=== PATIENT | female | born 1945 | race Caucasian/White ===

== ENCOUNTER → 2020-01-10 10:30 | Outpatient (BNVA) | payer MEDICARE, SELFPAY | PROVIDERS: PCP Family Medicine; Referring Provider Family Medicine; Visit Provider Family Medicine | DX: I48.0 Paroxysmal atrial fibrillation (principal); Z51.81 Encounter for therapeutic drug level monitoring; Z79.01 Long term (current) use of anticoagulants | CPT/HCPCS: 85610; 99211 ==

== ENCOUNTER 2020-01-18 13:27 | Emergency (ER) | payer MEDICARE, SELFPAY ==
[2020-01-18 14:43] VITALS: BP 132/62; PULSE 77; RESP 16; TEMP 36.6; O2SAT 97; BMI 33.2
--- NOTE | 2020-01-18 16:50 | ED_ITS ---
HPI - URI/Sore Throat General Chief Complaint: Upper Respiratory Symptoms Stated Complaint: HEADACHE Time Seen by Provider: 01/18/20 16:50 Source: patient Mode of arrival: ambulatory History of Present Illness MD elicited complaint: cough and sinus pain Onset (ago): day(s) (4 days ) Consistency: progressively worsening Severity: moderate Associated symptoms: nasal congestion Related Data Previous Rx's Medication Instructions Recorded warfarin 2.5 mg tablet 2.5 mg PO DAILY #90 tab 01/10/20 doxycycline monohydrate 100 mg PO BID 7 Days #14 cap 01/18/20 Allergies Allergy/AdvReac Type Severity Reaction Status Date / Time ibuprofen [From MOTRIN] Allergy Intermediate HIVES Unverified 12/23/19 17:41 tramadol [TRAMADOL] Allergy Intermediate ITCHING, Unverified 12/23/19 17:41 hallucinations aspirin [Aspirin] Allergy Mild HIVES,RASH Unverified 12/23/19 17:41 iodine Allergy Unknown Unverified 05/17/19 00:00 metformin Allergy Unknown Verified 05/17/19 00:00 Jfdldwr-Zyp-Snw Reductase AdvReac Intermediate MYALGIA'S Unverified 12/23/19 17:41 Inhibitor [NJBUPAV-QAU-MNC REDUCTASE INHIBITOR] influenza virus vaccine, AdvReac Mild SHAKES Unverified 12/23/19 17:41 specific [Influenza Virus Vacc,Specific] Codeine Phosphate Allergy Unknown Uncoded 06/03/16 00:00 Motrin Allergy Unknown Uncoded 05/17/19 00:00 Review of Systems Review of Systems: Constitutional: No Weight loss, No Fever, No Chills, No Night Sweats, No Fatigue, No Malaise ENT/Mouth: No Hearing loss, No Ear Pain, + Nasal Congestion, + Sinus Pain, No Hoarseness, No sore throat, + Rhinorrhea, No Swallowing Difficulty Eyes: No Eye Pain, No Swelling, No Redness, No Foreign Body, No Discharge, No Vision Changes Cardiovascular: No Chest Pain, No SOB, No Dyspnea on Exertion, No Orthopnea, No Edema, No Palpitations Respiratory: No Cough, No Sputum, No Wheezing, No Smoke Exposure, No Dyspnea Gastrointestinal: No Nausea, No Vomiting, No Diarrhea, No Constipation, No abdominal Pain, No Hematochezia, No Melena Genitourinary: no irregular bleeding, No Dysuria, No Urinary Frequency, No Hematuria, No Urinary Incontinence, No Urgency, No Flank Pain, No Urinary Flow Changes, No Hesitancy Musculoskeletal: No joint pain, No Myalgias, No Joint Swelling Skin: No Skin Lesions, No rash Neuro: No Weakness, No Numbness, No Paresthesias, No Loss of Consciousness, No Dizziness, No Headache Psych: No Anxiety/Panic, No Depression, No SI/HI/AH/VH, No Social Issues, Heme/Lymph: No Bruising, No Bleeding,No Lymphadenopathy Endocrine: No Polyuria, No Polydipsia, No Temperature Intolerance Yes all other systems are reviewed and are negative [facility] Social History Social History Alcohol intake: never Smoking Status: Never smoker Use of substances other than those prescribed or required for medical reasons: No Advance Directives: No Advance Directives Information Provided: No Physical Exam Vital Signs: Vital Signs: Vital Signs Temp Pulse Resp BP Pulse Ox 01/18/20 18:20 16 01/18/20 18:17 96 01/18/20 18:14 72 15 151/64 H 97 01/18/20 18:00 16 01/18/20 14:43 97.9 F 77 16 132/62 97 Body Mass Index 33.2 Const: General: cooperative and healthy appearing; No acute distress or intoxicated appearing Nutritional Appearance: average body habitus Orientation/consciousness: patient oriented x3 HENMT: Head: Yes normal to inspection Ears: hearing grossly normal bilaterally Face and sinus: Yes sinus tenderness (Frontal and maxillary) Eyes: General: appearance normal, both eyes and all related structures Visual Ramírez: normal visual ramírez by confrontation Neck: Neck: Yes normal visual inspection and No tender Thyroid: Thyroid normal Chest: Chest palpation & inspection: normal inspection of the chest Resp: Effort & Inspection: normal respiratory effort Cardio: Jugular venous distension: no JVD GI: Inspection: Yes normal to inspection Percussion: Yes normal to percussion Auscultation: normal bowel sounds : General: Yes no CVA tenderness Back/Spine/Pelvis: Back: no CVA tenderness Skin: General skin exam: no rashes or lesions noted Neuro: General: patient oriented x3 Extrem: General: Yes normal to inspection MDM - URI/Sore Throat MDM Narrative Medical decision making narrative: Well nontoxic appearing. Hemodynamically stable. Labs stable. Chest x-ray negative. Differential Diagnosis Differential diagnosis: Likely upper respiratory infection, sinusitis, viral infection, bronchitis and influenza; Unlikely croup, otitis media and pharyngitis Medical Records Attestation: I reviewed the patient's medical records. Lab Data Attestation: I reviewed the patient's lab results. Result diagrams: 01/18/20 17:50 01/18/20 17:50 Labs: Lab Results 01/18/20 01/18/20 01/18/20 Range/Units 17:50 17:50 17:50 WBC 7.2 (4.8-10.8) X10*3/uL RBC 4.69 (4.20-5.50) X10*6/uL Hgb 12.6 (12.0-16.0) g/dl Hct 39.8 (37-47) % MCV 84.9 (80-98) fL MCH 26.9 L (27.0-33.0) pg MCHC 31.7 (31.0-35.0) g/dl RDW 15.3 (11.0-16.0) % Plt Count 298 (160-400) X10*3/uL MPV 8.2 L (9.4-12.3) fL Immature Gran % (Auto) 0.1 (0.0-0.4) % Neut % (Auto) 49.3 (45-73) % Lymph % (Auto) 38.4 (20-40) % [place] % (Auto) 9.5 (2-11) % Eos % (Auto) 2.1 (0-4) % Baso % (Auto) 0.6 (0-2) % Lymph # (Auto) 2.8 (1.2-4.9) X10*3/uL [place] # (Auto) 0.7 (0.1-1.2) X10*3/uL Eos # (Auto) 0.2 (0.0-0.4) X10*3/uL Baso # (Auto) 0.0 (0.0-0.2) X10*3/uL Abs Immat Gran (auto) 0.01 (0.00-0.03) X10*3/uL Absolute Neuts (auto) 3.6 (2.0-8.3) X10*3/uL Absolute Nucleated RBC 0.000 (0.0-0.012) X10*3/uL Nucleated RBC % (auto) 0.0 (0.0-0.2) /100WBC Sodium 137 (135-145) mmol/L Potassium 4.4 (3.3-5.1) mmol/l Chloride 101 (96-108) mmol/L Carbon Dioxide 29 (22-29) mmol/L Anion Gap 11 L (12-20) BUN 14 (9-16) mg/dL Creatinine 0.80 (0.5-1.4) mg/dL Estim Creat Clear Calc 56.6 Estimated GFR > 60 Random Glucose 147 H (60-115) mg/dL Calcium 9.0 (8.4-10.2) mg/dL Total Bilirubin 0.5 (0.0-1.0) mg/dL Direct Bilirubin < 0.2 (0.0-0.5) mg/dL AST 20 (5-31) U/L ALT 16 (0-31) U/L Alkaline Phosphatase 105 (39-117) U/L Troponin I High Sens < 3.5 (<3.5-17.0) ng/L Total Protein 7.0 (6.5-8.0) g/dL Albumin 4.0 (3.5-5.0) g/dL Coronavirus (PCR) (Negative) 01/18/20 Range/Units 17:50 WBC (4.8-10.8) X10*3/uL RBC (4.20-5.50) X10*6/uL Hgb (12.0-16.0) g/dl Hct (37-47) % MCV (80-98) fL MCH (27.0-33.0) pg MCHC (31.0-35.0) g/dl RDW (11.0-16.0) % Plt Count (160-400) X10*3/uL MPV (9.4-12.3) fL Immature Gran % (Auto) (0.0-0.4) % Neut % (Auto) (45-73) % Lymph % (Auto) (20-40) % [place] % (Auto) (2-11) % Eos % (Auto) (0-4) % Baso % (Auto) (0-2) % Lymph # (Auto) (1.2-4.9) X10*3/uL [place] # (Auto) (0.1-1.2) X10*3/uL Eos # (Auto) (0.0-0.4) X10*3/uL Baso # (Auto) (0.0-0.2) X10*3/uL Abs Immat Gran (auto) (0.00-0.03) X10*3/uL Absolute Neuts (auto) (2.0-8.3) X10*3/uL Absolute Nucleated RBC (0.0-0.012) X10*3/uL Nucleated RBC % (auto) (0.0-0.2) /100WBC Sodium (135-145) mmol/L Potassium (3.3-5.1) mmol/l Chloride (96-108) mmol/L Carbon Dioxide (22-29) mmol/L Anion Gap (12-20) BUN (9-16) mg/dL Creatinine (0.5-1.4) mg/dL Estim Creat Clear Calc Estimated GFR Random Glucose (60-115) mg/dL Calcium (8.4-10.2) mg/dL Total Bilirubin (0.0-1.0) mg/dL Direct Bilirubin (0.0-0.5) mg/dL AST (5-31) U/L ALT (0-31) U/L Alkaline Phosphatase (39-117) U/L Troponin I High Sens (<3.5-17.0) ng/L Total Protein (6.5-8.0) g/dL Albumin (3.5-5.0) g/dL Coronavirus (PCR) NEGATIVE (Negative) Imaging Data Chest x-ray: Radiologist's impression: [place] [id number] XRay Report Signed Patient: Clau Dougherty LMR#: [id number] : 5Acct:[id number] Age/Sex: 74 / FADM Date: 01/18/20 Loc: .ED Attending Dr: Ordering Physician: Raghu Paredes DIETETICS DIRECTOR Date of Service: 01/18/20 Procedure(s): XR chest 1V Accession Number(s): [id number] cc: Raghu Paredes DIETETICS DIRECTOR~ EXAMINATION: XR CHEST CLINICAL INFORMATION: Cough. COMPARISON: 12/15/2019 TECHNIQUE: Frontal view of the chest was obtained. FINDINGS: There is ill-defined opacity at the left lung base consistent with the prominent epicardial fat seen previously as well. No focal consolidation or mass. No pleural effusion or pneumothorax. Normal pulmonary vascularity. Cardiomediastinal silhouette unchanged. There are degenerative changes of the shoulders and spine. There is density adjacent the greater tuberosity of the right humerus which could reflect calcific tendinitis. IMPRESSION: No acute pulmonary disease. No significant change from recent prior study. Dictated By:PAOLO CHAPMAN MD Signed By:<Electronically signed by PAOLO CHAPMAN MD in OV>01/18/20 1729 DD/ 1653 TD/TT: Basket Bottom Machine Operator: NAYLA ECG Data Attestation: I personally reviewed and interpreted this ECG as follows: Discharge Plan Discharge Clinical Impression: Sinusitis Qualifiers: Sinusitis location: maxillary Chronicity: acute Recurrence: non-recurrent Qualified Code(s): J01.00 - Acute maxillary sinusitis, unspecified Patient Disposition: Home, Self-Care Instructions: Sinusitis (ED) Additional Instructions: Plenty of fluids Saltwater gargle Take medication prescribed Return if any concerns or worsening symptoms Otherwise follow up with primary care doctor in the next 3-7 days The blood work as well as her chest x-ray were negative Your COVID-19 test was negative as well Thank you Prescriptions: New doxycycline monohydrate 100 mg capsule 100 mg PO BID 7 Days Qty: 14 RF: 0 No Action warfarin 2.5 mg tablet 2.5 mg PO DAILY Qty: 90 RF: 0 Referrals: Karoline Burgos DO [Primary Care Provider] - 2 days
--- NOTE | 2020-01-18 16:53 | XR_ITS ---
EXAMINATION: XR CHEST CLINICAL INFORMATION: Cough. COMPARISON: 12/15/2019 TECHNIQUE: Frontal view of the chest was obtained. FINDINGS: There is ill-defined opacity at the left lung base consistent with the prominent epicardial fat seen previously as well. No focal consolidation or mass. No pleural effusion or pneumothorax. Normal pulmonary vascularity. Cardiomediastinal silhouette unchanged. There are degenerative changes of the shoulders and spine. There is density adjacent the greater tuberosity of the right humerus which could reflect calcific tendinitis. IMPRESSION: No acute pulmonary disease. No significant change from recent prior study.
[2020-01-18 17:55] LABS: MANUAL DIFF FLAG NO
[2020-01-18 17:56] LABS: Basophils Percent Auto 0.6 % (0-2); Eosinophils Absolute Auto 0.2 X10*3/uL (0.0-0.4); Eosinophils Percent Auto 2.1 % (0-4); Hematocrit 39.8 % (37-47); Hemoglobin 12.6 g/dl (12.0-16.0); Imm Gran Abs Auto 0.01 X10*3/uL (0.00-0.03); Imm Gran Pct Auto 0.1 % (0.0-0.4); Lymphocytes Absolute Auto 2.8 X10*3/uL (1.2-4.9); Lymphocytes Percent Auto 38.4 % (20-40); Mean Corpuscular HGB Conc 31.7 g/dl (31.0-35.0); Mean Corpuscular Hemoglobin 26.9 pg (27.0-33.0); Mean Corpuscular Volume 84.9 fL (80-98); Mean Platelet Volume 8.2 fL (9.4-12.3); Monocytes Absolute Auto 0.7 X10*3/uL (0.1-1.2); Monocytes Percent Auto 9.5 % (2-11); Neutrophils Absolute Auto 3.6 X10*3/uL (2.0-8.3); Neutrophils Percent Auto 49.3 % (45-73); Platelet Count 298 X10*3/uL (160-400); Red Blood Count 4.69 X10*6/uL (4.20-5.50); Red Cell Distribution Width 15.3 % (11.0-16.0); White Blood Count 7.2 X10*3/uL (4.8-10.8)
[2020-01-18 18:00] VITALS: RESP 16
[2020-01-18 18:14] VITALS: BP 151/64; PULSE 72; RESP 15; O2SAT 97
[2020-01-18 18:17] VITALS: O2SAT 96
[2020-01-18 18:20] VITALS: RESP 16
[2020-01-18 18:35] LABS: Alanine Aminotransferase 16 U/L (0-31); Alkaline Phosphatase 105 U/L (39-117); Anion Gap 11 (12-20); Aspartate Amino Transferase 20 U/L (5-31); Bilirubin Direct < 0.2 mg/dL (0.0-0.5); Bilirubin Total 0.5 mg/dL (0.0-1.0); Blood Urea Nitrogen 14 mg/dL (9-16); Carbon Dioxide 29 mmol/L (22-29); Chloride 101 mmol/L (96-108); Creatinine Clr Calc Pharmacy 56.6; Estimated Glomerular Filt Rate > 60; Glucose Random 147 mg/dL (60-115); Potassium 4.4 mmol/l (3.3-5.1); Sodium 137 mmol/L (135-145)
[2020-01-18 18:40] LABS: Troponin-I High Sensitivity < 3.5 ng/L (<3.5-17.0)
[2020-01-18 19:24] LABS: SARS COV2 PCR INHOUSE NEGATIVE (Negative)
[2020-01-18 20:08] VITALS: BP 139/67; PULSE 73; RESP 16; O2SAT 98
[2020-01-19 12:50] LABS: Influenza A PCR NEGATIVE (Negative); Influenza B PCR NEGATIVE (Negative); Resp Syncy Virus RNA Qual PCR NEGATIVE (Negative)
== END 2020-01-18 20:15 | disposition home or self-care (01) ==
PROVIDERS: Nurse Practitioner Primary Care; Emergency Provider Internal Medicine; PCP Family Medicine
DX: J01.00 Acute maxillary sinusitis, unspecified (principal); Z20.828 Contact with and (suspected) exposure to other viral communicable diseases
CPT/HCPCS: 36415; 71045; 80048; 80076; 84484; 85025; 87631; 87635; 99283; 99285

== ENCOUNTER → 2020-01-24 10:56 | Outpatient (BNVA) | payer MEDICARE, SELFPAY | PROVIDERS: PCP Family Medicine; Visit Provider Internal Medicine | DX: I48.0 Paroxysmal atrial fibrillation (principal); Z51.81 Encounter for therapeutic drug level monitoring; Z79.01 Long term (current) use of anticoagulants | CPT/HCPCS: 85610 ==

== ENCOUNTER → 2020-01-27 11:02 | Outpatient (BNVA) | payer MEDICARE, SELFPAY | PROVIDERS: PCP Family Medicine; Visit Provider Internal Medicine | DX: I48.0 Paroxysmal atrial fibrillation (principal); Z51.81 Encounter for therapeutic drug level monitoring; Z79.01 Long term (current) use of anticoagulants | CPT/HCPCS: 85610; 99211 ==

== ENCOUNTER → 2020-02-02 10:50 | Outpatient (BNVA) | payer MEDICARE, SELFPAY | PROVIDERS: PCP Family Medicine; Visit Provider Internal Medicine | DX: I48.0 Paroxysmal atrial fibrillation (principal); Z79.01 Long term (current) use of anticoagulants; Z51.81 Encounter for therapeutic drug level monitoring | CPT/HCPCS: 85610; 99211 ==

== ENCOUNTER → 2020-02-11 11:17 | Outpatient (BNVA) | payer MEDICARE, SELFPAY | PROVIDERS: PCP Family Medicine; Visit Provider Internal Medicine | DX: I48.0 Paroxysmal atrial fibrillation (principal) | CPT/HCPCS: 85610; 99211 ==

== ENCOUNTER → 2020-02-25 10:43 | Outpatient (BNVA) | payer MEDICARE, SELFPAY | PROVIDERS: PCP Family Medicine; Visit Provider Internal Medicine | DX: I48.0 Paroxysmal atrial fibrillation (principal); Z51.81 Encounter for therapeutic drug level monitoring; Z79.01 Long term (current) use of anticoagulants | CPT/HCPCS: 85610; 99211 ==

== ENCOUNTER 2020-03-09 12:00 | Outpatient (REF) | payer MEDICARE, SELFPAY | END 2020-03-09 12:01 | disposition home or self-care (01) | LOC: HO.LAB 12:00 | PROVIDERS: PCP Family Medicine; Visit Provider Internal Medicine | DX: Z20.828 Contact with and (suspected) exposure to other viral communicable diseases (principal) | CPT/HCPCS: C9803; U0003 ==

== ENCOUNTER → 2020-03-10 10:55 | Outpatient (BNVA) | payer MEDICARE, SELFPAY | PROVIDERS: PCP Family Medicine; Visit Provider Internal Medicine | DX: I48.0 Paroxysmal atrial fibrillation (principal); Z51.81 Encounter for therapeutic drug level monitoring; Z79.01 Long term (current) use of anticoagulants | CPT/HCPCS: 85610; 99211 ==

== ENCOUNTER → 2020-03-24 10:39 | Outpatient (BNVA) | payer MEDICARE, SELFPAY | PROVIDERS: PCP Family Medicine; Visit Provider Internal Medicine | DX: I48.0 Paroxysmal atrial fibrillation (principal); Z51.81 Encounter for therapeutic drug level monitoring; Z79.01 Long term (current) use of anticoagulants | CPT/HCPCS: 85610; 99211 ==

== ENCOUNTER → 2020-04-14 10:51 | Outpatient (BNVA) | payer MEDICARE, SELFPAY | PROVIDERS: PCP Family Medicine; Visit Provider Internal Medicine | DX: I48.0 Paroxysmal atrial fibrillation (principal); Z51.81 Encounter for therapeutic drug level monitoring; Z79.01 Long term (current) use of anticoagulants | CPT/HCPCS: 85610; 99211 ==

== ENCOUNTER 2020-04-18 10:52 | Outpatient (REF) | payer MEDICARE, SELFPAY | END 2020-04-18 10:53 | disposition home or self-care (01) | LOC: HO.LAB 10:52 | PROVIDERS: PCP Family Medicine; Visit Provider Internal Medicine | DX: Z20.822 Contact with and (suspected) exposure to COVID-19 (principal) | CPT/HCPCS: 36415; C9803; U0003 ==

== ENCOUNTER 2020-05-04 12:08 | Outpatient (REF) | payer MEDICARE, SELFPAY | END 2020-05-04 12:09 | disposition home or self-care (01) | LOC: HO.LAB 12:08 | PROVIDERS: PCP Family Medicine; Visit Provider Internal Medicine | DX: Z20.822 Contact with and (suspected) exposure to COVID-19 (principal) | CPT/HCPCS: 36415; C9803; U0003 ==

== ENCOUNTER 2020-05-09 11:21 | Emergency (ER) | payer MEDICARE, SELFPAY ==
[2020-05-09 11:24] VITALS: BP 119/56; PULSE 61; RESP 16; TEMP 36.7; O2SAT 96; BMI 31.6
--- NOTE | 2020-05-09 11:50 | ECG_ITS ---
Test Reason : CP Blood Pressure : / mmHG Vent. Rate : 066 BPM Atrial Rate : 066 BPM P-R Int : 150 ms QRS Dur : 074 ms QT Int : 394 ms P-R-T Axes : 068 007 026 degrees QTc Int : 413 ms Normal sinus rhythm Normal ECG When compared to the previous EKG of No significant changes seen Referred By: Bianka Morton Electronically Signed By:DAVONTE RUVALCABA MD
--- NOTE | 2020-05-09 11:50 | XR_ITS ---
EXAMINATION: XR CHEST CLINICAL INFORMATION: Chest pain COMPARISON: Previous chest x-ray January 2020 TECHNIQUE: Frontal view of the chest was obtained. FINDINGS: The cardiac and mediastinal contours are stable. The lungs are clear. There is no pleural effusion or pneumothorax. There are degenerative changes of the spine. XR/XR chest 1V IMPRESSION: No evidence for acute disease in the chest.
[2020-05-09 12:01] VITALS: BP 120/54; PULSE 62
[2020-05-09 12:03] VITALS: BP 115/46; PULSE 66
[2020-05-09 12:04] VITALS: BP 122/56; PULSE 69
[2020-05-09 12:24] LABS: MANUAL DIFF FLAG NO
[2020-05-09 12:28] LABS: Basophils Percent Auto 0.5 % (0-2); Eosinophils Absolute Auto 0.2 X10*3/uL (0.0-0.4); Eosinophils Percent Auto 2.4 % (0-4); Hematocrit 37.6 % (37-47); Hemoglobin 12.1 g/dl (12.0-16.0); Imm Gran Abs Auto 0.03 X10*3/uL (0.00-0.03); Imm Gran Pct Auto 0.5 % (0.0-0.4); Lymphocytes Absolute Auto 1.9 X10*3/uL (1.2-4.9); Lymphocytes Percent Auto 30.6 % (20-40); Mean Corpuscular HGB Conc 32.2 g/dl (31.0-35.0); Mean Corpuscular Hemoglobin 27.4 pg (27.0-33.0); Mean Corpuscular Volume 85.3 fL (80-98); Monocytes Absolute Auto 0.5 X10*3/uL (0.1-1.2); Neutrophils Absolute Auto 3.6 X10*3/uL (2.0-8.3); Platelet Count 319 X10*3/uL (160-400); Red Blood Count 4.41 X10*6/uL (4.20-5.50); Red Cell Distribution Width 13.5 % (11.0-16.0); White Blood Count 6.2 X10*3/uL (4.8-10.8)
[2020-05-09 12:38] LABS: INTERNATIONAL NORM RATIO 4.3 (0.9-1.1); Prothrombin Time 51.4 SEC (10.8-13.0)
[2020-05-09 12:50] LABS: Partial Thromboplastin Time 61.8 SEC (24.1-38.0)
[2020-05-09 12:51] LABS: D Dimer < 200 NG/ML
[2020-05-09 12:52] LABS: Alanine Aminotransferase 12 U/L (0-31); Albumin Level 3.6 g/dL (3.5-5.0); Alkaline Phosphatase 81 U/L (39-117); Anion Gap 12 (12-20); Aspartate Amino Transferase 20 U/L (5-31); Bilirubin Direct < 0.2 mg/dL (0.0-0.5); Bilirubin Total 0.5 mg/dL (0.0-1.0); Blood Urea Nitrogen 14 mg/dL (9-16); Calcium 8.5 mg/dL (8.4-10.2); Carbon Dioxide 27 mmol/L (22-29); Chloride 103 mmol/L (96-108); Creatinine Clr Calc Pharmacy 59.6; Estimated Glomerular Filt Rate > 60; Glucose Random 160 mg/dL (60-115); Magnesium 2.1 mg/dL (1.6-2.6); Potassium 4.4 mmol/L (3.3-5.1); Sodium 138 mmol/L (135-145); Total Protein 6.5 g/dL (6.5-8.0)
[2020-05-09 12:54] LABS: B Type Natriuretic Peptide 149 pg/mL (<100); Troponin-I High Sensitivity < 3.5 ng/L (<3.5-17.0)
--- NOTE | 2020-05-09 12:59 | ED_ITS ---
HPI - Chest Pain General Chief Complaint: Chest Pain Stated Complaint: CP,+COVID Time Seen by Provider: 05/09/20 11:38 Source: patient History of Present Illness HPI narrative: 75-year-old female with a past medical history of HTN, proximal AFib on Coumadin, heart failure, diabetes, COVID-19 positive on 04/18 presenting to the ED complaining of sudden onset substernal/left-sided chest pain with associated dizziness and heart palpitations this morning while up using the bathroom. Also reports subjective fever, headache, myalgias, generalized fatigue/weakness. Denies dizziness at present, does admit to residual CP and chronic SOB. Denies recent travel, new or worsening cough, abdominal pain, nausea/vomiting, LE edema MD complaint: chest pain Related Data Home Medications Medication Instructions Recorded Confirmed alcohol swabs 0 pad TOPICAL 03/24/20 03/24/20 blood sugar diagnostic #10 ea 03/24/20 03/24/20 cetirizine 10 mg tablet 10 mg PO DAILY 03/24/20 03/24/20 fluticasone propionate 110 0 mcg INHALATION 03/24/20 03/24/20 mcg/actuation HFA aerosol inhaler fluticasone propionate 50 0 mcg INTRANASAL 03/24/20 03/24/20 mcg/actuation nasal spray,suspension furosemide 20 mg tablet 60 mg PO Q OTHER DAY PRN 03/24/20 03/24/20 insulin aspart U-100 100 unit/mL unit SUBCUT 03/24/20 03/24/20 (3 mL) subcutaneous pen lancets 33 gauge #100 ea 03/24/20 03/24/20 metoprolol succinate 50 mg 50 mg PO DAILY 03/24/20 03/24/20 tablet,extended release 24 hr pen needle, diabetic 32 gauge x #50 ea 03/24/20 03/24/20/32 sertraline 25 mg tablet 25 mg PO DAILY 03/24/20 03/24/20 Previous Rx's Medication Instructions Recorded warfarin 2.5 mg tablet 2.5 mg PO DAILY #90 tab 01/10/20 doxycycline monohydrate 100 mg PO BID 7 Days #14 cap 01/18/20 Allergies Allergy/AdvReac Type Severity Reaction Status Date / Time ibuprofen [From MOTRIN] Allergy Intermediate HIVES Verified 04/14/20 10:51 tramadol [TRAMADOL] Allergy Intermediate ITCHING, Verified 04/14/20 10:51 hallucinations aspirin [Aspirin] Allergy Mild HIVES,RASH Verified 04/14/20 10:51 iodine Allergy Unknown UNKNOWN Verified 04/14/20 10:51 metformin Allergy Unknown UNKNOWN Verified 04/14/20 10:51 Rzpqwjg-Mga-Qsw Reductase AdvReac Intermediate MYALGIA'S Verified 04/14/20 10:51 Inhibitor [NBZTSOD-EFD-NIP REDUCTASE INHIBITOR] influenza virus vaccine, AdvReac Mild SHAKES Verified 04/14/20 10:51 specific [Influenza Virus Vacc,Specific] Codeine Phosphate Allergy Unknown UNKNOWN Uncoded 01/27/20 11:19 Motrin Allergy Unknown UNKNOWN Uncoded 01/27/20 11:19 Review of Systems Review of Systems: Constitutional: No Weight loss, + Fever, + Chills, No Night Sweats, + Fatigue, + Malaise Cardiovascular: + Chest Pain, +chronic SOB, No Dyspnea on Exertion, No Ort hopnea, No Edema, + Palpitations Respiratory: No Cough, No Sputum, No Wheezing, No Smoke Exposure, No Dyspnea Gastrointestinal: No Nausea, No Vomiting, No Diarrhea, No Constipation, No Abdominal pain Genitourinary: No irregular bleeding, No Dysuria, No Urinary Frequency, No Hematuria Musculoskeletal: No joint pain, + Myalgias, No Joint Swelling Skin: No Skin Lesions, No rash Neuro: +Generalized Weakness, No Numbness, No Paresthesias, No Loss of Consciousness, + Dizziness, + Headache Yes all other systems are reviewed and are negative PMFSH Past Medical History Attestation statement: The following information was validated with the patient. Medical History (Updated 05/09/20 @ 16:17 by JOMAR Jaimes) (HFpEF) heart failure with preserved ejection fraction Diabetes mellitus HTN (hypertension) Paroxysmal atrial fibrillation Surgical History Hx of breast biopsy Hx of knee surgery Hx of tonsillectomy Hx of tubal ligation Family History Family History (Updated 01/24/20 @ 17:37 by Rylee Cobb Ginette) Father CVD (cardiovascular disease) Sudden cardiac Mother No problems noted. Social History Social History Alcohol intake: never Smoking Status: Never smoker Smoked in Last 30 Days: No Use of substances other than those prescribed or required for medical reasons: No Any prior treatment program specific to substance use: No Advance Directives: No Advance Directives Information Provided: No Physical Exam Vital Signs: Vital Signs: Last Vital Signs Temp 98.2 F 05/09/20 14:20 Pulse 61 05/09/20 16:04 Resp 17 05/09/20 16:04 BP 127/61 05/09/20 16:04 Pulse Ox 96 05/09/20 16:04 Body Mass Index 31.6 Const: General: cooperative and comfortable Orientation/consciousness: patient oriented x3 Limitations: no limitations HENMT: Head: Yes normal to inspection Ears: hearing grossly normal bilaterally General nose exam: Normal external nose present Face and sinus: Yes normal facial exam Eyes: General: appearance normal, both eyes and all related structures EOM: EOMs intact bilaterally Neck: Neck: Yes normal visual inspection and Yes no meningeal signs Resp: Effort & Inspection: normal respiratory effort Auscultation: clear to auscultation bilaterally, no rales, no rhonchi and no wheezes Cardio: Rate: regular rate Heart sounds: S1 normal heart sound present and S2 normal heart sound present GI: Inspection: Yes normal to inspection Palpation (GI): Soft to palpation, nontender, no guarding and not rigid Skin: Rashes: no rashes Wounds: no wounds Neuro: General: patient oriented x3 and no meningeal signs Gait exam (Neuro): Normal gait present Extrem: Other: Slight bilateral LE edema. No calf tenderness Course Course Course Narrative: - 1311-- PTT noted to be 61.8, INR elevated at 4.3 > no evidence bleeding, low concern for ICH. Will hold next dose of warfarin. D- dimer negative - initial troponin negative, will obtain 3 hour repeat. CXR unremarkable. Orthostatic vital signs negative - 1613-- repeat troponin negative. WI unlikely. - results discussed with patient. Upon further conversation reports continued headache, will obtain brain CT to rule out ICH secondary to elevated INR. Discussed with patient holding her Coumadin tomorrow in getting a recheck on , she reports [facility] refusing to check levels until tests negative for COVID-19. This is discussed with case management -1700--ED care transferred to JOMAR Delgado pending head CT and Case Management input on INR check for MDM - Chest Pain MDM Narrative Medical decision making narrative: 75-year-old female with a past medical history of HTN, proximal AFib on Coumadin, heart failure, diabetes, COVID-19 positive on 04/18 presenting to the ED complaining of sudden onset subste rnal/left-sided chest pain with associated dizziness and heart palpitations this morning while up using the bathroom. On exam VSS, nontoxic appearing, lungs CTA. Concern for ACS vs PE vs COVID-19 symptoms/viral syndrome. Lower concern for bacterial pneumonia or sepsis Plan: EKG, labs, CXR, reassess Lab Data Result diagrams: 05/09/20 11:59 05/09/20 11:59 Labs: Lab Results 05/09/20 05/09/20 05/09/20 Range/Units 11:59 11:59 11:59 WBC 6.2 (4.8-10.8) X10*3/uL RBC 4.41 (4.20-5.50) X10*6/uL Hgb 12.1 (12.0-16.0) g/dl Hct 37.6 (37-47) % MCV 85.3 (80-98) fL MCH 27.4 (27.0-33.0) pg MCHC 32.2 (31.0-35.0) g/dl RDW 13.5 (11.0-16.0) % Plt Count 319 (160-400) X10*3/uL MPV 9.0 L (9.4-12.3) fL Immature Gran % (Auto) 0.5 H (0.0-0.4) % Neut % (Auto) 58.0 (45-73) % Lymph % (Auto) 30.6 (20-40) % [place] % (Auto) 8.0 (2-11) % Eos % (Auto) 2.4 (0-4) % Baso % (Auto) 0.5 (0-2) % Lymph # (Auto) 1.9 (1.2-4.9) X10*3/uL [place] # (Auto) 0.5 (0.1-1.2) X10*3/uL Eos # (Auto) 0.2 (0.0-0.4) X10*3/uL Baso # (Auto) 0.0 (0.0-0.2) X10*3/uL Abs Immat Gran (auto) 0.03 (0.00-0.03) X10*3/uL Absolute Neuts (auto) 3.6 (2.0-8.3) X10*3/uL Absolute Nucleated RBC 0.000 (0.0-0.012) X10*3/uL Nucleated RBC % (auto) 0.0 (0.0-0.2) /100WBC PT 51.4 H (10.8-13.0) SEC INR 4.3 H (0.9-1.1) APTT 61.8 H* (24.1-38.0) SEC D-Dimer < 200 NG/ML Sodium 138 (135-145) mmol/L Potassium 4.4 (3.3-5.1) mmol/L Chloride 103 (96-108) mmol/L Carbon Dioxide 27 (22-29) mmol/L Anion Gap 12 (12-20) BUN 14 (9-16) mg/dL Creatinine 0.73 (0.5-1.4) mg/dL Estim Creat Clear Calc 59.6 Estimated GFR > 60 Random Glucose 160 H (60-115) mg/dL Calcium 8.5 (8.4-10.2) mg/dL Magnesium 2.1 (1.6-2.6) mg/dL Total Bilirubin 0.5 (0.0-1.0) mg/dL Direct Bilirubin < 0.2 (0.0-0.5) mg/dL AST 20 (5-31) U/L ALT 12 (0-31) U/L Alkaline Phosphatase 81 D (39-117) U/L Troponin I High Sens (<3.5-17.0) ng/L B-Natriuretic Peptide (<100) pg/mL Total Protein 6.5 (6.5-8.0) g/dL Albumin 3.6 (3.5-5.0) g/dL TSH 1.21 (0.32-4.0) uIU/mL 05/09/20 05/09/20 Range/Units 11:59 15:23 WBC (4.8-10.8) X10*3/uL RBC (4.20-5.50) X10*6/uL Hgb (12.0-16.0) g/dl Hct (37-47) % MCV (80-98) fL MCH (27.0-33.0) pg MCHC (31.0-35.0) g/dl RDW (11.0-16.0) % Plt Count (160-400) X10*3/uL MPV (9.4-12.3) fL Immature Gran % (Auto) (0.0-0.4) % Neut % (Auto) (45-73) % Lymph % (Auto) (20-40) % [place] % (Auto) (2-11) % Eos % (Auto) (0-4) % Baso % (Auto) (0-2) % Lymph # (Auto) (1.2-4.9) X10*3/uL [place] # (Auto) (0.1-1.2) X10*3/uL Eos # (Auto) (0.0-0.4) X10*3/uL Baso # (Auto) (0.0-0.2) X10*3/uL Abs Immat Gran (auto) (0.00-0.03) X10*3/uL Absolute Neuts (auto) (2.0-8.3) X10*3/uL Absolute Nucleated RBC (0.0-0.012) X10*3/uL Nucleated RBC % (auto) (0.0-0.2) /100WBC PT (10.8-13.0) SEC INR (0.9-1.1) APTT (24.1-38.0) SEC D-Dimer NG/ML Sodium (135-145) mmol/L Potassium (3.3-5.1) mmol/L Chloride (96-108) mmol/L Carbon Dioxide (22-29) mmol/L Anion Gap (12-20) BUN (9-16) mg/dL Creatinine (0.5-1.4) mg/dL Estim Creat Clear Calc Estimated GFR Random Glucose (60-115) mg/dL Calcium (8.4-10.2) mg/dL Magnesium (1.6-2.6) mg/dL Total Bilirubin (0.0-1.0) mg/dL Direct Bilirubin (0.0-0.5) mg/dL AST (5-31) U/L ALT (0-31) U/L Alkaline Phosphatase (39-117) U/L Troponin I High Sens < 3.5 < 3.5 (<3.5-17.0) ng/L B-Natriuretic Peptide 149 H (<100) pg/mL Total Protein (6.5-8.0) g/dL Albumin (3.5-5.0) g/dL TSH (0.32-4.0) uIU/mL Discharge Plan Discharge Clinical Impression: Elevated INR Chest pain Qualifiers: Chest pain type: unspecified Qualified Code(s): R07.9 - Chest pain, unspecified Patient Disposition: Home, Self-Care Instructions: Elevated INR (ED) Additional Instructions: Blood work showed an elevated INR of 4.3. You need to hold your Coumadin tomorrow and have your INR recheck on . You have COVID-19, continue to follow states/Federal regulations. Follow up with her primary care doctor as well as Cardiology. If her symptoms persist or worsen, chest pain becomes constant, he developed dizziness again, or headache, numbness, tingling, or weakness, or any bleeding return to the ED immediately Los an?lisis de sara mostraron un INR elevado de 4,3. Debe retener quach Coumadin ma?samy y volver a verificar quach INR el jueves. Tiene COVID-19, contin?e siguiendo las regulaciones estatales / federales. Torin un seguimiento con quach m?dico de atenci?n primaria y con Cardiolog?a. Si tracy s?ntomas persisten o empeoran, el dolor en el pecho se vuelve kati, volvi? a desarrollar mareos, dolor de lili, entumecimiento, hormigueo o debilidad, o cualquier sangrado regresa al servicio de urgencias inmediatamente. Prescriptions: No Action doxycycline monohydrate 100 mg capsule 100 mg PO BID 7 Days Qty: 14 RF: 0 warfarin 2.5 mg tablet 2.5 mg PO DAILY Qty: 90 RF: 0 (DME) lancets 33 gauge misc See Rx Instructions ea .ROUTE .MEDSUPPLY Qty: 100 RF: 0 (DME) pen needle, diabetic 32 gauge x 5/32 needle See Rx Instructions ea .ROUTE .MEDSUPPLY Qty: 50 RF: 0 insulin aspart U-100 100 unit/mL (3 mL) insulin pen subcut RF: 0 Flovent HFA 110 mcg/actuation HFA aerosol inhaler 0 mcg inhalation RF: 0 fluticasone propionate 50 mcg/actuation spray,suspension 0 mcg intranasal RF: 0 furosemide 20 mg tablet 60 mg PO Q OTHER DAY PRNRF: 0 alcohol swabs Pads, Medicated 0 pad topical RF: 0 sertraline 25 mg tablet 25 mg PO DAILY RF: 0 cetirizine 10 mg tablet 10 mg PO DAILY RF: 0 (DME) FreeStyle Lite Strips Strip See Rx Instructions ea Not Applicable .MEDSUPPLY Qty: 10 RF: 0 metoprolol succinate 50 mg tablet extended release 24 hr 50 mg PO DAILY RF: 0 Referrals: Wellington Pham MD [Physician] - 3 days Print Language: Syriac
[2020-05-09 14:07] LABS: TSH reflex Free T4 1.21 uIU/mL (0.32-4.0)
[2020-05-09 14:20] VITALS: BP 115/54; PULSE 73; RESP 18; TEMP 36.8; O2SAT 96
[2020-05-09 15:57] LABS: Troponin-I High Sensitivity < 3.5 ng/L (<3.5-17.0)
[2020-05-09 16:04] VITALS: BP 127/61; PULSE 61; RESP 17; O2SAT 96
--- NOTE | 2020-05-09 16:35 | CT_ITS ---
EXAMINATION: CT HEAD WITHOUT CONTRAST CLINICAL INFORMATION: Elevated INR COMPARISON: CT head 05/10/2018 TECHNIQUE: Contiguous axial imaging was performed from the skull base to vertex without intravenous administration of contrast. Coronal and sagittal reformatted images are performed at the CT scanner. [This CT examination was performed using dose optimization techniques as appropriate, variously including the following: *Automated exposure control *Adjustment of mA and/or kV according to patient size (this includes techniques or standardized protocols for targeted exams where dose is matched to indication/reason for exam; i.e. extremities or head) *Use of iterative reconstruction technique] DLP: 605 mGy-cm. FINDINGS: There is no evidence of acute intracranial hemorrhage or territorial infarction. No abnormal mass-effect or midline shift is seen. Gould to white matter differentiation is well preserved. No extra-axial fluid collections are identified. There is age-appropriate atrophy with prominence of the ventricles and the sulci and hypodensity of the periventricular white matter due to chronic small vessel ischemic disease. There are physiologic calcifications of basal ganglia bilateral. There are vascular calcifications of the internal carotid arteries bilaterally. There is no osseous abnormality. The mastoid air cells and visualized portions of the paranasal sinuses are well-aerated. CT/CT head/brain wo con IMPRESSION: No acute intracranial pathology.
--- NOTE | 2020-05-09 18:10 | MHC.CM.ED ---
Spoke with patient at request of NAnne regarding need for INR testing on and pt. telling her that the coumadin clinic at [facility] [place] not see her while she is COVID positive. Pt. tested positive on 04/18. Explained to pt. via electronic game developer that she will not take her coumadin tomorrow, Friday and will come to the [facility] main laboratory on , anytime in the morning with her lab slip, her ID and Insurance card. Pt instructed to let them know at the main door that she is covid positive. Per lab, they will escort her to the lab to have her INR and escort her to the exit. Results will go to her doctor, Dr. Karoline Burgos. Pt understands and was able to teach-back. Reviewed with Sandy HADLEY.
== END 2020-05-09 18:34 | disposition home or self-care (01) ==
PROVIDERS: Physician Assistant; Emergency Provider Emergency Medicine; PCP Family Medicine
DX: R07.9 Chest pain, unspecified (principal); I11.0 Hypertensive heart disease with heart failure; I50.9 Heart failure, unspecified; I48.0 Paroxysmal atrial fibrillation; Z79.01 Long term (current) use of anticoagulants; Z86.16 Personal history of COVID-19; Z79.4 Long term (current) use of insulin
CPT/HCPCS: 36415; 70450; 71045; 80048; 80076; 83735; 83880; 84443; 84484; 85025; 85379; 85610; 85730; 93005; 99284

== ENCOUNTER 2020-05-11 12:23 | Outpatient (REF) | payer MEDICARE, SELFPAY ==
[2020-05-11 14:01] LABS: INTERNATIONAL NORM RATIO 1.8 (0.9-1.1); Prothrombin Time 21.5 SEC (10.8-13.0)
== END 2020-05-11 12:24 | disposition home or self-care (01) ==
LOC: HO.LAB 12:23
PROVIDERS: PCP Family Medicine; Visit Provider Physician Assistant
DX: R79.1 Abnormal coagulation profile (principal); I48.91 Unspecified atrial fibrillation
CPT/HCPCS: 36415; 85610

== ENCOUNTER → 2020-05-31 09:48 | Outpatient (BNVA) | payer MEDICARE, SELFPAY | PROVIDERS: PCP Family Medicine; Visit Provider Internal Medicine | DX: I48.0 Paroxysmal atrial fibrillation (principal); Z51.81 Encounter for therapeutic drug level monitoring; Z79.01 Long term (current) use of anticoagulants | CPT/HCPCS: 85610; 99211 ==

== ENCOUNTER → 2020-06-01 10:12 | Outpatient (BNVA) | payer MEDICARE, SELFPAY | PROVIDERS: PCP Family Medicine; Referring Provider Family Medicine; Visit Provider Student in an Organized Health Care Education/Training Program | DX: M89.49 Other hypertrophic osteoarthropathy, multiple sites (principal); G56.03 Carpal tunnel syndrome, bilateral upper limbs | CPT/HCPCS: 99212 ==

== ENCOUNTER → 2020-06-28 09:44 | Outpatient (BNVA) | payer MEDICARE, SELFPAY | PROVIDERS: PCP Family Medicine; Visit Provider Internal Medicine | DX: I48.0 Paroxysmal atrial fibrillation (principal); Z51.81 Encounter for therapeutic drug level monitoring; Z79.01 Long term (current) use of anticoagulants | CPT/HCPCS: 85610; 99211 ==

== ENCOUNTER 2020-07-17 10:00 | Outpatient (RCR) | payer MEDICARE, SELFPAY ==
--- NOTE | 2020-06-23 11:14 | MHC.PT.EP ---
[facility] [place] [facility] [place] [facility] [place] [facility] [address] Shani Cartagena [address] [phone] F: [phone] F: [phone] F: [phone] F: [phone] Physical Therapy Plan of Care Date of Evaluation: 06/23/20 Date of Surgery: NA Diagnosis: B SHOULDER HYPERTROPHIC OSTEOARTHROPATHY Assessment: Pt IS 75 YO F REFERRED TO PT FROM DR HERNANDEZ WITH B SHLDER HYPERTROPHIC OSTEOARTHROPATHY. Pt REPORTS PT IN PAST (FOR B KNEES POST TKR, AND FOR NECK WITHOUT RELIEF). PRESENTS WITH LIMITED SHLDER ROM AND LIMITED UE STRENGTH B. Pt REPORTS PAIN WITH USE OF UES. SHOULD BENEFIT FROM PT TO ADDRESS THESE ISSUES Frequency and Duration: The patient will be seen 2X/WK X 6 WKS Short Term Goals: 1. INCREASED AWARENESS POSTURE AND SHLDER CARE 2. IMPROVED SLEEP 3. I HEP WITH DC EX PLAN Senior Care Goals: 1. INCREASED SHLDER ROM 10-20 DEGREES T/O 2. INCREASED USE UES FOR ADLS 3. DECREASED PAIN IN SHLDERS AT LEAST 50% WITH ADLS Treatment Plan: Modalities to reduce pain, spasms and effusion. Manual therapy to restore motion and function. Therapeutic exercise to improve strength and flexibility. Neuromuscular re-education for posture and balance. Therapeutic activities to return to functional activities of daily living. Electronically signed by: ANSON HENNING PT Please sign and return to therapist. Thank you for your referral.
--- NOTE | 2020-08-21 15:33 | MHC.PT.DC ---
[facility] [place] [facility] [place] [facility] [place] Office [address] Shani Cartagena [address] [phone] F: [phone] F: [phone] F: [phone] F: [phone] Physical Therapy Discharge Report Diagnosis: B SHOULDER HYPERTROPHIC OSTEOARTHROPATHY Date of Surgery: NA Date of Evaluation: 06/23/20 Date of Discharge: 08/21/20 Treatments to Date: 7 Cancellations to Date: No Shows to Date: 2 Discharge Status: Patient Elected to Stop Recommend MD Follow-up Discharge Summary: Pt SEEN FOR INIT EVAL AND 6 VISITS. AT LAST SESSION Pt REPORTED CONTINUED SHLDER PAIN. WAS SUPPOSED TO HAVE ONE LAST VISIT FOR REV OF HOME PROG AND GOALS BUT Pt NO SHOWED WITHOUT FURTHER VISITS SCHEDULED Electronically signed by: ANSON HENNING PT Please sign and return to therapist. Thank you for your referral.
== END 2020-08-21 15:40 | disposition other institution (70) ==
LOC: HO.PT 10:00
PROVIDERS: PCP Family Medicine; Visit Provider Student in an Organized Health Care Education/Training Program
DX: M89.49 Other hypertrophic osteoarthropathy, multiple sites (principal)
CPT/HCPCS: 97110; 97112; 97140; 97161

== ENCOUNTER → 2020-07-28 10:09 | Outpatient (BNVA) | payer MEDICARE, SELFPAY | PROVIDERS: PCP Family Medicine; Visit Provider Internal Medicine | DX: I48.0 Paroxysmal atrial fibrillation (principal); Z79.01 Long term (current) use of anticoagulants; Z51.81 Encounter for therapeutic drug level monitoring | CPT/HCPCS: 85610; 99211 ==

== ENCOUNTER → 2020-08-11 10:10 | Outpatient (BNVA) | payer MEDICARE, SELFPAY | PROVIDERS: PCP Family Medicine; Visit Provider Internal Medicine | DX: I48.0 Paroxysmal atrial fibrillation (principal); Z79.01 Long term (current) use of anticoagulants; Z51.81 Encounter for therapeutic drug level monitoring | CPT/HCPCS: 85610; 99211 ==

== ENCOUNTER → 2020-08-18 10:44 | Outpatient (BNVA) | payer MEDICARE, SELFPAY | PROVIDERS: PCP Family Medicine; Visit Provider Internal Medicine | DX: I48.0 Paroxysmal atrial fibrillation (principal); Z51.81 Encounter for therapeutic drug level monitoring; Z79.01 Long term (current) use of anticoagulants | CPT/HCPCS: 85610; 99211 ==

== ENCOUNTER → 2020-09-01 10:09 | Outpatient (BNVA) | payer MEDICARE, SELFPAY | PROVIDERS: PCP Family Medicine; Visit Provider Internal Medicine | DX: I48.0 Paroxysmal atrial fibrillation (principal); Z51.81 Encounter for therapeutic drug level monitoring; Z79.01 Long term (current) use of anticoagulants | CPT/HCPCS: 85610; 99211 ==

== ENCOUNTER → 2020-09-15 09:23 | Outpatient (BNVA) | payer MEDICARE, SELFPAY | PROVIDERS: PCP Family Medicine; Visit Provider Internal Medicine | DX: I48.0 Paroxysmal atrial fibrillation (principal); Z51.81 Encounter for therapeutic drug level monitoring; Z79.01 Long term (current) use of anticoagulants | CPT/HCPCS: 85610; 99211 ==

== ENCOUNTER → 2020-10-05 08:38 | Outpatient (BNVA) | payer MEDICARE, SELFPAY | PROVIDERS: PCP Family Medicine; Visit Provider Internal Medicine | DX: I48.0 Paroxysmal atrial fibrillation (principal); Z51.81 Encounter for therapeutic drug level monitoring; Z79.01 Long term (current) use of anticoagulants | CPT/HCPCS: 85610; 99211 ==

== ENCOUNTER → 2020-10-19 10:29 | Outpatient (BNVA) | payer MEDICARE, SELFPAY | PROVIDERS: PCP Family Medicine; Visit Provider Internal Medicine | DX: I48.0 Paroxysmal atrial fibrillation (principal); Z51.81 Encounter for therapeutic drug level monitoring; Z79.01 Long term (current) use of anticoagulants | CPT/HCPCS: 85610; 99211 ==

== ENCOUNTER → 2020-11-03 10:30 | Outpatient (BNVA) | payer MEDICARE, SELFPAY | PROVIDERS: PCP Family Medicine; Visit Provider Internal Medicine | DX: I48.0 Paroxysmal atrial fibrillation (principal); Z51.81 Encounter for therapeutic drug level monitoring; Z79.01 Long term (current) use of anticoagulants | CPT/HCPCS: 85610; 99211 ==

== ENCOUNTER 2020-11-10 14:36 | Emergency (ER) | payer MEDICARE, SELFPAY ==
--- NOTE | ~2020-11-10 | CT_ITS ---
EXAMINATION: CT ABDOMEN AND PELVIS WITH CONTRAST CLINICAL INFORMATION: epigastric pain, bloating, nausea COMPARISON: 10/12/[address] TECHNIQUE: Multidetector volumetric imaging was performed from the superior aspect of the liver through the pubic symphysis following administration of 85 cc of Omnipaque intravenous contrast Sagittal and coronal reformatted images were obtained on the technologist workstation.. This CT examination was performed using dose optimization techniques as appropriate, variously including the following: *Automated exposure control *Adjustment of mA and/or kV according to patient size (this includes techniques or standardized protocols for targeted exams where dose is matched to indication/reason for exam; i.e. extremities or head) *Use of iterative reconstruction technique DLP: 585 mGy-cm FINDINGS: LUNG BASES: Postoperative and posttreatment changes to the left breast. Basilar lungs unremarkable. LIVER, GALLBLADDER, AND BILIARY TREE: The liver is normal in size, shape, and attenuation. No focal hepatic lesion or biliary ductal dilatation is present. The gallbladder surgically absent. There is a 1.2 cm structure along the posterior right liver edge possibly representing an incidental dropped gallstone in this location. There is no surrounding inflammatory change to this incidentally noted finding. PANCREAS: Unremarkable. SPLEEN: Unremarkable. ADRENAL GLANDS: Unremarkable. KIDNEYS AND URETERS: The kidneys are normal in size, shape, and attenuation. No hydronephrosis, hydroureter, or calculi seen. No perinephric stranding. BLADDER: Unremarkable. GASTROINTESTINAL TRACT: Scattered diverticulosis but no evidence for diverticulitis. No colonic wall thickening or pericolonic colonic inflammatory change. ABDOMINAL WALL: No significant hernia is appreciated. LYMPHOVASCULAR STRUCTURES: Vascular calcification within the aorta iliac system. PELVIC VISCERA: Unremarkable. OSSEOUS STRUCTURES: Mild multilevel degenerative changes in the spine and degenerative changes in the hips but no acute bony abnormality. CT/CT abdomen pelvis w con IMPRESSION: Chronic appearing and postoperative changes as described. I do not appreciate any acute intra-abdominal process as described above
[2020-11-10 15:11] VITALS: BP 130/54; PULSE 68; RESP 16; TEMP 36.9; O2SAT 95; BMI 34.0
--- NOTE | 2020-11-10 15:15 | ECG_ITS ---
Test Reason : STOMACH PAIN Blood Pressure : / mmHG Vent. Rate : 074 BPM Atrial Rate : 074 BPM P-R Int : 164 ms QRS Dur : 078 ms QT Int : 384 ms P-R-T Axes : 064 013 032 degrees QTc Int : 426 ms Normal sinus rhythm Normal ECG When compared with ECG of 09-MAY-2020 11:27, No significant change was found Referred By: Generic ED Physician Electronically Signed By:Alexandru Jeronimo
[2020-11-10 16:24] LABS: Influenza A PCR NEGATIVE (Negative); Influenza B PCR NEGATIVE (Negative); Resp Syncy Virus RNA Qual PCR NEGATIVE (Negative); SARS COV2 PCR INHOUSE NEGATIVE (Negative)
[2020-11-10 18:14] LABS: MANUAL DIFF FLAG NO
[2020-11-10 18:22] LABS: Basophils Percent Auto 0.2 % (0-2); Eosinophils Absolute Auto 0.2 X10*3/uL (0.0-0.4); Eosinophils Percent Auto 2.9 % (0-4); Hemoglobin 11.8 g/dl (12.0-16.0); Imm Gran Abs Auto 0.01 X10*3/uL (0.00-0.03); Imm Gran Pct Auto 0.2 % (0.0-0.4); Lymphocytes Absolute Auto 2.2 X10*3/uL (1.2-4.9); Lymphocytes Percent Auto 37.5 % (20-40); Mean Corpuscular HGB Conc 31.1 g/dl (31.0-35.0); Mean Corpuscular Hemoglobin 26.1 pg (27.0-33.0); Mean Corpuscular Volume 84.1 fL (80-98); Mean Platelet Volume 8.4 fL (9.4-12.3); Monocytes Absolute Auto 0.6 X10*3/uL (0.1-1.2); Monocytes Percent Auto 10.8 % (2-11); Neutrophils Absolute Auto 2.9 X10*3/uL (2.0-8.3); Neutrophils Percent Auto 48.4 % (45-73); Platelet Count 288 X10*3/uL (160-400); Red Blood Count 4.52 X10*6/uL (4.20-5.50); Red Cell Distribution Width 14.7 % (11.0-16.0); White Blood Count 5.9 X10*3/uL (4.8-10.8)
[2020-11-10 18:46] LABS: Troponin-I High Sensitivity 3.8 ng/L (<3.5-17.0)
[2020-11-10 19:00] LABS: Anion Gap 9 (12-20); Blood Urea Nitrogen 14 mg/dL (9-16); Calcium 8.9 mg/dL (8.4-10.2); Carbon Dioxide 28 mmol/L (22-29); Chloride 106 mmol/L (96-108); Creatinine Clr Calc Pharmacy 55.8; Estimated Glomerular Filt Rate > 60; Glucose Random 82 mg/dL (60-115); Lipase 14 U/L (8-78); Magnesium 2.1 mg/dL (1.6-2.6); Potassium 4.4 mmol/L (3.3-5.1); Sodium 139 mmol/L (135-145)
--- NOTE | 2020-11-10 21:53 | ED_ITS ---
HPI - Abdominal Pain General Chief Complaint: Abdominal Pain Stated Complaint: stomach pain for 3 days and nauseous Time Seen by Provider: 11/10/20 21:52 Source: patient and deaf interpreter Mode of arrival: ambulatory Limitations: no limitations History of Present Illness MD elicited complaint: abdominal pain Pertinent past history: none Onset (ago): day(s) (3) Pain Consistency: constant Location: epigastric Severity: moderate Quality: cramping and aching Radiation: none Migration to: no migration Exacerbating factors: eating Relieving factors: nothing Context: sick contacts Associated symptoms: nausea, diarrhea and chills Related Data Home Medications Medication Instructions Recorded Confirmed alcohol swabs 0 pad TOPICAL 03/24/20 10/19/20 blood sugar diagnostic #10 ea 03/24/20 10/19/20 cetirizine 10 mg tablet 10 mg PO DAILY 03/24/20 10/19/20 fluticasone propionate 110 0 mcg INHALATION 03/24/20 10/19/20 mcg/actuation HFA aerosol inhaler fluticasone propionate 50 0 mcg INTRANASAL 03/24/20 10/19/20 mcg/actuation nasal spray,suspension insulin aspart U-100 100 unit/mL unit SUBCUT 03/24/20 10/19/20 (3 mL) subcutaneous pen lancets 33 gauge #100 ea 03/24/20 10/19/20 metoprolol succinate 50 mg 50 mg PO DAILY 03/24/20 10/19/20 tablet,extended release 24 hr pen needle, diabetic 32 gauge x #50 ea 03/24/20 10/19/20 sertraline 25 mg tablet 25 mg PO DAILY 03/24/20 10/19/20 calcium carbonate 600 mg (1,500 1 tab PO BID 06/28/20 10/19/20 mg)-vitamin D3 400 unit tablet cholecalciferol (vitamin D3) 50 50 mcg PO QAM 06/28/20 10/19/20 mcg (2,000 unit) tablet docusate sodium 100 mg capsule 100 mg PO BID 06/28/20 10/19/20 ezetimibe 10 mg tablet 10 mg PO DAILY 06/28/20 10/19/20 gabapentin 300 mg capsule 300 mg PO TID 06/28/20 10/19/20 insulin glargine 100 unit/mL (3 60 unit SUBCUT DAILY 06/28/20 10/19/20 mL) subcutaneous pen lisinopril 5 mg tablet 5 mg PO QAM 06/28/20 10/19/20 omeprazole 20 mg capsule,delayed 20 mg PO BID 06/28/20 10/19/20 release albuterol sulfate 90 mcg/actuation 2 puff PO Q4-6H PRN 08/18/20 10/19/20 aerosol inhaler biotin PO 10/19/20 10/19/20 Previous Rx's Medication Instructions Recorded warfarin 2.5 mg tablet 2.5 mg PO DAILY #90 tab 01/10/20 doxycycline monohydrate 100 mg 100 mg PO BID 7 Days #14 cap 01/18/20 capsule furosemide 20 mg tablet 60 mg PO Q OTHER DAY PRN #45 tab 10/05/20 ondansetron 4 mg disintegrating 4 mg PO Q8H PRN #20 tab 11/10/20 tablet Allergies Allergy/AdvReac Type Severity Reaction Status Date / Time ibuprofen [From MOTRIN] Allergy Intermediate HIVES Verified 11/10/20 15:14 tramadol [TRAMADOL] Allergy Intermediate ITCHING, Verified 11/10/20 15:14 hallucinations aspirin [Aspirin] Allergy Mild HIVES,RASH Verified 11/10/20 15:14 iodine Allergy Unknown UNKNOWN Verified 11/10/20 15:14 metformin Allergy Unknown UNKNOWN Verified 11/10/20 15:14 Aurctcs-Swy-Ohq Reductase AdvReac Intermediate MYALGIA'S Verified 11/10/20 15:14 Inhibitor [SWUGQSP-PWT-DRE REDUCTASE INHIBITOR] influenza virus vaccine, AdvReac Mild SHAKES Verified 11/10/20 15:14 specific [Influenza Virus Vacc,Specific] Codeine Phosphate Allergy Unknown UNKNOWN Uncoded 11/10/20 15:14 Motrin Allergy Unknown UNKNOWN Uncoded 11/10/20 15:14 Review of Systems Review of Systems Constitutional : No Weight loss, No Fever,pos Chills ENT/Mouth : No sore throat, No Rhinorrhea Eyes: No Swelling, No Redness Cardiovascular : No Chest Pain, No SOB, NoEdema Respiratory : No Cough, No Sputum, No Wheezing Gastrointestinal : Positive Nausea, no Vomiting, positive Diarrhea, positive abdominal Pain, No Hematochezia, No Melena Genitourinary : No Dysuria, No Urinary Frequency, No Hematuria, No Urgency Musculoskeletal : No joint pain, No Myalgias, No Joint Swelling Skin : No Skin Lesions, No rash Neuro : No Weakness, No Numbness, No Dizziness, No Headache Psych : No Anxiety/Panic, No Depression Heme/Lymph: No Bruising, No Lymphadenopathy Endocrine : No Polyuria, No Polydipsia All other systems reviewed and are negative. Physical Exam Vital Signs: Vital Signs: Last Vital Signs Temp 98.1 F 11/10/20 22:00 Pulse 64 11/10/20 22:00 Resp 16 11/10/20 22:00 BP 143/65 H 11/10/20 22:00 Pulse Ox 96 11/10/20 22:00 Body Mass Index 34.0 Appearance: Alert. Oriented X3. No acute distress. Eyes: Pupils equal, round and reactive to light. ENT: Pharynx normal. Neck: Normal inspection. Neck supple. CVS: Normal heart rate and rhythm. Pulses normal. Respiratory: No respiratory distress. Breath sounds normal. Abdomen: Soft and distended, mild epigastric ttp Skin: Skin warm and dry. Normal skin color. Normal skin turgor. Extremities: No lower extremity edema. No calf ttp Neuro: Oriented X 3. No motor deficit. No sensory deficit. Course Course Course Narrative: negative workup feels better stable for DC MDM - Abdominal Pain MDM Narrative Medical decision making narrative: 75 yo female with 3 days of nausea, abdominal pain and diarrhea - hx of CHF, HTN, PAF on coumadin, s/p cholecystectomy at this time will need labs, CT scan for obstruction/duodenitis, IVF, dispo per results and findings Differential Diagnosis Differential diagnosis: Likely abdominal pain, diverticulitis, gastroenteritis, gastritis, pancreatitis and small bowel obstruction; Unlikely acute appendicitis or mesenteric ischemia Lab Data Result diagrams: 11/10/20 18:08 11/10/20 18:08 Labs: Lab Results 11/10/20 11/10/20 11/10/20 Range/Units 15:18 18:08 18:08 WBC 5.9 (4.8-10.8) X10*3/uL RBC 4.52 (4.20-5.50) X10*6/uL Hgb 11.8 L (12.0-16.0) g/dl Hct 38.0 (37-47) % MCV 84.1 (80-98) fL MCH 26.1 L (27.0-33.0) pg MCHC 31.1 (31.0-35.0) g/dl RDW 14.7 (11.0-16.0) % Plt Count 288 (160-400) X10*3/uL MPV 8.4 L (9.4-12.3) fL Immature Gran % (Auto) 0.2 (0.0-0.4) % Neut % (Auto) 48.4 (45-73) % Lymph % (Auto) 37.5 (20-40) % [place] % (Auto) 10.8 (2-11) % Eos % (Auto) 2.9 (0-4) % Baso % (Auto) 0.2 (0-2) % Lymph # (Auto) 2.2 (1.2-4.9) X10*3/uL [place] # (Auto) 0.6 (0.1-1.2) X10*3/uL Eos # (Auto) 0.2 (0.0-0.4) X10*3/uL Baso # (Auto) 0.0 (0.0-0.2) X10*3/uL Abs Immat Gran (auto) 0.01 (0.00-0.03) X10*3/uL Absolute Neuts (auto) 2.9 (2.0-8.3) X10*3/uL Absolute Nucleated RBC 0.000 (0.0-0.012) X10*3/uL Nucleated RBC % (auto) 0.0 (0.0-0.2) /100WBC PT (9.9-13.0) SEC INR (0.9-1.1) Sodium 139 (135-145) mmol/L Potassium 4.4 (3.3-5.1) mmol/L Chloride 106 (96-108) mmol/L Carbon Dioxide 28 (22-29) mmol/L Anion Gap 9 L (12-20) BUN 14 (9-16) mg/dL Creatinine 0.81 (0.5-1.4) mg/dL Estim Creat Clear Calc 55.8 Estimated GFR > 60 Random Glucose 82 D (60-115) mg/dL Calcium 8.9 (8.4-10.2) mg/dL Magnesium 2.1 (1.6-2.6) mg/dL Total Bilirubin 0.3 (0.0-1.0) mg/dL Direct Bilirubin < 0.2 (0.0-0.5) mg/dL AST 20 (5-31) U/L ALT 14 (0-31) U/L Alkaline Phosphatase 95 (39-117) U/L Troponin I High Sens (<3.5-17.0) ng/L Total Protein 6.7 (6.5-8.0) g/dL Albumin 3.9 (3.5-5.0) g/dL Lipase 14 (8-78) U/L Coronavirus (PCR) NEGATIVE (Negative) Influenza Type A (PCR) NEGATIVE (Negative) Influenza Type B (PCR) NEGATIVE (Negative) RSV RNA Qual (PCR) NEGATIVE (Negative) 11/10/20 11/10/20 Range/Units 18:08 23:12 WBC (4.8-10.8) X10*3/uL RBC (4.20-5.50) X10*6/uL Hgb (12.0-16.0) g/dl Hct (37-47) % MCV (80-98) fL MCH (27.0-33.0) pg MCHC (31.0-35.0) g/dl RDW (11.0-16.0) % Plt Count (160-400) X10*3/uL MPV (9.4-12.3) fL Immature Gran % (Auto) (0.0-0.4) % Neut % (Auto) (45-73) % Lymph % (Auto) (20-40) % [place] % (Auto) (2-11) % Eos % (Auto) (0-4) % Baso % (Auto) (0-2) % Lymph # (Auto) (1.2-4.9) X10*3/uL [place] # (Auto) (0.1-1.2) X10*3/uL Eos # (Auto) (0.0-0.4) X10*3/uL Baso # (Auto) (0.0-0.2) X10*3/uL Abs Immat Gran (auto) (0.00-0.03) X10*3/uL Absolute Neuts (auto) (2.0-8.3) X10*3/uL Absolute Nucleated RBC (0.0-0.012) X10*3/uL Nucleated RBC % (auto) (0.0-0.2) /100WBC PT 19.3 H (9.9-13.0) SEC INR 1.7 H (0.9-1.1) Sodium (135-145) mmol/L Potassium (3.3-5.1) mmol/L Chloride (96-108) mmol/L Carbon Dioxide (22-29) mmol/L Anion Gap (12-20) BUN (9-16) mg/dL Creatinine (0.5-1.4) mg/dL Estim Creat Clear Calc Estimated GFR Random Glucose (60-115) mg/dL Calcium (8.4-10.2) mg/dL Magnesium (1.6-2.6) mg/dL Total Bilirubin (0.0-1.0) mg/dL Direct Bilirubin (0.0-0.5) mg/dL AST (5-31) U/L ALT (0-31) U/L Alkaline Phosphatase (39-117) U/L Troponin I High Sens 3.8 (<3.5-17.0) ng/L Total Protein (6.5-8.0) g/dL Albumin (3.5-5.0) g/dL Lipase (8-78) U/L Coronavirus (PCR) (Negative) Influenza Type A (PCR) (Negative) Influenza Type B (PCR) (Negative) RSV RNA Qual (PCR) (Negative) ECG Data Attestation: I personally reviewed and interpreted this ECG as follows: ECG interpretation date: 11/10/20 ECG interpretation time: 22:00 Interpretation: Rate: 74 Rhythm: NSR [place]: normal Normal P waves. Normal JUNG. Normal QRS complex. ST T wave : normal no SAHRA qTC: normal prior studies: no acute ischemia The study has been interpreted contemporaneously by me. . Discharge Plan Discharge Clinical Impression: Abdominal pain, Diarrhea Patient Disposition: Home, Self-Care Instructions: Acute Diarrhea (ED), Abdominal Pain (ED) Additional Instructions: return to ED for any worsening symptoms or concerns COVID negative INR 1.7 please discuss with your doctor Prescriptions: New ondansetron 4 mg tablet,disintegrating 4 mg PO Q8H PRN (Reason: nausea and vomiting) Qty: 20 RF: 0 No Action furosemide 20 mg tablet 60 mg PO Q OTHER DAY PRN (Reason: edema) Qty: 45 RF: 2 doxycycline monohydrate 100 mg capsule 100 mg PO BID 7 Days Qty: 14 RF: 0 Lantus Solostar U-100 Insulin 100 unit/mL (3 mL) insulin pen 60 unit subcut DAILY RF: 0 lisinopril 5 mg tablet 5 mg PO QAM RF: 0 gabapentin 300 mg capsule 300 mg PO TID RF: 0 ezetimibe 10 mg tablet 10 mg PO DAILY RF: 0 docusate sodium 100 mg capsule 100 mg PO BID RF: 0 cholecalciferol (vitamin D3) 50 mcg (2,000 unit) tablet 50 mcg PO QAM RF: 0 calcium carbonate-vitamin D3 600 mg(1,500mg) -400 unit tablet 1 tab PO BID RF: 0 omeprazole 20 mg capsule,delayed release(DR/EC) 20 mg PO BID RF: 0 warfarin 2.5 mg tablet 2.5 mg PO DAILY Qty: 90 RF: 0 (DME) lancets 33 gauge misc See Rx Instructions ea .ROUTE .MEDSUPPLY Qty: 100 RF: 0 (DME) pen needle, diabetic 32 gauge x 5/32 needle See Rx Instructions ea .ROUTE .MEDSUPPLY Qty: 50 RF: 0 insulin aspart U-100 100 unit/mL (3 mL) insulin pen subcut RF: 0 Flovent HFA 110 mcg/actuation HFA aerosol inhaler 0 mcg inhalation RF: 0 fluticasone propionate 50 mcg/actuation spray,suspension 0 mcg intranasal RF: 0 alcohol swabs Pads, Medicated 0 pad topical RF: 0 sertraline 25 mg tablet 25 mg PO DAILY RF: 0 cetirizine 10 mg tablet 10 mg PO DAILY RF: 0 (DME) FreeStyle Lite Strips Strip See Rx Instructions ea Not Applicable .MEDSUPPLY Qty: 10 RF: 0 metoprolol succinate 50 mg tablet extended release 24 hr 50 mg PO DAILY RF: 0 albuterol sulfate 90 mcg/actuation HFA aerosol inhaler 2 puff PO Q4-6H PRN (Reason: wheezing) RF: 0 biotin PO RF: 0 Referrals: Karoline Burgos DO [Primary Care Provider] - 2 days (if not better) Print Language: [place] [facility] Past Medical History Attestation statement: The following information was validated with the patient. Medical History (HFpEF) heart failure with preserved ejection fraction Diabetes mellitus HTN (hypertension) Paroxysmal atrial fibrillation Surgical History Hx of breast biopsy Hx of knee surgery Hx of tonsillectomy Hx of tubal ligation Family History Family History Father CVD (cardiovascular disease) Sudden cardiac Mother No problems noted. Social History Social History Alcohol intake: former Advance Directives: Yes Advance Directives Information Provided: Yes Advance Directives on File: No
[2020-11-10 22:00] VITALS: BP 143/65; PULSE 64; RESP 16; TEMP 36.7; O2SAT 96
[2020-11-10] MEDS: 0.9 % Sodium Chloride 1,000 ML 999 ML IVCONT (22:42)
[2020-11-10 22:50] LABS: Alanine Aminotransferase 14 U/L (0-31); Albumin Level 3.9 g/dL (3.5-5.0); Alkaline Phosphatase 95 U/L (39-117); Aspartate Amino Transferase 20 U/L (5-31); Bilirubin Direct < 0.2 mg/dL (0.0-0.5); Bilirubin Total 0.3 mg/dL (0.0-1.0); Total Protein 6.7 g/dL (6.5-8.0)
[2020-11-10] MEDS: iohexoL 350 MG/ML 100 ML INFUS..BTL 85 ML IV (23:09)
[2020-11-10 23:22] LABS: INTERNATIONAL NORM RATIO 1.7 (0.9-1.1); Prothrombin Time 19.3 SEC (9.9-13.0)
== END 2020-11-11 07:57 | disposition home or self-care (01) ==
PROVIDERS: Emergency Provider Emergency Medicine; PCP Family Medicine
DX: R10.13 Epigastric pain (principal); R19.7 Diarrhea, unspecified; I11.0 Hypertensive heart disease with heart failure; I50.30 Unspecified diastolic (congestive) heart failure; I48.0 Paroxysmal atrial fibrillation; E11.9 Type 2 diabetes mellitus without complications; Z79.01 Long term (current) use of anticoagulants; Z79.4 Long term (current) use of insulin; Z79.899 Other long term (current) drug therapy; Z20.822 Contact with and (suspected) exposure to COVID-19
CPT/HCPCS: 0241U; 36415; 74177; 80048; 80076; 83690; 83735; 84484; 85025; 85610; 93005; 96361; 96374; 99284; 99285; Q9967

== ENCOUNTER → 2020-11-16 13:29 | Outpatient (BNVA) | payer MEDICARE, SELFPAY | PROVIDERS: PCP Family Medicine; Visit Provider Internal Medicine | DX: I48.0 Paroxysmal atrial fibrillation (principal); Z79.01 Long term (current) use of anticoagulants; Z51.81 Encounter for therapeutic drug level monitoring | CPT/HCPCS: 85610; 99211 ==

== ENCOUNTER → 2020-12-07 11:07 | Outpatient (BNVA) | payer MEDICARE, SELFPAY | PROVIDERS: PCP Family Medicine; Visit Provider Internal Medicine | DX: I48.0 Paroxysmal atrial fibrillation (principal); Z51.81 Encounter for therapeutic drug level monitoring; Z79.01 Long term (current) use of anticoagulants | CPT/HCPCS: 85610; 99211 ==

== ENCOUNTER → 2020-12-14 10:04 | Outpatient (BNVA) | payer MEDICARE, SELFPAY | PROVIDERS: PCP Family Medicine; Referring Provider Family Medicine; Visit Provider Internal Medicine Cardiovascular Disease | DX: I48.0 Paroxysmal atrial fibrillation (principal); I50.30 Unspecified diastolic (congestive) heart failure | CPT/HCPCS: 99212 ==

== ENCOUNTER → 2020-12-20 10:00 | Outpatient (REF) | payer MEDICARE, SELFPAY ==
--- NOTE | 2020-12-20 10:03 | HM_ITS ---
Total monitoring time 6 days and 23 hours. Underlying rhythm is sinus. Minimum heart rate 60/Min. Maximum 127/Min. Average 82/Min. No significant bradycardia. About 5% of the time, tachycardia. No atrial fibrillation or flutter. No pauses. Very rare PACs and PVCs. Longest supraventricular episodes 16 beats. Longest NSVT 6 beats, but cannot exclude aberrantly conducted beats. No patient events. MTDD
== END ==
LOC: HO.CARD 10:00
PROVIDERS: Visit Provider Internal Medicine Cardiovascular Disease
DX: I48.0 Paroxysmal atrial fibrillation (principal)
CPT/HCPCS: 93242

== ENCOUNTER → 2020-12-21 10:00 | Outpatient (BNVA) | payer MEDICARE, SELFPAY | PROVIDERS: PCP Family Medicine; Visit Provider Internal Medicine | DX: I48.0 Paroxysmal atrial fibrillation (principal); Z51.81 Encounter for therapeutic drug level monitoring; Z79.01 Long term (current) use of anticoagulants | CPT/HCPCS: 85610; 99211 ==

== ENCOUNTER → 2020-12-25 10:20 | Outpatient (BNVA) | payer MEDICARE, SELFPAY | PROVIDERS: PCP Family Medicine; Visit Provider Internal Medicine | DX: I48.0 Paroxysmal atrial fibrillation (principal); Z51.81 Encounter for therapeutic drug level monitoring; Z79.01 Long term (current) use of anticoagulants | CPT/HCPCS: 85610; 99211 ==

== ENCOUNTER → 2021-01-30 09:55 | Outpatient (BNVA) | payer MEDICARE, SELFPAY | PROVIDERS: PCP Family Medicine; Referring Provider Family Medicine; Visit Provider Internal Medicine Cardiovascular Disease | DX: I50.30 Unspecified diastolic (congestive) heart failure (principal); I48.0 Paroxysmal atrial fibrillation | CPT/HCPCS: 99212 ==

== ENCOUNTER 2021-02-19 10:37 | Outpatient (REF) | payer MEDICARE, SELFPAY ==
--- NOTE | ~2021-02-19 | XR_ITS ---
EXAMINATION: XR CHEST CLINICAL INFORMATION: COPD COMPARISON: Previous chest x-rays most recent May 2020 TECHNIQUE: 2 views of the chest were obtained. FINDINGS: The cardiac and mediastinal contours are stable. The lungs are clear. There is no pleural effusion or pneumothorax. There are degenerative changes of the spine. XR/XR chest 2V IMPRESSION: No evidence for acute disease in the chest.
== END 2021-02-19 10:38 | disposition home or self-care (01) ==
LOC: HO.XRAY 10:37
PROVIDERS: PCP Family Medicine; Visit Provider Family Medicine
DX: J44.9 Chronic obstructive pulmonary disease, unspecified (principal)
CPT/HCPCS: 71046

== ENCOUNTER 2021-03-05 10:28 | Emergency (ER) | payer MEDICARE, SELFPAY ==
--- NOTE | 2021-03-05 12:40 | PC.NURSE ---
pt called when photocopying equipment mechanic arrived and had left the ED without being seen
== END 2021-03-05 13:50 | disposition left against medical advice (07) ==
PROVIDERS: Emergency Provider Emergency Medicine; PCP Family Medicine
DX: R69 Illness, unspecified (principal)

== ENCOUNTER → 2021-04-18 13:30 | Outpatient (BNVA) | payer MEDICARE, SELFPAY | PROVIDERS: PCP Family Medicine; Referring Provider Family Medicine; Visit Provider Internal Medicine Cardiovascular Disease | DX: I50.30 Unspecified diastolic (congestive) heart failure (principal); I48.0 Paroxysmal atrial fibrillation | CPT/HCPCS: 99212 ==

== ENCOUNTER 2021-04-26 09:50 | Outpatient (REF) | payer MEDICARE, SELFPAY ==
--- NOTE | 2021-04-26 | PFT_ITS ---
FLOWS: FEV1 79% of predicted at 1.36 L. FVC 73% of predicted at 1.67 L. FEV1 to FVC ratio of 0.81. No bronchodilator response. LUNG VOLUMES: Total lung capacity 83% of predicted at 3.71 L. Residual volume 89% of predicted at 1.90 L. Slow vital capacity 77% of predicted at 1.82 L. Expiratory reserve volume 82% of predicted at 0.35 L. Diffusion capacity is mildly decreased. In comparison to pulmonary function test from February of 2015; FEV1, FVC, TLC, RV, SVC have been without significant changes; ERV has increased by 0.29 L; diffusion capacity has decreased by 2.86 mL/minute per mmHg. IMPRESSION: No obstructive or restrictive ventilatory defect. No bronchodilator response. Decreased diffusion capacity suggests emphysema. MD TALHA Aviles/MODL / [id number]
== END 2021-04-26 09:51 | disposition home or self-care (01) ==
LOC: HO.RESP 09:50
PROVIDERS: PCP Family Medicine; Visit Provider Family Medicine
DX: J44.9 Chronic obstructive pulmonary disease, unspecified (principal)
CPT/HCPCS: 94060; 94727; 94729

== ENCOUNTER → 2021-05-10 09:46 | Outpatient (REF) | payer MEDICARE, SELFPAY ==
--- NOTE | ~2021-05-10 | NM_ITS ---
TC- PYP Cardiac Study INDICATION: Evaluation for Cardiac amyloidosis CLINICAL HISTORY: 76 years old Female with diastolic heart failure and atrial fibrillation to evaluate for cardiac amyloidosis TECHNIQUE: 25 mCi of Tc-99m pyrophosphate was injected intravenously. Planar images of the chest were obtained in the anterior and left lateral views at 3 hours.. SPECT-CT images of the chest were also obtained. COMPARISON: None FINDINGS: 1. Imaging quality is excellent 2. Semiquantitative visual score of the cardiac uptake is 0 3.H-CL ratio not applicable CONCLUSION: 1. There is no evidence of technetium PYP uptake, without presence wild-type ATTR cardiac amyloidosis 2. This study does not rule out retained cardiac amyloidosis and alternative work up should be considered if clinically indicated. 1. Image Quality: 2. Semi-quantitative visual scoring of the cardiac uptake is performed as follows: 0 = absent cardiac uptake and intense bone uptake 1 = mild cardiac uptake < bone uptake 2 = moderate cardia uptake = bone uptake 3 = high cardiac uptake > bone uptake 3. H-CL Ratio if Applicable: 4. Ancillary Finds: NM/NM TC PYP cardiac amyloidosis IMPRESSION: 1. No evidence of ATTR type cardiac amyloidosis 2. Please note that the Tc 99m PYP is more sensitive in detecting transthyretin-related cardiac amyloidosis than that of light-chain cardiac amyloidosis.
== END ==
LOC: HO.NUCMED 09:46
PROVIDERS: Visit Provider Internal Medicine Cardiovascular Disease
DX: I50.30 Unspecified diastolic (congestive) heart failure (principal)
CPT/HCPCS: 78803; A9538

== ENCOUNTER → 2021-09-24 11:13 | Outpatient (BNVA) | payer MEDICARE, SELFPAY | PROVIDERS: Visit Provider Nurse Practitioner Family | DX: M89.49 Other hypertrophic osteoarthropathy, multiple sites (principal); G56.03 Carpal tunnel syndrome, bilateral upper limbs; M25.512 Pain in left shoulder; M79.672 Pain in left foot; M79.641 Pain in right hand; M79.642 Pain in left hand | CPT/HCPCS: 99212 ==

== ENCOUNTER 2021-10-02 10:18 | Outpatient (REF) | payer OTHER, SELFPAY ==
--- NOTE | ~2021-10-02 | XR_ITS ---
EXAMINATION: XR FOOT, LEFT CLINICAL INFORMATION: Chronic pain COMPARISON: Foot radiographs 07/24/2011 TECHNIQUE: AP, lateral, and oblique views of the left foot. FINDINGS: No acute fracture or dislocation. Mild to moderate degenerative changes of the foot progressed from prior with degenerative spurring involving the dorsal midfoot, first MTP joint and interphalangeal joints, with Achilles tendon enthesopathy and plantar calcaneal spurring. Trace tibiotalar joint effusion. XR/XR foot LT 2V IMPRESSION: Mild to moderate degenerative changes of the foot progressed from prior. Trace tibiotalar joint effusion.
--- NOTE | ~2021-10-02 | XR_ITS ---
EXAMINATION: XR SHOULDER, LEFT CLINICAL INFORMATION: Pain COMPARISON: Shoulder radiographs 04/19/2019 TECHNIQUE: Four views of the left shoulder. FINDINGS: Moderate to advanced degenerative changes of the acromioclavicular and glenohumeral joints with inferior subluxation of the glenoid with respect to the humeral head. Calcification is noted along the course of the supraspinatus tendon which may reflect sequelae of hydroxyapatite deposition disease. No acute fracture. XR/XR shoulder LT min 2V IMPRESSION: Moderate to advanced degenerative changes of shoulder, with inferior subluxation of the glenoid with respect to the humeral head. Calcification along the course of the supraspinatus tendon may reflect sequelae of hydroxyapatite deposition disease.
--- NOTE | ~2021-10-02 | XR_ITS ---
EXAMINATION: XR hand RT min 3V, XR hand LT min 3V CLINICAL INFORMATION: Pain COMPARISON: Hand radiographs 12/25/2012 TECHNIQUE: 3 views of the bilateral hands. FINDINGS: Right hand: Mild degenerative changes of the interphalangeal joints with degenerative spurring. No acute fracture or dislocation. Soft tissues are unremarkable. Left hand: Mild degenerative changes of the interphalangeal joints with degenerative spurring. No acute fracture or dislocation. Soft tissues are unremarkable. XR/XR hand RT min 3V IMPRESSION: Mild degenerative changes of the hands involving the interphalangeal joints bilaterally.
--- NOTE | ~2021-10-02 | XR_ITS ---
EXAMINATION: XR hand RT min 3V, XR hand LT min 3V CLINICAL INFORMATION: Pain COMPARISON: Hand radiographs 12/25/2012 TECHNIQUE: 3 views of the bilateral hands. FINDINGS: Right hand: Mild degenerative changes of the interphalangeal joints with degenerative spurring. No acute fracture or dislocation. Soft tissues are unremarkable. Left hand: Mild degenerative changes of the interphalangeal joints with degenerative spurring. No acute fracture or dislocation. Soft tissues are unremarkable. XR/XR hand LT min 3V IMPRESSION: Mild degenerative changes of the hands involving the interphalangeal joints bilaterally.
[2021-10-02 11:31] LABS: B Type Natriuretic Peptide 57 pg/mL (<100)
[2021-10-02 11:34] LABS: Anion Gap 11 (12-20); Blood Urea Nitrogen 16 mg/dL (9-16); Calcium 9.1 mg/dL (8.4-10.2); Carbon Dioxide 29 mmol/L (22-29); Chloride 102 mmol/L (96-108); Estimated Glomerular Filt Rate > 60; Glucose Random 195 mg/dL (60-115); Potassium 4.4 mmol/L (3.3-5.1); Sodium 138 mmol/L (135-145)
[2021-10-05 11:33] LABS: IgA 317 mg/dL (70-320); IgG 1117 mg/dL (600-1540); IgM 100 mg/dL (50-300)
== END 2021-10-02 10:19 | disposition home or self-care (01) ==
LOC: HO.LAB 10:18
PROVIDERS: Internal Medicine Cardiovascular Disease; PCP Family Medicine; Visit Provider Nurse Practitioner Family
DX: M79.672 Pain in left foot (principal); M79.641 Pain in right hand; M79.642 Pain in left hand; I50.30 Unspecified diastolic (congestive) heart failure; M25.512 Pain in left shoulder
CPT/HCPCS: 73030; 73130; 73620; 80048; 82784; 83880; 86334; 86335

== ENCOUNTER → 2021-11-09 10:19 | Outpatient (BNVA) | payer OTHER, SELFPAY | PROVIDERS: PCP Family Medicine; Visit Provider Orthopaedic Surgery | DX: M19.012 Primary osteoarthritis, left shoulder (principal); E11.9 Type 2 diabetes mellitus without complications | CPT/HCPCS: 20610; 99212; J1100 ==

== ENCOUNTER 2022-07-13 15:56 | Emergency (ER) | payer OTHER, SELFPAY ==
--- NOTE | ~2022-07-13 | XR_ITS ---
EXAMINATION: XR BILATERAL HIPS WITH AP PELVIS XR THORACIC SPINE XR LUMBAR SPINE CLINICAL INFORMATION: Bilateral hip pain. Mid and lower back pain. COMPARISON: Selected images of the abdomen and pelvic CT scan of from 11/10/2020, chest x-ray of 12/15/2019 and selected images of the chest CT of 10/12/2016. TECHNIQUE: Pelvis 1 view; AP. Bilateral hips 2 views; AP and frog-lateral views. Thoracic spine 3 views; AP, lateral and swimmer's views. Lumbar spine 3 views; AP and lateral views of the lumbar spine and coned-down lateral view of L5-S1. FINDINGS: PELVIS AND BILATERAL HIPS: There is no evidence of acute fracture or dislocation in the pelvis and bilateral hips. No definite suspicious lytic or blastic osseous lesions are seen. Symphysis pubis is intact. 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 Mild osteoarthritic changes at the bilateral hips with narrowing of the joint space and mild marginal osteophytic changes. Limited evaluation of the sacroiliac joints is unremarkable. THORACIC SPINE: Vertebral body heights and alignment are maintained. There is diffuse osteopenia. Intervertebral disc spaces are preserved. Multilevel marginal endplate osteophytes are noted. Visualized lungs are unremarkable. Cardiomediastinal silhouette is normal. No suspicious lytic or blastic osseous lesions. LUMBAR SPINE: There are 5 lumbar-type [id number] vertebrae. The vertebral body heights and alignment are maintained. Intervertebral disc spaces are preserved. Multilevel small marginal osteophytes are noted. Facet arthropathy in the lower lumbar spine. No definite suspicious lytic or blastic osseous lesions are appreciated. Osteopenia. XR/XR hips TIARRA min 3V IMPRESSION: 1. Diffuse osteopenia. No evidence of acute fracture or dislocation in the pelvis and bilateral hips. Mild osteoarthritic changes at the hips. 2. Mild thoracic and lumbar spondylosis. 3. No evidence of acute compression fracture or suspicious osseous lesion in the thoracic spine and lumbar spine.
--- NOTE | ~2022-07-13 | CT_ITS ---
EXAMINATION: CT HEAD WITHOUT CONTRAST CT CERVICAL SPINE WITHOUT CONTRAST CLINICAL INFORMATION: Fall, on anticoagulant. COMPARISON: CT head 05/09/2020. TECHNIQUE: Contiguous axial imaging was performed from the skull base to vertex without intravenous administration of contrast. Contiguous axial imaging was performed from the upper chest through the skull base without intravenous administration of contrast. Coronal and sagittal reformats were obtained at the acquisition workstation. This CT examination was performed using dose optimization techniques as appropriate, variously including the following: *Automated exposure control *Adjustment of mA and/or kV according to patient size (this includes techniques or standardized protocols for targeted exams where dose is matched to indication/reason for exam; i.e. extremities or head) *Use of iterative reconstruction technique DLP: 633 and 353 mGy-cm FINDINGS: Head: There is no evidence of acute intracranial hemorrhage or edematous territorial infarction. Scattered hypoattenuation in the periventricular and deep white matter are consistent with moderate microangiopathy. Mineralization of the basal ganglia. Gould-white matter differentiation is preserved. Proportional prominence of the ventricles and sulcal spaces. No evidence for obstructive hydrocephalus. No abnormal mass effect or midline shift. No extra-axial fluid collections. No acute soft tissue or osseous abnormalities. The mastoid air cells and paranasal sinuses are clear. Cervical Spine: Evaluation is limited due to motion. The atlantooccipital and atlantoaxial articulations remain well aligned. No evidence of acute compression deformity or traumatic subluxation. Very prominent multilevel anterior osteophytes distorting the posterior pharynx/esophagus. Multilevel cervical spondylosis with various degrees of neural foraminal encroachment and central spinal canal stenosis. There is no prevertebral soft tissue swelling. Evaluation of the soft tissues and lungs is limited due to motion. However, accounting for these limitations, no gross abnormalities are noted. CT/CT cervical spine wo IV con IMPRESSION: 1. No evidence of acute intracranial hemorrhage or edematous territorial infarction. 2. Background of chronic microangiopathy, volume loss and mineralization of the basal ganglia. 3. Limited evaluation of the cervical spine due to motion without discrete fractures or traumatic subluxation. 4. Very prominent multilevel anterior cervical osteophytes distorting the posterior pharynx/esophagus. 5. Multilevel cervical spondylosis with various degrees of neural foraminal encroachment and central spinal canal stenosis. If indicated, consider further evaluation with an MR of the cervical spine.
--- NOTE | ~2022-07-13 | XR_ITS ---
EXAMINATION: XR BILATERAL HIPS WITH AP PELVIS XR THORACIC SPINE XR LUMBAR SPINE CLINICAL INFORMATION: Bilateral hip pain. Mid and lower back pain. COMPARISON: Selected images of the abdomen and pelvic CT scan of from 11/10/2020, chest x-ray of 12/15/2019 and selected images of the chest CT of 10/12/2016. TECHNIQUE: Pelvis 1 view; AP. Bilateral hips 2 views; AP and frog-lateral views. Thoracic spine 3 views; AP, lateral and swimmer's views. Lumbar spine 3 views; AP and lateral views of the lumbar spine and coned-down lateral view of L5-S1. FINDINGS: PELVIS AND BILATERAL HIPS: There is no evidence of acute fracture or dislocation in the pelvis and bilateral hips. No definite suspicious lytic or blastic osseous lesions are seen. Symphysis pubis is intact. 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 Mild osteoarthritic changes at the bilateral hips with narrowing of the joint space and mild marginal osteophytic changes. Limited evaluation of the sacroiliac joints is unremarkable. THORACIC SPINE: Vertebral body heights and alignment are maintained. There is diffuse osteopenia. Intervertebral disc spaces are preserved. Multilevel marginal endplate osteophytes are noted. Visualized lungs are unremarkable. Cardiomediastinal silhouette is normal. No suspicious lytic or blastic osseous lesions. LUMBAR SPINE: There are 5 lumbar-type [id number] vertebrae. The vertebral body heights and alignment are maintained. Intervertebral disc spaces are preserved. Multilevel small marginal osteophytes are noted. Facet arthropathy in the lower lumbar spine. No definite suspicious lytic or blastic osseous lesions are appreciated. Osteopenia. XR/XR lumbar spine 2-3V IMPRESSION: 1. Diffuse osteopenia. No evidence of acute fracture or dislocation in the pelvis and bilateral hips. Mild osteoarthritic changes at the hips. 2. Mild thoracic and lumbar spondylosis. 3. No evidence of acute compression fracture or suspicious osseous lesion in the thoracic spine and lumbar spine.
--- NOTE | ~2022-07-13 | XR_ITS ---
EXAMINATION: XR BILATERAL HIPS WITH AP PELVIS XR THORACIC SPINE XR LUMBAR SPINE CLINICAL INFORMATION: Bilateral hip pain. Mid and lower back pain. COMPARISON: Selected images of the abdomen and pelvic CT scan of from 11/10/2020, chest x-ray of 12/15/2019 and selected images of the chest CT of 10/12/2016. TECHNIQUE: Pelvis 1 view; AP. Bilateral hips 2 views; AP and frog-lateral views. Thoracic spine 3 views; AP, lateral and swimmer's views. Lumbar spine 3 views; AP and lateral views of the lumbar spine and coned-down lateral view of L5-S1. FINDINGS: PELVIS AND BILATERAL HIPS: There is no evidence of acute fracture or dislocation in the pelvis and bilateral hips. No definite suspicious lytic or blastic osseous lesions are seen. Symphysis pubis is intact. 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 Mild osteoarthritic changes at the bilateral hips with narrowing of the joint space and mild marginal osteophytic changes. Limited evaluation of the sacroiliac joints is unremarkable. THORACIC SPINE: Vertebral body heights and alignment are maintained. There is diffuse osteopenia. Intervertebral disc spaces are preserved. Multilevel marginal endplate osteophytes are noted. Visualized lungs are unremarkable. Cardiomediastinal silhouette is normal. No suspicious lytic or blastic osseous lesions. LUMBAR SPINE: There are 5 lumbar-type [id number] vertebrae. The vertebral body heights and alignment are maintained. Intervertebral disc spaces are preserved. Multilevel small marginal osteophytes are noted. Facet arthropathy in the lower lumbar spine. No definite suspicious lytic or blastic osseous lesions are appreciated. Osteopenia. XR/XR thoracic spine 2V IMPRESSION: 1. Diffuse osteopenia. No evidence of acute fracture or dislocation in the pelvis and bilateral hips. Mild osteoarthritic changes at the hips. 2. Mild thoracic and lumbar spondylosis. 3. No evidence of acute compression fracture or suspicious osseous lesion in the thoracic spine and lumbar spine.
[2022-07-13 16:09] VITALS: BP 130/74; BP 131/58; PULSE 74; PULSE 76; RESP 16; TEMP 36.6; O2SAT 96; BMI 36.6
--- NOTE | 2022-07-13 16:54 | PC.NURSE ---
pt resting on stretcher at this time, no apparent distress. self repositioning in bed. respirations even and unlabored
--- NOTE | 2022-07-13 17:20 | ED_ITS ---
HPI - Fall General Chief Complaint: Fall Stated Complaint: HIP/NECK/BACK PAIN S/P FALL T-1 PER EMS Time Seen by Provider: 07/13/22 16:34 Source: patient Mode of arrival: EMS Limitations: no limitations History of Present Illness HPI Narrative: Patient comes to the emergency room complaining of a fall that occurred approximately 36 hours ago. Patient states that she was taking a shower, she was sitting in a chair, while she was trying to get rinse, her chair slipped, patient fell backwards hitting the back of the head. Now complaining of headache, neck pain, thoracic spine pain and bilateral hip pain. Patient did not lose consciousness. Patient is on Eliquis. Patient states that she is able to walk, however the pain is getting worse throughout the whole back. Patient denies any urinary/fecal incontinence/retention Related Data Home Medications Medication Instructions Recorded Confirmed alcohol swabs 0 pad topical 03/24/20 04/18/21 blood sugar diagnostic #10 ea 03/24/20 04/18/21 cetirizine 10 mg tablet 10 mg PO DAILY 03/24/20 04/18/21 fluticasone propionate 110 0 mcg inhalation 03/24/20 04/18/21 mcg/actuation HFA aerosol inhaler fluticasone propionate 50 0 mcg intranasal 03/24/20 04/18/21 mcg/actuation nasal spray,suspension insulin aspart U-100 100 unit/mL unit subcut 03/24/20 04/18/21 (3 mL) subcutaneous pen lancets 33 gauge #100 ea 03/24/20 04/18/21 metoprolol succinate 50 mg 50 mg PO DAILY 03/24/20 04/18/21 tablet,extended release 24 hr pen needle, diabetic 32 gauge x #50 ea 03/24/20 04/18/21 sertraline 25 mg tablet 25 mg PO DAILY 03/24/20 04/18/21 calcium carbonate 600 mg-vitamin 1 tab PO BID 06/28/20 04/18/21 D3 10 mcg (400 unit) tablet cholecalciferol (vitamin D3) 50 50 mcg PO QAM 06/28/20 04/18/21 mcg (2,000 unit) tablet docusate sodium 100 mg capsule 100 mg PO BID 06/28/20 04/18/21 ezetimibe 10 mg tablet 10 mg PO DAILY 06/28/20 04/18/21 gabapentin 300 mg capsule 300 mg PO TID 06/28/20 04/18/21 insulin glargine 100 unit/mL (3 60 unit subcut DAILY 06/28/20 04/18/21 mL) subcutaneous pen lisinopril 5 mg tablet 5 mg PO QAM 06/28/20 04/18/21 omeprazole 20 mg capsule,delayed 20 mg PO BID 06/28/20 04/18/21 release biotin PO 10/19/20 04/18/21 doxycycline monohydrate 100 mg 100 mg PO BID 04/18/21 04/18/21 capsule apixaban 5 mg tablet (Eliquis) 5 mg PO 09/24/21 Previous Rx's Medication Instructions Recorded ondansetron 4 mg disintegrating 4 mg PO Q8H PRN nausea and 11/10/20 tablet vomiting #20 tabs Cock up splint #2 ea 09/24/21 furosemide 20 mg tablet 20 mg PO DAILY edema #90 tabs 02/25/22 oxycodone 5 mg tablet 5 mg PO BID PRN pain #4 tabs 07/13/22 Allergies Allergy/AdvReac Type Severity Reaction Status Date / Time ibuprofen [From MOTRIN] Allergy Intermediate HIVES Verified 11/09/21 10:26 tramadol [TRAMADOL] Allergy Intermediate ITCHING, Verified 11/09/21 10:26 hallucinations aspirin [Aspirin] Allergy Mild HIVES,RASH Verified 11/09/21 10:26 iodine Allergy Unknown UNKNOWN Verified 11/09/21 10:26 metformin Allergy Unknown UNKNOWN Verified 11/09/21 10:26 Azxtvzv-[id number]-[id number] Reductase AdvReac Intermediate MYALGIA'S Verified 11/09/21 10:26 Inhibitor [[id number] REDUCTASE INHIBITOR] influenza virus vaccine, AdvReac Mild SHAKES Verified 11/09/21 10:26 specific [Influenza Virus Vacc,Specific] Codeine Phosphate Allergy Unknown UNKNOWN Uncoded 09/24/21 12:12 Motrin Allergy Unknown UNKNOWN Uncoded 09/24/21 12:12 Review of Systems Review of Systems: Constitutional : No Weight loss, No Fever, No Chills, No Night Sweats, No Fatigue, No Malaise ENT/Mouth : No Hearing loss, No Ear Pain, No Nasal Congestion, No Sinus Pain, No Hoarseness, No sore throat, No Rhinorrhea, No Swallowing Difficulty Eyes: No Eye Pain, No Swelling, No Redness, No Foreign Body, No Discharge, No Vision Changes Cardiovascular : No Chest Pain, No SOB, No Dyspnea on Exertion, No Orthopnea, No Edema, No Palpitations Respiratory : No Cough, No Sputum, No Wheezing, No Smoke Exposure, No Dyspnea Gastrointestinal : No Nausea, No Vomiting, No Diarrhea, No Constipation, No abdominal Pain, No Hematochezia, No Melena Genitourinary : no irregular bleeding, No Dysuria, No Urinary Frequency, No Hematuria, No Urinary Incontinence, No Urgency, No Flank Pain, No Urinary Flow Changes, No Hesitancy Musculoskeletal : Complaining of neck pain, thoracic pain, pelvic pain bilateral Skin : No Skin Lesions, No rash Neuro : No Weakness, No Numbness, No Paresthesias, No Loss of Consciousness, No Dizziness, complaining of Headache Psych : No Anxiety/Panic, No Depression, No SI/HI/AH/VH, No Social Issues, Heme/Lymph: No Bruising, No Bleeding,No Lymphadenopathy Endocrine : No Polyuria, No Polydipsia, No Temperature Intolerance PMFSH Past Medical History Medical History (HFpEF) heart failure with preserved ejection fraction Diabetes mellitus HTN (hypertension) Paroxysmal atrial fibrillation Surgical History Hx of breast biopsy Hx of knee surgery Hx of tonsillectomy Hx of tubal ligation Family History Family History Father CVD (cardiovascular disease) Sudden cardiac Mother No problems noted. Social History Social History Alcohol intake: never Patient Tobacco Use Status: Never used Tobacco Smoked in Last 30 Days: No Use of substances other than those prescribed or required for medical reasons: No Advance Directives: No Advance Directives Information Provided: No Physical Exam Vital Signs: Vital Signs: Last Vital Signs Temp 98.2 F 07/13/22 17:56 Pulse 76 07/13/22 17:56 Resp 16 07/13/22 17:56 BP 108/49 L 07/13/22 17:56 Pulse Ox 98 07/13/22 17:56 O2 Del Method Room Air 07/13/22 17:56 BMI result Body Mass Index 36.6 Const: Other: Appearance: Alert. Oriented X3. No acute distress. Eyes: Pupils equal, round and reactive to light. ENT: Pharynx normal. Neck: Normal inspection. Neck supple. No lymph nodes noted. No crepitus pain to palpation approximately at C6, no palpable step-offs CVS: Normal heart rate and rhythm. Pulses normal. Normal S1 and S2 Respiratory: No respiratory distress. Breath sounds normal. No Wheezing. No rales Abdomen: Soft and nontender. No rigidity. No distention. Skin: Skin warm and dry. Normal skin color. Normal skin turgor. No ecchymosis Extremities: No lower extremity edema. No Lacerations. No Rash Neuro: Oriented X 3. No motor deficit. No sensory deficit. Moving all extremities. No slurred speech. CN 2 through 12 grossly intact Psych: calm, cooperative, normal affect Course Course Course Narrative: -CT scan of the head and neck pending. Patient is neurologically intact -x-rays of the thoracic spine lumbar spine and pelvis pending. -patient was given 1 dose of p.o. oxycodone. Patient states that Tylenol does not work, cannot take NSAIDs, cannot take tramadol Medications Administered Discontinued Medications Generic Name Dose Route Start Last Admin Trade Name Freq PRN Reason Stop Dose Admin Oxycodone HCl 5 mg 07/13/22 17:30 07/13/22 18:24 Oxycodone Hcl Immed Release 5 Mg Tablet PO 07/13/22 17:31 5 mg ONCE ONE Administration Medical Decision Making Medical Decision Making [facility] Narrative: -my interpretation of CT scan of the head and neck do not show any acute abnormalities, no intracranial bleed. No obvious fracture. -the x-rays of the pelvis and bilateral hips, thoracic spine and lumbar spine do not show any obvious fractures. Differential Diagnosis Differential Diagnoses: The differential diagnosis associated with the presentation includes (Intracranial bleed, hematoma, contusion, fractures of the cervical/thoracic/lumbar spine, pelvic fracture) Radiology Impression Discussion of test interpretation with radiology: I have reviewed the radiologist's reading. Radiologist Impression: PELVIS AND BILATERAL HIPS: There is no evidence of acute fracture or dislocation in the pelvis and bilateral hips. No definite suspicious lytic or blastic osseous lesions are seen. Symphysis pubis is intact. 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 Mild osteoarthritic changes at the bilateral hips with narrowing of the joint space and mild marginal osteophytic changes. Limited evaluation of the sacroiliac joints is unremarkable. THORACIC SPINE: Vertebral body heights and alignment are maintained. There is diffuse osteopenia. Intervertebral disc spaces are preserved. Multilevel marginal endplate osteophytes are noted. Visualized lungs are unremarkable. Cardiomediastinal silhouette is normal. No suspicious lytic or blastic osseous lesions. LUMBAR SPINE: There are 5 lumbar-type [id number]-[id number] vertebrae. The vertebral body heights and alignment are maintained. Intervertebral disc spaces are preserved. Multilevel small marginal osteophytes are noted. Facet arthropathy in the lower lumbar spine. No definite suspicious lytic or blastic osseous lesions are appreciated. Osteopenia. Head: There is no evidence of acute intracranial hemorrhage or edematous territorial infarction. Scattered hypoattenuation in the periventricular and deep white matter are consistent with moderate microangiopathy. Mineralization of the basal ganglia. Gould-white matter differentiation is preserved. Proportional prominence of the ventricles and sulcal spaces. No evidence for obstructive hydrocephalus. No abnormal mass effect or midline shift. No extra-axial fluid collections. No acute soft tissue or osseous abnormalities. The mastoid air cells and paranasal sinuses are clear. Cervical Spine: Evaluation is limited due to motion. The atlantooccipital and atlantoaxial articulations remain well aligned. No evidence of acute compression deformity or traumatic subluxation. Very prominent multilevel anterior osteophytes distorting the posterior pharynx/esophagus. Multilevel cervical spondylosis with various degrees of neural foraminal encroachment and central spinal canal stenosis. There is no prevertebral soft tissue swelling. Evaluation of the soft tissues and lungs is limited due to motion. However, accounting for these limitations, no gross abnormalities are noted. Discharge Plan Discharge Clinical Impression: Multiple contusions Patient Disposition: Home, Self-Care Instructions: Contusion in Adults (ED) Additional Instructions: Please follow-up with your primary care physician tomorrow. If you have any worsening or new symptoms, please return to the emergency room or call 911 Prescriptions: New oxycodone 5 mg tablet 5 mg PO BID PRN (Reason: pain) Qty: 4 0RF Rx Instructions: Partial Fill upon patient request. No Action furosemide 20 mg tablet 20 mg PO DAILY Qty: 90 1RF Rx Instructions: Over due for follow up. Please schedule an appointment for 2022 to continue receiving refills; [phone] ondansetron 4 mg tablet,disintegrating 4 mg PO Q8H PRN (Reason: nausea and vomiting) Qty: 20 0RF Lantus Solostar U-100 Insulin 100 unit/mL (3 mL) insulin pen 60 unit subcut DAILY lisinopril 5 mg tablet 5 mg PO QAM gabapentin 300 mg capsule 300 mg PO TID ezetimibe 10 mg tablet 10 mg PO DAILY docusate sodium 100 mg capsule 100 mg PO BID cholecalciferol (vitamin D3) 50 mcg (2,000 unit) tablet 50 mcg PO QAM calcium carbonate-vitamin D3 600 mg(1,500mg) -400 unit tablet 1 tab PO BID omeprazole 20 mg capsule,delayed release(DR/EC) 20 mg PO BID Eliquis 5 mg tablet 5 mg PO (DME) Cock up splint See Rx Instructions .Route .MEDSUPPLY Qty: 2 0RF Rx Instructions: Wear spilt on both hands nightly. (DME) lancets 33 gauge misc See Rx Instructions .ROUTE .MEDSUPPLY Qty: 100 Rx Instructions: As directed (DME) pen needle, diabetic 32 gauge x 5/32 needle See Rx Instructions .ROUTE .MEDSUPPLY Qty: 50 Rx Instructions: As directed insulin aspart U-100 100 unit/mL (3 mL) insulin pen subcut Flovent HFA 110 mcg/actuation HFA aerosol inhaler 0 mcg inhalation fluticasone propionate 50 mcg/actuation spray,suspension 0 mcg intranasal alcohol swabs Pads, Medicated 0 pad topical sertraline 25 mg tablet 25 mg PO DAILY cetirizine 10 mg tablet 10 mg PO DAILY (DME) FreeStyle Lite Strips Strip See Rx Instructions Not Applicable .MEDSUPPLY Qty: 10 Rx Instructions: As directed metoprolol succinate 50 mg tablet extended release 24 hr 50 mg PO DAILY biotin PO Patient Comments: taking 1 tab biotin with vitamins daily doxycycline monohydrate 100 mg capsule 100 mg PO BID
--- NOTE | 2022-07-13 17:33 | MHC.EDTECH ---
pt was assisted unto bedside commode ,void lg amount of urine ,then assisted back to bed .
[2022-07-13 17:56] VITALS: BP 108/49; PULSE 76; RESP 16; TEMP 36.8; O2SAT 98
[2022-07-13] MEDS: oxyCODONE HCl Immed Release 5 MG TABLET PO (18:24)
[2022-07-13 20:17] VITALS: BP 125/61; PULSE 68; RESP 18; TEMP 36.8; O2SAT 95
--- NOTE | 2022-07-13 20:18 | PC.NURSE ---
medical oncology physician utilized at discharge. vss. skin pwd. pt ambulatory at discharge. pt calm and cooperative. pt provided with discharge packet. pt verbalized understanding of discharge plan
== END 2022-07-13 20:19 | disposition home or self-care (01) ==
PROVIDERS: Emergency Provider Emergency Medicine; PCP Family Medicine
DX: S00.93XA Contusion of unspecified part of head, initial encounter (principal); S70.02XA Contusion of left hip, initial encounter; S70.01XA Contusion of right hip, initial encounter; S30.0XXA Contusion of lower back and pelvis, initial encounter; W07.XXXA Fall from chair, initial encounter; E11.9 Type 2 diabetes mellitus without complications; I10 Essential (primary) hypertension; I48.0 Paroxysmal atrial fibrillation; Z79.01 Long term (current) use of anticoagulants; Z79.4 Long term (current) use of insulin; Y93.E1 Activity, personal bathing and showering; Y92.031 Bathroom in apartment as the place of occurrence of the external cause; Y99.9 Unspecified external cause status
CPT/HCPCS: 70450; 72070; 72100; 72125; 73522; 99284

== ENCOUNTER 2022-10-02 12:25 | Emergency (ER) | payer OTHER, SELFPAY ==
[2022-10-02] VITALS (9 sets, daily range): BP systolic 102–132; BP diastolic 42–68; PULSE 66–75; RESP 14–20; TEMP 36.6–37.1; O2SAT 94–98; BMI 28.1
--- NOTE | 2022-10-02 12:37 | ED_ITS ---
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 Patient reports that she was recently started on Trulicity 1 week ago and shortly after taking his medication she developed home her symptoms. She endorses epigastric pain, nausea, and chills. Also admits to having dysuria over the last 3 days, otherwise denies hematuria, urinary urgency or frequency. She initially had diarrhea which has since resolved. Denies constipation, bloody stool, or dark tarry stool. Patient denies any fevers, chills, sore throat, ear pain, chest pain, palpitations, shortness of breath. Denies taking any medications at home to treat her current symptoms. She was following up with her primary care physician who told her to come to the emergency department for further evaluation. She had a cholecystectomy, otherwise denies any other a bdominal surgeries. No other complaints or concerns at this time. MD elicited complaint: abdominal pain Pertinent past history: none Pain Consistency: constant Location: epigastric Severity: moderate Quality: cramping Radiation: none Migration to: no migration Exacerbating factors: nothing Relieving factors: nothing Associated symptoms: nausea and vomiting Related Data Home Medications Medication Instructions Recorded Confirmed alcohol swabs 0 pad topical 03/24/20 04/18/21 blood sugar diagnostic #10 ea 03/24/20 04/18/21 cetirizine 10 mg tablet 10 mg PO DAILY 03/24/20 04/18/21 fluticasone propionate 110 0 mcg inhalation 03/24/20 04/18/21 mcg/actuation HFA aerosol inhaler fluticasone propionate 50 0 mcg intranasal 03/24/20 04/18/21 mcg/actuation nasal spray,suspension insulin aspart U-100 100 unit/mL unit subcut 03/24/20 04/18/21 (3 mL) subcutaneous pen lancets 33 gauge #100 ea 03/24/20 04/18/21 metoprolol succinate 50 mg 50 mg PO DAILY 03/24/20 04/18/21 tablet,extended release 24 hr pen needle, diabetic 32 gauge x #50 ea 03/24/20 04/18/21 sertraline 25 mg tablet 25 mg PO DAILY 03/24/20 04/18/21 calcium carbonate 600 mg-vitamin 1 tab PO BID 06/28/20 04/18/21 D3 10 mcg (400 unit) tablet cholecalciferol (vitamin D3) 50 50 mcg PO QAM 06/28/20 04/18/21 mcg (2,000 unit) tablet docusate sodium 100 mg capsule 100 mg PO BID 06/28/20 04/18/21 ezetimibe 10 mg tablet 10 mg PO DAILY 06/28/20 04/18/21 gabapentin 300 mg capsule 300 mg PO TID 06/28/20 04/18/21 insulin glargine 100 unit/mL (3 60 unit subcut DAILY 06/28/20 04/18/21 mL) subcutaneous pen lisinopril 5 mg tablet 5 mg PO QAM 06/28/20 04/18/21 omeprazole 20 mg capsule,delayed 20 mg PO BID 06/28/20 04/18/21 release biotin PO 10/19/20 04/18/21 doxycycline monohydrate 100 mg 100 mg PO BID 04/18/21 04/18/21 capsule apixaban 5 mg tablet (Eliquis) 5 mg PO 09/24/21 Previous Rx's Medication Instructions Recorded ondansetron 4 mg disintegrating 4 mg PO Q8H PRN nausea and 11/10/20 tablet vomiting #20 tabs Cock up splint #2 ea 09/24/21 oxycodone 5 mg tablet 5 mg PO BID PRN pain #4 tabs 07/13/22 furosemide 20 mg tablet 20 mg PO DAILY edema #90 tabs 08/27/22 omeprazole 20 mg capsule,delayed 20 mg PO DAILY #14 caps 10/02/22 release Allergies Allergy/AdvReac Type Severity Reaction Status Date / Time ibuprofen [From MOTRIN] Allergy Intermediate HIVES Verified 11/09/21 10:26 tramadol [TRAMADOL] Allergy Intermediate ITCHING, Verified 11/09/21 10:26 hallucinations aspirin [Aspirin] Allergy Mild HIVES,RASH Verified 11/09/21 10:26 iodine Allergy Unknown UNKNOWN Verified 08/05/22 10:26 metformin Allergy Unknown UNKNOWN Verified 11/09/21 10:26 [id number] Reductase AdvReac Intermediate MYALGIA'S Verified 11/09/21 10:26 Inhibitor [[id number] REDUCTASE INHIBITOR] influenza virus vaccine, AdvReac Mild SHAKES Verified 11/09/21 10:26 specific [Influenza Virus Vacc,Specific] Codeine Phosphate Allergy Unknown UNKNOWN Uncoded 09/24/21 12:12 Motrin Allergy Unknown UNKNOWN Uncoded 09/24/21 12:12 Review of Systems Review of Systems Constitutional: No Weight loss, No Fever, + Chills, No Night Sweats, No Fatigue, No Malaise ENT/Mouth: No Hearing loss, No Ear Pain, No Nasal Congestion, No Sinus Pain, No Hoarseness, No sore throat, No Rhinorrhea, No Swallowing Difficulty Eyes: No Eye Pain, No Swelling, No Redness, No Foreign Body, No Discharge, No Vision Changes Cardiovascular: No Chest Pain, No SOB, No Dyspnea on Exertion, No Orthopnea, No Edema, No Palpitations Respiratory: No Cough, No Sputum, No Wheezing, No Smoke Exposure, No Dyspnea Gastrointestinal: + Nausea, +Vomiting, No Diarrhea, No Constipation, +Abdominal pain, No Hematochezia, No Melena Genitourinary: No irregular bleeding, No Dysuria, No Urinary Frequency, No Hematuria, No Urinary Incontinence/retention, No Urgency, No Flank Pain, No Urinary Flow Changes, No Hesitancy Musculoskeletal: No joint pain, No Myalgias, No Joint Swelling Skin: No Skin Lesions, No rash Neuro: No Weakness, No Numbness, No Paresthesias, No Loss of Consciousness, No Dizziness, No Headache Psych: No Anxiety/Panic, No Depression, No SI/HI/AH/VH, No Social Issues, Heme/Lymph: No Bruising, No Bleeding,No Lymphadenopathy Endocrine: No Polyuria, No Polydipsia, No Temperature Intolerance Yes all other systems are reviewed and are negative Constitutional: Reports as per HPI [facility] Past Medical History Medical History (HFpEF) heart failure with preserved ejection fraction Diabetes mellitus HTN (hypertension) Paroxysmal atrial fibrillation Surgical History Hx of breast biopsy Hx of knee surgery Hx of tonsillectomy Hx of tubal ligation Family History Family History Father CVD (cardiovascular disease) Sudden cardiac Mother No problems noted. Social History Social History Alcohol intake: never Patient Tobacco Use Status: Never used Tobacco Smoked in Last 30 Days: No Use of substances other than those prescribed or required for medical reasons: No Advance Directives: No Physical Exam ED Vital Signs: Vital Signs - 24 hr 10/02/22 12:31 10/02/22 12:49 10/02/22 14:01 Temperature 98.1 F 98.2 F Pulse Rate 70 66 67 Respiratory Rate 16 18 15 Blood Pressure 132/61 102/51 L 125/44 L Pulse Oximetry 96 96 97 Oxygen Delivery Method Room Air Room Air Room Air 10/02/22 15:03 10/02/22 15:41 10/02/22 15:43 Temperature 97.8 F Pulse Rate 75 73 Respiratory Rate 20 16 Blood Pressure 112/45 L 114/42 L Pulse Oximetry 96 94 Oxygen Delivery Method Room Air Room Air 10/02/22 17:30 10/02/22 19:46 Temperature 98.8 F Pulse Rate 73 68 Respiratory Rate 18 14 Blood Pressure 106/68 112/49 L Pulse Oximetry 98 96 Oxygen Delivery Method Room Air BMI result Body Mass Index 28.1 Const General: cooperative, comfortable and no acute distress Orientation/consciousness: patient oriented x3 Limitations: no limitations HENMT Head: Yes normal to inspection, Yes normocephalic and Yes atraumatic Ears: hearing grossly normal bilaterally General nose exam: Normal external nose present Face and sinus: Yes normal facial exam Mouth: Normal oral and palatal mucosa present, oropharynx normal and moist mucous membranes Throat: Yes posterior oropharynx normal Eyes General: appearance normal, both eyes and all related structures Eyelids: Yes eyelids normal Conjunctivae: conjunctivae normal Sclerae: sclerae normal Pupils: Equal, round and reactive pupils present EOM: EOMs intact bilaterally Neck Neck: Yes normal visual inspection, Yes full ROM and Yes no lymphadenopathy Lymphatic: no lymphadenopathy noted Chest Chest palpation & inspection: normal inspection of the chest Resp Effort & Inspection: normal respiratory effort and able to speak in complete sentences Auscultation: clear to auscultation bilaterally, no crackles, no rales, no rhonc hi and no wheezes Cardio Rate: regular rate Rhythm: regular rhythm Heart sounds: S1 normal heart sound present and S2 normal heart sound present GI Other: Abdomen is soft, with tenderness palpation in the right upper quadrant, normoactive bowel sounds present in all 4 quadrants. No rebound, or guarding. Inspection: Yes normal to inspection Skin General skin exam: no rashes or lesions noted Trauma: no lacerations or abrasions Wounds: no wounds Neuro General: patient oriented x3 and moves all extremities Cranial nerves: Yes Equal, round and reactive pupils present Extrem General: Yes normal to inspection Right upper extremity: normal to inspection Left upper extremity: normal to inspection Right lower extremity: normal to inspection Left lower extremity: normal to inspection Course Reevaluation(s) Reevaluation #1: Patient's UA shows trace bacteria, your this is consistent with a UTI. The patient is here for abdominal pain. Will treat with Macrobid twice daily for 5 days. Patient will be referred to GI for her gastritis and she will be discharged on omeprazole Time: 21:29 Medical Decision Making Medical Decision Making [facility] Narrative: This is a 77-year-old female presenting to the emergency department for evaluation of abdominal pain, nausea and vomiting for the last 8 days. Patient states that all of her symptoms started shortly after starting Trulicity. Patient was seen by her primary care physician and was advised to come to the emergency department for further evaluation. Symptoms likely due to medication side effect, but given nausea and decreased appetite will order basic labs, UA, IV fluids and Zofran. Vital signs within normal limits, patient is afebrile. Differential Diagnosis Differential Diagnoses: The differential diagnosis associated with the presentation includes Gastritis, gastroenteritis, adverse medication side effect, electrolyte abnormality Lab Data [facility] Lab Attestation statement: I reviewed the patient's lab results. No leukocytosis, H&H within normal limits, POC 181 10/02/22 15:05 10/02/22 15:06 Labs: Lab Results 10/02/22 10/02/22 10/02/22 Range/Units 14:26 15:05 15:05 WBC 8.4 (4.8-10.8) X10*3/uL RBC 5.15 (4.20-5.50) X10*6/uL Hgb 12.3 (12.0-16.0) g/dl Hct 39.9 (37.0-47.0) % MCV 77.5 L (80.0-98.0) fL MCH 23.9 L (27.0-33.0) pg MCHC 30.8 L (31.0-35.0) g/dl RDW 16.8 H (11.0-16.0) % Plt Count 352 (160-400) X10*3/uL MPV 8.1 L (9.4-12.3) fL Immature Gran % (Auto) 0.1 (0.0-0.4) % Neut % (Auto) 59.4 (45-73) % Lymph % (Auto) 30.6 (20-40) % [place] % (Auto) 7.1 (2-11) % Eos % (Auto) 2.3 (0-4) % Baso % (Auto) 0.5 (0-2) % Lymph # (Auto) 2.6 (1.2-4.9) X10*3/uL [place] # (Auto) 0.6 (0.1-1.2) X10*3/uL Eos # (Auto) 0.2 (0.0-0.4) X10*3/uL Baso # (Auto) 0.0 (0.0-0.2) X10*3/uL Abs Immat Gran (auto) 0.01 (0.00-0.03) X10*3/uL Absolute Neuts (auto) 5.0 (2.0-8.3) x10*3/uL Absolute Nucleated RBC 0.000 (0.0-0.012) X10*3/uL Nucleated RBC % (auto) 0.0 (0.0-0.2) /100WBC Sodium (135-145) mmol/L Potassium (3.3-5.1) mmol/L Chloride (96-108) mmol/L Carbon Dioxide (22-29) mmol/L Anion Gap (12-20) BUN (9-16) mg/dL Creatinine (0.5-1.4) mg/dL Estim Creat Clear Calc Estimated GFR POC Glucose 181 H (60-115) mg/dL Random Glucose (60-115) mg/dL Calcium (8.4-10.2) mg/dL Magnesium (1.6-2.6) mg/dL Total Bilirubin (0.0-1.0) mg/dL Direct Bilirubin (0.0-0.5) mg/dL AST (5-31) U/L ALT (0-31) U/L Alkaline Phosphatase (39-117) U/L Total Protein (6.5-8.0) g/dL Albumin (3.5-5.0) g/dL Lipase (8-78) U/L Urine Color Urine Appearance Urine pH (5.0-9.0) Ur Specific [place] (1.005-1.025) Urine Protein (Neg-Trace) mg/dL Urine Glucose (UA) (Negative) mg/dL Urine Ketones (Negative) mg/dL Urine Blood (Negative) Urine Nitrite (Negative) Ur Leukocyte Esterase (Negative) Urine RBC (0-2) /HPF Urine WBC (0-5) /HPF Ur Squamous Epith Cells (0-2) /HPF Urine Bacteria (None Seen) Hyaline Casts (0-2) /LPF Influenza Type A (PCR) NEGATIVE (Negative) Influenza Type B (PCR) NEGATIVE (Negative) RSV RNA Qual (PCR) NEGATIVE (Negative) SARS-CoV-2 RNA (RT-PCR) NEGATIVE (Negative) 10/02/22 10/02/22 Range/Units 15:06 19:48 WBC (4.8-10.8) X10*3/uL RBC (4.20-5.50) X10*6/uL Hgb (12.0-16.0) g/dl Hct (37.0-47.0) % MCV (80.0-98.0) fL MCH (27.0-33.0) pg MCHC (31.0-35.0) g/dl RDW (11.0-16.0) % Plt Count (160-400) X10*3/uL MPV (9.4-12.3) fL Immature Gran % (Auto) (0.0-0.4) % Neut % (Auto) (45-73) % Lymph % (Auto) (20-40) % [place] % (Auto) (2-11) % Eos % (Auto) (0-4) % Baso % (Auto) (0-2) % Lymph # (Auto) (1.2-4.9) X10*3/uL [place] # (Auto) (0.1-1.2) X10*3/uL Eos # (Auto) (0.0-0.4) X10*3/uL Baso # (Auto) (0.0-0.2) X10*3/uL Abs Immat Gran (auto) (0.00-0.03) X10*3/uL Absolute Neuts (auto) (2.0-8.3) x10*3/uL Absolute Nucleated RBC (0.0-0.012) X10*3/uL Nucleated RBC % (auto) (0.0-0.2) /100WBC Sodium 139 (135-145) mmol/L Potassium 4.4 (3.3-5.1) mmol/L Chloride 100 (96-108) mmol/L Carbon Dioxide 29 (22-29) mmol/L Anion Gap 14 (12-20) BUN 17 H (9-16) mg/dL Creatinine 0.89 (0.5-1.4) mg/dL Estim Creat Clear Calc 52.3 Estimated GFR > 60 POC Glucose (60-115) mg/dL Random Glucose 176 H (60-115) mg/dL Calcium 9.8 D (8.4-10.2) mg/dL Magnesium 2.3 (1.6-2.6) mg/dL Total Bilirubin 0.4 (0.0-1.0) mg/dL Direct Bilirubin 0.1 (0.0-0.5) mg/dL AST 23 (5-31) U/L ALT 16 (0-31) U/L Alkaline Phosphatase 107 (39-117) U/L Total Protein 7.2 (6.5-8.0) g/dL Albumin 3.8 (3.5-5.0) g/dL Lipase 24 (8-78) U/L Urine Color Yellow Urine Appearance Clear Urine pH 6.5 (5.0-9.0) Ur Specific [place] 1.025 (1.005-1.025) Urine Protein Negative (Neg-Trace) mg/dL Urine Glucose (UA) >=1000 H (Negative) mg/dL Urine Ketones Negative (Negative) mg/dL Urine Blood Negative (Negative) Urine Nitrite Negative (Negative) Ur Leukocyte Esterase Small (1+) H (Negative) Urine RBC 0-2 (0-2) /HPF Urine WBC 11-20 H (0-5) /HPF Ur Squamous Epith Cells 3-5 (0-2) /HPF Urine Bacteria Trace (None Seen) Hyaline Casts 0-2 (0-2) /LPF Influenza Type A (PCR) (Negative) Influenza Type B (PCR) (Negative) RSV RNA Qual (PCR) (Negative) SARS-CoV-2 RNA (RT-PCR) (Negative) Medications Administered Discontinued Medications Generic Name Dose Route Start Last Admin Trade Name Freq PRN Reason Stop Dose Admin Al Hydroxide/Mg Hydroxide 30 ml 10/02/22 16:48 10/02/22 17:22 Magnesium Hydrox/Alum Hydrox 30 Ml Oral.Susp PO 10/02/22 16:49 30 ml ONCE ONE Administration Sodium Chloride 1,000 mls @ 999 mls/hr 10/02/22 14:16 10/02/22 16:49 Ns IV 10/02/22 15:16 Infused .Q1H1M ONE Infusion Ondansetron HCl 4 mg 10/02/22 14:16 10/02/22 15:36 Ondansetron Hcl 4 Mg/2 Ml Vial IVPUSH 10/02/22 14:17 4 mg ONCE ONE Administration Pantoprazole Sodium 40 mg 10/02/22 16:48 10/02/22 17:22 Pantoprazole Sodium 40 Mg/10 Ml Vial IVPUSH 10/02/22 16:49 40 mg ONCE ONE Administration Discharge Plan Discharge Clinical Impression: Abdominal pain, Acute UTI Patient Disposition: Home, Self-Care Instructions: Gastritis (ED) Additional Instructions: Your urine sample did show a UTI. Take Macrobid twice daily for the next 5 days Your upper abdominal pain is likely related to your gastritis Take omeprazole daily Avoid spicy, greasy foods Follow-up with GI at the number provided as well as her primary doctor Prescriptions: New omeprazole 20 mg capsule,delayed release(DR/EC) 20 mg PO DAILY Qty: 14 0RF No Action furosemide 20 mg tablet 20 mg PO DAILY Qty: 90 0RF Rx Instructions: Over due for follow up. Please schedule an appointment for 2022 to continue receiving refills; [phone] ondansetron 4 mg tablet,disintegrating 4 mg PO Q8H PRN (Reason: nausea and vomiting) Qty: 20 0RF oxycodone 5 mg tablet 5 mg PO BID PRN (Reason: pain) Qty: 4 0RF Rx Instructions: Partial Fill upon patient request. Lantus Solostar U-100 Insulin 100 unit/mL (3 mL) insulin pen 60 unit subcut DAILY lisinopril 5 mg tablet 5 mg PO QAM gabapentin 300 mg capsule 300 mg PO TID ezetimibe 10 mg tablet 10 mg PO DAILY docusate sodium 100 mg capsule 100 mg PO BID cholecalciferol (vitamin D3) 50 mcg (2,000 unit) tablet 50 mcg PO QAM calcium carbonate-vitamin D3 600 mg(1,500mg) -400 unit tablet 1 tab PO BID omeprazole 20 mg capsule,delayed release(DR/EC) 20 mg PO BID Eliquis 5 mg tablet 5 mg PO (DME) Cock up splint See Rx Instructions .Route .MEDSUPPLY Qty: 2 0RF Rx Instructions: Wear spilt on both hands nightly. (DME) lancets 33 gauge misc See Rx Instructions .ROUTE .MEDSUPPLY Qty: 100 Rx Instructions: As directed (DME) pen needle, diabetic 32 gauge x 5/32 needle See Rx Instructions .ROUTE .MEDSUPPLY Qty: 50 Rx Instructions: As directed insulin aspart U-100 100 unit/mL (3 mL) insulin pen subcut Flovent HFA 110 mcg/actuation HFA aerosol inhaler 0 mcg inhalation fluticasone propionate 50 mcg/actuation spray,suspension 0 mcg intranasal alcohol swabs Pads, Medicated 0 pad topical sertraline 25 mg tablet 25 mg PO DAILY cetirizine 10 mg tablet 10 mg PO DAILY (DME) FreeStyle Lite Strips Strip See Rx Instructions Not Applicable .MEDSUPPLY Qty: 10 Rx Instructions: As directed metoprolol succinate 50 mg tablet extended release 24 hr 50 mg PO DAILY biotin PO Patient Comments: taking 1 tab biotin with vitamins daily doxycycline monohydrate 100 mg capsule 100 mg PO BID Referrals: Misael Smith [Physician] - (Gastritis vs peptic ulcer disease)
--- NOTE | 2022-10-02 13:00 | PC.NURSE ---
clinical engineering manager at bedside w/rn to evaluate/explain plan of care. pt reports nausea w/o vomiting. vss. no acute distress. breathing well. +CSM.
--- NOTE | 2022-10-02 14:03 | PC.NURSE ---
pa at bedside with rn/wreath maker. vss. continued abd pain w/nausea and no vomiting. denies cp/sob. NSR on monitor
[2022-10-02 14:32] LABS: Glucose, Whole Blood 181 mg/dL (60-115)
[2022-10-02 15:14] LABS: MANUAL DIFF FLAG NO
[2022-10-02 15:15] LABS: Basophils Percent Auto 0.5 % (0-2); Eosinophils Absolute Auto 0.2 X10*3/uL (0.0-0.4); Eosinophils Percent Auto 2.3 % (0-4); Hematocrit 39.9 % (37.0-47.0); Hemoglobin 12.3 g/dl (12.0-16.0); Imm Gran Abs Auto 0.01 X10*3/uL (0.00-0.03); Imm Gran Pct Auto 0.1 % (0.0-0.4); Lymphocytes Absolute Auto 2.6 X10*3/uL (1.2-4.9); Lymphocytes Percent Auto 30.6 % (20-40); Mean Corpuscular HGB Conc 30.8 g/dl (31.0-35.0); Mean Corpuscular Hemoglobin 23.9 pg (27.0-33.0); Mean Corpuscular Volume 77.5 fL (80.0-98.0); Mean Platelet Volume 8.1 fL (9.4-12.3); Monocytes Absolute Auto 0.6 X10*3/uL (0.1-1.2); Monocytes Percent Auto 7.1 % (2-11); Neutrophils Percent Auto 59.4 % (45-73); Platelet Count 352 X10*3/uL (160-400); Red Blood Count 5.15 X10*6/uL (4.20-5.50); Red Cell Distribution Width 16.8 % (11.0-16.0); White Blood Count 8.4 X10*3/uL (4.8-10.8)
[2022-10-02 15:31] LABS: Alanine Aminotransferase 16 U/L (0-31); Albumin Level 3.8 g/dL (3.5-5.0); Alkaline Phosphatase 107 U/L (39-117); Anion Gap 14 (12-20); Aspartate Amino Transferase 23 U/L (5-31); Bilirubin Direct 0.1 mg/dL (0.0-0.5); Bilirubin Total 0.4 mg/dL (0.0-1.0); Blood Urea Nitrogen 17 mg/dL (9-16); Calcium 9.8 mg/dL (8.4-10.2); Carbon Dioxide 29 mmol/L (22-29); Chloride 100 mmol/L (96-108); Creatinine Clr Calc Pharmacy 52.3; Estimated Glomerular Filt Rate > 60; Glucose Random 176 mg/dL (60-115); Lipase 24 U/L (8-78); Magnesium 2.3 mg/dL (1.6-2.6); Potassium 4.4 mmol/L (3.3-5.1); Sodium 139 mmol/L (135-145); Total Protein 7.2 g/dL (6.5-8.0)
[2022-10-02] MEDS: ondansetron HCL 4 MG/2 ML VIAL IVPUSH (15:36)
[2022-10-02] MEDS: 0.9 % Sodium Chloride 1,000 ML 999 ML IV (15:36)
[2022-10-02 15:52] LABS: Influenza A PCR NEGATIVE (Negative); Influenza B PCR NEGATIVE (Negative); Resp Syncy Virus RNA Qual PCR NEGATIVE (Negative); SARS COV2 PCR INHOUSE NEGATIVE (Negative)
[2022-10-02] MEDS: Pantoprazole Sodium 40 MG/10 ML VIAL IVPUSH (17:22)
[2022-10-02] MEDS: Magnesium Hydrox/Alum Hydrox 30 ML ORAL.SUSP PO (17:22)
[2022-10-02 19:55] LABS: Appearance Urine Clear; Color Urine Yellow; Glucose Urine UA >=1000 mg/dL (Negative); Leukocyte Esterase Urine Small (1+) (Negative); Nitrite Urine Negative (Negative); PH 6.5 (5.0-9.0); Specific Gravity - Urine 1.025 (1.005-1.025); UMIC TRIGGER UACC YES; Urine Blood Negative (Negative); Urine Ketones Negative (Negative); Urine Protein Negative (Neg-Trace)
[2022-10-02 19:59] LABS: Bacteria Urine Trace (None Seen); Hyaline Casts Urine 0-2 /LPF (0-2); RBC Urine 0-2 /HPF (0-2); UACC Culture Trigger YES
--- NOTE | 2022-10-02 22:05 | PC.NURSE ---
jer[place]. jeff equally. pt being given d/c instructions w product test specialist yang.. iv removed. vss.
== END 2022-10-02 22:10 | disposition home or self-care (01) ==
PROVIDERS: Physician Assistant Medical; Emergency Provider Emergency Medicine; PCP Family Medicine
DX: N39.0 Urinary tract infection, site not specified (principal); R10.9 Unspecified abdominal pain; R11.2 Nausea with vomiting, unspecified; E11.9 Type 2 diabetes mellitus without complications; Z20.822 Contact with and (suspected) exposure to COVID-19; Z20.828 Contact with and (suspected) exposure to other viral communicable diseases; Z79.899 Other long term (current) drug therapy
CPT/HCPCS: 0241U; 80048; 80076; 81001; 82947; 83690; 83735; 85025; 87086; 96361; 96374; 96375; 99284; J2405

== ENCOUNTER 2022-12-04 09:47 | Outpatient (AMB) | payer OTHER, SELFPAY ==
--- NOTE | 2022-12-04 09:51 | MHC.OFFVIS ---
Intake Vital Signs 12/04/22 10:09 Weight 165 lb 9.074 oz BP 120/58 L Blood Pressure Location Lt brachial Position Sitting Pulse 63 Pulse Source Pulse Oximeter Temp 97.9 F Temp Source Skin Pulse Oximetry (%) 97 Oxygen Delivery Method Room Air Intake Visit Reasons: OA Intake Note: Patient here to follow up on OA. c/o tiarra shoulder pain (hx of), tiarra hand pain, difficulty lifting arms to brush hair. 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: Material Lister Name: Nicola [id number] Information Interpreted: clinical only Accompanied by: Self / Same As Patient Allergies ibuprofen [From MOTRIN] Allergy (Intermediate, Verified 12/04/22 09:52) HIVES tramadol [TRAMADOL] Allergy (Intermediate, Verified 12/04/22 09:52) ITCHING, hallucinations aspirin [Aspirin] Allergy (Mild, Verified 12/04/22 09:52) HIVES,RASH iodine Allergy (Unknown, Verified 12/04/22 09:52) UNKNOWN metformin Allergy (Unknown, Verified 12/04/22 09:52) UNKNOWN Fwpttkw-UNA-IdG Reductase Inhibitor [GESQWUY-HBW-KHB REDUCTASE INHIBITOR] Adverse Reaction (Intermediate, Verified 12/04/22 09:52) MYALGIA'S influenza virus vaccine, specific [Influenza Virus Vacc,Specific] Adverse Reaction (Mild, Verified 12/04/22 09:52) SHAKES Codeine Phosphate Allergy (Unknown, Uncoded 12/04/22 09:52) UNKNOWN Motrin Allergy (Unknown, Uncoded 12/04/22 09:52) UNKNOWN Medication List - Last Reconciled 12/04/22 by Lonnie Hill MD acetaminophen ER 0 mg PO BID albuterol sulfate mg inhalation Q6H PRN alcohol swabs 0 pad topical apixaban (Eliquis) 5 mg PO arm brace (Wrist Brace) wear on each wrist only at night biotin PO blood sugar diagnostic As directed calcium carbonate-vitamin D3 600 mg-10 mcg (400 unit) 1 tab PO BID cetirizine 10 mg PO DAILY [Cock up splint Wear spilt on both hands nightly. ] docusate sodium 100 mg PO BID dulaglutide (Trulicity) mg subcut QWEEK empagliflozin (Jardiance) 25 mg PO QAM ezetimibe 10 mg PO DAILY fluticasone propionate 110 mcg/actuation 0 mcg inhalation furosemide 20 mg PO QAM gabapentin 300 mg PO TID insulin aspart U-100 units subcut insulin glargine 60 units subcut DAILY lancets As directed lisinopril 5 mg PO QAM metoprolol succinate ER 50 mg PO DAILY omeprazole 20 mg PO DAILY pen needle, diabetic As directed sertraline 50 mg PO QAM HPI HPI Comments History of Present Illness Details The patient presents for evaluation of multiple areas of pain. We use the iPad translating divides to facilitate the visit. She was last seen in September of 2021. She has known hand paresthesias thought to be due to carpal tunnel syndrome, osteoarthritis in the shoulders, and osteoarthritis in the thoracic spine, lumbar spine, and cervical region. She had received a corticosteroid injection for left shoulder glenohumeral OA last summer. She says it did help her for a number of months. Symptoms are worse with using the arms. Pain radiates from the top of the shoulder distally into the triceps region. It is much more severe on the left side where she can barely move the arm without pain. She also notes pain across the thumbs and PIP joints. She does take acetaminophen for symptoms with questionable benefit. NSAIDs are avoided because she is on apixaban. She also takes gabapentin is 300 mg 3 times a day. Sertraline is also listed but she is not sure she is taking it. [facility] Medical History (HFpEF) heart failure with preserved ejection fraction Diabetes mellitus HTN (hypertension) Paroxysmal atrial fibrillation Surgical History Hx of breast biopsy Hx of knee surgery Hx of tonsillectomy Hx of tubal ligation Family History Father CVD (cardiovascular disease) Sudden cardiac Mother No problems noted. Social History Alcohol intake: never Patient Tobacco Use Status: Never used Tobacco Review of Systems Const Details: Low energy. Negative for appetite change, weight change, fever, chills, malaise and fatigue Card Details: Negative chest pain, edema and syncope Resp Details: Negative for SOB, cough and wheezing GI Details: Negative indigestion/heartburn, nausea, abdominal pain, bowel changes, diarrhea, constipation and bloody stool. Neuro Details: She gets hand numbness every night. We had tried to prescribe some hand splints last time but she does not recall that event. She has never used and splints at night. Negative for epilepsy, palsy, stroke, changes in speech, and weakness Endo Details: Negative for polyuria and polydypsia Renzo/Lymph Details: Negative for excessive bruising or bleeding. Physical Exam Vital Signs: Last Vital Signs Temp 97.9 F 12/04/22 10:09 Pulse 63 12/04/22 10:09 BP 120/58 L 12/04/22 10:09 Pulse Ox 97 12/04/22 10:09 Oxygen Delivery Method Room Air 12/04/22 10:09 APPEARANCE: Patient in no acute distress EYES no redness, pupils equal and reactive to light, eyelids normal. No temporal artery tenderness, redness or swelling. EXTREMITIES: No edema, no calf tenderness, normal peripheral pulses. NEURO: Oriented and alert x3. No focal weakness. Reflexes symmetric. Gait normal. SKIN: No inflammatory or neoplastic lesions. Normal color and turgor JOINT EXAM: Cervical Spine:? Full range of motion with mild discomfort at the extremes. No tenderness. Thoracic Spine:? No tenderness on palpation. Lumbar Spine:? Alignment normal.? Full range of motion with slight pain at 60 degrees of flexion. Straight leg raising is negative. No tenderness. Hands: LEFT: Normal range of motion. There is mild tenderness without bony enlargement at the base of the thumb. There is bony enlargement across the thumb IP, PIP and all the D IP joints. The D IP joints have mild tenderness. There is no flexor tendon triggering, thenar atrophy or sensory loss. Wrists right: RIGHT:: Mild bony enlargement and mild to moderate tenderness at the base of the thumb. There is bony enlargement at the thumb IP, all the PIP and all the PIP joints. All of these have slight tenderness. There is some slight thenar atrophy but no sensory loss. There is no flexor tendon triggering but there is some slight tenderness along the thumb flexor tendon. Wrists: SLIGHT PAIN WITH EXTREMES OF NORMAL RANGE OF MOTION. SLIGHT DORSAL TENDERNESS AND POSITIVE PHALEN'S SIGN. NO swelling, increased warmth or erythema. Elbows: Normal pain-free range of motion without tenderness, swelling, increased warmth or erythema. Shoulders:? LEFT:? Moderate pain with abduction at only 30 degrees or any attempts at rotation. There is some abductor weakness. There does seem to be increased space between the head of the humerus and the acromion. That area is tender as is the anterior and posterior shoulder structures. There may be some fluid felt anteriorly as well. No redness or warmth. No adenopathy. ? RIGHT:? Mild pain with abduction 150 degrees or with extremes of rotation. Mild anterior tenderness. No adenopathy or swelling. Questionable abductor weakness. Hips: Full range of motion without pain. Hip bursa: No tenderness. Knees:?? Normal pain-free range of motion without tenderness, swelling, increased warmth or erythema.? There is no effusion or crepitation.? Healed arthroplasty scars bilaterally. Ankles: Normal pain-free range of motion without tenderness, swelling, increased warmth or erythema. ? Office Procedures Joint Injection/Drain Joint Injection/Drain Primary Site: left shoulder Injected: 40 mg of, Kenalog, with 1 mL of and 1% plain lidocaine Coding Details: With the patient's consent the left shoulder was prepped with ChloraPrep and alcohol. Under a topical ethyl chloride spray the left subacromial space was injected via a posterior approach with 40 mg of triamcinolone and 1 cc of 1% lidocaine. The patient tolerated the procedure without any acute adverse effects. 97821 - Large joint Procedure code (CPT) selection complete Results Reviewed Results Reviewed: [address] [address] XRay Report Signed Patient: Clau Dougherty MR#: [id number] : 1945 Acct:[id number] Age/Sex: 77 / F ADM Date: 07/13/22 Loc: HO.ED Ordering Physician: Arlette Hood MD Date of Service: 07/13/22 Procedure(s): XR hips TIARRA min 3V Accession Number(s): [id number] cc: Arlette Hood MD~ EXAMINATION: XR BILATERAL HIPS WITH AP PELVIS XR THORACIC SPINE XR LUMBAR SPINE CLINICAL INFORMATION: Bilateral hip pain. Mid and lower back pain. COMPARISON: Selected images of the abdomen and pelvic CT scan of from 11/10/2020, chest x-ray of 12/15/2019 and selected images of the chest CT of 10/12/2016. TECHNIQUE: Pelvis 1 view; AP. Bilateral hips 2 views; AP and frog-lateral views. Thoracic spine 3 views; AP, lateral and swimmer's views. Lumbar spine 3 views; AP and lateral views of the lumbar spine and coned-down lateral view of L5-S1. FINDINGS: PELVIS AND BILATERAL HIPS: There is no evidence of acute fracture or dislocation in the pelvis and bilateral hips. No definite suspicious lytic or blastic osseous lesions are seen. Symphysis pubis is intact. 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 Mild osteoarthritic changes at the bilateral hips with narrowing of the joint space and mild marginal osteophytic changes. Limited evaluation of the sacroiliac joints is unremarkable. THORACIC SPINE: Vertebral body heights and alignment are maintained. There is diffuse osteopenia. Intervertebral disc spaces are preserved. Multilevel marginal endplate osteophytes are noted. Visualized lungs are unremarkable. Cardiomediastinal silhouette is normal. No suspicious lytic or blastic osseous lesions. LUMBAR SPINE: There are 5 lumbar-type exr-[id number] vertebrae. The vertebral body heights and alignment are maintained. Intervertebral disc spaces are preserved. Multilevel small marginal osteophytes are noted. Facet arthropathy in the lower lumbar spine. No definite suspicious lytic or blastic osseous lesions are appreciated. Osteopenia. XR/XR hips TIARRA min 3V IMPRESSION: 1.? Diffuse osteopenia. No evidence of acute fracture or dislocation in the pelvis and bilateral hips. Mild osteoarthritic changes at the hips. ? 2.? Mild thoracic and lumbar spondylosis. ? 3.? No evidence of acute compression fracture or suspicious osseous lesion in the thoracic spine and lumbar spine. ? ? Dictated By: Vince Villanueva MD [address] [address] XRay Report Signed Patient: Clau Dougherty MR#: [id number] : 1945 Acct:[id number] Age/Sex: 76 / F ADM Date: 10/02/[address]: Amanda Paz NP Ordering Physician: Amanda Paz NP Date of Service: 10/02/21 Procedure(s): XR shoulder LT min 2V Accession Number(s): [id number] cc: Amanda Paz CHEMICAL PROCESS PROJECT ENGINEER~ EXAMINATION: XR SHOULDER, LEFT CLINICAL INFORMATION: Pain? COMPARISON: Shoulder radiographs 04/19/2019? TECHNIQUE: Four views of the left shoulder. FINDINGS: Moderate to advanced degenerative changes of the acromioclavicular and glenohumeral joints with inferior subluxation of the glenoid with respect to the humeral head. Calcification is noted along the course of the supraspinatus tendon which may reflect sequelae of hydroxyapatite deposition disease. No acute fracture. XR/XR shoulder LT min 2V IMPRESSION: ? Moderate to advanced degenerative changes of shoulder, with inferior subluxation of the glenoid with respect to the humeral head. ? Calcification along the course of the supraspinatus tendon may reflect sequelae of hydroxyapatite deposition disease. Dictated By: Anitra Avendaño MD Assessment & Plan Assessment & Plan (1) Bilateral carpal tunnel syndrome: Code(s): G56.03 - Carpal tunnel syndrome, bilateral upper limbs (2) Osteoarthritis of hands, bilateral: Code(s): M19.041 - Primary osteoarthritis, right hand; M19.042 - Primary osteoarthritis, left hand (3) Osteoarthritis of lumbar spine: Code(s): M47.816 - Spondylosis without myelopathy or radiculopathy, lumbar region (4) Osteoarthritis of glenohumeral joints, bilateral: Code(s): M19.011 - Primary osteoarthritis, right shoulder; M19.012 - Primary osteoarthritis, left shoulder Plan The patient's hand findings are consistent with osteoarthritis and carpal tunnel syndrome. I did issue her prescriptions for wrist splints to use nightly. If that does not improve her hand paresthesias we would consider hand surgery referral. The pain in the shoulders is certainly due to the severe osteoarthritis in the glenohumeral joint on the left and likely also the case on the right. It is likely she has rotator cuff attrition leading to the glenohumeral OA. She does not recall any fall in the shoulders or arms in the past. The patient did get a response to a corticosteroid injection there last year so another injection today seems reasonable. With the patient's consent the left shoulder was prepped with ChloraPrep and alcohol. Under a topical ethyl chloride spray the left subacromial space was injected via a posterior approach with 40 mg of triamcinolone and 1 cc of 1% lidocaine. The patient tolerated the procedure without any acute adverse effects. She will rest the area for a few days and then try some gentle, [id number] exercises. I do not see any signs of active inflammatory joint disease in her case. Follow-up in 6 months would be reasonable. She could continue to get periodic, 2 or 3 per year, injections in the left shoulder if it seems to be helpful for her. Alternatively she could consider seeing Orthopedics about her shoulder surgery. Orders: Orders AMB Joint Injection/Aspiration Today M19.011 - Primary osteoarthritis, right shoulder, M19.012 - Primary osteoarthritis, left shoulder Medications: New arm brace (Wrist Brace) wear on each wrist only at night 2 ea 0RF G56.03 - Carpal tunnel syndrome, bilateral upper limbs Discontinued nitrofurantoin monohyd/m-cryst 100 mg (Macrobid) must administer with a meal/food Discontinued Reason: Patient Completed Course 100 mg PO Q12H Coding Level of Care Code Est Pt Level 3 (81825) Diagnoses Bilateral carpal tunnel syndrome G56.03 Osteoarthritis of hands, bilateral M19.041; M19.042 Osteoarthritis of lumbar spine M47.816 Osteoarthritis of glenohumeral joints, bilateral M19.011; M19.012 CPT Codes Coding - 65907 Large joint: 86195 - Large joint ([id number])
[2022-12-04 10:09] VITALS: BP 120/58; PULSE 63; TEMP 36.6; O2SAT 97
== END 2022-12-04 10:54 | disposition home or self-care (01) ==
PROVIDERS: PCP Family Medicine; Visit Provider Internal Medicine Rheumatology
DX: G56.03 Carpal tunnel syndrome, bilateral upper limbs (principal); M19.041 Primary osteoarthritis, right hand; M19.042 Primary osteoarthritis, left hand; M47.816 Spondylosis without myelopathy or radiculopathy, lumbar region; M19.011 Primary osteoarthritis, right shoulder; M19.012 Primary osteoarthritis, left shoulder
CPT/HCPCS: 20610; 99213

== ENCOUNTER → 2022-12-04 09:47 | Outpatient (BNVA) | payer OTHER, SELFPAY | PROVIDERS: PCP Family Medicine; Visit Provider Internal Medicine Rheumatology | DX: M19.041 Primary osteoarthritis, right hand (principal); M19.011 Primary osteoarthritis, right shoulder; M19.042 Primary osteoarthritis, left hand; M19.012 Primary osteoarthritis, left shoulder; M47.816 Spondylosis without myelopathy or radiculopathy, lumbar region; I11.0 Hypertensive heart disease with heart failure; I50.30 Unspecified diastolic (congestive) heart failure; I48.0 Paroxysmal atrial fibrillation | CPT/HCPCS: 20610; 99212 ==

== ENCOUNTER 2023-01-06 11:00 | Outpatient (REF) | payer OTHER, SELFPAY ==
--- NOTE | ~2023-01-06 | XR_ITS ---
STUDY: Bilateral shoulders INDICATION: Chronic pain bilateral shoulders. TECHNIQUE: 4 view each shoulder. COMPARISON: 04/19/2019 left shoulder, 07/16/2017 right shoulder FINDINGS: Right: Demineralization. Visualized ribs and lung are unremarkable. Glenohumeral and acromioclavicular degenerative type changes. No fracture or dislocation. Calcification superolateral aspect of the right humeral head. Likely continuous glucose monitor right upper extremity soft tissues. Left: Diffuse demineralization. Degenerative type changes acromioclavicular and glenohumeral joints. Chronic subluxation with respect to the glenoid and humeral head. Multiple calcific densities identified again identified about the superolateral aspect of the left humeral head. Visualized ribs and lung are unremarkable. XR/XR shoulder RT min 2V IMPRESSION: No acute bony pathology bilateral shoulders. Degenerative type changes bilateral shoulders. Likely calcific tendinitis/bursitis right shoulder. Unchanged chronic subluxation left shoulder and question supraspinatous hydroxyapatite deposition disease.
--- NOTE | ~2023-01-06 | XR_ITS ---
STUDY: Bilateral shoulders INDICATION: Chronic pain bilateral shoulders. TECHNIQUE: 4 view each shoulder. COMPARISON: 04/19/2019 left shoulder, 07/16/2017 right shoulder FINDINGS: Right: Demineralization. Visualized ribs and lung are unremarkable. Glenohumeral and acromioclavicular degenerative type changes. No fracture or dislocation. Calcification superolateral aspect of the right humeral head. Likely continuous glucose monitor right upper extremity soft tissues. Left: Diffuse demineralization. Degenerative type changes acromioclavicular and glenohumeral joints. Chronic subluxation with respect to the glenoid and humeral head. Multiple calcific densities identified again identified about the superolateral aspect of the left humeral head. Visualized ribs and lung are unremarkable. XR/XR shoulder LT min 2V IMPRESSION: No acute bony pathology bilateral shoulders. Degenerative type changes bilateral shoulders. Likely calcific tendinitis/bursitis right shoulder. Unchanged chronic subluxation left shoulder and question supraspinatous hydroxyapatite deposition disease.
== END 2023-01-06 11:01 | disposition home or self-care (01) ==
LOC: HO.HHCX 11:00
PROVIDERS: Visit Provider Family Medicine
DX: M25.511 Pain in right shoulder (principal); M25.512 Pain in left shoulder
CPT/HCPCS: 73030

== ENCOUNTER 2023-01-07 10:07 | Outpatient (REF) | payer OTHER, SELFPAY ==
[2023-01-07 11:52] LABS: MANUAL DIFF FLAG NO
[2023-01-07 12:09] LABS: Estimated Average Glucose 203 mg/dL; Hemoglobin A1c % 8.7 % (<6.0)
[2023-01-07 12:16] LABS: Basophils Absolute Auto 0.1 X10*3/uL (0.0-0.2); Basophils Percent Auto 0.7 % (0-2); Eosinophils Absolute Auto 0.2 X10*3/uL (0.0-0.4); Hematocrit 41.7 % (37.0-47.0); Hemoglobin 12.6 g/dl (12.0-16.0); Imm Gran Abs Auto 0.03 X10*3/uL (0.00-0.03); Imm Gran Pct Auto 0.4 % (0.0-0.4); Lymphocytes Absolute Auto 2.3 X10*3/uL (1.2-4.9); Lymphocytes Percent Auto 33.7 % (20-40); Mean Corpuscular HGB Conc 30.2 g/dl (31.0-35.0); Mean Corpuscular Hemoglobin 24.1 pg (27.0-33.0); Mean Corpuscular Volume 79.7 fL (80.0-98.0); Mean Platelet Volume 8.6 fL (9.4-12.3); Monocytes Absolute Auto 0.6 X10*3/uL (0.1-1.2); Monocytes Percent Auto 9.2 % (2-11); Neutrophils Absolute Auto 3.7 x10*3/uL (2.0-8.3); Platelet Count 395 X10*3/uL (160-400); Red Blood Count 5.23 X10*6/uL (4.20-5.50); Red Cell Distribution Width 17.9 % (11.0-16.0); White Blood Count 6.9 X10*3/uL (4.8-10.8)
[2023-01-07 12:43] LABS: Creatinine Urine 10.26 mg/dL; Microalbumin Urine < 5.0 mg/L
[2023-01-07 12:44] LABS: Alanine Aminotransferase 14 U/L (0-31); Albumin Level 4.1 g/dL (3.5-5.0); Alkaline Phosphatase 105 U/L (39-117); Anion Gap 11 (12-20); Aspartate Amino Transferase 22 U/L (5-31); Bilirubin Direct 0.1 mg/dL (0.0-0.5); Bilirubin Total 0.4 mg/dL (0.0-1.0); Blood Urea Nitrogen 14 mg/dL (9-16); Calcium 9.4 mg/dL (8.4-10.2); Carbon Dioxide 30 mmol/L (22-29); Chloride 101 mmol/L (96-108); Cholesterol 203 mg/dL (<200); Estimated Glomerular Filt Rate > 60; Glucose Random 147 mg/dL (60-115); HDL Cholesterol 53 mg/dL (>40); LDL Cholesterol Calculated 123 mg/dL (<100); Potassium 4.2 mmol/L (3.3-5.1); Sodium 138 mmol/L (135-145); Total Protein 7.7 g/dL (6.5-8.0); Triglycerides 137 mg/dL (<150)
[2023-01-07 13:07] LABS: Free T4 (Free Thyroxine) 0.96 ng/dL (0.71-1.85); Thyroid Stimulating Hormone 1.03 uIU/mL (0.32-4.0); Vitamin D 25-OH Total 55.3 ng/mL (>30)
== END 2023-01-07 10:08 | disposition home or self-care (01) ==
LOC: HO.HHCL 10:07
PROVIDERS: Visit Provider Family Medicine
DX: E11.9 Type 2 diabetes mellitus without complications (principal); Z79.4 Long term (current) use of insulin; M81.0 Age-related osteoporosis without current pathological fracture
CPT/HCPCS: 36415; 80048; 80061; 80076; 82043; 82306; 82570; 83036; 84439; 84443; 85025

== ENCOUNTER 2023-03-03 11:06 | Emergency (ER) | payer OTHER, SELFPAY ==
--- NOTE | ~2023-03-03 | XR_ITS ---
EXAMINATION: XR CHEST CLINICAL INFORMATION: Cough, difficulty breathing. COMPARISON: Chest radiograph 02/19/2021. TECHNIQUE: 2 views of the chest were obtained. FINDINGS: Normal appearance of the cardiomediastinal silhouette. Mild diffuse interstitial prominence is not significantly changed. No new focal airspace densities. No pleural effusion or pneumothorax. Thoracic spondylosis. No acute osseous findings. Right upper quadrant surgical clips. XR/XR chest 2V IMPRESSION: 1. No acute cardiopulmonary findings. 2. Mild diffuse interstitial prominence, not significantly changed compared to 02/19/2021.
[2023-03-03 11:41] VITALS: BP 116/59; PULSE 75; RESP 20; TEMP 36.4; O2SAT 95; BMI 32.1
--- NOTE | 2023-03-03 11:46 | ED.URI ---
HPI - URI/Sore Throat General Chief Complaint: Upper Respiratory Symptoms Stated Complaint: Sore throat/Fever/Body aches Time Seen by Provider: 03/03/23 12:11 Source: patient Mode of arrival: ambulatory Limitations: no limitations History of Present Illness HPI Narrative: 70-year-old female history of hypertension, atrial fibrillation, anticoagulated, presenting to the emergency department fatigue, malaise, myalgias, productive cough of green/yellow sputum for the past 4 days not improving. Patient reports it feels like the time she had the flu. Patient reports her chest feels weird when she coughs however does not have chest pain, shortness of breath, nausea, vomiting, abdominal pain, changes in bowel habits, headache, vision changes, dizziness, weakness. Related Data Home Medications Medication Instructions Recorded Confirmed alcohol swabs 0 pad topical 03/24/20 12/04/22 blood sugar diagnostic #10 ea 03/24/20 12/04/22 cetirizine 10 mg tablet 10 mg PO DAILY 03/24/20 12/04/22 fluticasone propionate 110 0 mcg inhalation 03/24/20 12/04/22 mcg/actuation HFA aerosol inhaler insulin aspart U-100 100 unit/mL unit subcut 03/24/20 12/04/22 (3 mL) subcutaneous pen lancets 33 gauge #100 ea 03/24/20 12/04/22 metoprolol succinate 50 mg 50 mg PO DAILY 03/24/20 12/04/22 tablet,extended release 24 hr pen needle, diabetic 32 gauge x #50 ea 03/24/20 12/04/22/32 calcium carbonate 600 mg-vitamin 1 tab PO BID 06/28/20 12/04/22 D3 10 mcg (400 unit) tablet docusate sodium 100 mg capsule 100 mg PO BID 06/28/20 12/04/22 ezetimibe 10 mg tablet 10 mg PO DAILY 06/28/20 12/04/22 gabapentin 300 mg capsule 300 mg PO TID 06/28/20 12/04/22 insulin glargine 100 unit/mL (3 60 unit subcut DAILY 06/28/20 12/04/22 mL) subcutaneous pen lisinopril 5 mg tablet 5 mg PO QAM 06/28/20 12/04/22 biotin PO 10/19/20 12/04/22 apixaban 5 mg tablet (Eliquis) 5 mg PO 09/24/21 12/04/22 acetaminophen 650 mg 0 mg PO BID 12/04/22 12/04/22 tablet,extended release albuterol sulfate 2.5 mg/3 mL mg inhalation Q6H PRN wheezing 12/04/22 12/04/22 (0.083 %) solution for nebulization dulaglutide 0.75 mg/0.5 mL mg subcut QWEEK 12/04/22 12/04/22 subcutaneous pen injector (Trulicity) empagliflozin 25 mg tablet 25 mg PO QAM 12/04/22 12/04/22 (Jardiance) sertraline 50 mg tablet 50 mg PO QAM 12/04/22 12/04/22 Previous Rx's Medication Instructions Recorded Cock up splint #2 ea 09/24/21 omeprazole 20 mg capsule,delayed 20 mg PO DAILY #14 caps 10/02/22 release furosemide 20 mg tablet 20 mg PO QAM for edema #90 tabs 11/18/22 arm brace (Wrist Brace) #2 ea 12/04/22 doxycycline hyclate 100 mg capsule 100 mg PO BID 10 days #20 caps 03/03/23 prednisone 20 mg tablet 40 mg (2 x 20 mg) PO DAILY 5 days 03/03/23 #10 tabs Allergies Allergy/AdvReac Type Severity Reaction Status Date / Time ibuprofen [From MOTRIN] Allergy Intermediate HIVES Verified 12/04/22 09:52 tramadol [TRAMADOL] Allergy Intermediate ITCHING, Verified 12/04/22 09:52 hallucinations aspirin [Aspirin] Allergy Mild HIVES,RASH Verified 12/04/22 09:52 iodine Allergy Unknown UNKNOWN Verified 12/04/22 09:52 metformin Allergy Unknown UNKNOWN Verified 12/04/22 09:52 [id number] Reductase AdvReac Intermediate MYALGIA'S Verified 12/04/22 09:52 Inhibitor [[id number] REDUCTASE INHIBITOR] influenza virus vaccine, AdvReac Mild SHAKES Verified 12/04/22 09:52 specific [Influenza Virus Vacc,Specific] Codeine Phosphate Allergy Unknown UNKNOWN Uncoded 12/04/22 09:52 Motrin Allergy Unknown UNKNOWN Uncoded 12/04/22 09:52 Review of Systems Review of Systems: Constitutional : No Weight loss, No Fever, No Chills, + Fatigue, + Malaise ENT/Mouth : No sore throat, No Rhinorrhea Eyes: No Eye Pain, No Swelling, No Redness Cardiovascular : No Chest Pain, No SOB, No Dyspnea on Exertion, No Orthopnea, No Edema, No Palpitations Respiratory : + Cough, No Sputum, No Wheezing Gastrointestinal : No Nausea, No Vomiting, No Diarrhea, No Constipation, No abdominal Pain, No Hematochezia, No Melena Genitourinary : No Dysuria, No Urinary Frequency, No Hematuria, Musculoskeletal : No joint pain, + Myalgias, No Joint Swelling Skin : No Skin Lesions, No rash Neuro : No Weakness, No Numbness, No Dizziness, No Headache Psych : No Anxiety/Panic, No Depression All other systems reviewed and are negative Yes all other systems are reviewed and are negative [facility] Past Medical History Attestation statement: The following information was validated with the patient. Source: old records reviewed and nursing notes reviewed Medical History (HFpEF) heart failure with preserved ejection fraction Diabetes mellitus HTN (hypertension) Paroxysmal atrial fibrillation Surgical History Hx of breast biopsy Hx of knee surgery Hx of tonsillectomy Hx of tubal ligation Family History Family History Father CVD (cardiovascular disease) Sudden cardiac Mother No problems noted. Social History Alcohol intake: never Patient Tobacco Use Status: Never used Tobacco Advance Directives: No Advance Directives Information Provided: Yes Physical Exam Vital Signs: Vital Signs: Last Vital Signs Temp 97.6 F 03/03/23 11:41 Pulse 75 03/03/23 11:41 Resp 20 03/03/23 11:41 BP 116/59 L 03/03/23 11:41 Pulse Ox 95 03/03/23 11:41 O2 Del Method Room Air 03/03/23 11:41 BMI result Body Mass Index 32.1 vss Appearance: Alert.? Oriented X3.? No acute distress.? Head: Normocephalic, atraumatic, no step-offs or deformities Eyes: Pupils equal, round and reactive to light.? Neck: Normal inspection.? Neck supple.? CVS: Normal heart rate and rhythm.? Pulses normal.? Respiratory: No respiratory distress.? Breath sounds with wheezing throughout expiratory.? Abdomen: Soft and nontender.? Skin: Skin warm and dry.? Normal skin color.? Normal skin turgor.? Extremities: No lower extremity edema.? No calf ttp. 5/5 strength to bilateral upper and lower extremities Neuro: Oriented X 3.? No motor deficit.? No sensory deficit. CN 2-12 intact Course Course Course Narrative: This is a rapid medical exam. Deferred additional HPI, ROS, PE to primary provider. 78 yo female with history of DM here with complaints of URI symptoms, chills, chest discomfort with coughing since . Will obtain testing for rsv/flu/covid, strep, CXR VSS Reevaluation(s) Reevaluation #1: Strep negative. Flu/COVID/RSV negative. Chest x-ray pending. Bronch protocol pending Time: 13:06 Reevaluation #2: Patient noted to be positive for COVID. Chest x-ray with no acute cardiopulmonary findings. Mild diffuse interstitial prominence. Patient will receive wrong protocol and be discharged home with treatment for bronchitis as she does have history of chronic lung disease and is having productive sputum. Educated patient on diagnosis and treatment plan, answered all question, patient verbalizes understanding. At this time patient will be discharged home, advised to return with new or worsening symptoms. Educated on worrisome signs and symptoms and when to return. At this time I feel comfortable discharge home. Time: 13:13 Medical Decision Making Medical Decision Making [facility] Narrative: 1300 78 year old female presents w/ productive cough, fatigue, malaise, myalgias X 4 days PE diffuse wheezing throughout. History and physical exam concerning for bronchitis versus viral illness versus asthma. Unlikely pneumonia, pulmonary embolism, ACS, pneumothorax. No signs of acute respiratory distress Plan at this time bronch protocol, viral testing and x-ray Differential Diagnosis Differential Diagnoses: The differential diagnosis associated with the presentation includes History and physical exam concerning for bronchitis versus viral illness versus asthma. Unlikely pneumonia, pulmonary embolism, ACS, pneumothorax. No signs of acute respiratory distress Admission/Observation Consideration of admission/observation: Escalation of care including admission/observation considered Unlikely Lab Data MDM Lab Attestation statement: I reviewed the patient's lab results. Labs: Lab Results 03/03/23 Range/Units 12:25 Influenza Type A (PCR) NEGATIVE (Negative) Influenza Type B (PCR) NEGATIVE (Negative) RSV RNA Qual (PCR) NEGATIVE (Negative) SARS-CoV-2 RNA (RT-PCR) POSITIVE A (Negative) S. pyogenes GrpA ROMINA Negative (Negative) Independent Interpretation I performed an independent interpretation of an: Plain X-Ray Radiology Impression Discussion of test interpretation with radiology: I have reviewed the radiologist's reading. External Record Review External record reviewed: Inpatient record, Office record, Outpatient record, Prior outpatient labs, Prior outpatient radiology, Primary care record and Outside ED record Prescription Management I considered prescription management with: Antibiotic Chronic Conditions Patient?s care impacted by: Other (afib, htn, dm, ) Critical Care Time Critical Care Time Critical Care Time: Yes Total Critical Care Time: 35 Attestation: I attest to this time spent taking care of the patient, obtaining history, physical, reviewing labs, imaging, speaking to my attending Discharge Plan Discharge Clinical Impression: Bronchitis, COVID Patient Disposition: Home, Self-Care Instructions: Acute Bronchitis (ED), COVID-19 (Coronavirus Disease 2019) (ED) Additional Instructions: Take your medications as prescribed. If you were prescribed antibiotics today, it is important that you take your medication to their entirety, do not skip any doses, do not finish them early. Today you tested positive for COVID-19. Take Ibuprofen or Tylenol as needed for fevers or body aches. Quarantine for 5 days and ensure you wear a mask. After 5 days you should wear a mask for 5 days after that. Practice social distancing and good hand hygiene. Drink plenty of fluids. Follow-up with your primary care provider this week. Return to the emergency department with new or worsening symptoms. In case of emergency call 911 You can purchase a pulse oximeter from your local pharmacy or grocery store, and monitor your oxygen saturation if it goes below 94% you should return to the emergency department for further evaluation. Quamba tracy medicamentos seg?n lo recetado. Si hoy te recetaron antibi?ticos, es importante que tomes tu medicaci?n en quach totalidad, no te saltes ninguna dosis, no las termines antes de tiempo. Hoy diste positivo por COVID-19. Quamba ibuprofeno o Tylenol seg?n sea necesario para la fiebre o los art corporales. Ponga en cuarentena nola 5 d?as y aseg?rese de usar arjun m?scara. Despu?s de 5 d?as debes usar arjun mascarilla nola los 5 d?as siguientes. Practique el distanciamiento social y arjun buena higiene de anibal. Beber mucho l?quido. Torin un seguimiento con quach proveedor de atenci?n primaria esta semana. Regrese al departamento de emergencias si los s?ntomas son nuevos o empeoran. En noemí de emergencia llame al 911. Puede comprar un ox?metro de pulso en quach farmacia o supermercado local y controlar quach saturaci?n de ox?jensen. Si desciende por debajo del 94%, debe regresar al departamento de emergencias para arjun evaluaci?n adicional. XR/XR chest 2V IMPRESSION: 1. No acute cardiopulmonary findings. 2. Mild diffuse interstitial prominence, not significantly changed compared to 02/19/2021. Prescriptions: New doxycycline hyclate 100 mg capsule 100 mg PO BID 10 Days Qty: 20 0RF prednisone 20 mg tablet 40 mg PO DAILY 5 Days Qty: 10 0RF No Action furosemide 20 mg tablet 20 mg PO QAM Qty: 90 3RF omeprazole 20 mg capsule,delayed release(DR/EC) 20 mg PO DAILY Qty: 14 0RF Lantus Solostar U-100 Insulin 100 unit/mL (3 mL) insulin pen 60 unit subcut DAILY lisinopril 5 mg tablet 5 mg PO QAM gabapentin 300 mg capsule 300 mg PO TID ezetimibe 10 mg tablet 10 mg PO DAILY docusate sodium 100 mg capsule 100 mg PO BID calcium carbonate-vitamin D3 600 mg(1,500mg) -400 unit tablet 1 tab PO BID Eliquis 5 mg tablet 5 mg PO (DME) Cock up splint See Rx Instructions .Route .MEDSUPPLY Qty: 2 0RF Rx Instructions: Wear spilt on both hands nightly. (DME) lancets 33 gauge misc See Rx Instructions .ROUTE .MEDSUPPLY Qty: 100 Rx Instructions: As directed (DME) pen needle, diabetic 32 gauge x 5/32 needle See Rx Instructions .ROUTE .MEDSUPPLY Qty: 50 Rx Instructions: As directed insulin aspart U-100 100 unit/mL (3 mL) insulin pen subcut Flovent HFA 110 mcg/actuation HFA aerosol inhaler 0 mcg inhalation alcohol swabs Pads, Medicated 0 pad topical cetirizine 10 mg tablet 10 mg PO DAILY (DME) FreeStyle Lite Strips Strip See Rx Instructions Not Applicable .MEDSUPPLY Qty: 10 Rx Instructions: As directed metoprolol succinate 50 mg tablet extended release 24 hr 50 mg PO DAILY biotin PO Patient Comments: taking 1 tab biotin with vitamins daily Jardiance 25 mg tablet 25 mg PO QAM sertraline 50 mg tablet 50 mg PO QAM albuterol sulfate 2.5 mg /3 mL (0.083 %) solution for nebulization inhalation Q6H PRN (Reason: wheezing) acetaminophen 650 mg tablet extended release 0 mg PO BID Trulicity 0.75 mg/0.5 mL pen injector subcut QWEEK (DME) Wrist Brace Misc See Rx Instructions .Route Qty: 2 0RF Rx Instructions: wear on each wrist only at night Referrals: Karoline Burgos DO [Primary Care Provider] - 2 days Stand Alone Forms: Work/School Release
[2023-03-03 12:43] LABS: IDNOW Serial# 08D9AD1C; Strep A Nucleic Acid Negative (Negative)
[2023-03-03 13:08] LABS: Influenza A PCR NEGATIVE (Negative); Influenza B PCR NEGATIVE (Negative); Resp Syncy Virus RNA Qual PCR NEGATIVE (Negative); SARS COV2 PCR INHOUSE POSITIVE (Negative)
[2023-03-03] MEDS: Albuterol Sulfate 2.5 MG, Albuterol/Iprat 2.5/0.5MG 3 ML 3 ML INHALE (13:50)
[2023-03-03 13:52] VITALS: PULSE 74; RESP 18; O2SAT 95
== END 2023-03-03 14:22 | disposition home or self-care (01) ==
PROVIDERS: Nurse Practitioner Family; Emergency Provider Emergency Medicine; PCP Family Medicine
DX: U07.1 COVID-19 (principal); J40 Bronchitis, not specified as acute or chronic; E11.9 Type 2 diabetes mellitus without complications; I10 Essential (primary) hypertension; I48.0 Paroxysmal atrial fibrillation
CPT/HCPCS: 0241U; 71046; 87651; 94640; 99283; 99284

== ENCOUNTER 2023-06-03 13:06 | Emergency (ER) | payer OTHER, SELFPAY ==
--- NOTE | ~2023-06-03 | CT_ITS ---
EXAMINATION: CT HEAD WITHOUT CONTRAST CT CERVICAL SPINE WITHOUT CONTRAST CLINICAL INFORMATION: Fall. COMPARISON: CT head and cervical spine 07/13/2022. TECHNIQUE: Toy Assembly Supervisor images were obtained. CT imaging of the head and cervical spine was performed without contrast. Data was reformatted into multiplanar images at the acquisition workstation. This CT examination was performed using dose optimization techniques as appropriate, including one or more of the following: Automated exposure control, iterative reconstruction, and adjustment of technique factors (mA and/or kVp) according to patient size (this includes techniques or standardized protocols for targeted exams where dose is matched to indication/reason for exam). Fleischner Society criteria for the followup of incidental pulmonary nodules was implemented if appropriate. DLP: 993 mGy-cm. FINDINGS: Head: There is no acute intracranial hemorrhage or abnormal extra-axial collection. No intracranial mass effect or midline shift. Lateral and third ventricles are normal. No hydrocephalus. There are scattered nonspecific foci of hypoattenuation within the periventricular white matter that most likely represent a chronic manifestation of small vessel ischemia. Oguld-white matter differentiation is otherwise preserved and there is no evidence of acute territorial infarct. The calvarium and skull base are intact. Mastoid air cells and middle ear cavities are well aerated. No active paranasal sinus disease. Cervical spine: Spinal alignment is normal in the sagittal dimension. Vertebral heights are preserved. No evidence of acute fracture. No abnormal prevertebral soft tissue swelling. There are exuberant anterior disc osteophyte complexes at multiple levels within the cervical spine. Severe degenerative arthrosis of the atlantodental joint. Canal patency is not well assessed on this examination due to inherent limitations of CT without intrathecal contrast. Grossly no evidence of spinal canal compromise. Soft tissues of the neck are normal. Lung apices are clear. CT/CT cervical spine wo IV con IMPRESSION: Head: There are scattered chronic small vessel ischemic changes within the periventricular white matter. No evidence of acute territorial infarct or hemorrhage. Cervical Spine: No evidence of acute fracture and no posttraumatic spinal subluxation. Multiple exuberant anterior disc osteophyte complexes at multiple levels. Severe degenerative process of the atlantodental joint.
--- NOTE | ~2023-06-03 | XR_ITS ---
X-ray right shoulder and right elbow CLINICAL HISTORY: Fall. COMPARISON: Radiograph right elbow 01/06/2023. TECHNIQUE: 4 views of the right shoulder and 3 views of the right elbow. FINDINGS: Right shoulder: No fracture or subluxation. Moderate degenerative osteoarthritis of the acromioclavicular joint. Redemonstration of spurring in the region of the greater trochanter. No abnormal soft tissue calcifications. Visualized right-sided ribs and lungs are within normal limits. No significant soft tissue finding. Right elbow: No fracture or subluxation. Moderate degenerative changes. No joint effusion. No abnormal soft tissue calcifications. XR/XR elbow RT 2V IMPRESSION: 1. No acute fracture or subluxation. 2. Moderate degenerative osteoarthritis of the right shoulder and right elbow. 3. Redemonstration of spurring in the region of the greater trochanter.
--- NOTE | ~2023-06-03 | CT_ITS ---
EXAMINATION: CT HEAD WITHOUT CONTRAST CT CERVICAL SPINE WITHOUT CONTRAST CLINICAL INFORMATION: Fall. COMPARISON: CT head and cervical spine 07/13/2022. TECHNIQUE: Stone Setter [employer] Frames images were obtained. CT imaging of the head and cervical spine was performed without contrast. Data was reformatted into multiplanar images at the acquisition workstation. This CT examination was performed using dose optimization techniques as appropriate, including one or more of the following: Automated exposure control, iterative reconstruction, and adjustment of technique factors (mA and/or kVp) according to patient size (this includes techniques or standardized protocols for targeted exams where dose is matched to indication/reason for exam). Fleischner Society criteria for the followup of incidental pulmonary nodules was implemented if appropriate. DLP: 993 mGy-cm. FINDINGS: Head: There is no acute intracranial hemorrhage or abnormal extra-axial collection. No intracranial mass effect or midline shift. Lateral and third ventricles are normal. No hydrocephalus. There are scattered nonspecific foci of hypoattenuation within the periventricular white matter that most likely represent a chronic manifestation of small vessel ischemia. Gould-white matter differentiation is otherwise preserved and there is no evidence of acute territorial infarct. The calvarium and skull base are intact. Mastoid air cells and middle ear cavities are well aerated. No active paranasal sinus disease. Cervical spine: Spinal alignment is normal in the sagittal dimension. Vertebral heights are preserved. No evidence of acute fracture. No abnormal prevertebral soft tissue swelling. There are exuberant anterior disc osteophyte complexes at multiple levels within the cervical spine. Severe degenerative arthrosis of the atlantodental joint. Canal patency is not well assessed on this examination due to inherent limitations of CT without intrathecal contrast. Grossly no evidence of spinal canal compromise. Soft tissues of the neck are normal. Lung apices are clear. CT/CT head/brain wo IV con IMPRESSION: Head: There are scattered chronic small vessel ischemic changes within the periventricular white matter. No evidence of acute territorial infarct or hemorrhage. Cervical Spine: No evidence of acute fracture and no posttraumatic spinal subluxation. Multiple exuberant anterior disc osteophyte complexes at multiple levels. Severe degenerative process of the atlantodental joint.
--- NOTE | ~2023-06-03 | XR_ITS ---
X-ray right shoulder and right elbow CLINICAL HISTORY: Fall. COMPARISON: Radiograph right elbow 01/06/2023. TECHNIQUE: 4 views of the right shoulder and 3 views of the right elbow. FINDINGS: Right shoulder: No fracture or subluxation. Moderate degenerative osteoarthritis of the acromioclavicular joint. Redemonstration of spurring in the region of the greater trochanter. No abnormal soft tissue calcifications. Visualized right-sided ribs and lungs are within normal limits. No significant soft tissue finding. Right elbow: No fracture or subluxation. Moderate degenerative changes. No joint effusion. No abnormal soft tissue calcifications. XR/XR shoulder RT min 2V IMPRESSION: 1. No acute fracture or subluxation. 2. Moderate degenerative osteoarthritis of the right shoulder and right elbow. 3. Redemonstration of spurring in the region of the greater trochanter.
[2023-06-03 13:23] VITALS: BP 116/66; BP 128/62; PULSE 80; PULSE 90; RESP 18; TEMP 37.2; O2SAT 95; O2SAT 97; BMI 24.3
[2023-06-03 14:21] VITALS: BP 129/52; PULSE 73; RESP 16; O2SAT 93
--- NOTE | 2023-06-03 14:47 | ED_ITS ---
HPI - Fall General Chief Complaint: Fall Stated Complaint: FALL,HIT HEAD,R SHOULDER/ELBOW PAIN PER EMS Time Seen by Provider: 06/03/23 13:54 Source: patient, family, RN notes reviewed and physical education professor Mode of arrival: ambulatory Limitations: language barrier History of Present Illness HPI Narrative: This is a 78-year-old [place]-speaking female, with a history of osteoarthritis, CHF, AFib on Eliquis, presenting to the emergency department after mechanical fall which occurred today. Patient states that while she was getting into the shower she tripped and fell onto her right side. She did hit her head. She denies loss of consciousness. Patient reporting right shoulder pain and right elbow pain. She denies any headaches, dizziness, blurred vision, chest pain, shortness of breath, abdominal pain, nausea, vomiting or diarrhea. Patient states that she was feeling well prior to this fall. Denies any chest pain, or lightheadedness prior to the fall. She states that this fall was strictly mechanical. Denies any numbness, tingling or weakness. She was able to walk after the fall. No other complaints or concerns at this time MD complaint: fall Onset (ago): day(s) Fall from: standing Fall witnessed: no Place fall occurred: home Loss of consciousness: none Prolonged down time: no Symptoms prior to fall: none Context: tripped/slipped Location of injury: head Quality: aching Associated symptoms (after fall): denies Related Data Home Medications Medication Instructions Recorded Confirmed alcohol swabs 0 pad topical 03/24/20 12/04/22 blood sugar diagnostic #10 ea 03/24/20 12/04/22 cetirizine 10 mg tablet 10 mg PO DAILY 03/24/20 12/04/22 fluticasone propionate 110 0 mcg inhalation 03/24/20 12/04/22 mcg/actuation HFA aerosol inhaler insulin aspart U-100 100 unit/mL unit subcut 03/24/20 12/04/22 (3 mL) subcutaneous pen lancets 33 gauge #100 ea 03/24/20 12/04/22 metoprolol succinate 50 mg 50 mg PO DAILY 03/24/20 12/04/22 tablet,extended release 24 hr pen needle, diabetic 32 gauge x #50 ea 03/24/20 12/04/22 calcium carbonate 600 mg-vitamin 1 tab PO BID 06/28/20 12/04/22 D3 10 mcg (400 unit) tablet docusate sodium 100 mg capsule 100 mg PO BID 06/28/20 12/04/22 ezetimibe 10 mg tablet 10 mg PO DAILY 06/28/20 12/04/22 gabapentin 300 mg capsule 300 mg PO TID 06/28/20 12/04/22 insulin glargine 100 unit/mL (3 60 unit subcut DAILY 06/28/20 12/04/22 mL) subcutaneous pen lisinopril 5 mg tablet 5 mg PO QAM 06/28/20 12/04/22 biotin PO 10/19/20 12/04/22 apixaban 5 mg tablet (Eliquis) 5 mg PO 09/24/21 12/04/22 acetaminophen 650 mg 0 mg PO BID 12/04/22 12/04/22 tablet,extended release albuterol sulfate 2.5 mg/3 mL mg inhalation Q6H PRN wheezing 12/04/22 12/04/22 (0.083 %) solution for nebulization dulaglutide 0.75 mg/0.5 mL mg subcut QWEEK 12/04/22 12/04/22 subcutaneous pen injector (Trulicity) empagliflozin 25 mg tablet 25 mg PO QAM 12/04/22 12/04/22 (Jardiance) sertraline 50 mg tablet 50 mg PO QAM 12/04/22 12/04/22 Previous Rx's Medication Instructions Recorded Cock up splint #2 ea 09/24/21 omeprazole 20 mg capsule,delayed 20 mg PO DAILY #14 caps 10/02/22 release furosemide 20 mg tablet 20 mg PO QAM for edema #90 tabs 11/18/22 arm brace (Wrist Brace) #2 ea 12/04/22 doxycycline hyclate 100 mg capsule 100 mg PO BID 10 days #20 caps 03/03/23 prednisone 20 mg tablet 40 mg (2 x 20 mg) PO DAILY 5 days 03/03/23 #10 tabs acetaminophen 650 mg 650 mg PO Q12H PRN pain #30 tabs 06/03/23 tablet,extended release (Tylenol 8 Hour) Allergies Allergy/AdvReac Type Severity Reaction Status Date / Time ibuprofen [From MOTRIN] Allergy Intermediate HIVES Verified 12/04/22 09:52 tramadol [TRAMADOL] Allergy Intermediate ITCHING, Verified 12/04/22 09:52 hallucinations aspirin [Aspirin] Allergy Mild HIVES,RASH Verified 12/04/22 09:52 iodine Allergy Unknown UNKNOWN Verified 12/04/22 09:52 metformin Allergy Unknown UNKNOWN Verified 12/04/22 09:52 Vrqiput-RYZ-YlZ Reductase AdvReac Intermediate MYALGIA'S Verified 12/04/22 09:52 Inhibitor [XWZQISX-EKE-NRI REDUCTASE INHIBITOR] influenza virus vaccine, AdvReac Mild SHAKES Verified 12/04/22 09:52 specific [Influenza Virus Vacc,Specific] Codeine Phosphate Allergy Unknown UNKNOWN Uncoded 12/04/22 09:52 Motrin Allergy Unknown UNKNOWN Uncoded 12/04/22 09:52 Review of Systems Review of Systems: Yes all other systems are reviewed and are negative Constitutional: Constitutional: Reports as per [facility] Past Medical History Attestation statement: The following information was validated with the patient. Medical History Diabetes mellitus HTN (hypertension) Paroxysmal atrial fibrillation (HFpEF) heart failure with preserved ejection fraction Surgical History Hx of knee surgery Hx of breast biopsy Hx of tonsillectomy Hx of tubal ligation Family History Family History Father CVD (cardiovascular disease) Sudden cardiac Mother No problems noted. Social History Social History Unable to assess alcohol history related to: Unknown Alcohol intake: never Patient Tobacco Use Status: Never used Tobacco Smoked in Last 30 Days: No Use of substances other than those prescribed or required for medical reasons: Unknown Advance Directives: No Advance Directives Information Provided: Yes Physical Exam Vital Signs: Vital Signs: Last Vital Signs Temp 97.8 F 06/03/23 18:10 Pulse 70 06/03/23 18:10 Resp 18 06/03/23 18:10 BP 120/58 L 06/03/23 18:10 Pulse Ox 97 06/03/23 18:10 O2 Del Method Room Air 06/03/23 18:10 BMI result Body Mass Index 24.3 Const: General: cooperative, comfortable and no acute distress Orientation/consciousness: patient oriented x3 Limitations: no limitations HEENT: Other: No palpable head hematoma Head: Yes normal to inspection, Yes normocephalic, Yes atraumatic, No Rose's sign, No palpable skull fracture, No raccoon eyes and No scalp tenderness Ears: hearing grossly normal bilaterally and TM's normal bilaterally General nose exam: Normal external nose present Face and sinus: Yes normal facial exam Mouth: Normal oral and palatal mucosa present, oropharynx normal and moist mucous membranes Throat: Yes posterior oropharynx normal Eyes: General: appearance normal, both eyes and all related structures Eyelids: Yes eyelids normal Conjunctivae: conjunctivae normal Sclerae: sclerae normal Pupils: Equal, round and reactive pupils present EOM: EOMs intact bilaterally Neck: Other: No midline cervical spine tenderness palpation, full range of motion of the neck without difficulty. She does have mild tenderness palpation along the cervical paraspinous muscles Neck: Yes normal visual inspection, Yes full ROM and Yes no lymphadenopathy Lymphatic: no lymphadenopathy noted Chest: Chest palpation & inspection: normal inspection of the chest Resp: Effort & Inspection: normal respiratory effort and able to speak in complete sentences Auscultation: clear to auscultation bilaterally, no crackles, no rales, no rhonchi and no wheezes Cardio: Rate: regular rate Rhythm: regular rhythm Heart sounds: S1 normal heart sound present and S2 normal heart sound present GI: Other: Abdomen is soft, nontender, non distended. Inspection: Yes normal to inspection Back/Spine/Pelvis: Other: Midline lumbar spine without any tenderness, she does have a hematoma noted to the right buttocks, with mild tenderness, no bony hip tenderness to palpation, no crepitus. Patient is ambulatory. Distal sensation circulation intact Skin: General skin exam: no rashes or lesions noted Trauma: no lacerations or abrasions Wounds: no wounds Neuro: General: patient oriented x3 and moves all extremities Cranial nerves: Yes CN's II-XII intact bilaterally and Yes Equal, round and reactive pupils present Cognition (Neuro): normal cognition Gait exam (Neuro): Normal gait present Motor exam (neuro): 5/5 motor strength present throughout and Pronator motor function not present Extrem: Other: Right shoulder with tenderness palpation along the anterior aspect, patient has full range of motion without any bony abnormalities, tenderness, crepitus or open wounds. Full range of motion of the elbow, there has a superficial abrasion noted to her elbow, no active bleeding or drainage. Radial pulse 2 + General: Yes normal to inspection Right upper extremity: normal to inspection Left upper extremity: normal to inspection Right lower extremity: normal to inspection Left lower extremity: normal to inspection Course Reevaluation(s) Reevaluation #1: Cervical spine revealing no acute trauma, CT head unremarkable. No acute bony abnormality seen on the elbow or shoulder x-ray. Discussed these findings with patient as well as daughter at bedside with physical education professor present. Given patient has been neurologically stable, and has been ambulatory in the department, I believe it is reasonable for her to be discharged with close follow-up. I offered for her to stay the night to be seen by Physical therapy however patient and daughter report that this is not needed at this time and feel comfortable for discharge home. Given return precautions. Patient stable for discharge. Medications Administered Discontinued Medications Generic Name Dose Route Start Last Admin Trade Name Freq PRN Reason Stop Dose Admin Acetaminophen 975 mg 06/03/23 16:28 06/03/23 16:58 Acetaminophen 325 Mg Tablet PO 06/03/23 16:29 975 mg ONCE ONE Administration Medical Decision Making Medical Decision Making [facility] Narrative: This is a 78-year-old female, with a history of hypertension, diabetes, heart failure on Eliquis, presenting to the emergency department for evaluation of fall. On arrival, patient placed in cervical collar, vital signs within normal limits. She is neurologically intact. Given patient had a positive head strike and she is on blood thinners, will obtain CT head and neck. Also complaining of right shoulder and right elbow pain. She was feeling well prior to the fall. The fall was mechanical therefore labs, EKG not warranted at this time. Will continue to closely monitor. Differential Diagnosis Differential Diagnoses: The differential diagnosis associated with the presentation includes ICH, closed head injury, subdural hematoma, fracture, strain, contusion Admission/Observation Consideration of admission/observation: Escalation of care including admission/observation considered Patient would have been admitted to the hospital had her work up had any findings where hospital admission was appropriate and her clinical presentation warranted hospital admission. Lab Data [facility] Lab Attestation statement: I reviewed the patient's lab results. Radiology Impression Discussion of test interpretation with radiology: I have reviewed the radiologist's reading. Radiologist Impression: EXAMINATION: CT HEAD WITHOUT CONTRAST CT CERVICAL SPINE WITHOUT CONTRAST CLINICAL INFORMATION: Fall. COMPARISON: CT head and cervical spine 07/13/2022. TECHNIQUE: Land Leveler images were obtained. CT imaging of the head and cervical spine was performed without contrast. Data was reformatted into multiplanar images at the acquisition workstation. This CT examination was performed using dose optimization techniques as appropriate, including one or more of the following: Automated exposure control, iterative reconstruction, and adjustment of technique factors (mA and/or kVp) according to patient size (this includes techniques or standardized protocols for targeted exams where dose is matched to indication/reason for exam). Fleischner Society criteria for the followup of incidental pulmonary nodules was implemented if appropriate. DLP: 993 mGy-cm. FINDINGS: Head: There is no acute intracranial hemorrhage or abnormal extra-axial collection. No intracranial mass effect or midline shift. Lateral and third ventricles are normal. No hydrocephalus. There are scattered nonspecific foci of hypoattenuation within the periventricular white matter that most likely represent a chronic manifestation of small vessel ischemia. Gould-white matter differentiation is otherwise preserved and there is no evidence of acute territorial infarct. The calvarium and skull base are intact. Mastoid air cells and middle ear cavities are well aerated. No active paranasal sinus disease. Cervical spine: Spinal alignment is normal in the sagittal dimension. Vertebral heights are preserved. No evidence of acute fracture. No abnormal prevertebral soft tissue swelling. There are exuberant anterior disc osteophyte complexes at multiple levels within the cervical spine. Severe degenerative arthrosis of the atlantodental joint. Canal patency is not well assessed on this examination due to inherent limitations of CT without intrathecal contrast. Grossly no evidence of spinal canal compromise. Soft tissues of the neck are normal. Lung apices are clear. CT/CT head/brain wo IV con IMPRESSION: Head: There are scattered chronic small vessel ischemic changes within the periventricular white matter. No evidence of acute territorial infarct or hemorrhage. Cervical Spine: No evidence of acute fracture and no posttraumatic spinal subluxation. Multiple exuberant anterior disc osteophyte complexes at multiple levels. Severe degenerative process of the atlantodental joint. Dictated By: Misael Cruz MD X-ray right shoulder and right elbow CLINICAL HISTORY: Fall. COMPARISON: Radiograph right elbow 01/06/2023. TECHNIQUE: 4 views of the right shoulder and 3 views of the right elbow. FINDINGS: Right shoulder: No fracture or subluxation. Moderate degenerative osteoarthritis of the acromioclavicular joint. Redemonstration of spurring in the region of the greater trochanter. No abnormal soft tissue calcifications. Visualized right-sided ribs and lungs are within normal limits. No significant soft tissue finding. Right elbow: No fracture or subluxation. Moderate degenerative changes. No joint effusion. No abnormal soft tissue calcifications. XR/XR elbow RT 2V IMPRESSION: 1. No acute fracture or subluxation. 2. Moderate degenerative osteoarthritis of the right shoulder and right elbow. 3. Redemonstration of spurring in the region of the greater trochanter. Dictated By: Ayaka Ty Discharge Plan Discharge Clinical Impression: Fall, Closed head injury, Contusion of shoulder, right Patient Disposition: Home, Self-Care Instructions: Fall Prevention for Older Adults (ED), Head Injury (ED), Fall Prevention (ED) Additional Instructions: Clau was seen in the ER due to a fall. Her CT of her head, neck do not show any new injury. Her right shoulder and right elbow are not broken. She does have evidence of arthritis. Please rest, ice, gentle range of motion, and Tylenol can help with pain. If any new or worsening symptoms occur including but not limited to dizziness, headaches, changes in mentation, chest pain or shortness of breath, please return for re-evaluation. Clau fue atendida en urgencias debido a arjun ca?da. Green tomograf?a computarizada de lili y aura no muestra ninguna lesi?n nueva. Green hombro y codo derechos no est?n rotos. Tiene evidencia de artritis. Descanse, use hielo, realice un rango de movimiento suave y Tylenol puede ayudar con el dolor. Si se presenta alg?n s?ntoma nuevo o que empeora, incluidos, entre otros, mareos, art de lili, cambios mentales, dolor en el pecho o dificultad para respirar, regrese para arjun nueva evaluaci?n. Prescriptions: New acetaminophen [Tylenol 8 Hour] 650 mg tablet extended release 650 mg PO Q12H PRN (Reason: pain) Qty: 30 0RF No Action furosemide 20 mg tablet 20 mg PO QAM Qty: 90 3RF omeprazole 20 mg capsule,delayed release(DR/EC) 20 mg PO DAILY Qty: 14 0RF doxycycline hyclate 100 mg capsule 100 mg PO BID 10 Days Qty: 20 0RF prednisone 20 mg tablet 40 mg PO DAILY 5 Days Qty: 10 0RF Lantus Solostar U-100 Insulin 100 unit/mL (3 mL) insulin pen 60 unit subcut DAILY lisinopril 5 mg tablet 5 mg PO QAM gabapentin 300 mg capsule 300 mg PO TID ezetimibe 10 mg tablet 10 mg PO DAILY docusate sodium 100 mg capsule 100 mg PO BID calcium carbonate-vitamin D3 600 mg(1,500mg) -400 unit tablet 1 tab PO BID Eliquis 5 mg tablet 5 mg PO (DME) Cock up splint See Rx Instructions .Route .MEDSUPPLY Qty: 2 0RF Rx Instructions: Wear spilt on both hands nightly. (DME) lancets 33 gauge misc See Rx Instructions .ROUTE .MEDSUPPLY Qty: 100 Rx Instructions: As directed (DME) pen needle, diabetic 32 gauge x 5/32 needle See Rx Instructions .ROUTE .MEDSUPPLY Qty: 50 Rx Instructions: As directed insulin aspart U-100 100 unit/mL (3 mL) insulin pen subcut Flovent HFA 110 mcg/actuation HFA aerosol inhaler 0 mcg inhalation alcohol swabs Pads, Medicated 0 pad topical cetirizine 10 mg tablet 10 mg PO DAILY (DME) FreeStyle Lite Strips Strip See Rx Instructions Not Applicable .MEDSUPPLY Qty: 10 Rx Instructions: As directed metoprolol succinate 50 mg tablet extended release 24 hr 50 mg PO DAILY biotin PO Patient Comments: taking 1 tab biotin with vitamins daily Jardiance 25 mg tablet 25 mg PO QAM sertraline 50 mg tablet 50 mg PO QAM albuterol sulfate 2.5 mg /3 mL (0.083 %) solution for nebulization inhalation Q6H PRN (Reason: wheezing) acetaminophen 650 mg tablet extended release 0 mg PO BID Trulicity 0.75 mg/0.5 mL pen injector subcut QWEEK (DME) Wrist Brace Misc See Rx Instructions .Route Qty: 2 0RF Rx Instructions: wear on each wrist only at night Interventions: ED Discharge Assessment Last Done: 06/03/23 18:51 Discharge Date/Time: 06/03/23 18:55 Print Language: [place]
--- NOTE | 2023-06-03 15:42 | PC.NURSE ---
PT WAS CLEARED OF C-COLLAR, AWAITING XRAY RESULTS
[2023-06-03 16:58] VITALS: PULSE 79; RESP 16; TEMP 36.6; O2SAT 99
[2023-06-03] MEDS: Acetaminophen 325 MG TABLET 975 MG PO (16:58)
[2023-06-03 18:10] VITALS: BP 120/58; PULSE 70; RESP 18; TEMP 36.6; O2SAT 97
== END 2023-06-03 18:55 | disposition home or self-care (01) ==
PROVIDERS: Emergency Provider Emergency Medicine; PCP Family Medicine
DX: S40.011A Contusion of right shoulder, initial encounter (principal); S09.90XA Unspecified injury of head, initial encounter; M54.2 Cervicalgia; R51.9 Headache, unspecified; M25.521 Pain in right elbow; W18.2XXA Fall in (into) shower or empty bathtub, initial encounter; Y93.89 Activity, other specified; Y92.002 Bathroom of unspecified non-institutional (private) residence as the place of occurrence of the external cause; Y99.8 Other external cause status; Z79.899 Other long term (current) drug therapy
CPT/HCPCS: 70450; 72125; 73030; 73070; 99284

== ENCOUNTER 2023-06-05 12:31 | Outpatient (AMB) | payer OTHER, SELFPAY ==
--- NOTE | 2023-06-05 12:43 | MHC.OFFVIS ---
Intake Intake Visit Reasons: OV - Left Shoulder OA - Last Injection 11/09/21 Intake Note: Clau is a 78 year old female who presents today for a follow up of her left shoulder Osteoarthritis. Last Injection done 12/10/21. This injection was helpful and she would like to repeat injection Allergies ibuprofen [From MOTRIN] Allergy (Intermediate, Verified 12/04/22 09:52) HIVES tramadol [TRAMADOL] Allergy (Intermediate, Verified 12/04/22 09:52) ITCHING, hallucinations aspirin [Aspirin] Allergy (Mild, Verified 12/04/22 09:52) HIVES,RASH iodine Allergy (Unknown, Verified 12/04/22 09:52) UNKNOWN metformin Allergy (Unknown, Verified 12/04/22 09:52) UNKNOWN Adtvckr-RZY-PnW Reductase Inhibitor [UERYHME-XGE-KGY REDUCTASE INHIBITOR] Adverse Reaction (Intermediate, Verified 12/04/22 09:52) MYALGIA'S influenza virus vaccine, specific [Influenza Virus Vacc,Specific] Adverse Reaction (Mild, Verified 12/04/22 09:52) SHAKES Codeine Phosphate Allergy (Unknown, Uncoded 12/04/22 09:52) UNKNOWN Motrin Allergy (Unknown, Uncoded 12/04/22 09:52) UNKNOWN HPI OV - Left Shoulder OA - Last Injection 11/09/21 HPI Details Clau is a 78 year old woman with left shoulder OA, who presents for a steroid injection. She was last injected on 11/09/21, with some relief. She is severely limited in her daily activities and is frustrated that basic daily living is so painful. She has trouble reaching overhead for cleaning and self care such as washing her hair. She is active and self sufficient. [facility] Medical History Diabetes mellitus HTN (hypertension) Paroxysmal atrial fibrillation (HFpEF) heart failure with preserved ejection fraction Surgical History Hx of knee surgery Hx of breast biopsy Hx of tonsillectomy Hx of tubal ligation Family History Father CVD (cardiovascular disease) Sudden cardiac Mother No problems noted. Social History Unable to assess alcohol history related to: Unknown Alcohol intake: never Patient Tobacco Use Status: Never used Tobacco Review of Systems Const All systems reviewed & are unremarkable except as noted in HPI and below Physical Exam Const General: no acute distress, alert and awake Orientation/consciousness: patient oriented x3 HEENT Head: Yes normocephalic and Yes atraumatic Mouth: moist mucous membranes Eyes General: appearance normal, both eyes and all related structures EOM: EOMs intact bilaterally Chest Other: no audible wheezing. Resp Other: No audible wheezing Effort & Inspection: normal respiratory effort and able to speak in complete sentences Cardio Other: Radial pulse palpable with no rythmic abnormalities Jugular venous distension: no JVD Back/Spine/Pelvis Cervical Spine: normal cervical lordosis Skin General skin exam: turgor normal Rashes: no rashes Neuro General: patient oriented x3 Extrem Other: left shoulder with restricted ER to 10deg and crepitus iwth passive ROM Active abduction to 80 deg and FF to 110 Psych Appearance: grossly normal Mental Status: mental status grossly normal Speech and movement: Normal speech and movement present Affect: normal affect Attitude: cooperative Results Reviewed Results Reviewed: I personally reviewed relevant radiographs. Severe OA left shoulder. Assessment & Plan Assessment & Plan (1) Arthropathy of left shoulder: Code(s): M19.012 - Primary osteoarthritis, left shoulder Plan: This is a very pleasant 78 yo F with left shoulder OAS. This has been painful for many years and her inability to perform ADLs is frustrating to her. She feels that the quality of her life is diminished. I discussed treatment options with her and recommend shoulder arthroplasty. I discussed the risks benefits and alternatives including but not limited to the risk of pain, infection, stiffness, need for further surgery as well as potential medical complications such as blood clots, pulmonary embolism and cardiac complications. She is diabetic and her last HgbA1c was 8.7 ~6 months ago. Our goal is < 8. We will proceed with planning and clearance. Plan Prepared for Juanito Collazo MD by Mason Swan, health care / medical job titles, on 06/05/23 at 12:47 PM, EST. Coding Level of Care Code Est Pt Level 4 (37986) Diagnoses Arthropathy of left shoulder M19.012
== END 2023-06-05 15:23 | disposition home or self-care (01) ==
PROVIDERS: PCP Family Medicine; Visit Provider Orthopaedic Surgery
DX: M19.012 Primary osteoarthritis, left shoulder (principal); E11.65 Type 2 diabetes mellitus with hyperglycemia
CPT/HCPCS: 99214

== ENCOUNTER → 2023-06-05 12:31 | Outpatient (BNVA) | payer OTHER, SELFPAY | PROVIDERS: PCP Family Medicine; Visit Provider Orthopaedic Surgery | DX: M19.012 Primary osteoarthritis, left shoulder (principal) | CPT/HCPCS: 99212; J0665; J1100 ==

== ENCOUNTER 2023-07-14 12:19 | Outpatient (AMB) | payer OTHER, SELFPAY ==
[2023-07-14 12:36] VITALS: BP 130/70; PULSE 64; BMI 24.5
--- NOTE | 2023-07-14 12:36 | MHC.OFFVIS ---
Intake Vital Signs 07/14/23 12:36 Height 5 ft 7 in Weight 156 lb 8.451 oz BMI 24.5 BP 130/70 Blood Pressure Location Rt brachial Position Sitting Pulse 64 Intake Visit Reasons: Pre-op/Lt TSA w/ Zay 08/12 Intake Note: Pre-op with ekg c/o shoulder pain but no cardiac issues Semi Automatic Sewing Machine Operator Required: Yes Semi Automatic Sewing Machine Operator Name: grand daughter signed Healthcare Liaison: Healthcare Liaison Present Accompanied by: Grand Child Allergies ibuprofen [From MOTRIN] Allergy (Intermediate, Verified 12/04/22 09:52) HIVES tramadol [TRAMADOL] Allergy (Intermediate, Verified 12/04/22 09:52) ITCHING, hallucinations aspirin [Aspirin] Allergy (Mild, Verified 12/04/22 09:52) HIVES,RASH iodine Allergy (Unknown, Verified 12/04/22 09:52) UNKNOWN metformin Allergy (Unknown, Verified 12/04/22 09:52) UNKNOWN Uvbeoox-GQQ-FeP Reductase Inhibitor [ACOSLWY-YVL-EBB REDUCTASE INHIBITOR] Adverse Reaction (Intermediate, Verified 12/04/22 09:52) MYALGIA'S influenza virus vaccine, specific [Influenza Virus Vacc,Specific] Adverse Reaction (Mild, Verified 12/04/22 09:52) SHAKES Codeine Phosphate Allergy (Unknown, Uncoded 12/04/22 09:52) UNKNOWN Motrin Allergy (Unknown, Uncoded 12/04/22 09:52) UNKNOWN Medication List - Last Reconciled 07/14/23 by Wellington Pham MD acetaminophen ER (Tylenol 8 Hour) 650 mg PO Q12H PRN acetaminophen ER 0 mg PO BID albuterol sulfate mg inhalation Q6H PRN alcohol swabs 0 pad topical apixaban (Eliquis) 5 mg PO arm brace (Wrist Brace) wear on each wrist only at night biotin PO blood sugar diagnostic As directed calcium carbonate-vitamin D3 600 mg-10 mcg (400 unit) 1 tab PO BID cetirizine 10 mg PO DAILY [Cock up splint Wear spilt on both hands nightly. ] docusate sodium 100 mg PO BID dulaglutide (Trulicity) mg subcut QWEEK empagliflozin (Jardiance) 25 mg PO QAM ezetimibe 10 mg PO DAILY fluticasone propionate 110 mcg/actuation 0 mcg inhalation furosemide 20 mg PO QAM gabapentin 300 mg PO TID insulin aspart U-100 units subcut insulin glargine 60 units subcut DAILY lancets As directed lisinopril 5 mg PO QAM metoprolol succinate ER 50 mg PO DAILY omeprazole 20 mg PO DAILY pen needle, diabetic As directed sertraline 50 mg PO QAM HPI HPI Comments History of Present Illness Details Iris comes after a long gap for cardiology follow-up. She presents here with her granddaughter who acts as arts and crafts instructor. They declined a certified arts and crafts instructor. Patient denies any cardiac symptoms. Overall she says she has been doing well however she is scheduled to undergo shoulder surgery under general anesthesia in near future. She limited exercise activity otherwise overall doing well. Denies any exertional chest pain or shortness of breath. No orthopnea, PND. Takes all her medications. No prolonged palpitation irregular heartbeat. No bleeding issues or neurologic events. Comes for regular cardiology follow-up visit. [facility] Medical History Diabetes mellitus HTN (hypertension) Paroxysmal atrial fibrillation (HFpEF) heart failure with preserved ejection fraction Surgical History Hx of knee surgery Hx of breast biopsy Hx of tonsillectomy Hx of tubal ligation Family History Father CVD (cardiovascular disease) Sudden cardiac Mother No problems noted. Social History Unable to assess alcohol history related to: Unknown Alcohol intake: never Patient Tobacco Use Status: Never used Tobacco Physical Exam Vital Signs: Last Vital Signs Pulse 64 07/14/23 12:36 BP 130/70 07/14/23 12:36 BMI result Body Mass Index 24.5 Const General: cooperative, comfortable, no acute distress, alert and awake Nutritional Appearance: obese Orientation/consciousness: patient oriented x3 Limitations: no limitations Neck Neck: Yes trachea midline, Yes supple and Yes no JVD Resp Effort & Inspection: normal respiratory effort Auscultation: clear to auscultation bilaterally and diminished lung sounds Cardio Jugular venous distension: no JVD Palpation: normal PMI Rate: regular rate Rhythm: regular rhythm Heart sounds: S1 normal heart sound present, S2 normal heart sound present, no click, no gallops and no murmurs GI Auscultation: normal bowel sounds Skin General skin exam: no rashes or lesions noted Neuro General: patient oriented x3 and no focal motor deficits Extrem General: Yes no clubbing, cyanosis or edema Psych Appearance: grossly normal Office Procedures EKG Details: EKG shows normal sinus rhythm with normal EKG at 64 beats per minute [id number], Complete Assessment & Plan Assessment & Plan (1) (HFpEF) heart failure with preserved ejection fraction: Code(s): I50.30 - Unspecified diastolic (congestive) heart failure Plan: Heart failure preserved ejection fraction, clinically euvolemic and well compensated. Has done well with rhythm control approach. Also has done well with good blood pressure control. She is remaining euvolemic and well compensated with no significant progressive symptoms. Encouraged to continue to participate in physical activity as tolerated. Encouraged to continue current diuretic dose. Daily weight monitoring avoidance of salt loading was discussed. Continue rhythm control approach. Importance of compliance with medication was discussed. Additional diuretics as need be. Advised to call me with worsening symptoms. Will obtain echocardiogram in near future. (2) Paroxysmal atrial fibrillation: Code(s): I48.0 - Paroxysmal atrial fibrillation Plan: Paroxysmal atrial fibrillation which has remained suppressed and has done well with rhythm control approach. Continue aggressively rhythm control approach. Does not require antiarrhythmic drug therapy. Continue metoprolol therapy. Avoidance of stimulants was discussed continue full oral anticoagulation, currently on Eliquis 5 mg b.i.d.. Semi annual renal function as well as annual CBC should be pursued. Will check for the same. Advised to call me with worsening symptoms. (3) Preoperative cardiovascular examination: Code(s): Z01.810 - Encounter for preprocedural cardiovascular examination Plan: Preoperative cardiovascular risk stratification with shoulder surgery which is considered intermediate risk surgery under general anesthesia. Currently requires vasodilating myocardial perfusion imaging for further risk stratification given her multiple risk factors. This will be scheduled in near future. Further treatment based on the findings. If this is within acceptable limits she will be low risk for perioperative cardiovascular morbidity mortality. This was discussed with her. She understands agrees. Will follow up in the clinic in 1 year's time, sooner p.r.n.. Thank you for allowing me to partake in the care Orders: Orders Basic Metabolic Panel Today I48.0 - Paroxysmal atrial fibrillation CA echo transthoracic complete Today Z01.810 - Encounter for preprocedural cardiovascular examination Complete Blood Count no Diff Today I48.0 - Paroxysmal atrial fibrillation CA lexiscan stress w dm Today Z01.810 - Encounter for preprocedural cardiovascular examination Coding Level of Care Code Est Pt Level 4 (77425) Diagnoses (HFpEF) heart failure with preserved ejection fraction I50.30 Paroxysmal atrial fibrillation I48.0 Preoperative cardiovascular examination Z01.810 CPT Codes EKG - CPT: 62878-[id number], Complete ([id number])
== END 2023-07-14 13:07 | disposition home or self-care (01) ==
PROVIDERS: PCP Family Medicine; Visit Provider Internal Medicine Cardiovascular Disease
DX: I50.30 Unspecified diastolic (congestive) heart failure (principal); I48.0 Paroxysmal atrial fibrillation; Z01.810 Encounter for preprocedural cardiovascular examination
CPT/HCPCS: 93010; 99214

== ENCOUNTER 2023-07-14 12:19 | Outpatient (REF) | payer OTHER, SELFPAY ==
[2023-07-14 15:06] LABS: Hemoglobin 12.4 g/dl (12.0-16.0); Mean Corpuscular HGB Conc 30.2 g/dl (31.0-35.0); Mean Corpuscular Hemoglobin 23.8 pg (27.0-33.0); Mean Corpuscular Volume 78.7 fL (80.0-98.0); Mean Platelet Volume 8.9 fL (9.4-12.3); Platelet Count 353 X10*3/uL (160-400); Red Blood Count 5.21 X10*6/uL (4.20-5.50); Red Cell Distribution Width 16.9 % (11.0-16.0); White Blood Count 5.8 X10*3/uL (4.8-10.8)
[2023-07-14 15:37] LABS: Anion Gap 12 (12-20); Blood Urea Nitrogen 12 mg/dL (9-16); Calcium 9.5 mg/dL (8.4-10.2); Carbon Dioxide 28 mmol/L (22-29); Chloride 101 mmol/L (96-108); Estimated Glomerular Filt Rate > 60; Glucose Random 182 mg/dL (60-115); Potassium 4.2 mmol/L (3.3-5.1); Sodium 137 mmol/L (135-145)
== END 2023-07-14 12:20 | disposition home or self-care (01) ==
LOC: HO.LAB 12:19
PROVIDERS: PCP Family Medicine; Visit Provider Internal Medicine Cardiovascular Disease
DX: Z01.810 Encounter for preprocedural cardiovascular examination (principal); I48.0 Paroxysmal atrial fibrillation; I11.0 Hypertensive heart disease with heart failure; I50.30 Unspecified diastolic (congestive) heart failure
CPT/HCPCS: 36415; 80048; 85027; 93005; 99212

== ENCOUNTER → 2023-07-28 08:53 | Outpatient (REF) | payer OTHER, SELFPAY ==
--- NOTE | 2023-07-28 08:57 | CA_ITS ---
Acquisition Time: 2023-07-28 09:14:11 Total Exercise Time: 00:02:00 Test Indications: PREOP Medications: METOPROLOL INSULIN TRULICITY JARDIANCE LISINOPRIL Protocol: LEXISCAN Max HR: 101 BPM 71% of Pred: 142 BPM Max BP: 130/080 mmHG Max Work Load: 1.0 METS Pharmacological stress test with Lexiscan injeciton while sitting and kciking her legs. with 10/10 chest pressure, with mild SOB, without arrhythmais, with normotensive response to injection, with nondiagnoisitic EKGs. Aminophylline 75mg IVP given to reverse Lexiscan injeciton. Chets pain resolved. Nuclear images pending. Test reviewed with Dr. Pham Referred By: Wellington Pham Overread By: Lay Kincaid
== END ==
LOC: HO.CARD 08:53
PROVIDERS: PCP Family Medicine; Visit Provider Internal Medicine Cardiovascular Disease
DX: Z01.810 Encounter for preprocedural cardiovascular examination (principal)
CPT/HCPCS: 93017; J0280; J2785

== ENCOUNTER → 2023-07-28 08:57 | Outpatient (BNV) | payer OTHER, SELFPAY | PROVIDERS: PCP Family Medicine; Visit Provider Nurse Practitioner | DX: I50.9 Heart failure, unspecified (principal); I48.91 Unspecified atrial fibrillation | CPT/HCPCS: 78452; 93016; 93018 ==

== ENCOUNTER → 2023-07-29 09:41 | Outpatient (BNVA) | payer OTHER, SELFPAY | PROVIDERS: PCP Family Medicine; Visit Provider Orthopaedic Surgery ==

== ENCOUNTER → 2023-08-01 13:05 | Outpatient (REF) | payer OTHER, SELFPAY ==
--- NOTE | ~2023-08-01 | NM_ITS ---
Lexiscan Myocardial perfusion study Indication: Congestive heart failure, atrial fibrillation, assess for coronary disease and ischemia Technique: The patient was brought in for a Lexiscan perfusion study on 07/28/2023 and was injected 0.4 mg of Lexiscan intravenously. Within a minute of this injection 25 mCi of sestamibi was given intravenously. Images were obtained using the SPECT gamma camera interlaced with the gating device. Images were obtained in supine position. Resting perfusion study was performed on 07/30/2023. Patient was administered 25 mCi of sestamibi intravenously at rest. Images were then obtained in supine position. Images were processed with the software and compared side to side in short axis, horizontal long axis and vertical long axis views. Total DLP 132mGy-cm. Findings: Raw acquisition reviewed. Arms by the patient's side. The stress perfusion study showed no significant perfusion of normality. Both uncorrected as well as CT attenuation corrected images were reviewed. The gated study shows normal LV systolic function with calculated LVEF of 74%. LV cavity is normal in size. The gated study shows normal wall thickening and contraction of segments. Resting study shows no significant perfusion abnormality. Gating at rest reveals normal wall motion with ejection fraction at 68%. The findings are consistent with no clear reversible or fixed perfusion abnormality. NM/NM dm perf SPECT rest & str Impression: 1. Myocardial perfusion imaging study shows normal myocardial perfusion. 2. Gated LVEF is 74% during stress and 68% during rest. 3. Transient ischemic dilatation not present. EKG component of the test reported separately.
--- NOTE | 2023-08-01 13:08 | CA_ITS ---
Transthoracic Echocardiogram Patient (Last, First, Middle): Clau Dougherty L Gender: Female Date of : 1945 Age: 78 Procedure Date: 08/01/2023 Procedure Type: Transthoracic Echocardiogram Location: OP Height: 152.4 cm Weight: 70.76 kg BSA: 1.68 m2 Heart Rate: 64 bpm BP: 126 / 72 mmHg Clinical Scientist: RICHARD Referring MD: Wellington Pham MD Rn Bone Marrow Transplant: Wellington Pham MD Symptoms: Z01.810 - Encounter for preprocedural cardiovascular examination Study Quality: Adequate ECG Rhythm: Sinus Conclusions: - 1. Normal LV ejection fraction 55-60% with grade 1 diastolic dysfunction 2. Normal cardiac valvular Doppler 3. Normal RV systolic pressure 4. No gross pericardial effusion Findings Left Ventricle Normal left ventricular size, thickness, and systolic function. The visually estimated ejection fraction is between 55-60%. Spectral Doppler is indicative of an impaired relaxation filling pattern. E/E prime ratio is <8, consistent with normal filling pressures. Evidence suggests grade I (mild) diastolic dysfunction.Peak GLS is -16.8%, mildly reduced. Right Ventricle Normal right ventricular cavity size and systolic function. Atria Both atria are normal in size. There is lipomatous hypertrophy of the interatrial septum. There is no evidence of interatrial shunt. Aortic Valve The aortic valve was not well visualized. There is mild calcification of the aortic valve. There is no aortic valve stenosis. There is no aortic valve regurgitation. Mitral Valve There is mild anterior mitral leaflet thickening. There is trace mitral valve regurgitation. There is no mitral valve stenosis. Pulmonic Valve The pulmonic valve was not well visualized. Tricuspid Valve Likely normal tricuspid valve structure and function. There is trace tricuspid valve regurgitation. The right ventricular systolic pressure is normal. The right ventricular systolic pressure is 28 mmHg. Normal right atrial pressure. There is no evidence of pulmonary hypertension. Great Vessels All visible segments of the aorta are normal in size. The pulmonary artery was not well visualized. There is no dilatation of the ascending aorta measuring 2.90 cm. Venous The inferior vena cava is normal in size and collapses greater than 50% with inspiration. Pericardium/Pleural There is no evidence of pericardial effusion. Prior Study Comparison No significant change compared to prior study dated: 09/17/2018. Measurements 2D Linear Measurements IVSd: 0.67 0.6-0.9/0.6-1.0 cm LVIDd: 4.82 3.9-5.3/4.2-5.9 cm LVIDd Index: 2.87 2.4-3.2/2.2-3.1 cm/m2 LVIDs: 2.89 2.0-3.6 cm LVPWd: 0.70 0.7-1.1 cm LA Diam: 3.60 2.7-3.8/3.0-4.0 cm LAIDs Index: 2.14 1.5-2.3 cm/m2 LV Mass: 130.80 67-162/88-224 g LV Mass Index: 77.86 43-95/49-115 g/m2 LVOT Diam: 2.00 3.0+(-)1.3 cm 2D Systolic Function EF 4C: 54.80 >55% EF 2C: 60.70 >55% EF BiP: 59.10 >55% Mitral Valve MV Pk E: 0.51 MV PK A: 0.80 MV Decel Time: 343.00 E/A: 0.60 E'Lateral: 8.59 E'Medial: 6.74 E/E' Med: 7.60 E/E' Lat: 6.00 PHT: 100.00 MVA PHT: 2.20 Decel [place]: 1.50 Aortic Valve AoV Pk Al: 1.15 AoV Pk Grad: 5.00 ASHLEIGH: 2.42 LVOT LVOT Pk Al: 0.89 LVOT Mn Al: 0.62 LVOT VTI: 0.19 LVOT Pk Grad: 3.00 LVOT Mn Grad: 2.00 LVOT Diam: 2.00 LVOT Area: 3.14 Diastolic Function MV Pk E: 0.51 MV Pk A: 0.80 E/A: 0.60 E'Medial: 6.74 E/E' Med: 7.60 E' Laterial: 8.59 E/E' Lat: 6.00 Right Ventricle TAPSE (mm): 21.60 Tricuspid Valve TR Pk Al: 2.22 TR Pk Grad: 20.00 RA Press: 8.00 RVSP: 28.00 Great Vessels Aorta Sinus of Valsalva: 2.60 2.0-3.5 cm Ao Asc: 2.90 2.1-3.4 cm Pulmonary Valve PV Pk Al: 0.87 Peak PV Grad: 3.00 Updated in Other Vendor System with Status of Final Wellington Pham MD electronically signed on 08/02/2023 6:14:50 AM with status of Final
== END ==
LOC: HO.CARD 13:05
PROVIDERS: PCP Family Medicine; Visit Provider Internal Medicine Cardiovascular Disease
DX: Z01.810 Encounter for preprocedural cardiovascular examination (principal)
CPT/HCPCS: 78452; 93306; 93356; A9500

== ENCOUNTER → 2023-08-01 13:08 | Outpatient (BNV) | payer OTHER, SELFPAY | PROVIDERS: PCP Family Medicine; Visit Provider Internal Medicine Cardiovascular Disease | DX: Z01.810 Encounter for preprocedural cardiovascular examination (principal) | CPT/HCPCS: 93306; 93356 ==

== ENCOUNTER 2023-10-30 08:31 | Outpatient (REF) | payer OTHER, SELFPAY ==
--- NOTE | ~2023-10-30 | XR_ITS ---
EXAMINATION: XR SHOULDER, LEFT CLINICAL INFORMATION: Left shoulder pain. COMPARISON: Left shoulder x-rays of 01/06/2023. TECHNIQUE: AP external rotation, scapular Y, and axillary views of the left shoulder. FINDINGS: Severe osteoarthritic changes are noted at the glenohumeral articulation with irregularity and flattening of the articular surfaces with prominent marginal osteophytic changes. Small calcific/ossific densities are noted on the superior lateral aspect of the humeral head likely representing combination of the osteophytic changes and loose bodies. Jxvi-we-vghxrgoy changes of arthropathy at the acromioclavicular articulation. There is no evidence of acute fracture or dislocation. Visualized thorax is unremarkable. XR/XR shoulder LT min 2V IMPRESSION: Severe osteoarthritic changes at the left glenohumeral articulation with multiple loose bodies. No acute osseous abnormality in the left shoulder.
== END 2023-10-30 08:32 | disposition home or self-care (01) ==
LOC: HO.HOSX 08:31
PROVIDERS: Visit Provider Physician Assistant
DX: M25.512 Pain in left shoulder (principal); Z01.818 Encounter for other preprocedural examination
CPT/HCPCS: 73030; 99212

== ENCOUNTER 2023-10-30 10:27 | Outpatient (AMB) | payer OTHER, SELFPAY ==
--- OUTSIDE RECORDS SUMMARY | 2023-10-30 10:28 | XMS_ITS | Continuity of Care Document ---
Author Organization [facility] Address [address] [facility] [place] [address]- Care Team Providers Care Blocker Hand Name Role Phone Karoline Burgos DO Primary Care Physician [phone] [id number] - 08/10/20 [facility] [address] [facility] [place] [address]- Attending Physician: AdmMerary williamson Admitting Physician: Admtr, Ar8 Referring Physician: Admtr, Ar8 Allergies, Adverse Reactions, Alerts Substance Reaction Severity Status aspirin itchy Active Motrin itchy Active iodine Active traMADol dizziness Active Medications Calcium with Vitamin D Calcium with Vitamin D, Refills 0, Maintenance, 05/16/17 9:42:59, Compound Start Date: 05/16/17 Status: Ordered Coumadin Tablet See Instructions, 2.5 mg Daily as dir, 0 Refills, Maintenance, 11/29/11 10:17:38 Start Date: 11/29/11 Status: Ordered Gabapentin = 100 mg, By Mouth, 3 times a day, 0 Refills, Maintenance, 01/05/15 15:12:25 Start Date: 01/05/15 Status: Ordered Humalog Inj Subcutaneous Infusion, Sliding scale with meals., 0 Refills, Maintenance, 11/29/11 10:17:07 Start Date: 11/29/11 Status: Ordered Lantus Inj = 60 units, Subcutaneous Injection, Daily at bedtime, 0 Refills, Maintenance, 11/08/10 12:58:43, Injection Start Date: 11/08/10 Status: Ordered lisinopril 5 mg oral tablet 5 mg, 1, tablet, By Mouth, Daily, # 30 tablet, Refills 0, Maintenance, 01/12/16 8:46:35 Start Date: 01/12/16 Stop Date: 02/11/16 Status: Ordered loratadine 10 mg oral tablet 1 tablet = 10 mg, By Mouth, Daily, PRN Other, allergies, 0 Refills, Maintenance, 06/09/13 0:26:55 Start Date: 06/09/13 Status: Ordered Mastectomy Bra See Instructions, # 3 each, Refills 99, Tot. Refills 99, Maintenance, History of left breast cancer. Asymmetry due to lumpectomy. Diagnosis: 50.Sheldon2, 07/11/20 11:16:00 EDT, Compound Start Date: 07/11/20 Status: Ordered Mastectomy Prosthesis See Instructions, # 1 each, Refills 1, Tot. Refills 1, Maintenance, History of left breast cancer. Asymmetry due to lumpectomy. Diagnosis: 50.Sheldon2, 07/11/20 11:16:00 EDT, Compound Start Date: 07/11/20 Status: Ordered metoprolol 50 mg oral tablet, extended release 50 mg, By Mouth, Daily, Refills 0, Maintenance, 01/12/16 8:46:01 Start Date: 01/12/16 Status: Ordered Prilosec OTC = 20 mg, By Mouth, 2 times a day, 0 Refills, Maintenance, 10/06/13 8:39:54 Start Date: 10/06/13 Status: Ordered Tylenol Extra Strength 500 mg oral tablet 2 tablet = 1,000 mg, By Mouth, 3 times a day, PRN as needed for fever, 0 Refills, Maintenance, 06/09/13 0:36:03 Start Date: 06/09/13 Status: Ordered Vitamin D 71370 iu oral capsule 1 capsule = 50,000 International_Units, By Mouth, Every week, 0 Refills, Maintenance, 06/09/13 0:26:02 Start Date: 06/09/13 Status: Ordered Zetia 10 mg oral tablet 1 tablet = 10 mg, By Mouth, Daily, 0 Refills, Maintenance, 06/09/13 0:23:46 Start Date: 06/09/13 Status: Ordered Problem List Condition Effective Dates Status Health Status Inform ant Afib(Confirmed) Active Breast cancer left, pT3 pN0 , located in the upper outer quadrant, hormone receptor positive, HER-2/shady negative, diagnosed 2009(Confirmed) Active Breast seroma(Confirmed) Active CAD (coronary artery disease)(Confirmed) Active Diabetes(Confirmed) Active Heart failure with preserved ejection fraction(Confirmed) Active Mastitis(Confirmed) 10/16/10 Active Myofascial pain(Confirmed) Active Cervicalgia(Confirmed) Active Osteoarthritis(Confirmed) Active Social History Social History Type Response Smoking Status Former smoker entered on: 05/16/17 Sex
--- OUTSIDE RECORDS SUMMARY | 2023-10-30 10:28 | XMS_ITS | Continuity of Care Document ---
Author Organization [facility] Address [address] [facility] [place] [address]- Care Team Providers Care Derrick Boat Operator Name Role Phone Karoline Burgos DO Primary Care Physician [phone] [place] [facility] [place]/09[place]21 - 10/07/21 [facility] [address] [facility] [address]- Attending Physician: Yazmin Paige NP Admitting Physician: Yazmin Paige NP Referring Physician: Karoline Burgos DO Allergies, Adverse Reactions, Alerts Substance Reaction Severity [...] Start Date: 06/09/13 Status: Ordered Vitamin D 59676 iu oral capsule 1 capsule = 50,000 [...]
--- OUTSIDE RECORDS SUMMARY | 2023-10-30 10:29 | XMS_ITS | Continuity of Care Document ---
Author Organization [facility] Address [address] [facility] [place] [address]- Care Team Providers Care Window Machine Operator Name Role Phone Karoline Burgos DO Primary Care Physician [place] [facility] [place] Date(s): 02/19/23 - 03/21/23 [facility] [address] [facility] [place] [address]- Allergies, Adverse Reactions, Alerts Substance Reaction Severity [...] Bra See Instructions, # 3 each, Refills 1, Tot. Refills 1, Maintenance, History of left breast cancer. Asymmetry due to lumpectomy. Diagnosis: 50.Sheldon2, 02/21/23 16:40:00 EST, Compound Start Date: 02/21/23 Status: Ordered Mastectomy Prosthesis See Instructions, # 1 each, Refills 1, Tot. Refills 1, Maintenance, History of left breast cancer. Asymmetry due to lumpectomy. Diagnosis: 50.2, 02/21/23 16:39:00 EST, Compound Start Date: 02/21/23 Status: Ordered metoprolol 50 mg oral tablet, [...] Start Date: 06/09/13 Status: Ordered Vitamin D 63628 iu oral capsule 1 capsule = 50,000 International_Units, By Mouth, Every week, 0 Refills, Maintenance, 06/09/13 0:26:02 Start Date: 06/09/13 Status: Ordered Zetia 10 mg oral tablet 1 tablet = 10 mg, By Mouth, Daily, 0 Refills, Maintenance, 06/09/13 0:23:46 Start Date: 06/09/13 Status: Ordered Problem List Condition Confirmation Course Effective Dates Status H ealth Status Informant Afib Confirmed Active Breast cancer left, pT3 pN0 , located in the upper outer quadrant, hormone receptor positive, HER-2/shady negative, diagnosed 2009 Confirmed Active Breast seroma Confirmed Active CAD (coronary artery disease) Confirmed Active Diabetes Confirmed Active Heart failure with preserved ejection fraction Confirmed Active Mastitis Confirmed 10/16/10 Active Myofascial pain Confirmed Active Cervicalgia Confirmed Active Obese class I Confirmed Active Osteoarthritis Confirmed Active Social History Social History Type Response Smoking Status Former smoker entered on: 05/16/17 Sex Patient Care team information Care Team Personnel Name: Kaorline Burgos DO Position: [facility] Outreach Member Role: PCP Address: Address: [address] [place] [address]- Care Team Related Persons Name: ODILIA VARGHESE CANDY MAKER Name: ERIC WHATLEY
--- OUTSIDE RECORDS SUMMARY | 2023-10-30 10:29 | XMS_ITS | Continuity of Care Document ---
Author Organization [facility] Address [address] [facility] [place] [address]- Care Team Providers Care Medical Claims Specialist Name Role Phone Karoline Burgos DO Primary Care Physician En[place] [facility] [place] Date(s): 06/19/22 - 10/17/22 [facility] [address] [place] [address]- Attending Physician: Marimar Melendrez MD Admitting Physician: Marimar Melendrez MD Referring Physician: Karoline Burgos DO Allergies, Adverse [...] Start Date: 06/09/13 Status: Ordered Vitamin D 14412 iu oral capsule 1 capsule = 50,000 [...] Myofascial pain Confirmed Active Cervicalgia Confirmed Active Osteoarthritis Confirmed Active Social History Social History Type Response Smoking Status Former smoker entered on: 05/16/17 Sex Patient Care team information Care Team Personnel Name: Karoline Burgos DO Position: [facility] Outreach Member Role: PCP Address: Address: [address] [place] [address]- Care Team Related Persons Name: ERIC WHATLEY
--- OUTSIDE RECORDS SUMMARY | 2023-10-30 10:29 | XMS_ITS | Continuity of Care Document ---
Author Organization [facility] Address [address] [facility] [place] [place] [address]- Care Team Providers Care Addressograph Operator Name Role Phone Karoline Burgos DO Primary Care Physician [place] [facility] [place] - [place]/06/22 [facility] [address] [facility] [place] [address]- Attending Physician: Yazmin Paige NP Admitting Physician: Yazmin Paige NP Referring Physician: Not on Staff, Referring MD Allergies, Adverse Reactions, Alerts Substance Reaction Severity Status aspirin itchy Active Motrin itchy Active traMADol dizziness Active iodine Active Medications Calcium with Vitamin D Calcium [...] breast cancer. Asymmetry due to lumpectomy. Diagnosis: 50.Amanda, 07/11/20 11:16:00 EDT, Compound Start Date: 07/11/20 Status: Ordered Mastectomy Prosthesis See Instructions, # 1 each, Refills 1, Tot. Refills 1, Maintenance, History of left breast cancer. Asymmetry due to lumpectomy. Diagnosis: 50.Shedlon2, 07/11/20 11:16:00 EDT, Compound Start Date: 07/11/20 [...] Start Date: 06/09/13 Status: Ordered Vitamin D 49909 iu oral capsule 1 capsule = 50,000 [...] Team Personnel Name: Karoline Burgos DO Position: [facility] Outreach Member Role: PCP Address: Address: [address] [place] [address]- Care Team Related Persons Name: ERIC WHATLEY
--- OUTSIDE RECORDS SUMMARY | 2023-10-30 10:29 | XMS_ITS | Continuity of Care Document ---
Author Organization [facility] Address [address] [facility] [place] [address]- Care Team Providers Care Journeyman Pipefitter Name Role Phone Karoline Burgos DO Primary Care Physician [phone] [facility] [place] - 10[place]17/22 [facility] [address] [facility] [place] [address]- Attending Physician: Admtr, Ar8 Admitting Physician: Admtr, Ar8 Referring Physician: Admtr, [...] Start Date: 06/09/13 Status: Ordered Vitamin D 77109 iu oral capsule 1 capsule = 50,000 [...] Team Personnel Name: Karoline Burgos DO Position: [facility] Outreach Member Role: PCP Address: Address: [address] [place] [address]- Care Team Related Persons Name: ERIC WHATLEY
--- OUTSIDE RECORDS SUMMARY | 2023-10-30 10:29 | XMS_ITS | Continuity of Care Document ---
Author Organization [facility] ter Address [address] [place] [address]- Care Team Providers Care Ocean Export Account Manager Name Role Phone Karoline Burgos DO Ginette Primary Care Physician [place] [facility] [place] - 10/17/[address] [address]- Attending Physician: Royal COBIAN, Yazmin Smith Admitting Physician: Royal COBIAN, Yazmin Smith Referring Physician: Royal COBIAN, Yazmin Smith Allergies, Adverse Reactions, Alerts Substance Reaction Severity [...] Refills 0, Maintenance, 01/12/16 8:46:35 Start Date: 10/7/16 Stop Date: 02/11/16 Status: Ordered loratadine 10 [...] Start Date: 06/09/13 Status: Ordered Vitamin D 51663 iu oral capsule 1 capsule = 50,000 [...] Team Personnel Name: Karoline Burgos DO Position: [facility] Outreach Member Role: PCP Address: Address: [address] [place] [address]- Care Team Related Persons Name: ERIC WHATLEY
--- OUTSIDE RECORDS SUMMARY | 2023-10-30 10:29 | XMS_ITS | Patient Health Record ---
Author Organization [facility] Address [address] [place] [address] Care Team Providers Care Seed Packer Name Role Phone Savanah Hiro Unavailable [phone] ALLERGIES Allergen (clinical drug ingredient) Drug/Non Drug Allergy documented on EMR Reaction Allergy Type Onset Date Status ibuprofen Advil itchy Drug Allergy Active naproxen Aleve itchy Drug Allergy Active Motrin itchy Drug Allergy Active aspirin Aspirin itchy Drug Allergy Active REASON FOR REFERRAL No Information MEDICATIONS Medication SIG (Take, Route, Fr equency, Duration) Notes Start Date End Date Status Jardiance Active Gabapentin Active Lisinopril Active Omeprazole Active Metoprolol Succinate Active Cetirizine HCl Activ e Calcium Active Vitamin D3 Active eliquis Active Docusate Sodium Acti ve Furosemide Active Ezetimibe Active SOCIAL HISTORY Tobacco Use: Social History Observation Description Date Details (start date - stop date) Former Smoker NA - NA Sex Assigned At : Social History Observation Description Sex Assigned At Unknown Tobacco Use/Smoking Question Answer Notes Are you a: former smoker Additional Findings: Tobacco Non-User Current no n-smoker Alcohol Screen Question Answer Notes Did you have a drink containing alcohol in the p ast year? No Points 0 Interpretation Negative Tobacco use other than smoking: Question Answer Notes Are you an other tobacco user? No VITAL SIGNS Height 5ft in 07/24/2023 Weight 162 lbs 07/24/2023 BMI 31.64 kg/m2 07/24/2023 Encounters Encounter Location Date Provider Diagnosis [facility] [place] [address] [place] [address] 07/24/2023 Hiro Pavon [facility] [place] [address] [place] [address] 07/24/2023 Hiro Pavon PLAN OF TREATMENT No Information Insurance Providers Payer Name Payer Address Payer Phone Subscriber Number Group Number Insured Name Patient Relationship to Insured Coverage Start Date Coverage End Date [facility] [employer] Claims [address] [place] [id number] Clau Herrera Self - patient is the insured MEDICAL (GENERAL) HISTORY Medical History History ICD Code Anxiety Arthritis asthma CAD (Cholesterol) Depression Diabetic Heart disease High blood pressure Surgical History Surgery Date(Month/Year) breast cancer 2009
--- OUTSIDE RECORDS SUMMARY | 2023-10-30 10:29 | XMS_ITS ---
Author [facility] Address [address] [facility] [place] [address] Care Team Providers Care Judicial Registrar Name Role Phone Hiro Pavon Unavailable [phone] ALLERGIES Allergen (clinical drug ingredient) Drug/Non Drug Allergy documented on EMR Reaction Allergy Type Onset Date Status ibuprofen Advil itchy Drug Allergy Active naproxen Aleve itchy Drug Allergy Active Motrin itchy Drug Allergy Active aspirin Aspirin itchy Drug Allergy Active MEDICATIONS Medication SIG (Take, Route, Fr equency, Duration) Notes Start Date End Date Status Jardiance Active Lisinopril Active Omeprazole Active Metoprolol Succinate Active Vitamin D3 Active Gabapentin Active eliquis Active Docusate Sodium Acti ve Furosemide Active Ezetimibe Active Cetirizine HCl Activ e Calcium Active SOCIAL HISTORY Tobacco Use: Social History [...] 07/24/2023 Encounters Encounter Location Date Provider [facility] [address] [place] [address] 07/24/2023 Hiro Pavon PLAN OF TREATMENT No Information
--- OUTSIDE RECORDS SUMMARY | 2023-10-30 10:29 | XMS_ITS | Continuity of Care Document ---
Author Organization [facility] ter Address [address] [place] [address]- Care Team Providers Care Pocket Creaser Name Role Phone Markmedardo FARLEY Karoline Ginette Primary Care Physician [phone] [place] [facility] [place](s): 09/08/20 - 10/07/[address] [address]- Attending Physician: Yazmin Paige NP Admitting Physician: Royal COBIAN, Yazmin Smith Referring [...] Start Date: 06/09/13 Status: Ordered Vitamin D 79532 iu oral capsule 1 capsule = 50,000 [...]
--- OUTSIDE RECORDS SUMMARY | 2023-10-30 10:29 | XMS_ITS | Continuity of Care Document ---
Author Organization [facility] Address [address] [facility] [place] [address]- Care Team Providers Care Marketing Administrative Assistant Name Role Phone Markmedardo Karoline FARLEY Primary Care Physician En[place] [facility] [place] Date(s): 07/04/20 - 08/03/20 [facility] [address] [facility] [place] [place] [address]- Allergies, Adverse Reactions, Alerts Substance Reaction Severity [...] breast cancer. Asymmetry due to lumpectomy. Diagnosis: 50Lora, 07/11/20 11:16:00 EDT, Compound Start Date: 07/11/20 [...] Start Date: 06/09/13 Status: Ordered Vitamin D 15140 iu oral capsule 1 capsule = 50,000 [...] failure with preserved ejection fraction(Confirmed) Active Mastitis(Confirmed) 7/12/11 Active Myofascial pain(Confirmed) Active Cervicalgia(Confirmed) Active Osteoarthritis(Confirmed) Active Social History Social History Type Response Smoking Status Former smoker entered on: 05/16/17 Sex
--- OUTSIDE RECORDS SUMMARY | 2023-10-30 10:29 | XMS_ITS | Continuity of Care Document ---
Author Organization [facility] Address [address] [facility] [place] [address]- Care Team Providers Care Spice Room Worker Name Role Phone Karoline Burgos DO Primary Care Physician [place] [facility] [place] 09/07/21 - 10/07/21 [facility] [address] [facility] [place] [address]- Attending Physician: Admtr, Ar8 Admitting Physician: Admtr, [...] Start Date: 06/09/13 Status: Ordered Vitamin D 50097 iu oral capsule 1 capsule = 50,000 [...]
--- OUTSIDE RECORDS SUMMARY | 2023-10-30 10:29 | XMS_ITS ---
Author Organization [facility] Address [address] [facility] [address] Care Team Providers Care Product Marketing Intern Name Role Phone Hiro Pavon Unavailable [phone] REASON FOR VISIT NS to 07/24/23 GLASS SAGGER appt Encounters Encounter Location Date Provider Diagnosis [facility] [address] [place] [address] 07/24/2023 Hiro Pavon PLAN OF TREATMENT No Information
--- NOTE | 2023-10-30 10:48 | A.OFFVIS_ITS ---
Vital Signs 10/30/23 11:01 Height 5 ft 7 in Weight 156 lb BMI 24.4 Intake Visit Reasons: Pre-Op: L TSA w/NE 11/04/23 Intake Note: Iris a 78 year old female who presents today for a preoperative LT TSA on 11/04/23 with NE. Pain management agreement reviewed and signed. Operator Weapon Locating Radar Required: Yes Operator Weapon Locating Radar Language: Lead Janitor Services: Operator Weapon Locating Radar Present Operator Weapon Locating Radar Name: LucitaDAYANA/[place] Allergies aspirin [Aspirin] Allergy (Severe, Verified 10/30/23 11:01) HIVES,RASH tramadol [TRAMADOL] Allergy (Severe, Verified 10/30/23 11:01) ITCHING, hallucinations ibuprofen [From MOTRIN] Allergy (Intermediate, Verified 10/30/23 11:01) HIVES, itching metformin Allergy (Intermediate, Verified 10/30/23 11:01) tremors iodine Allergy (Unknown, Verified 10/30/23 11:01) UNKNOWN Opmncst-ARI-LpL Reductase Inhibitor [EIKASQP-[id number]-ZFX REDUCTASE INHIBITOR] Adver se Reaction (Intermediate, Verified 10/30/23 11:01) Muscle Pain influenza virus vaccine, specific [Influenza Virus Vacc,Specific] Adverse Reaction (Mild, Verified 10/30/23 11:01) shoulder pain, tremors Codeine Phosphate Allergy (Unknown, Uncoded 10/30/23 11:01) UNKNOWN Medication List - Last Reconciled 10/30/23 by Antwon Simon PA-C acetaminophen ER (Tylenol 8 Hour) 650 mg PO Q12H PRN albuterol sulfate 2.5 mg inhalation Q6H PRN alcohol swabs 0 pad topical apixaban (Eliquis) 5 mg PO DAILY arm brace (Wrist Brace) wear on each wrist only at night biotin PO blood sugar diagnostic As directed calcium carbonate-vitamin D3 600 mg-10 mcg (400 unit) 1 tab PO BID cetirizine 10 mg PO DAILY [Cock up splint Wear spilt on both hands nightly. ] docusate sodium 100 mg PO BID empagliflozin (Jardiance) 25 mg PO QAM ezetimibe 10 mg PO DAILY fluticasone propionate 110 mcg/actuation inhalation furosemide 20 mg PO QAM gabapentin 400 mg PO BID insulin aspart U-100 units subcut insulin glargine 52 units subcut DAILY lancets As directed lisinopril 5 mg PO QAM metoprolol succinate ER 50 mg PO DAILY omeprazole 20 mg PO DAILY pen needle, diabetic As directed semaglutide (Ozempic) 0.25 mg subcut QWEEK sertraline 50 mg PO QAM HPI Comments Details: Ms Grant presents to the office today for preop visit. She is scheduled for right total shoulder arthroplasty with Dr. Collazo. She continues to have ongoing pain and difficulty with in the right shoulder, which is affecting her quality of life; therefore, she has elected to move forward with surgery. [facility] Medical History (Updated 10/30/23 @ 09:30 by Antwon Simon PA-C) Hx of breast cancer No natural teeth GERD (gastroesophageal reflux disease) Asthma Osteoarthritis Diabetes mellitus HTN (hypertension) Paroxysmal atrial fibrillation (HFpEF) heart failure with preserved ejection fraction Surgical History History of total bilateral knee replacement Hx of cholecystectomy Hx of knee surgery Hx of breast biopsy Hx of tonsillectomy Hx of tubal ligation Family History Father CVD (cardiovascular disease) Sudden cardiac Mother No problems noted. Social History Household Members: None Housing: Apartment Are you a primary adult care provider to a significant other at home: No Do you presently have visiting nurse or other home services: No Unable to assess alcohol history related to: Unknown Alcohol intake: never Patient Tobacco Use Status: Former Tobacco user Tobacco use type: Cigarette Physical Exam Vital Signs: BMI result Body Mass Index 24.4 Const General: cooperative, comfortable, no acute distress, alert and awake Nutritional Appearance: obese Orientation/consciousness: patient oriented x3 Limitations: no limitations Neck Neck: Yes trachea midline, Yes supple and Yes no JVD Resp Effort & Inspection: normal respiratory effort Auscultation: clear to auscultation bilaterally and diminished lung sounds Cardio Jugular venous distension: no JVD Palpation: normal PMI Rate: regular rate Rhythm: regular rhythm Heart sounds: S1 normal heart sound present, S2 normal heart sound present, no click, no gallops and no murmurs GI Auscultation: normal bowel sounds Skin General skin exam: no rashes or lesions noted Neuro General: patient oriented x3 and no focal motor deficits Extrem Other: Skin intact , no open wounds. left shoulder with restricted ER to 10deg and crepitus iwth passive ROM Active abduction to 80 deg and FF to 110 General: Yes no clubbing, cyanosis or edema Psych Appearance: grossly normal Results Reviewed Results Reviewed: Xrays were obtained in the office today and personally reviewed by me of the left shoulder show end stage ghj oa Assessment & Plan Assessment & Plan (1) Osteoarthritis of left shoulder: Code(s): M19.012 - Primary osteoarthritis, left shoulder Category: Medical Plan I discussed in detail the procedure and what to expect pre and post operatively. We discussed the risks, benefits and alternatives to the surgery as well as the rehabilitation course. The risks; which include, but are not limited to infection, bleeding, nerve injury, ongoing pain, swelling, and stiffness, perioperative risk of injury to bones and soft tissues, and blood clots. I?ve answered all questions and with their understanding they have consented to move forward with Left total shoulder arthroplasty with Dr. Collazo H/o breast cancer 2009-->lovenox x48 hrs then resume Eliquis H/o P-Afib-on Eliquis-->patient needs to stop 72 hours ( friday) H/o DM-insulin--->check Hgb A1C today STAT CT scan of left shoulder ordered today Orders: Orders XR shoulder LT min 2V Today M25.512 - Pain in left shoulder CT shoulder LT wo IV con Today M19.012 - Primary osteoarthritis, left shoulder Hemoglobin A1c Today E11.9 - Type 2 diabetes mellitus without complications Patient Instructions: Scribed for Antwon Simon PA-C, by Gabriela Vega medical records coordinator, on 10/30/2023 at 1:15 PM EST. I, Antwon Simon PA-C, have personally reviewed and agree with the information entered by the scribe. Coding Level of Care Code Est Pt Level 3 (42359) Diagnoses Osteoarthritis of left shoulder M19.012
[2023-10-30 11:01] VITALS: BMI 24.4
== END 2023-10-30 11:19 | disposition home or self-care (01) ==
LOC: HO.HOS 10:27
PROVIDERS: PCP Family Medicine; Visit Provider Physician Assistant
DX: M19.012 Primary osteoarthritis, left shoulder (principal)
CPT/HCPCS: 99024

== ENCOUNTER 2023-10-30 11:18 | Outpatient (REF) | payer OTHER, SELFPAY ==
[2023-10-30 13:44] LABS: Estimated Average Glucose 160 mg/dL; Hemoglobin A1c % 7.2 % (<6.0)
== END 2023-10-30 11:19 | disposition home or self-care (01) ==
LOC: HO.10HDL 11:18
PROVIDERS: Visit Provider Physician Assistant
DX: E11.9 Type 2 diabetes mellitus without complications (principal)
CPT/HCPCS: 36415; 83036

== ENCOUNTER 2023-11-03 12:39 | Outpatient (REF) | payer OTHER, SELFPAY ==
--- NOTE | ~2023-11-03 | CT_ITS ---
EXAMINATION: CT LEFT SHOULDER WITHOUT CONTRAST CLINICAL INFORMATION: Primary osteoarthritis COMPARISON: None. TECHNIQUE: Helical scanning was performed with submillimeter collimation in the axial plane with parasagittal and paracoronal multiplanar 2-D reconstructions. The image data set was reformatted into 3-D volume rendered images on an independent workstation. Tournier protocol DLP: 231 mGy-cm FINDINGS: Severe glenohumeral joint arthritis, with marked joint space loss, large humeral head osteophyte, subchondral sclerosis and cysts. Glenohumeral joint effusion present. Multiple loose bodies. Calcific/ossific densities superior to the greater tuberosity could reflect calcific tendinitis/bursitis or loose bodies. There is fluid in the subacromial subdeltoid space. Mild-moderate acromioclavicular arthritis. Prominent subacromial spurring. Intact right clavicle. Glenoid version: Estimated 15 degrees retroversion Estimated depth of the glenoid vault: 1.6 cm No axillary lymphadenopathy. No suspicious lung finding seen. CT/CT shoulder LT wo IV con IMPRESSION: 1. Severe glenohumeral joint osteoarthritis. 2. Glenohumeral joint effusion. Loose bodies. 3. Calcific tendinitis/bursitis or loose bodies superior to the greater tuberosity.
== END 2023-11-03 12:40 | disposition home or self-care (01) ==
LOC: HO.CT 12:39
PROVIDERS: PCP Family Medicine; Visit Provider Physician Assistant
DX: M19.012 Primary osteoarthritis, left shoulder (principal)
CPT/HCPCS: 73200

== ENCOUNTER 2023-11-04 07:54 | Inpatient (IN) | payer OTHER, SELFPAY ==
[2023-10-27 11:51] VITALS: BP 128/59; PULSE 72; RESP 16; O2SAT 97; BMI 29.9
[2023-10-27 14:40] LABS: MRSA Nasal PCR NEGATIVE (Negative); SA Nasal PCR NEGATIVE (Negative)
[2023-11-04] VITALS (12 sets, daily range): BP systolic 126–152; BP diastolic 58–71; PULSE 66–75; RESP 15–20; TEMP 36.2–36.6; O2SAT 92–100
--- OUTSIDE RECORDS SUMMARY | 2023-11-04 08:04 | XMS_ITS ---
Author Organization [facility] Address [address] [place] [address] Care Team Providers Care Search And Rescue Officer Name Role Phone Hiro Pavon Unavailable [phone] ALLERGIES Allergen (clinical drug ingredient) Drug/Non Drug [...] 07/24/2023 Encounters Encounter Location Date Provider Diagnosis [facility] [address] [place] [address] 07/24/2023 Hiro Pavon PLAN OF TREATMENT No Information
--- OUTSIDE RECORDS SUMMARY | 2023-11-04 08:04 | XMS_ITS ---
Author Organization [facility] Address [address] [address] Care Team Providers Care Tool Room Gear Machine Operator Name Role Phone Hiro Pavon Unavailable [phone] REASON FOR VISIT NS to 07/24/23 FACEPIECE LINE SUPERVISOR appt Encounters Encounter Location Date Provider Diagnosis [facility] [place] [address] [place] [address] 07/24/2023 Hiro Pavon PLAN OF TREATMENT No Information
--- OUTSIDE RECORDS SUMMARY | 2023-11-04 08:04 | XMS_ITS | Patient Health Record ---
[facility] Address [address] [place] [address] Care Team Providers Care Purler Name Role Phone Savanah Hiro Unavailable [phone] ALLERGIES Allergen (clinical drug ingredient) Drug/Non Drug [...] 07/24/2023 Encounters Encounter Location Date Provider Diagnosis [facility] [place] [address] [place] [address] 07/24/2023 Hiro Pavon [facility] [place] [address] [place] [address] 07/24/2023 Hiro Pavon PLAN OF TREATMENT No Information Insurance Providers Payer Name Payer Address Payer Phone Subscriber Number Group Number Insured Name Patient Relationship to Insured Coverage Start Date Coverage End Date [facility] [employer] Claims [address] [place] [id number] Clau Herrera Self - patient is the insured MEDICAL (GENERAL) HISTORY Medical History History ICD Code Anxiety Arthritis asthma CAD (Cholesterol) Depression Diabetic Heart disease High blood pressure Surgical History Surgery Date(Month/Year) breast cancer 2009
[2023-11-04 08:08] LABS: Glucose, Whole Blood 151 mg/dL (60-115)
[2023-11-04] MEDS: Lactated Ringers 1,000 ML 50 ML IVCONT (08:15)
--- NOTE | 2023-11-04 09:37 | P.DS_ITS ---
DS: Providers Provider Date of Service: 11/05/23 Date of admission: 11/04/23 07:54 Primary care physician: Karoline Burgos DO DS: Summary Hospital Course Hospital Course: The patient underwent a successful left total shoulder arthroplasty, they were transferred to PACU and then to the floor to recover. During their stay, their vitals were stable, afebrile at 98.4. Labs were unremarkable, H/H 10.3/33.0. POD 1 they were started on Lovenox 40mg subq once a day for 48 hours and then may resume Eliquis at regular dose for DVT ppx. Patient has a history of A.Fib on Eliquis and breast cancer, They also received Occupational Therapy services twice a day. Prior to discharge, their dressing was clean dry and intact, and the plan was to be discharged home with VNA services. Time Attestation Discharge Coordination Time (in mins): 30 Quality: Safe Use of Opioids Does Pt have an Active Cancer Diagnosis on the Problem List?: No Quality: Stroke Does the patient have a stroke diagnosis?: No Physical Exam Vital Signs: Vital Signs: Last Vital Signs Pulse 72 10/27/23 11:51 Resp 16 10/27/23 11:51 BP 128/59 L 10/27/23 11:51 Pulse Ox 97 10/27/23 11:51 O2 Del Method Room Air 10/27/23 11:51 BMI result Body Mass Index 29.9 Const: General: cooperative, healthy appearing and no acute distress Resp: Effort & Inspection: normal respiratory effort and able to speak in complete sentences Cardio: Rate: regular rate Peripheral pulses: Peripheral pulses 2+ throughout GI: Palpation (GI): Soft to palpation Skin: Lesions: no lesions Rashes: no rashes Extrem: Other: Left shoulder bandage is c/d/i. Able to flex and extend at the wrist. Sensation intact. Radial pulse intact. DS: Data Data Completed and Pending Labs on day of discharge: Laboratory Results - last 24 hr 11/04/23 08:01 POC Glucose 151 H Discharge Plan Discharge Anticipated Discharge Date/Time: 11/05/23 13:34 Patient Disposition: Home Health Service Discharge Diagnosis: s/p rLTSA Referrals: [facility] WHITE [Outside] - 1 Week Antwon Simon PA-C [Physician Mathematical Sciences Professor] - 11/20/23 11:30 am Discharge Medications: New celecoxib 200 mg Capsule 200 mg PO BID 30 Days Qty: 60 0RF acetaminophen 325 mg Tablet 650 mg PO Q6H PRN (Reason: Pain, Mild (Pain Scale 1-3), fever or headache) 30 Days Qty: 240 0RF enoxaparin 40 mg/0.4 mL Syringe 40 mg subcut Q24H 1 Days Qty: 0.4 0RF oxycodone 10 mg tablet 10 mg PO Q4H PRN (Reason: Pain, Moderate(Pain Scale 4-6)) 7 Days Qty: 42 0RF Rx Instructions: Partial Fill upon patient request. docusate sodium 100 mg Capsule 100 mg PO BID 30 Days Qty: 60 0RF Continued omeprazole 20 mg capsule,delayed release(DR/EC) 20 mg PO DAILY Qty: 14 0RF gabapentin 400 mg Capsule 400 mg PO TID fluticasone propionate 50 mcg/actuation spray,suspension 1 spray intranasal DAILY Arnuity Ellipta 100 mcg/actuation blister with device 1 inh INHALATION DAILY furosemide 20 mg tablet 20 mg PO DAILY vitamin E 268 mg (400 unit) Capsule 536 mg PO DAILY insulin glargine 100 unit/mL (3 mL) insulin pen 52 unit subcut DAILY lisinopril 5 mg tablet 5 mg PO DAILY ezetimibe 10 mg tablet 10 mg PO DAILY calcium carbonate-vitamin D3 600 mg(1,500mg) -400 unit tablet 1 tab PO BID (DME) Cock up splint See Rx Instructions .Route .MEDSUPPLY Qty: 2 0RF Rx Instructions: Wear spilt on both hands nightly. (DME) lancets 33 gauge misc See Rx Instructions .ROUTE .MEDSUPPLY Qty: 100 Rx Instructions: As directed (DME) pen needle, diabetic 32 gauge x 5/32 needle See Rx Instructions .ROUTE .MEDSUPPLY Qty: 50 Rx Instructions: As directed insulin aspart U-100 100 unit/mL (3 mL) insulin pen See Protocol subcut TIDAC Protocol: Insulin Correction Scale Less than or equal to 110 ---- Give (units): 0 111 to 150 Give (units): 0 151 to 200 Give (units): 2 201 to 250 Give (units): 4 251 to 300 Give (units): 6 301 to 350 Give (units): 8 Greater than 350 Give (units): 10 Call MD if Blood Glucose > : 350 cetirizine 10 mg tablet 10 mg PO DAILY (DME) blood sugar diagnostic Strip See Rx Instructions Not Applicable .MEDSUPPLY Qty: 10 Rx Instructions: As directed metoprolol succinate 50 mg tablet extended release 24 hr 50 mg PO DAILY Jardiance 25 mg tablet 25 mg PO DAILY sertraline 50 mg tablet 50 mg PO DAILY albuterol sulfate 2.5 mg /3 mL (0.083 %) solution for nebulization 2.5 mg inhalation Q6H PRN (Reason: wheezing) (DME) Wrist Brace Misc See Rx Instructions .Route Qty: 2 0RF Rx Instructions: wear on each wrist only at night Held Eliquis 5 mg tablet 5 mg PO DAILY Hold Instructions: Resume on 11/07/23. Resume regular dose Friday Discontinued acetaminophen [Tylenol 8 Hour] 650 mg tablet extended release 650 mg PO Q12H PRN (Reason: pain) Qty: 30 0RF docusate sodium 100 mg capsule 100 mg PO BID Discharge Orders: Discharge Order (Routine); Ordered 11/05/23 Ordered By: Christina Holcomb Diet: Advance to usual diet Activity on Discharge: Use Splints or Immobilizers Stand Alone Forms: Patient Portal Discharge page Print Language: Uzbek Care Plan Goals: restore fxn to left shoulder Health Concerns: none Plan of Treatment: Wear sling at all times, including sleeping No lifting-OK to move arm at elbow and wrist Do not bathe or shower-- Keep bandage clean, dry and intact If there is any concerns with the bandage please call the office [phone] Call [facility] with any questions or concerns. Follow up with orthopedics in 7-10 days post op Avoid cross body abduction and position behind coronal plane of body Assessment: Stable for discharge
--- NOTE | 2023-11-04 09:40 | P.F2F_ITS ---
Service Date Service Date: 11/04/23 Encounter Date of encounter: 11/05/23 Reasons for Services Signs and symptoms assessed: s/p LTSA Pt. is considered homebound due to recent surgery. Unable to drive, poor balance, poor gait mechanics. Reason for residential: administration of IV, SQ, or IM injection Reason for occupational therapy: home safety and mobility, therapeutic exercises, restore joint function, gait/transfer training, assess need for DME and ADL training Homebound: Leaving the home is medically contraindicated at this time without the asist of a device and/or another person due th the listed conditions above and below. Reason homebound: unsteady gait / fall risk, leg weakness, pain with ambulation and unable to drive Certification: Based on the above findings, I certify that this patient is confined to the home and needs intermittent residential care, physical therapy and/or speech therapy, or continues to need occupational therapy. The patient is under my care, and I have initiated the establishment of the plan of care. The patient will be followed by a physician who will periodically review the plan of care. Time Spent With Patient Time: Total time managing care of this patient today ____ minutes.
--- NOTE | 2023-11-04 09:45 | P.CONAN_ITS ---
Documented by User: Fanta Salvador NP 10/28/23 13:53 HPI - Anesthesia Eval Consult details Narrative: 78yo F for Left Shoulder Total Arthroplasty, 11/04/23 Cardiac cleared (ECHO and Stress OK) Medicine cleared Eliquis for afib No recent illness No CP/SOB with limited activity Afib: Eliquis CHF: Stable, euvolemic at PAT Asthma: Stable, albuterol ~3 x weekly DM: FBS ~ <100 Anesthesia Pre-Procedure Meds Is the patient on any of the following meds?: GLP1/DPP4 and SGLT2 Inhib PMFSH Active Problems Active Problems: All Active Problems Preoperative cardiovascular examination (Acute) COVID (Acute) Osteoarthritis of lumbar spine (Acute) Osteoarthritis of hands, bilateral (Acute) Osteoarthritis of glenohumeral joints, bilateral (Acute) Bilateral carpal tunnel syndrome (Acute) Primary osteoarthritis involving multiple joints (Acute) Current use of anticoagulant therapy (Acute) (HFpEF) heart failure with preserved ejection fraction (Acute) Paroxysmal atrial fibrillation (Acute) HTN (hypertension) (Acute) Diabetes mellitus (Acute) Past Medical History Medical History (Updated 10/30/23 @ 09:30 by Antwon Simon PA-C) Hx of breast cancer No natural teeth GERD (gastroesophageal reflux disease) Asthma Osteoarthritis Diabetes mellitus HTN (hypertension) Paroxysmal atrial fibrillation (HFpEF) heart failure with preserved ejection fraction Family History Family History Father CVD (cardiovascular disease) Sudden cardiac Mother No problems noted. Family history of problems with anesthesia: No Surgical History Surgical History History of total bilateral knee replacement Hx of cholecystectomy Hx of knee surgery Hx of breast biopsy Hx of tonsillectomy Hx of tubal ligation History of Problems with Anesthesia: No Social History Social History Household Members: None Housing: Apartment Are you a primary physician assistant primary care to a significant other at home: No Do you presently have visiting nurse or other home services: No Unable to assess alcohol history related to: Unknown Alcohol intake: never Patient Tobacco Use Status: Former Tobacco user Tobacco use type: Cigarette Smoked in Last 30 Days: No Use of substances other than those prescribed or required for medical reasons: No Have you been hit, kicked, punched, or otherwise hurt by someone within the past year? If so, by whom?: No Are you DNR?: No Advance Directives: No Advance Directives Information Provided: Yes Advance Directives on File: No Recently lost weight without trying: No Poor oral hygiene: No Meds Allergies Allergy/AdvReac Type Severity Reaction Status Date / Time aspirin [Aspirin] Allergy Severe HIVES,RASH Verified 11/04/23 08:37 tramadol [TRAMADOL] Allergy Severe ITCHING, Verified 11/04/23 08:37 hallucinations ibuprofen [From MOTRIN] Allergy Intermediate HIVES, Verified 11/04/23 08:37 itching metformin Allergy Intermediate tremors Verified 11/04/23 08:37 Hcgqrzh-[id number]-QnU Reductase AdvReac Intermediate Muscle Pain Verified 11/04/23 08:37 Inhibitor [[id number] REDUCTASE INHIBITOR] influenza virus vaccine, AdvReac Mild shoulder Verified 11/04/23 08:37 specific pain, [Influenza Virus tremors Vacc,Specific] Codeine Phosphate Allergy Unknown UNKNOWN Uncoded 11/04/23 08:37 Home Medications ?Medication ?Instructions ?Recorded ?Confirmed ?Last Taken ?Type blood sugar diagnostic #10 ea 03/24/20 07/29/23 Unknown History cetirizine 10 mg tablet 10 mg PO DAILY 03/24/20 10/30/23 Unknown History insulin aspart U-100 100 unit/mL unit subcut 03/24/20 10/30/23 Unknown History (3 mL) subcutaneous pen lancets 33 gauge #100 ea 03/24/20 07/29/23 Unknown History metoprolol succinate 50 mg 50 mg PO DAILY 03/24/20 10/30/23 11/04/23 History tablet,extended release 24 hr pen needle, diabetic 32 gauge x #50 ea 03/24/20 07/29/23 Unknown History calcium carbonate 600 mg-vitamin 1 tab PO BID 06/28/20 10/30/23 Unknown History D3 10 mcg (400 unit) tablet docusate sodium 100 mg capsule 100 mg PO BID 06/28/20 10/30/23 Unknown History ezetimibe 10 mg tablet 10 mg PO DAILY 06/28/20 10/30/23 Unknown History insulin glargine 100 unit/mL (3 52 unit subcut DAILY 06/28/20 10/30/23 Unknown History mL) subcutaneous pen lisinopril 5 mg tablet 5 mg PO QAM 06/28/20 10/30/23 Unknown History biotin PO 10/19/20 10/30/23 10/12/20 10:36 History apixaban 5 mg tablet (Eliquis) 5 mg PO DAILY 09/24/21 10/30/23 10/31/23 History albuterol sulfate 2.5 mg/3 mL 2.5 mg inhalation Q6H PRN wheezing 12/04/22 10/30/23 Unknown History (0.083 %) solution for nebulization empagliflozin 25 mg tablet 25 mg PO QAM 12/04/22 10/30/23 10/31/23 History (Jardiance) sertraline 50 mg tablet 50 mg PO QAM 12/04/22 10/30/23 Unknown History semaglutide 0.25 mg or 0.5 mg (2 0.25 mg subcut QWEEK 07/29/23 10/27/23 10/21/23 History mg/3 mL) subcutaneous pen injector (Ozempic) fluticasone propionate 110 inhalation 10/28/23 10/30/23 Unknown History mcg/actuation HFA aerosol inhaler gabapentin 400 mg capsule 400 mg PO BID 10/28/23 10/30/23 Unknown History fluticasone furoate 100 1 inh inhalation QA 11/04/23 Unknown History mcg/actuation blister powder for inhalation (Arnuity Ellipta) fluticasone propionate 50 intranasal DAILY 11/04/23 Unknown History mcg/actuation nasal spray,suspension Exam Height,Weight and Vital Signs: Height 5 ft Weight 69.5 kg Last Vital Signs Pulse 72 10/27/23 11:51 Resp 16 10/27/23 11:51 BP 128/59 L 10/27/23 11:51 Pulse Ox 97 10/27/23 11:51 O2 Del Method Room Air 10/27/23 11:51 Pertinent Lab Results Pertinent Lab Results: Lab Results 10/27/23 10/27/23 Range/Units 12:50 13:36 Nasal Screen MRSA (PCR) NEGATIVE (Negative) Nasal S. aureus Screen NEGATIVE (Negative) Nasal MRSA/S.aureus Interp SEE NOTE Blood Type A Positive Antibody Screen NEGATIVE Laboratory Tests 07/14/23 13:18 WBC 5.8 Hgb 12.4 Hct 41.0 Plt Count 353 Sodium 137 Potassium 4.2 Chloride 101 Carbon Dioxide 28 BUN 12 Creatinine 0.89 Narrative Narrative: EKG 07/2023 normal sinus rhythm with normal EKG at 64 beats per minute Echo 2023 Conclusions: - 1. Normal LV ejection fraction 55-60% with grade 1 diastolic dysfunction 2. Normal cardiac valvular Doppler 3. Normal RV systolic pressure 4. No gross pericardial effusion NM dm perf SPECT rest & str 2023 Impression: 1. Myocardial perfusion imaging study shows normal myocardial perfusion. 2. Gated LVEF is 74% during stress and 68% during rest. 3. Transient ischemic dilatation not present. Airway Mallampati Class: III TM Dist: >3cm Neck ROM: Limited (d/t shoulder pain) Loose/Missing/Broken Teeth: Yes (edentulous) Heart: RRR Lungs: CTAB Assessment and Plan Assessment Anesthesia Assessment: Anesthesia Plan Discussed and PAT Visit Final Anesthetic Review Family History of Problems with Anesthesia: No History of Problems with Anesthesia: No Documented by User: Jade Fernandez DO 11/04/23 09:50 HPI - Anesthesia Eval Anesthesia Pre-Procedure Meds Is the patient on any of the following meds?: GLP1/DPP4 and SGLT2 Inhib If yes to any meds - educate patient: Pt education - increased risk of aspiration and/or euvolemic DKA [facility] Past Medical History Medical History (Updated 10/30/23 @ 09:30 by Antwon Simon PA-C) Hx of breast cancer No natural teeth GERD (gastroesophageal reflux disease) Asthma Osteoarthritis Diabetes mellitus HTN (hypertension) Paroxysmal atrial fibrillation (HFpEF) heart failure with preserved ejection fraction Family History Family History Father CVD (cardiovascular disease) Sudden cardiac Mother No problems noted. Family history of problems with anesthesia: No Surgical History Surgical History History of total bilateral knee replacement Hx of cholecystectomy Hx of knee surgery Hx of breast biopsy Hx of tonsillectomy Hx of tubal ligation History of Problems with Anesthesia: No Social History Social History Household Members: None Housing: Apartment Are you a primary physician assistant primary care to a significant other at home: No Do you presently have visiting nurse or other home services: No Unable to assess alcohol history related to: Unknown Alcohol intake: never Patient Tobacco Use Status: Former Tobacco user Tobacco use type: Cigarette Smoked in Last 30 Days: No Use of substances other than those prescribed or required for medical reasons: No Have you been hit, kicked, punched, or otherwise hurt by someone within the past year? If so, by whom?: No Are you DNR?: No Advance Directives: No Advance Directives Information Provided: Yes Advance Directives on File: No Recently lost weight without trying: No Poor oral hygiene: No Meds Allergies Allergy/AdvReac Type Severity Reaction Status Date / Time aspirin [Aspirin] Allergy Severe HIVES,RASH Verified 11/04/23 08:37 tramadol [TRAMADOL] Allergy Severe ITCHING, Verified 11/04/23 08:37 hallucinations ibuprofen [From MOTRIN] Allergy Intermediate HIVES, Verified 11/04/23 08:37 itching metformin Allergy Intermediate tremors Verified 11/04/23 08:37 Drmvjxp-DDJ-NqF Reductase AdvReac Intermediate Muscle Pain Verified 11/04/23 08 :37 Inhibitor [[id number]-WHJ REDUCTASE INHIBITOR] influenza virus vaccine, AdvReac Mild shoulder Verified 11/04/23 08:37 specific pain, [Influenza Virus tremors Vacc,Specific] Codeine Phosphate Allergy Unknown UNKNOWN Uncoded 11/04/23 08:37 Home Medications ?Medication ?Instructions ?Recorded ?Confirmed ?Last Taken ?Type blood sugar diagnostic #10 ea 03/24/20 07/29/23 Unknown History cetirizine 10 mg tablet 10 mg PO DAILY 03/24/20 10/30/23 Unknown History insulin aspart U-100 100 unit/mL unit subcut 03/24/20 10/30/23 Unknown History (3 mL) subcutaneous pen lancets 33 gauge #100 ea 03/24/20 07/29/23 Unknown History metoprolol succinate 50 mg 50 mg PO DAILY 03/24/20 10/30/23 11/04/23 History tablet,extended release 24 hr pen needle, diabetic 32 gauge x #50 ea 03/24/20 07/29/23 Unknown History calcium carbonate 600 mg-vitamin 1 tab PO BID 06/28/20 10/30/23 Unknown History D3 10 mcg (400 unit) tablet docusate sodium 100 mg capsule 100 mg PO BID 06/28/20 10/30/23 Unknown History ezetimibe 10 mg tablet 10 mg PO DAILY 06/28/20 10/30/23 Unknown History insulin glargine 100 unit/mL (3 52 unit subcut DAILY 06/28/20 10/30/23 Unknown History mL) subcutaneous pen lisinopril 5 mg tablet 5 mg PO QAM 06/28/20 10/30/23 Unknown History biotin PO 10/19/20 10/30/23 10/12/20 10:36 History apixaban 5 mg tablet (Eliquis) 5 mg PO DAILY 09/24/21 10/30/23 10/31/23 History albuterol sulfate 2.5 mg/3 mL 2.5 mg inhalation Q6H PRN wheezing 12/04/22 10/30/23 Unknown History (0.083 %) solution for nebulization empagliflozin 25 mg tablet 25 mg PO QAM 12/04/22 10/30/23 10/31/23 History (Jardiance) sertraline 50 mg tablet 50 mg PO QAM 12/04/22 10/30/23 Unknown History semaglutide 0.25 mg or 0.5 mg (2 0.25 mg subcut QWEEK 07/29/23 10/27/23 10/21/23 History mg/3 mL) subcutaneous pen injector (Ozempic) fluticasone propionate 110 inhalation 10/28/23 10/30/23 Unknown History mcg/actuation HFA aerosol inhaler gabapentin 400 mg capsule 400 mg PO BID 10/28/23 10/30/23 Unknown History fluticasone furoate 100 1 inh inhalation QAM 11/04/23 Unknown History mcg/actuation blister powder for inhalation (Arnuity Ellipta) fluticasone propionate 50 intranasal DAILY 11/04/23 Unknown History mcg/actuation nasal spray,suspension Exam Exam Date and Time: November 04, 2023 0945 Height,Weight and Vital Signs: Vital Signs Pulse Rate 72 10/27/23 11:51 Respiratory Rate 16 10/27/23 11:51 Blood Pressure 128/59 L 10/27/23 11:51 Pulse Oximetry 97 10/27/23 11:51 Oxygen Delivery Method Room Air 10/27/23 11:51 Pulse Rate 72 10/27/23 11:51 Respiratory Rate 16 10/27/23 11:51 Blood Pressure 128/59 L 10/27/23 11:51 Pulse Oximetry 97 10/27/23 11:51 Oxygen Delivery Method Room Air 10/27/23 11:51 Height 5 ft Weight 69.5 kg Last Vital Signs Pulse 72 10/27/23 11:51 Resp 16 10/27/23 11:51 BP 128/59 L 10/27/23 11:51 Pulse Ox 97 10/27/23 11:51 O2 Del Method Room Air 10/27/23 11:51 Airway Mallampati Class: III TM Dist: >3cm Neck ROM: Limited Loose/Missing/Broken Teeth: Yes (edentulous) Heart: S1S2 Assessment and Plan Assessment Anesthesia Assessment: Anesthesia Plan Discussed and Chart Reviewed Final Anesthetic Review Family History of Problems with Anesthesia: No History of Problems with Anesthesia: No NPO: Yes ASA Class: III Final Preanesthetic Review: No Changes in Pt Med Stat, Meds/Allgs Chart Reviewed, Consent Obtained/Reviewed (relationship consultant at bedside for consent) and Anes Risks/Benef Reviewed Patient Risk: Intermediate Procedure Risk: Intermediate Anesthetic Plan Anesthetic Plan: GA, Regional Block (left brachial plexus block) and Agree w/ Assess. and Plan Disposition: Standard PACU
--- NOTE | 2023-11-04 10:23 | MHC.SHP ---
Pre-Procedural Eval Section A - 24 Hr Update-Section A only Date of Service: 11/04/23 The patient is an INPATIENT: No Changes since office visit: No Cold of Flu in the past 2 weeks, No New Medical Problems, No Changes in Medication and No Patient answered all questions The patient has been examined within 24 hours of the surgical procedure. The History & Physical has been completed within 30 days and I have reviewed it.: Yes Section B - Complete if H&P > 30 days Chief Complaint: LTSA Allergies: Allergies Allergy/AdvReac Type Severity Reaction Status Date / Time aspirin [Aspirin] Allergy Severe HIVES,RASH Verified 11/04/23 08:37 tramadol [TRAMADOL] Allergy Severe ITCHING, Verified 11/04/23 08:37 hallucinations ibuprofen [From MOTRIN] Allergy Intermediate HIVES, Verified 11/04/23 08:37 itching metformin Allergy Intermediate tremors Verified 11/04/23 08:37 Udnxaqp-OYL-ZbS Reductase AdvReac Intermediate Muscle Pain Verified 11/04/23 08:37 Inhibitor [[id number] REDUCTASE INHIBITOR] influenza virus vaccine, AdvReac Mild shoulder Verified 11/04/23 08:37 specific pain, [Influenza Virus tremors Vacc,Specific] Codeine Phosphate Allergy Unknown UNKNOWN Uncoded 11/04/23 08:37 Plan I have reviewed the history and physical and performed a pertinent physical examination on my patient. No changes have occurred unless specified. Time Spent With Patient Time: Total time managing care of this patient today ____ minutes.
[2023-11-04] MEDS: ceFAZolin Sodium/Dextrose,Iso 2 GM/50 ML PIGGYBACK IV ×2 (11:00→16:53)
[2023-11-04] MEDS: Acetaminophen 1,000 MG/100 ML PIGGYBACK 400 MG IV (11:10)
[2023-11-04] MEDS: fentaNYL citrate/PF 100 MCG/2 ML VIAL 25 MCG IVPUSH ×2 (14:15→14:30)
--- NOTE | 2023-11-04 15:03 | PM.OP ---
Brief Operative Note Date of Service: 11/04/23 Pre-op diagnosis: left shoulder OA Post-op diagnosis: same Procedure: Left rTSA Implants: Tornier Surgeon: Juanito Collazo MD Was an Senior Javascript Engineer used for this Procedure?: No Senior Javascript Engineer: Antwon Simon Estimated blood loss (mL): 200 IV fluids (mL): 1,000 Pathology: other Condition: stable Disposition: PACU
[2023-11-04] MEDS: Lactated Ringers 1,000 ML 100 ML IVCONT (15:46)
[2023-11-04] MEDS: Sertraline HCL 50 MG TABLET PO (15:53)
[2023-11-04 16:24] LABS: Glucose, Whole Blood 174 mg/dL (60-115)
[2023-11-04] MEDS: Insulin Lispro 100 UNIT/ML 3 ML VIAL SUBCUT ×2 (16:55→21:12)
--- NOTE | 2023-11-04 18:35 | PHA.MEDREC ---
Addendum entered by Cristin Montelongo [facility] 11/04/23 18:50: reviewed Original Note: Pharmacy Consult ? Medication Reconciliation Pharmacy has completed the medication reconciliation. Confirmed medications with patient and help of glass driller (Shane). Patient confirm their insulin Novolog Sliding scale TIDAC. She is also doing a Toujeo Pen 50 Units at bedtime. She stopped taking her Jardiance and Furosemide 30mg tab on friday for the surgery but will continue it when she gets home. She also has not started her Eliquis 5mg tab but states she will start it when she gets home from surgery. She states she hasnt taken any medication since Monday 10/30.
[2023-11-04 19:35] LABS: Creatinine Clr Calc Pharmacy 48.5; Estimated Glomerular Filt Rate > 60
--- NOTE | 2023-11-04 20:39 | HO.PM.IMCN ---
History of Present Illness Data of Consult Service Date: 11/04/23 Requesting physician: Antwon Simon Primary Care Provider: DO LUIS Webster Reason for consult: medical management 78-year-old female with history of GERD, paroxysmal atrial fibrillation, heart failure preserved ejection fraction, hypertension, insulin-dependent type 2 diabetes, asthma, history of breast cancer, and GERD admitted to Orthopedic surgery with consult placed to hospitalist service for medical management. The patient underwent TSA of the left shoulder due to osteoarthritis earlier today. Postoperatively remains on 2 L supplemental O2 maintain oximetry 97%. Vitals are otherwise stable. She is a former tobacco smoker and denies any alcohol use or illicit drug use. She has no complaints at this time. No complaints other than mild discomfort in the L shoulder. Review of Systems Review of Systems: Yes all other systems are reviewed and are negative [facility] Medical History Hx of breast cancer No natural teeth GERD (gastroesophageal reflux disease) Asthma Osteoarthritis Diabetes mellitus HTN (hypertension) Paroxysmal atrial fibrillation (HFpEF) heart failure with preserved ejection fraction Family History Father CVD (cardiovascular disease) Sudden cardiac Mother No problems noted. Surgical History History of total bilateral knee replacement Hx of cholecystectomy Hx of knee surgery Hx of breast biopsy Hx of tonsillectomy Hx of tubal ligation Social History Household Members: None Housing: Apartment Are you a primary patient care to a significant other at home: No Do you presently have visiting nurse or other home services: No Unable to assess alcohol history related to: Unknown Alcohol intake: never Patient Tobacco Use Status: Former Tobacco user Tobacco use type: Cigarette Smoked in Last 30 Days: No Use of substances other than those prescribed or required for medical reasons: No Have you been hit, kicked, punched, or otherwise hurt by someone within the past year? If so, by whom?: No Do you feel safe in your current relationship?: No Current Relationship Is there a partner from a previous relationship who is making you feel unsafe now?: No Are you made to feel afraid or neglected: No Are you DNR?: No Advance Directives: No Advance Directives Information Provided: Yes Advance Directives on File: No Do you have a plan to hurt others: No Plan Recently lost weight without trying: No Eating poorly because of decreased appetite: No Nutrition Risks: No Nutritional Risk Patient : No : No Poor oral hygiene: No Meds Allergies Allergy/AdvReac Type Severity Reaction Status Date / Time aspirin [Aspirin] Allergy Severe HIVES,RASH Verified 11/04/23 08:37 tramadol [TRAMADOL] Allergy Severe ITCHING, Verified 11/04/23 08:37 hallucinations ibuprofen [From MOTRIN] Allergy Intermediate HIVES, Verified 11/04/23 08:37 itching metformin Allergy Intermediate tremors Verified 11/04/23 08:37 Wdjyjpk-NNO-SpA Reductase AdvReac Intermediate Muscle Pain Verified 11/04/23 08:37 Inhibitor [JROGXEK-ENT-ONZ REDUCTASE INHIBITOR] influenza virus vaccine, AdvReac Mild shoulder Verified 11/04/23 08:37 specific pain, [Influenza Virus tremors Vacc,Specific] Codeine Phosphate Allergy Unknown UNKNOWN Uncoded 11/04/23 08:37 Active Medications: Current Medications Acetaminophen (Acetaminophen 325 Mg Tablet) 650 mg PO Q6H PRN PRN Reason: Pain, Mild (Pain Scale 1-3), fever or headache Albuterol Sulfate (Albuterol Sulfate (0.083%) 2.5 Mg/3 Ml Vial.Neb) 2.5 mg INHALE Q6H PRN PRN Reason: wheezing Celecoxib (Celecoxib 200 Mg Capsule) 200 mg PO BID [facility] Docusate Sodium (Docusate Sodium 100 Mg Capsule) 100 mg PO BID [facility] Enoxaparin Sodium (Enoxaparin Sodium 40 Mg/0.4 Ml Syringe) 40 mg SUBCUT Q24H [facility] Stop: 11/06/23 12:01 Gabapentin (Gabapentin 400 Mg Capsule) 400 mg PO BID [facility] Glucose (Glucose Gel 15 Gm Gel..Gram.) 15 gm PO Q15M PRN; Protocol PRN Reason: per Hypoglycemia Standing Ord. Hydromorphone HCl (Hydromorphone Hcl 0.5 Mg/0.5 Ml Syringe) 0.25 mg IVPUSH Q4H PRN; Protocol PRN Reason: Pain, Severe (Pain Scale 7-10) Lactated Ringer's (Lr) 1,000 mls @ 100 mls/hr IVCONT .Q10H [facility] Stop: 11/05/23 09:09 Last Admin: 11/04/23 15:46 Dose: 100 mls/hr Dextrose (D10) 250 mls @ 750 mls/hr IV Q15M PRN; Protocol PRN Reason: per Hypoglycemia Standing Ord. Insulin Human Lispro (Insulin Lispro 100 Unit/Ml 3 Ml Vial) 0 unit SUBCUT QIDACHS [facility]; Protocol Last Admin: 11/04/23 16:55 Dose: 2 unit Loratadine (Loratadine 10 Mg Tablet) 10 mg PO DAILY [facility] Metoprolol Succinate (Metoprolol Succinate Er 50 Mg Tab.Er.24h) 50 mg PO DAILY [facility]; Protocol Omeprazole (Omeprazole 20 Mg Capsule.Dr) 20 mg PO DAILY@629 [facility] Ondansetron HCl (Ondansetron Hcl 4 Mg/2 Ml Vial) 4 mg IVPUSH Q8H PRN PRN Reason: Nausea and Vomiting Oxycodone HCl (Oxycodone Hcl Immed Release 5 Mg Tablet) 5 mg PO Q4H PRN PRN Reason: Pain, Moderate(Pain Scale 4-6) Sertraline HCl (Sertraline Hcl 50 Mg Tablet) 50 mg PO DAILY [facility] Last Admin: 11/04/23 15:53 Dose: 50 mg Sodium Chloride (0.9 % Sodium Chloride Flush 3 Ml Syringe) 3 ml IVFLUSH QSHIFT [facility] Last Admin: 11/04/23 16:09 Dose: Not Given Home Medications ?Medication ?Instructions ?Recorded ?Confirmed ?Last Taken ?Type blood sugar diagnostic #10 ea 03/24/20 07/29/23 Unknown History cetirizine 10 mg tablet 10 mg PO DAILY 03/24/20 11/04/23 10/31/23 History insulin aspart U-100 100 unit/mL See Protocol subcut TIDAC 03/24/20 11/04/23 10/31/23 History (3 mL) subcutaneous pen lancets 33 gauge #100 ea 03/24/20 07/29/23 Unknown History metoprolol succinate 50 mg 50 mg PO DAILY 03/24/20 11/04/23 10/31/23 History tablet,extended release 24 hr pen needle, diabetic 32 gauge x #50 ea 03/24/20 07/29/23 Unknown History calcium carbonate 600 mg-vitamin 1 tab PO BID 06/28/20 11/04/23 10/31/23 History D3 10 mcg (400 unit) tablet docusate sodium 100 mg capsule 100 mg PO BID 06/28/20 11/04/23 10/31/23 History ezetimibe 10 mg tablet 10 mg PO DAILY 06/28/20 11/04/23 10/31/23 History insulin glargine 100 unit/mL (3 52 unit subcut DAILY 06/28/20 11/04/23 10/31/23 History mL) subcutaneous pen lisinopril 5 mg tablet 5 mg PO DAILY 06/28/20 11/04/23 10/31/23 History apixaban 5 mg tablet (Eliquis) 5 mg PO DAILY 09/24/21 11/04/23 Unknown History albuterol sulfate 2.5 mg/3 mL 2.5 mg inhalation Q6H PRN wheezing 12/04/22 10/30/23 Unknown History (0.083 %) solution for nebulization empagliflozin 25 mg tablet 25 mg PO DAILY 12/04/22 11/04/23 10/31/23 History (Jardiance) sertraline 50 mg tablet 50 mg PO DAILY 12/04/22 11/04/23 10/31/23 History gabapentin 400 mg capsule 400 mg PO TID 10/28/23 11/04/23 10/31/23 History fluticasone furoate 100 1 inh inhalation DAILY 11/04/23 11/04/23 10/31/23 History mcg/actuation blister powder for inhalation (Arnuity Ellipta) fluticasone propionate 50 1 spray intranasal DAILY 11/04/23 11/04/23 10/31/23 History mcg/actuation nasal spray,suspension furosemide 20 mg tablet 20 mg PO DAILY 11/04/23 11/04/23 10/31/23 History vitamin E 268 mg (400 unit) capsule 536 mg PO DAILY 11/04/23 11/04/23 10/31/23 History Physical Exam Vital Signs and Narrative: Vital Signs: Last Vital Signs Temp 97.9 F 11/04/23 20:00 Pulse 74 11/04/23 20:00 Resp 20 11/04/23 20:00 BP 147/71 H 11/04/23 20:00 Pulse Ox 97 11/04/23 20:00 O2 Del Method Nasal Cannula 11/04/23 20:00 O2 Flow Rate 2 11/04/23 20:00 BMI result Body Mass Index 29.9 Constitutional - Awake and Alert, No apparent distress Eyes - PERRLA, EOMI Cardiovascular - S1S2, RRR, No edema Respiratory - Normal lung expansion, Normal respiratory effort, No respiratory distress, CTA bilaterally Gastrointestinal - NT / ND; +BS; No rebound or guarding Extremities - no calf tenderness bilaterally, no swelling Skin - Warm/Dry Neurological - Alert & oriented x3 Psychological - Appropriate affect Results Labs 11/04/23 19:11 Labs: Laboratory Results - last 24 hr 11/04/23 11/04/23 11/04/23 08:01 16:16 19:11 Estim Creat Clear Calc 48.5 Estimated GFR > 60 POC Glucose 151 H 174 H Assessment and Plan (1) Osteoarthritis of left shoulder: Status: Acute Plan 78-year-old female with history of GERD, paroxysmal atrial fibrillation, heart failure preserved ejection fraction, hypertension, insulin-dependent type 2 diabetes, asthma, history of breast cancer, and GERD admitted to Orthopedic surgery for management of osteoarthritis of the left shoulder s/p TSA with consult placed to hospitalist service for medical management. # OA left shoulder s/p TSA -plan per orthopedic surgery # paroxysmal atrial fibrillation-rate controlled -resume Eliquis per ortho surgery -continue metoprolol for rate control # heart failure preserved ejection fraction -no acute decompensation, continue p.o. diuretics # insulin-dependent type 2 diabetes -dose adjusted basal insulin -POC glucose, diabetic diet -Humalog on sliding scale -resume Jardiance on discharge # moderate persistent asthma -no exacerbation -continue maintenance inhalers, albuterol p.r.n. # hypertension -continue metoprolol. Hold lisinopril # GERD -PPI # diabetic polyneuropathy -continue gabapentin Thank you for allowing me to participate in this consult. Signing off at this time. Please do not hesitate to call for further questions or for any acute medical issues.
[2023-11-04 20:43] LABS: Glucose, Whole Blood 206 mg/dL (60-115)
[2023-11-04] MEDS: Gabapentin 400 MG CAPSULE PO (21:12)
[2023-11-04] MEDS: Docusate Sodium 100 MG CAPSULE PO (21:12)
[2023-11-04] MEDS: Celecoxib 200 MG CAPSULE PO (21:12)
[2023-11-04] MEDS: oxyCODONE HCl Immed Release 5 MG TABLET PO (21:13)
[2023-11-05 03:47] VITALS: BP 134/60; PULSE 76; RESP 20; TEMP 36.6; O2SAT 96
[2023-11-05] MEDS: HYDROmorphone HCl 0.5 MG/0.5 ML SYRINGE 0.25 MG IVPUSH ×2 (04:16→08:39)
[2023-11-05] MEDS: Lactated Ringers 1,000 ML 100 ML IVCONT (04:18)
[2023-11-05 06:21] LABS: MANUAL DIFF FLAG NO
[2023-11-05 06:25] LABS: Basophils Percent Auto 0.4 % (0-2); Eosinophils Absolute Auto 0.1 X10*3/uL (0.0-0.4); Eosinophils Percent Auto 0.6 % (0-4); Hemoglobin 10.3 g/dl (12.0-16.0); Imm Gran Abs Auto 0.04 X10*3/uL (0.00-0.03); Imm Gran Pct Auto 0.5 % (0.0-0.4); Lymphocytes Absolute Auto 2.2 X10*3/uL (1.2-4.9); Lymphocytes Percent Auto 27.4 % (20-40); Mean Corpuscular HGB Conc 31.2 g/dl (31.0-35.0); Mean Corpuscular Hemoglobin 24.7 pg (27.0-33.0); Mean Corpuscular Volume 79.1 fL (80.0-98.0); Mean Platelet Volume 8.6 fL (9.4-12.3); Monocytes Absolute Auto 1.1 X10*3/uL (0.1-1.2); Monocytes Percent Auto 13.5 % (2-11); Neutrophils Absolute Auto 4.6 x10*3/uL (2.0-8.3); Neutrophils Percent Auto 57.6 % (45-73); Platelet Count 278 X10*3/uL (160-400); Red Blood Count 4.17 X10*6/uL (4.20-5.50); Red Cell Distribution Width 16.3 % (11.0-16.0)
[2023-11-05 06:40] LABS: Anion Gap 9 (12-20); Blood Urea Nitrogen 16 mg/dL (9-16); Calcium 8.6 mg/dL (8.4-10.2); Carbon Dioxide 28 mmol/L (22-29); Chloride 105 mmol/L (96-108); Creatinine Clr Calc Pharmacy 51.7; Estimated Glomerular Filt Rate > 60; Glucose Fasting 165 mg/dL (60-99); Potassium 4.4 mmol/L (3.3-5.1); Sodium 138 mmol/L (135-145)
[2023-11-05 07:45] VITALS: BP 133/63; PULSE 77; RESP 16; TEMP 36.9; O2SAT 97
[2023-11-05 07:55] LABS: Glucose, Whole Blood 150 mg/dL (60-115)
[2023-11-05] MEDS: Insulin Glargine,Hum.rec.anlog 100 UNIT/ML 10 ML VIAL 38 UNIT SUBCUT (08:40)
[2023-11-05] MEDS: Furosemide 20 MG TABLET PO (08:41)
[2023-11-05] MEDS: Gabapentin 400 MG CAPSULE PO (08:41)
[2023-11-05] MEDS: Docusate Sodium 100 MG CAPSULE PO (08:42)
[2023-11-05] MEDS: Sertraline HCL 50 MG TABLET PO (08:42)
[2023-11-05] MEDS: Celecoxib 200 MG CAPSULE PO (08:42)
[2023-11-05] MEDS: Omeprazole 20 MG CAPSULE.DR PO (08:42)
[2023-11-05] MEDS: Ezetimibe 10 MG TABLET PO (08:42)
[2023-11-05] MEDS: Metoprolol Succinate ER 50 MG TAB.ER.24H PO (08:42)
[2023-11-05] MEDS: Loratadine 10 MG TABLET PO (08:42)
--- NOTE | 2023-11-05 10:09 | HO.POSTANES ---
Post Anesthesia Evaluation Post Anesthesia Evaluation Date of Service: 11/04/23 Vital Signs: Vital Signs Temp Pulse Resp BP Pulse Ox O2 Del Method O2 Flow Rate 11/05/23 07:45 98.4 F 77 16 133/63 97 Nasal Cannula 2 11/05/23 03:47 97.8 F 76 20 134/60 96 Nasal Cannula 2 11/04/23 23:31 97.9 F 75 20 139/60 96 Nasal Cannula 2 Anesthesia: General Mental Status: Awake Pain Control: Satisfactory Nausea/Vomiting: None Hydration: Adequate Anesthesia-Related Issues: No Anes. Related Issues
--- NOTE | 2023-11-05 10:36 | W.MHC.F2F ---
Service Date Service Date: 11/05/23 Encounter Date of encounter: 11/05/23 Reasons for Services Signs and symptoms assessed: s/p rLTSA Reason for occupational therapy: home safety and mobility, therapeutic exercises, restore joint function, gait/transfer training, assess need for DME and ADL training Homebound: Leaving the home is medically contraindicated at this time without the asist of a device and/or another person due th the listed conditions above and below. Reason homebound: unsteady gait / fall risk, leg weakness, pain with ambulation, poor balance / fall risk and unable to drive Certification: Based on the above findings, I certify that this patient is confined to the home and needs intermittent long-term care, physical therapy and/or speech therapy, or continues to need occupational therapy. The patient is under my care, and I have initiated the establishment of the plan of care. The patient will be followed by a physician who will periodically review the plan of care. Time Spent With Patient Time: Total time managing care of this patient today ____ minutes.
--- NOTE | 2023-11-05 10:44 | MHC.CM.PN ---
IMM 11/05/23 delivered verbally via counseling aide. Female S/P LTSA. She lives alone. She is independent with ADLs prior to admit. DP Home with [facility] PT and OT. The patient is competent to self administer her Lovenox. Patient daughter will provide transportation home. AC therapy management education was reviewed and reinforced with a slasher machine operator. Education was provided by the patients RN as well as T/W. PT and dtr verbalized understanding of all instruction provided. An updated Face 2 Face was requested. Pre op planning between the Nurse Navigator and [facility] was to discharge with PT and OT. The original Face 2 Face listed SN and OT. That is why the request for an updated Face 2 Face was made.
--- NOTE | 2023-11-14 11:36 | P.OP_ITS ---
Operative Note Operative Note Date of Service: 11/04/23 Narrative: Date of Service: 11/04/23 Pre-op diagnosis: left shoulder OA Post-op diagnosis: same Procedure: Left rTSA Implants: Tornier Surgeon: Juanito Collazo MD Was an Telephone Order Supervisor used for this Procedure?: No Telephone Order Supervisor: Antwon Simon Estimated blood loss (mL): 200 IV fluids (mL): 1,000 Pathology: other Condition: stable Disposition: PAC Patient was brought to the operating room and placed in the beach chair position on the surgical table. The limb was prepped and draped in standard sterile fashion and a time out was called to identify proper site, proper procedure and IV antibiotics per weight were administered. I began by making a deltopectoral incision from the coracoid to the pectoralis insertion. Blunt dissection identified the cephalic vein which was retracted laterally. Blunt dissection was taken down to the 3 sisters which were cauterized. I then made a full-thickness capsulotomy involving the subscapularis. This was then tagged and the arm was externally rotated and extended and the head was dislocated. The humeral head was deformed and eburnated and required a release of the intact posterior fibers of the rotator cuff. Once the head was well visualized a anatomic neck cut was made in approximately 132 degree angle while protecting the posterior and inferior soft tissues. A starter awl was used to identify the canal and then I broached up to a size 2 at 30 degrees of version. I then placed my head protector and turned my attention to the glenoid. Posterior anterior and superior glenoid retractors were placed and the biceps was tenotomized and labral tissue was removed. Based on the preoperative CT and templating a guide pin was placed in approximately 5 degrees of retroversion and neutral inclination. Using a wedge Reamer I reamed down to bleeding bone mostly inferiorly and placed the a small glenoid drill guide. My central screw was drilled to a depth of 25 and a 25mm baseplate was placed. 25, 22 and 14 mm screws were placed in the baseplate and a provisional glenosphere was placed. I then returned to the humerus where I trialed a 2B stem. I was satisfied with the stability of the implants using a standard +9 tray. I then removed the provisional implants and placed my gelenosphere and the final humeral components. These were impacted in place after being assembled on the back table. Once I was satisfied with the range of motion and stability I irrigated copiousl y. Subscapularis was not repairable. I closed in a layered fashion with absorbable suture and jamari and the patient was placed in a sterile dressing and an abduction sling. She was extubated brought to recovery room stable condition there were no known complications.
== END 2023-11-05 10:33 | disposition home health service (06) | DRG 483 ==
LOC: HO.SSSA 09:36 → HO.S3 13:59
PROVIDERS: Orthopaedic Surgery; Physician Assistant; Admitting Provider Physician Assistant; PCP Family Medicine; Visit Provider Physician Assistant
PROC: 0RRK00Z Replacement of Left Shoulder Joint with Reverse Ball and Socket Synthetic Substitute, Open Approach (ICD-10-PCS; CPT 23472; principal; 2023-11-04 11:00)
DX: M19.012 Primary osteoarthritis, left shoulder (principal); I50.32 Chronic diastolic (congestive) heart failure; G89.18 Other acute postprocedural pain; I48.0 Paroxysmal atrial fibrillation; J45.40 Moderate persistent asthma, uncomplicated; I11.0 Hypertensive heart disease with heart failure; E11.42 Type 2 diabetes mellitus with diabetic polyneuropathy; Z87.891 Personal history of nicotine dependence; Z79.4 Long term (current) use of insulin; Z79.01 Long term (current) use of anticoagulants; Z79.51 Long term (current) use of inhaled steroids; Z79.899 Other long term (current) drug therapy
CPT/HCPCS: 36415; 80048; 82565; 82947; 85025; 86850; 86900; 86901; 87640; 87641; 88304; 88311; 97167; C1713; C1776; J0131; J0690; J1100; J1170; J2250; J2371; J2405; J2704; J2795; J3010; J7120

== ENCOUNTER → 2023-11-04 07:54 | Outpatient (BNV) | payer OTHER, SELFPAY | PROVIDERS: Admitting Provider Physician Assistant; PCP Family Medicine; Visit Provider Orthopaedic Surgery | DX: Z47.1 Aftercare following joint replacement surgery (principal); Z96.611 Presence of right artificial shoulder joint | CPT/HCPCS: 23472; 99024; G0180 ==

== ENCOUNTER → 2023-11-04 07:54 | Outpatient (BNV) | payer OTHER, SELFPAY | PROVIDERS: Admitting Provider Physician Assistant; PCP Family Medicine; Visit Provider Physician Assistant | DX: M19.012 Primary osteoarthritis, left shoulder (principal) | CPT/HCPCS: 99222 ==

== ENCOUNTER 2023-11-20 09:04 | Outpatient (REF) | payer OTHER, SELFPAY ==
--- NOTE | ~2023-11-20 | XR_ITS ---
EXAMINATION: XR SHOULDER, LEFT CLINICAL INFORMATION: Pain. COMPARISON: Prior radiographs, most recently 09/30/2023. TECHNIQUE: AP external rotation, Grashey, scapular Y, and axillary views of the left shoulder. FINDINGS: There is bony demineralization. An intact left shoulder arthroplasty is noted, without hardware failure or loosening seen. There is no periprosthetic fracture. urgical skin jamari are noted. The acromioclavicular and coracoclavicular intervals are normal. No left pneumothorax is seen. XR/XR shoulder LT min 2V IMPRESSION: An intact left shoulder arthroplasty is seen without hardware failure or loosening. Electronically signed by: Boris Ho MD 12/17/2023 01:25 PM EDT RP
== END 2023-11-20 09:05 | disposition home or self-care (01) ==
LOC: HO.HOSX 09:04
PROVIDERS: Visit Provider Physician Assistant
DX: M25.512 Pain in left shoulder (principal); Z96.612 Presence of left artificial shoulder joint
CPT/HCPCS: 73030; 99212

== ENCOUNTER 2023-11-20 10:54 | Outpatient (AMB) | payer OTHER, SELFPAY ==
--- NOTE | 2023-11-20 11:48 | A.OFFVIS_ITS ---
Intake Visit Reasons: 2WK PO: L TSA w/NE 11/04/23 Allergies aspirin [Aspirin] Allergy (Severe, Verified 11/04/23 08:37) HIVES,RASH tramadol [TRAMADOL] Allergy (Severe, Verified 11/04/23 08:37) ITCHING, hallucinations ibuprofen [From MOTRIN] Allergy (Intermediate, Verified 11/04/23 08:37) HIVES, itching metformin Allergy (Intermediate, Verified 11/04/23 08:37) tremors Itnstya-GDC-SfW Reductase Inhibitor [STSCNUC-GOE-IRK REDUCTASE INHIBITOR] Adverse Reaction (Intermediate, Verified 11/04/23 08:37) Muscle Pain influenza virus vaccine, specific [Influenza Virus Vacc,Specific] Adverse Reaction (Mild, Verified 11/04/23 08:37) shoulder pain, tremors Codeine Phosphate Allergy (Unknown, Uncoded 11/04/23 08:37) UNKNOWN HPI HPI 2WK PO: L TSA w/NE 11/04/23: Details: 78-year-old Canadian speaking female who returns to the office today for post-op left TSA, 11/04/[address] Collazo. She states she has improvement in her symptoms and is doing well overall. She states she has not started out patient PT yet. She has no concerns today. [facility] Medical History Hx of breast cancer No natural teeth GERD (gastroesophageal reflux disease) Asthma Osteoarthritis Diabetes mellitus HTN (hypertension) Paroxysmal atrial fibrillation (HFpEF) heart failure with preserved ejection fraction Surgical History History of total bilateral knee replacement Hx of cholecystectomy Hx of knee surgery Hx of breast biopsy Hx of tonsillectomy Hx of tubal ligation Family History Father CVD (cardiovascular disease) Sudden cardiac Mother No problems noted. Social History Household Members: None Housing: Apartment Are you a primary gericare aide to a significant other at home: No Do you presently have visiting nurse or other home services: No Unable to assess alcohol history related to: Unknown Alcohol intake: never Patient Tobacco Use Status: Former Tobacco user Tobacco use type: Cigarette service: No Review of Systems Const All systems reviewed & are unremarkable except as noted in HPI and below Physical Exam Extrem Other: Left shoulder: Incision clean, dry and intact. No redness or drainage. Anterior deltoid sensation intact. NVI. Results Reviewed Results Reviewed: Xrays were obtained in the office today and personally reviewed by me of the left shoulder show intact prosthesis Assessment & Plan Assessment & Plan (1) S/p reverse total shoulder arthroplasty: Code(s): Z96.619 - Presence of unspecified artificial shoulder joint Category: Surgical Plan Saumya removed today, steri strips applied. I stressed the importance on keeping the incision dry for another two weeks to avoid cross contamination between the armpit and the incision. She should continue to wear the sling at nighttime and when she is up walking. I did give her the okay to remove the sling when she is performing exercises or resting in seated position. She will b egin to transition to out-patient PT. I did reach out to Mani in PT today,who mentioned the patient did NS her PT appt yesterday, but he will reach out to her again to try and re-book. I did explain the patient is grenadian speaking and will need an interpreter for the deaf. I will see her back in 4 weeks with x-rays sooner if needed. Orders: Orders XR shoulder LT min 2V Today M25.512 - Pain in left shoulder PT Evaluation and Treatment Today Z96.619 - Presence of unspecified artificial shoulder joint Patient Instructions: Scribed for Antwon Simon PA-C, by Todd Martin biomedical repair technician, on 11/20/2023 at 11:30 AM EST.? I, Antwon Simon PA-C, have personally reviewed and agree with the information entered by the scribe. Coding Level of Care Code Global (46933) Diagnoses S/p reverse total shoulder arthroplasty Z96.619
--- OUTSIDE RECORDS SUMMARY | 2023-11-26 06:12 | XMS_ITS ---
[facility] Address [address] [place] [address] Care Team Providers Care Brass Cleaner Name Role Phone Hiro Pavon Unavailable [phone] ALLERGIES Allergen (clinical drug ingredient) Drug/Non Drug [...] 07/24/2023 Encounters Encounter Location Date Provider [facility] [address] [place] [address] 07/24/2023 Hiro Pavon PLAN OF TREATMENT No Information
--- OUTSIDE RECORDS SUMMARY | 2023-11-26 06:12 | XMS_ITS | Patient Health Record ---
[facility] Address [address] [place] [address] Care Team Providers Care Beveling Machine Operator Name Role Phone Savanah Hiro Unavailable [phone] ALLERGIES Allergen (clinical drug ingredient) Drug/Non Drug [...] 07/24/2023 Encounters Encounter Location Date Provider Diagnosis [facility] [place] [address] [place] [address] 07/24/2023 Hiro Pavon [facility] [place] [address] [place] [address] 07/24/2023 Hiro Pavon PLAN OF TREATMENT No Information Insurance Providers Payer Name Payer Address Payer Phone Subscriber Number Group Number Insured Name Patient Relationship to Insured Coverage Start Date Coverage End Date [facility] [employer] Claims [address] [place] [id number] Clau Herrera Self - patient is the insured MEDICAL (GENERAL) HISTORY Medical History History ICD Code Anxiety Arthritis asthma CAD (Cholesterol) Depression Diabetic Heart disease High blood pressure Surgical History Surgery Date(Month/Year) breast cancer 2009
--- OUTSIDE RECORDS SUMMARY | 2023-11-26 06:12 | XMS_ITS ---
[facility] Address [address] [place] [address] Care Team Providers Care Delivery Department Supervisor Name Role Phone Hiro Pavon Unavailable [phone] REASON FOR VISIT NS to 07/24/23 RADIOLOGY TEACHER appt Encounters Encounter Location Date Provider [facility] [place] [address] [place] [address] 07/24/2023 Hiro Pavon PLAN OF TREATMENT No Information
== END 2023-11-20 14:04 | disposition home or self-care (01) ==
LOC: HO.HOS 10:54
PROVIDERS: PCP Family Medicine; Visit Provider Physician Assistant
DX: Z96.619 Presence of unspecified artificial shoulder joint (principal)
CPT/HCPCS: 99024

== ENCOUNTER 2023-12-11 09:43 | Outpatient (AMB) | payer OTHER, SELFPAY ==
--- NOTE | 2023-12-11 10:10 | A.OFFVIS_ITS ---
Vital Signs 12/11/23 10:11 Height 5 ft Weight 159 lb BMI 31.0 Intake Visit Reasons: 6WK PO: L TSA w/NE 11/04/23 Intake Note: Clau is a 78 year old female who presents today for a post operative follow up s/p Left TSA 11/04/23. Patient rpeorts that she is doing well, but she is having a burning pain in the shoulder since surgery. She has occasional numbness and tingling in her hadn but thinks that it is related to OA. She takes Tylenol for her pain which helps mildly. 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 Light Allergies aspirin [Aspirin] Allergy (Severe, Verified 11/04/23 08:37) HIVES,RASH tramadol [TRAMADOL] Allergy (Severe, Verified 11/04/23 08:37) ITCHING, hallucinations ibuprofen [From MOTRIN] Allergy (Intermediate, Verified 11/04/23 08:37) HIVES, itching metformin Allergy (Intermediate, Verified 11/04/23 08:37) tremors shrimp Allergy (Mild, Verified 12/11/23 10:14) Itching Udizzec-GPF-GdT Reductase Inhibitor [PJPUJAI-DGZ-GDT REDUCTASE INHIBITOR] Adverse Reaction (Intermediate, Verified 11/04/23 08:37) Muscle Pain influenza virus vaccine, specific [Influenza Virus Vacc,Specific] Adverse Re action (Mild, Verified 11/04/23 08:37) shoulder pain, tremors Codeine Phosphate Allergy (Unknown, Uncoded 11/04/23 08:37) UNKNOWN HPI HPI 6WK PO: L TSA w/NE 11/04/23: Details: Clau is a 78 year old female who presents today for a post operative follow up s/p Left TSA 11/04/23. Patient rpeorts that she is doing well, but she is having a burning pain in the shoulder since surgery. She has occasional numbness and tingling in her hadn but thinks that it is related to OA. She takes Tylenol for her pain which helps mildly. [facility] Medical History Hx of breast cancer No natural teeth GERD (gastroesophageal reflux disease) Asthma Osteoarthritis Diabetes mellitus HTN (hypertension) Paroxysmal atrial fibrillation (HFpEF) heart failure with preserved ejection fraction Surgical History History of total bilateral knee replacement Hx of cholecystectomy Hx of knee surgery Hx of breast biopsy Hx of tonsillectomy Hx of tubal ligation Family History Father CVD (cardiovascular disease) Sudden cardiac Mother No problems noted. Social History Household Members: None Housing: Apartment Are you a primary resident care aid to a significant other at home: No Do you presently have visiting nurse or other home services: No Unable to assess alcohol history related to: Unknown Alcohol intake: never Patient Tobacco Use Status: Former Tobacco user Tobacco use type: Cigarette service: No Physical Exam Vital Signs: BMI result Body Mass Index 31.0 Extrem Other: Incision clean dry and intact. External rotation to 15 degrees. Active abduction to 70. Passive abduction to 90. Forward flexion to 100. Assessment & Plan Assessment & Plan (1) S/p reverse total shoulder arthroplasty: Code(s): Z96.619 - Presence of unspecified artificial shoulder joint Category: Surgical Plan: Iris is doing very well status post left shoulder arthroplasty. She may discontinue sling. Follow up in 6 weeks. Continue physical therapy. Coding Level of Care Code Global (59302) Diagnoses S/p reverse total shoulder arthroplasty Z96.619
[2023-12-11 10:11] VITALS: BMI 31.0
== END 2023-12-11 12:41 | disposition home or self-care (01) ==
PROVIDERS: PCP Family Medicine; Visit Provider Orthopaedic Surgery
DX: Z96.619 Presence of unspecified artificial shoulder joint (principal)
CPT/HCPCS: 99024

== ENCOUNTER → 2023-12-11 09:43 | Outpatient (BNVA) | payer OTHER, SELFPAY | PROVIDERS: PCP Family Medicine; Visit Provider Orthopaedic Surgery | DX: M25.512 Pain in left shoulder (principal); Z47.1 Aftercare following joint replacement surgery; Z96.612 Presence of left artificial shoulder joint | CPT/HCPCS: 99212 ==

== ENCOUNTER 2024-01-29 12:10 | Outpatient (REF) | payer OTHER, SELFPAY | END 2024-01-29 12:11 | disposition home or self-care (01) | LOC: HO.HOSX 12:10 | PROVIDERS: Visit Provider Orthopaedic Surgery | DX: M25.512 Pain in left shoulder (principal); Z96.612 Presence of left artificial shoulder joint | CPT/HCPCS: 73030; 99212 ==

== ENCOUNTER 2024-01-29 12:57 | Outpatient (AMB) | payer OTHER, SELFPAY ==
--- NOTE | 2024-01-29 13:03 | MHC.OFFVIS ---
Intake Visit Reasons: PO - L TSA w/NE 11/04/23 (3mo) Intake Note: Clau is a 78 year old female who presents today for a post operative follow up s/p Left TSA 11/04/23 Allergies aspirin [Aspirin] Allergy (Severe, Verified 01/29/24 13:04) HIVES,RASH tramadol [TRAMADOL] Allergy (Severe, Verified 01/29/24 13:04) ITCHING, hallucinations ibuprofen [From MOTRIN] Allergy (Intermediate, Verified 01/29/24 13:04) HIVES, itching metformin Allergy (Intermediate, Verified 01/29/24 13:04) tremors shrimp Allergy (Mild, Verified 01/29/24 13:04) Itching Glkcgdr-XYR-GfP Reductase Inhibitor [HVNKLXE-IND-IAK REDUCTASE INHIBITOR] Adverse Reaction (Intermediate, Verified 01/29/24 13:04) Muscle Pain influenza virus vaccine, specific [Influenza Virus Vacc,Specific] Adverse Reaction (Mild, Verified 01/29/24 13:04) shoulder pain, tremors Codeine Phosphate Allergy (Unknown, Uncoded 01/29/24 13:04) UNKNOWN HPI HPI PO - L TSA w/NE 11/04/23 (3mo): Details: Clau is doing well status post left shoulder replacement. She has no complaints. [facility] Medical History Hx of breast cancer No natural teeth GERD (gastroesophageal reflux disease) Asthma Osteoarthritis Diabetes mellitus HTN (hypertension) Paroxysmal atrial fibrillation (HFpEF) heart failure with preserved ejection fraction Surgical History History of total bilateral knee replacement Hx of cholecystectomy Hx of knee surgery Hx of breast biopsy Hx of tonsillectomy Hx of tubal ligation Family History Father CVD (cardiovascular disease) Sudden cardiac Mother No problems noted. Social History Household Members: None Housing: Apartment Are you a primary school childcare attendant to a significant other at home: No Do you presently have visiting nurse or other home services: No Unable to assess alcohol history related to: Unknown Alcohol intake: never Patient Tobacco Use Status: Former Tobacco user Tobacco use type: Cigarette service: No Physical Exam Extrem Other: She can get her hand to the back of her head. Comfortable abduction. Well-healed incision. Firing her deltoid. Results Reviewed Results Reviewed: I personally reviewed relevant radiographs. Left reverse total shoulder arthroplasty in expected post operative position with no hardware complications or evidence of loosening Assessment & Plan Assessment & Plan (1) S/p reverse total shoulder arthroplasty: Code(s): Z96.619 - Presence of unspecified artificial shoulder joint Category: Surgical Plan: High-resolution is doing well. She is happy with the results and comfortable. I explained what activities to avoid and she can follow up in to see me in 9 months if she would like Orders: Orders XR shoulder LT min 2V Today M25.519 - Pain in unspecified shoulder Coding Level of Care Code Global (97695) Diagnoses S/p reverse total shoulder arthroplasty Z96.619
== END 2024-01-29 13:15 | disposition home or self-care (01) ==
PROVIDERS: PCP Family Medicine; Visit Provider Orthopaedic Surgery
DX: Z96.619 Presence of unspecified artificial shoulder joint (principal)
CPT/HCPCS: 99024

== ENCOUNTER 2024-02-04 14:00 | Outpatient (RCR) | payer OTHER, SELFPAY ==
[2023-11-26 14:06] VITALS: BP 134/62; PULSE 67
--- NOTE | 2023-11-26 15:27 | MHC.PT.EP ---
[facility] [place] Office [place] [facility] [place] Office [address] Shani Cartagena [address] [phone] F: [phone] F: [phone] F: [phone] F: [phone] Physical Therapy Plan of Care Date of Evaluation: 11/26/23 Date of Surgery: 11/04/23 Diagnosis: L TSA Assessment: Clau is a 78 year old female who is referred to PT for L TSA . She is 3 weeks post op. She arrived for eval in her sling. On PT examination she reports of having constant 6/10 pain over L UT and levator scap which is worse with sleeping, TTP over L UT, levator scap, and suture site, decreased L shoulder ROM, decreased L shoulder and scap strength, and altered posture. She lives alone and has a RIGGING SUPERVISOR 4 hours/day who assists her with dressing, showering, cleaning and cooking. She would benefit from skilled PT to address the aforementioned impairments and improve tolerance to functional activities. Frequency and Duration: The patient will be seen 2/week for 10 weeks Short Term Goals: 1. Pt will have 50% decrease pain which will enable her to sleep through the night in 3 weeks. 2. Pt will be able to move her shoulder through full range of flexion with a pain no more than 3/10 so as to be able to use L UE for dressing upper body without modifications in 6 weeks. Deputy Program Manager Goals: 1. Pt will demonstrate an increase in muscle strength by 1 grade which will enable her to perform self care activities independently in 8 weeks. 2. Pt will be independent with all HEP and return to PLOF in 10 weeks. Treatment Plan: Modalities to reduce pain, spasms and effusion. Manual therapy to restore motion and function. Therapeutic exercise to improve strength and flexibility. Neuromuscular re-education for posture and balance. Therapeutic activities to return to functional activities of daily living. Electronically signed by: Roya Padilla PT DPT Please sign and return to therapist. Thank you for your referral.
--- NOTE | 2024-02-09 10:31 | MHC.PT.DC ---
[facility] [place] Office [place] Office [place] Office [address] Shani Cartagena [address] [phone] F: [phone] F: [phone] F: [phone] F: [phone] Physical Therapy Discharge Report Diagnosis: L TSA Date of Surgery: 11/04/23 Date of Evaluation: 11/26/23 Date of Discharge: 02/09/24 Treatments to Date: 16 Cancellations to Date: 0 No Shows to Date: 0 Discharge Status: Achieved Goals Improved Function Independent with HEP Discharge Summary: Clau completed 16 PT visits. She has achieved all goals set for her and is independent with all HEPs. She is therefore being d.c from PT. Electronically signed by: Roya Padilla, PT DPT Please sign and return to therapist. Thank you for your referral.
== END 2024-02-09 10:31 | disposition home or self-care (01) ==
LOC: HO.PT 14:00
PROVIDERS: PCP Family Medicine; Visit Provider Physician Assistant
DX: Z96.612 Presence of left artificial shoulder joint (principal)
CPT/HCPCS: 97110; 97112; 97140; 97161; 97530

== ENCOUNTER 2024-09-10 13:50 | Emergency (ER) | payer OTHER, SELFPAY ==
--- NOTE | ~2024-09-10 | CT_ITS ---
CLINICAL HISTORY: moderate LLQ and epigastric TTP CT abdomen and pelvis with contrast Comparison: None Findings: The lung bases are clear. There is coronary artery calcification. Patient is status post cholecystectomy. The liver, pancreas, spleen, adrenal glands, and kidneys are unremarkable. The appendix is normal. There is mild sigmoid diverticulosis. The gastrointestinal tract is otherwise unremarkable. The aorta is normal in diameter. There are no enlarged lymph nodes. Uterus and adnexa are unremarkable. The bladder is unremarkable. There is no fracture or suspicious lytic or sclerotic lesion. IMPRESSION: No acute abnormality in the abdomen or pelvis. This document has been electronically signed by: Ti Rodriguez MD on 09/11/2024 00:54:27
[2024-09-10 13:56] VITALS: BP 140/61; PULSE 94; RESP 18; TEMP 36.6; O2SAT 97; BMI 28.1
--- NOTE | 2024-09-10 14:17 | ED.ABDPAIN ---
HPI - Abdominal Pain General Chief Complaint: Abdominal Pain Stated Complaint: Diarrhea Stomach Ache Time Seen by Provider: 09/10/24 21:30 History of Present Illness ED Provider: Ziggy Wallace MD HPI narrative: This is a 79-year-old female with paroxysmal AFib, diabetes, hypertension, HFpEF on anticoagulation with 3-4 days of generalized abdominal discomfort intermittent nonbloody nonbilious nausea and vomiting and watery stool neither with blood. No recent travel or sick contacts. Lives home alone. No change in medications. Denies fever pain generalized but also particularly in the epigastrium and left lower quadrant Related Data Home Medications ?Medication ?Instructions ?Recorded ?Confirmed blood sugar diagnostic #10 ea 03/24/20 07/29/23 cetirizine 10 mg tablet 10 mg PO DAILY 03/24/20 11/04/23 insulin aspart U-100 100 unit/mL See Protocol subcut TIDAC 03/24/20 11/04/23 (3 mL) subcutaneous pen lancets 33 gauge #100 ea 03/24/20 07/29/23 metoprolol succinate 50 mg 50 mg PO DAILY 03/24/20 11/04/23 tablet,extended release 24 hr pen needle, diabetic 32 gauge x #50 ea 03/24/20 07/29/23 calcium 600 mg (as 1 tab PO BID 06/28/20 11/04/23 carbonate)-vitamin D3 10 mcg (400 unit) tablet ezetimibe 10 mg tablet 10 mg PO DAILY 06/28/20 11/04/23 insulin glargine 100 unit/mL (3 52 unit subcut DAILY 06/28/20 11/04/23 mL) subcutaneous pen lisinopril 5 mg tablet 5 mg PO DAILY 06/28/20 11/04/23 apixaban 5 mg tablet (Eliquis) 5 mg PO DAILY 09/24/21 11/04/23 albuterol sulfate 2.5 mg/3 mL 2.5 mg inhalation Q6H PRN wheezing 12/04/22 10/30/23 (0.083 %) solution for nebulization empagliflozin 25 mg tablet 25 mg PO DAILY 12/04/22 11/04/23 (Jardiance) sertraline 50 mg tablet 50 mg PO DAILY 12/04/22 11/04/23 gabapentin 400 mg capsule 400 mg PO TID 10/28/23 11/04/23 fluticasone furoate 100 1 inh inhalation DAILY 11/04/23 11/04/23 mcg/actuation blister powder for inhalation (Arnuity Ellipta) fluticasone propionate 50 1 spray intranasal DAILY 11/04/23 11/04/23 mcg/actuation nasal spray,suspension furosemide 20 mg tablet 20 mg PO DAILY 11/04/23 11/04/23 vitamin E 268 mg (400 unit) capsule 536 mg PO DAILY 11/04/23 11/04/23 Previous Rx's ?Medication ?Instructions ?Recorded Cock up splint #2 ea 09/24/21 omeprazole 20 mg capsule,delayed 20 mg PO DAILY #14 caps 10/02/22 release arm brace (Wrist Brace) #2 ea 12/04/22 acetaminophen 325 mg tablet 650 mg (2 x 325 mg) PO Q6H PRN 11/05/23 Pain, Mild (Pain Scale 1-3), fever or headache 30 days #240 tabs celecoxib 200 mg capsule 200 mg PO BID 30 days #60 caps 11/05/23 docusate sodium 100 mg capsule 100 mg PO BID 30 days #60 caps 11/05/23 enoxaparin 40 mg/0.4 mL 40 mg (0.4 mL) subcut Q24H 1 day 11/05/23 subcutaneous syringe #0.4 mL oxycodone 10 mg tablet 10 mg PO Q4H PRN Pain, 11/05/23 Moderate(Pain Scale 4-6) 7 days #42 tabs ondansetron 4 mg disintegrating 4 mg PO Q8H PRN nausea and 09/11/24 tablet vomiting #7 tabs Allergies Allergy/AdvReac Type Severity Reaction Status Date / Time aspirin [Aspirin] Allergy Severe HIVES,RASH Verified 09/10/24 14:02 tramadol [TRAMADOL] Allergy Severe ITCHING, Verified 09/10/24 14:02 hallucinations ibuprofen [From MOTRIN] Allergy Intermediate HIVES, Verified 09/10/24 14:02 itching metformin Allergy Intermediate tremors Verified 09/10/24 14:02 shrimp Allergy Mild Itching Verified 09/10/24 14:02 Zzznifa-EXH-FdE Reductase AdvReac Intermediate Muscle Pain Verified 09/10/24 14:02 Inhibitor [WKQXTSV-CIV-HND REDUCTASE INHIBITOR] influenza virus vaccine, AdvReac Mild shoulder Verified 09/10/24 14:02 specific pain, [Influenza Virus tremors Vacc,Specific] Codeine Phosphate Allergy Unknown UNKNOWN Uncoded 09/10/24 14:02 [facility] Past Medical History Medical History Hx of breast cancer No natural teeth GERD (gastroesophageal reflux disease) Asthma Osteoarthritis Diabetes mellitus HTN (hypertension) Paroxysmal atrial fibrillation (HFpEF) heart failure with preserved ejection fraction Surgical History History of total bilateral knee replacement Hx of cholecystectomy Hx of knee surgery Hx of breast biopsy Hx of tonsillectomy Hx of tubal ligation Family History Family History Father CVD (cardiovascular disease) Sudden cardiac Mother No problems noted. Social History Social History Household Members: None Housing: Apartment Are you a primary childbirth and infant care teacher to a significant other at home: No Do you presently have visiting nurse or other home services: No Unable to assess alcohol history related to: Unknown Alcohol intake: never Patient Tobacco Use Status: Former Tobacco user Tobacco use type: Cigarette service: No Physical Exam ED Vital Signs: Vital Signs - 24 hr 09/10/24 13:56 09/10/24 20:32 09/10/24 22:00 Temperature 97.8 F 97.3 F 97.3 F Pulse Rate 94 81 82 Respiratory Rate 18 16 16 Blood Pressure 140/61 H 145/64 H 132/62 Pulse Oximetry 97 97 96 Oxygen Delivery Method Room Air Room Air Room Air 09/11/24 01:04 Temperature 98.2 F Pulse Rate 90 Respiratory Rate 16 Blood Pressure 111/46 L Pulse Oximetry 97 Oxygen Delivery Method Room Air BMI result Body Mass Index 28.1 Const Other: EXAM: Gen: Alert, awake, well appearing, well hydrated. Head: Atraumatic Eyes: Anicteric, Normal conjunctiva. ENT: Moist mucosa, no pallor. ? Neck: Supple. Respiratory: Breathing comfortably, No distress.Clear to auscultation bilaterally, symmetric chest expansion, No wheeze, rales, ronchi. Cardiovascular: Regular rate and rhythm. No murmurs or rub. Well perfused periphery, warm extremities. No edema. ? Abdominal: Mild tenderness epigastrium, moderate tenderness left lower quadrant. Mild diffuse tenderness otherwise:. Soft, no objective distension. No palpable masses or obvious organomegaly. ?No guarding, no rebound tenderness or other peritoneal findings. : No flank tenderness. Neuro: Alert. Gross movement of all extremities intact. ? Psych: Calm. Cooperative. MSK: No grossly visible deformity. Vital signs: See flowsheet Course Course Course Narrative: 09/10/24 1418 JOMAR Lincoln This is a Rapid Medical Examination (RME) performed by Courtney Siu PA-C in triage. Full HPI, ROS, assessment and treatment plan per primary provider in the Main ED. Hx: 79 yo F hx of osteoarthritis, CHF, AFib on Eliquis here for eval of nonradiating epigastric pain w/ assoc nausea, vomiting, diarrhea, fever, chills x friday. dec po intake. hx cholexystectomy. PE/vitals: neg aj sign. ttp of epigastric region, no rebound or guarding. Plan: labs UA Medical Decision Making Medical Decision Making [facility] Narrative: 79-year-old female with abdominal pain nausea vomiting diarrhea no travel no sick contacts no recent antibiotics. Not ill or toxic afebrile. Labs reassuring without leukocytosis. Given the patient's age and tenderness particularly left lower quadrant CT performed. No colitis diverticulitis or other acute surgical or other pathology seen. Patient's symptom improved with topicals and famotidine Differential Diagnosis Differential Diagnoses: The differential diagnosis associated with the presentation includes GERD, PUD, gastroenteritis viral or food-borne, Lab Data [facility] Lab Attestation statement: I reviewed the patient's lab results. 09/10/24 14:45 09/10/24 14:45 Labs: Lab Results 09/10/24 09/10/24 Range/Units 14:45 21:14 WBC 9.7 (4.8-10.8) X10*3/uL RBC 5.81 H D (4.20-5.50) X10*6/uL Hgb 12.7 D (12.0-16.0) g/dl Hct 42.3 D (37.0-47.0) % MCV 72.8 L (80.0-98.0) fL MCH 21.9 L (27.0-33.0) pg MCHC 30.0 L (31.0-35.0) g/dl RDW 19.5 H (11.0-16.0) % Plt Count 401 H D (160-400) X10*3/uL MPV 8.2 L (9.4-12.3) fL Immature Gran % (Auto) 0.3 (0.0-0.4) % Neut % (Auto) 71.5 (45-73) % Lymph % (Auto) 18.6 L (20-40) % [place] % (Auto) 7.1 (2-11) % Eos % (Auto) 2.2 (0-4) % Baso % (Auto) 0.3 (0-2) % Lymph # (Auto) 1.8 (1.2-4.9) X10*3/uL [place] # (Auto) 0.7 (0.1-1.2) X10*3/uL Eos # (Auto) 0.2 (0.0-0.4) X10*3/uL Baso # (Auto) 0.0 (0.0-0.2) X10*3/uL Abs Immat Gran (auto) 0.03 (0.00-0.03) X10*3/uL Absolute Neuts (auto) 6.9 (2.0-8.3) x10*3/uL Absolute Nucleated RBC 0.000 (0.0-0.012) X10*3/uL Nucleated RBC % (auto) 0.0 (0.0-0.2) /100WBC Sodium 138 (135-145) mmol/L Potassium 4.0 (3.3-5.1) mmol/L Chloride 107 (96-108) mmol/L Carbon Dioxide 23 (22-29) mmol/L Anion Gap 12 (12-20) BUN 22 H (9-16) mg/dL Creatinine 1.20 (0.5-1.4) mg/dL Estim Creat Clear Calc 32.0 Estimated GFR 43 Random Glucose 196 H (60-115) mg/dL Calcium 9.5 D (8.4-10.2) mg/dL Magnesium 1.9 (1.6-2.6) mg/dL Total Bilirubin 0.6 (0.0-1.0) mg/dL AST 36 H (5-31) U/L ALT 20 (0-31) U/L Alkaline Phosphatase 110 (39-117) U/L Total Protein 8.1 H (6.5-8.0) g/dL Albumin 4.5 (3.5-5.0) g/dL Lipase 13 (8-78) U/L Urine Color Yellow Urine Appearance Clear Urine pH 6.0 (5.0-9.0) Ur Specific [place] >= 1.030 H (1.005-1.025) Urine Protein Trace (Neg-Trace) mg/dL Urine Glucose (UA) >=1000 H (Negative) mg/dL Urine Ketones Trace (Negative) mg/dL Urine Blood Trace H (Negative) Urine Nitrite Negative (Negative) Ur Leukocyte Esterase Small (1+) H (Negative) Urine RBC 11-20 H (0-2) /HPF Urine WBC 21-50 H (0-5) /HPF Ur Squamous Epith Cells 3-5 (0-2) /HPF Urine Bacteria None Seen (None Seen) Hyaline Casts 0-2 (0-2) /LPF Influenza Type A (PCR) NEGATIVE (Negative) Influenza Type B (PCR) NEGATIVE (Negative) RSV RNA Qual (PCR) NEGATIVE (Negative) SARS-CoV-2 RNA (RT-PCR) NEGATIVE (Negative) Radiology Impression Discussion of test interpretation with radiology: I have reviewed the radiologist's reading. Medications Administered Discontinued Medications Generic Name Dose Route Start Last Admin Trade Name Freq PRN Reason Stop Dose Admin Al Hydroxide/Mg Hydroxide 30 ml 09/10/24 23:12 09/10/24 23:32 Magnesium Hydrox/Alum Hydrox 30 Ml Oral.Susp PO 09/10/24 23:13 30 ml ONCE ONE Administration Famotidine 20 mg 09/10/24 23:12 09/10/24 23:32 Famotidine/Pf 20 Mg/2 Ml Vial IVPUSH 09/10/24 23:13 20 mg ONCE ONE Administration Iohexol 85 ml 09/10/24 23:55 09/10/24 23:55 Iohexol 350 Mg/Ml 100 Ml Infus..Btl IV 09/10/24 23:56 85 ml ONCE ONE Administration Ondansetron HCl 4 mg 09/10/24 23:13 09/10/24 23:32 Ondansetron Hcl 4 Mg/2 Ml Vial IVPUSH 09/10/24 23:14 4 mg ONCE ONE Administration Discharge Plan Discharge Clinical Impression: Gastroenteritis Patient Disposition: Home, Self-Care Instructions: Acute Nausea and Vomiting (ED), Acute Diarrhea (ED) Additional Instructions: DISCHARGE DIAGNOSES: Nausea vomiting and diarrhea possibly viral or food-borne CT scan does not reveal any serious or severe abnormalities in your abdomen HISTORY OF PRESENTATION: ?Nausea vomiting diarrhea EMERGENCY DEPARTMENT COURSE,TESTS, TREATMENTS: While in the ED today you had lab work that was reassuring. You had a CT scan without intra-abdominal infection or other pathology seen DISCHARGE MEDICATIONS: We recommend [id number] Pepto-Bismol in addition to your normal regular medications. We are not making any medication changes. We have prescribed as needed nausea medicine FOLLOW-UP: ?Call your primary or general physician soon as possible to discuss your symptoms, your ED visit and to discuss follow up plans Call your primary doctor for follow up in 3-5 days INSTRUCTIONS ?& RETURN PRECAUTIONS: If any symptoms change first call your primary physician, if it is after-hours your primary doctors office should have a provider quality control systems manager you can speak with. If the symptoms are severe or very concerning to you then call 911 or return to the ED. Drink plenty of fluid if you develop severe or sudden worsening pain blood in your stool or vomit or other significant severe symptoms as we discussed return Ziggy Wallace MD Emergency Physician [facility] Prescriptions: New ondansetron 4 mg tablet,disintegrating 4 mg PO Q8H PRN (Reason: nausea and vomiting) Qty: 7 0RF No Action omeprazole 20 mg capsule,delayed release(DR/EC) 20 mg PO DAILY Qty: 14 0RF gabapentin 400 mg Capsule 400 mg PO TID fluticasone propionate 50 mcg/actuation spray,suspension 1 spray intranasal DAILY Arnuity Ellipta 100 mcg/actuation blister with device 1 inh INHALATION DAILY furosemide 20 mg tablet 20 mg PO DAILY vitamin E 268 mg (400 unit) Capsule 536 mg PO DAILY celecoxib 200 mg Capsule 200 mg PO BID 30 Days Qty: 60 0RF acetaminophen 325 mg Tablet 650 mg PO Q6H PRN (Reason: Pain, Mild (Pain Scale 1-3), fever or headache) 30 Days Qty: 240 0RF enoxaparin 40 mg/0.4 mL Syringe 40 mg subcut Q24H 1 Days Qty: 0.4 0RF oxycodone 10 mg tablet 10 mg PO Q4H PRN (Reason: Pain, Moderate(Pain Scale 4-6)) 7 Days Qty: 42 0RF Rx Instructions: Partial Fill upon patient request. docusate sodium 100 mg Capsule 100 mg PO BID 30 Days Qty: 60 0RF insulin glargine 100 unit/mL (3 mL) insulin pen 52 unit subcut DAILY lisinopril 5 mg tablet 5 mg PO DAILY ezetimibe 10 mg tablet 10 mg PO DAILY calcium carbonate-vitamin D3 600 mg(1,500mg) -400 unit tablet 1 tab PO BID Eliquis 5 mg tablet 5 mg PO DAILY (DME) Cock up splint See Rx Instructions .Route .MEDSUPPLY Qty: 2 0RF Rx Instructions: Wear spilt on both hands nightly. (DME) lancets 33 gauge misc See Rx Instructions .ROUTE .MEDSUPPLY Qty: 100 Rx Instructions: As directed (DME) pen needle, diabetic 32 gauge x 5/32 needle See Rx Instructions .ROUTE .MEDSUPPLY Qty: 50 Rx Instructions: As directed insulin aspart U-100 100 unit/mL (3 mL) insulin pen See Protocol subcut TIDAC Protocol: Insulin Correction Scale Less than or equal to 110 ---- Give (units): 0 111 to 150 Give (units): 0 151 to 200 Give (units): 2 201 to 250 Give (units): 4 251 to 300 Give (units): 6 301 to 350 Give (units): 8 Greater than 350 Give (units): 10 Call MD if Blood Glucose > : 350 cetirizine 10 mg tablet 10 mg PO DAILY (DME) blood sugar diagnostic Strip See Rx Instructions Not Applicable .MEDSUPPLY Qty: 10 Rx Instructions: As directed metoprolol succinate 50 mg tablet extended release 24 hr 50 mg PO DAILY Jardiance 25 mg tablet 25 mg PO DAILY sertraline 50 mg tablet 50 mg PO DAILY albuterol sulfate 2.5 mg /3 mL (0.083 %) solution for nebulization 2.5 mg inhalation Q6H PRN (Reason: wheezing) (DME) Wrist Brace Misc See Rx Instructions .Route Qty: 2 0RF Rx Instructions: wear on each wrist only at night Interventions: ED Discharge Assessment Last Done: 09/11/24 01:57 Discharge Date/Time: 09/11/24 03:00 Print Language: Malaysian
[2024-09-10 14:49] LABS: MANUAL DIFF FLAG NO
[2024-09-10 14:52] LABS: Basophils Percent Auto 0.3 % (0-2); Eosinophils Absolute Auto 0.2 X10*3/uL (0.0-0.4); Eosinophils Percent Auto 2.2 % (0-4); Hematocrit 42.3 % (37.0-47.0); Hemoglobin 12.7 g/dl (12.0-16.0); Imm Gran Abs Auto 0.03 X10*3/uL (0.00-0.03); Imm Gran Pct Auto 0.3 % (0.0-0.4); Lymphocytes Absolute Auto 1.8 X10*3/uL (1.2-4.9); Lymphocytes Percent Auto 18.6 % (20-40); Mean Corpuscular Hemoglobin 21.9 pg (27.0-33.0); Mean Corpuscular Volume 72.8 fL (80.0-98.0); Mean Platelet Volume 8.2 fL (9.4-12.3); Monocytes Absolute Auto 0.7 X10*3/uL (0.1-1.2); Monocytes Percent Auto 7.1 % (2-11); Neutrophils Absolute Auto 6.9 x10*3/uL (2.0-8.3); Neutrophils Percent Auto 71.5 % (45-73); Platelet Count 401 X10*3/uL (160-400); Red Blood Count 5.81 X10*6/uL (4.20-5.50); Red Cell Distribution Width 19.5 % (11.0-16.0); White Blood Count 9.7 X10*3/uL (4.8-10.8)
[2024-09-10 15:13] LABS: Alanine Aminotransferase 20 U/L (0-31); Albumin Level 4.5 g/dL (3.5-5.0); Alkaline Phosphatase 110 U/L (39-117); Anion Gap 12 (12-20); Aspartate Amino Transferase 36 U/L (5-31); Bilirubin Total 0.6 mg/dL (0.0-1.0); Blood Urea Nitrogen 22 mg/dL (9-16); Calcium 9.5 mg/dL (8.4-10.2); Carbon Dioxide 23 mmol/L (22-29); Chloride 107 mmol/L (96-108); Estimated Glomerular Filt Rate 43; Glucose Random 196 mg/dL (60-115); Lipase 13 U/L (8-78); Magnesium 1.9 mg/dL (1.6-2.6); Sodium 138 mmol/L (135-145); Total Protein 8.1 g/dL (6.5-8.0)
[2024-09-10 15:32] LABS: Influenza A PCR NEGATIVE (Negative); Influenza B PCR NEGATIVE (Negative); Resp Syncy Virus RNA Qual PCR NEGATIVE (Negative); SARS COV2 PCR INHOUSE NEGATIVE (Negative)
[2024-09-10 20:32] VITALS: BP 145/64; PULSE 81; RESP 16; TEMP 36.3; O2SAT 97
[2024-09-10 21:21] LABS: Appearance Urine Clear; Color Urine Yellow; Glucose Urine UA >=1000 mg/dL (Negative); Leukocyte Esterase Urine Small (1+) (Negative); Nitrite Urine Negative (Negative); Specific Gravity - Urine >= 1.030 (1.005-1.025); UMIC TRIGGER UACC YES; Urine Blood Trace (Negative); Urine Ketones Trace mg/dL (Negative); Urine Protein Trace mg/dL (Neg-Trace)
[2024-09-10 21:25] LABS: Bacteria Urine None Seen (None Seen); Hyaline Casts Urine 0-2 /LPF (0-2); UACC Culture Trigger YES; WBC Urine 21-50 /HPF (0-5)
[2024-09-10 22:00] VITALS: BP 132/62; PULSE 82; RESP 16; TEMP 36.3; O2SAT 96
[2024-09-10] MEDS: ondansetron HCL 4 MG/2 ML VIAL IVPUSH (23:32)
[2024-09-10] MEDS: Magnesium Hydrox/Alum Hydrox 30 ML ORAL.SUSP PO (23:32)
[2024-09-10] MEDS: Famotidine/PF 20 MG/2 ML VIAL IVPUSH (23:32)
[2024-09-10] MEDS: iohexoL 350 MG/ML 100 ML INFUS..BTL 85 ML IV (23:55)
[2024-09-11 01:04] VITALS: BP 111/46; PULSE 90; RESP 16; TEMP 36.8; O2SAT 97
[2024-09-11 01:57] VITALS: BP 111/46; PULSE 90; RESP 16; TEMP 36.8; O2SAT 97
== END 2024-09-11 03:00 | disposition home or self-care (01) ==
PROVIDERS: Physician Assistant Medical; Emergency Provider Emergency Medicine; PCP Family Medicine
DX: K52.9 Noninfective gastroenteritis and colitis, unspecified (principal); R10.2 Pelvic and perineal pain; Z03.818 Encounter for observation for suspected exposure to other biological agents ruled out; Z79.899 Other long term (current) drug therapy
CPT/HCPCS: 0241U; 74177; 80053; 81001; 83690; 83735; 85025; 87086; 96374; 96375; 99284; J1308; J2405; Q9967

== ENCOUNTER → 2024-09-10 23:12 | Outpatient (BNV) | payer OTHER, SELFPAY | PROVIDERS: Emergency Provider Emergency Medicine; PCP Family Medicine; Visit Provider Radiology Diagnostic Radiology | DX: K57.30 Diverticulosis of large intestine without perforation or abscess without bleeding (principal) | CPT/HCPCS: 74177 ==

== ENCOUNTER 2024-10-20 08:06 | Outpatient (REF) | payer OTHER, SELFPAY ==
--- OUTSIDE RECORDS SUMMARY | 2023-07-24 05:00 | XMS_ITS ---
Author Organization [facility] Address [address] [place] [address] Care Team Providers Care Manager Operations Name Role Phone Karoline Burgos Primary Care Provider Hiro Corbin Unavailable [phone] Allergies Allergen (clinical drug ingredient) Drug/Non Drug Allergy documented on EMR Reaction Allergy Type Onset Date Status ibuprofen Advil itchy Drug Allergy Active Aleve itchy Drug Allergy Active Motrin itchy Drug Allergy Active aspirin Aspirin itchy Drug Allergy Active Medications Medication SIG (Take, Route, Fr equency, Duration) Notes Start Date End Date Status Jardiance Active Lisinopril Active Omeprazole Active Metoprolol Succinate Active Vitamin D3 Active Gabapentin Active eliquis Active Docusate Sodium Acti ve Furosemide Active Ezetimibe Active Cetirizine HCl Activ e Calcium Active Social History Tobacco Use: Social History Observation Description Date Details (start date - stop date) Former Smoker NA - NA Tobacco Use/Smoking Question Answer Notes Are you a: former smoker Additional Findings: Tobacco Non-User Current no n-smoker Alcohol Screen Question Answer Notes Did you have a drink containing alcohol in the p ast year? No Points 0 Interpretation Negative Tobacco use other than smoking: Question Answer Notes Are you an other tobacco user? No Vital Signs Height 5ft in 07/24/2023 Weight 162 lbs 07/24/2023 BMI 31.64 kg/m2 07/24/2023 Encounters Encounter Location Date [facility] [address] [place] [address] 07/24/2023 Hiro Pavon Plan Of Treatment Next Appt Details Provider Name:Danielle mills, 12/14/2024 03:00:00 PM, [address], [address], [place], [address], Progress Notes * Clau LEODOB:1945 (79 yo F)Acc No.[id number]:07/24/2023 Progress Notes Patient: Clau WRIGHT Provider: Nelsy Pavon DPM :1945 A ge:78 Y S ex:Female Date:07/24/2023 Address:[address] [place], [place] [id number] Pcp:Karoline Burgos Subjective: * Chief Complaints: * * ROS: G eneral/Constitutional: Nausea d enies. V omiting d enies. H nay Thirst d enies. L oss appetite d enies. C hills d enies. F atigue d enies.?Fever d enies. N ight Sweats d enies. U nexplained weight loss d enies. U nexplained weight gain d enies. H EENTM: Dentures d enies. D izziness d enies. G lasses/contacts d enies. R etinopathy d enies. B lurred/double vision d enies. T MJ?denies. D ischarge/drainage d enies. I mplants d enies. S ore throat d enies. D ental implants d enies. H jeison of hearing d enies. D ifficulty chewing/swallowing/speaking d enies. N ose bleeds d enies. S ore mouth d enies. ? R espiratory: On Oxygen d enies. P neumonia/pleurisy d enies.?Bronchitis d enies. E mphysema d enies. C oughing d enies. C ough blood?denies. S hortness of breath d enies. W heezing d enies. C ardiovascular: Pacemaker d enies. 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 W PW d enies. C HF d enies. H eart attack d enies. S eptal defect d enies. R apid beat d enies. C hest pain d enies. A trial Fib. d enies. M urmur/Palpitations d enies. G astrointestinal: Hemorrhoids d enies. S tomach/Abdominal pain d enies. D ark blood stool d enies. I rritable bowel d enies. C onstipation d enies. D iarrhea d enies. H ematology: Swelling d enies. C lots d enies. V aricose Veins d enies. B ruising d enies. B leeding problem d enies. G enitourinary: Blood urine d enies. F requent/Painfu/urination/bladder control d enies. K idney stones d enies. I nfection (UTI) d enies. N ephropathy d enies. s ex trans dis (STD) d enies. P rostate d enies. M usculoskeletal: Hammertoes d enies. B unions d enies. B ack Pain d enies. M uscle Cramps/ Resting d enies. M uscle cramps / walking d enies.?Generalized aches and pains d enies. W eakness d enies. I nteg.: Boyer d enies. S cars d enies. C orns/calluses?denies. I ngrown nails d enies. P ainful nails d enies. O pen Sores d enies. R ashes d enies. N eurologic: Difficulty sleeping d enies. B rain disorder d enies. N umbness d enies. B alance trouble d enies. C onfusion d enies. F ainting/blackouts d enies. T ingling d enies. T remors d enies. * Medical History: A nxiety, Arthritis, Asthma, CAD (Cholesterol), Depression, Diabetic, Heart disease, High blood pressure. * Surgical History: b reast cancer 2009. * Family History: F ather: diagnosed with Diabetic - NIDDM, Unspecified essential hypertension, Unspecified heart disease, Unspecified cerebral artery occlusion with cerebral infarction. * Social History: T obacco Use: T obacco Use/Smoking A re you a: f ormer smoker A dditional Findings: Tobacco Non-User C urrent non-smoker Tobacco use other than smoking A re you an other tobacco user? N o D rugs/Alcohol: D rugs H ave you used drugs other than those for medical reasons in the past 12 months? N o Alcohol Screen D id you have a drink containing alcohol in the past year? N o P oints 0 I nterpretation N egative M iscellaneous: C affeine: yes. Children: yes, 12. Marital status: single. * Medications: T aking Calcium , Taking Cetirizine HCl , Taking Docusate Sodium , Taking eliquis , Taking Ezetimibe , Taking Furosemide , Taking Gabapentin , Taking Jardiance , Taking Lisinopril , Taking Metoprolol Succinate , Taking Omeprazole , Taking Vitamin D3 * Allergies: A spirin: itchy, Advil: itchy, Aleve: itchy, Motrin: itchy. Objective: * Vitals: H t: 5ft, Wt: 162, BMI: 31.64, Shoe size: 7, Ht-cm: 152.4 cm, Wt-k.48 kg. Assessment: Plan: * Treatment: * Images: * The named appointment provid er may or may not be the originator of this progress note, and it is not deemed complete until electronically signed by the appointment provider. Sign off status: Pending * Provider: Nelsy Pavon DPM Date: 0 07/24/2023 Generated for Ray marcial/Ranjit/Shana on: 10/20/2024 08:09 AM EDT
--- OUTSIDE RECORDS SUMMARY | 2024-10-20 08:09 | XMS_ITS | Data Portability ---
Author Organization [place] [facility], [facility] Address [address] [place] [address] Care Team Providers Care Power Plant Engineer Name Role Phone HIM CCA OTHER Assessment Encounter Date Assessment Date Assessment LastModified by Organization Details LastModified Time 09/01/2023 09/01/2023 Ms. Clau Herr is a 78yoF w/ a PmHx of HTN, pAF on warfarin, DM2 on insulin who is seen today for further evaluation of left shoulder pain. Ms. Herr has struggled with OA pain in her left shoulder and is scheduled for surgery this summer. She reports that over the past day her shoulder pain has worsened. She is taking tylenol with minimal relief and is hoping for additional pain control today. She denies new left arm pain and is compliant with her anticoagulation. VSS. Process Control Engineer on site reports no visibile external skin changes. Limited options given therapeutic anticoagulation. She is a well controlled diabetic and will trial 20mg prednisone burst for acute pain control, with attention that if hyperglycemia becomes difficult to control would stop. Prednisone RX sent to pharmacy. [email or web address] Not available 09/01/2023 11:33:53 Plan of Treatment Reminders Order Date Submit Date Provider Last Modified By Organization Details Last Modified Time Details Appointments None recorded. Lab None recorded. Referral None recorded. Procedures None recorded. Surgeries None recorded. Imaging None recorded. Medication Orders prednisone [address] [facility], [address] [facility], [place], [place], [phone], 09:57:03 Patient TargetsNo targets recorded. Patient InstructionsNo instructions recorded. Reason for Referral None Reported. Medical Equipment None Reported. Allergies Allergen ID Allergen Name Allergen Category Reaction Reaction Severity Criticality Documentation Date Start Date Code Code System Note Provider Name and Address Organization Details Recorded Time 7810 aspirin medicatio n Not available Not available Not available 02/03/2024 1191 RxNorm Not Available [facility] - production 4 03:39:59 Medications Name Sig Start Date Stop Date Status Note LastModified by Organization Details LastModified Time medbox status USE DIRECTED active Not Available Not Available No t Available doxycycline hyclate 100 mg capsule TAKE 1 CAPSULE BY MOUTH TWICE DAILY FOR 10 DAYS active Not Available Not Available No t Available ketoconazole 2 % shampoo APPLY TO SCALP AND LEAVE ON FOR 5 MINUTES THEN RINSE. DO TWICE A WEEK DIRECTED active Not Available Not Available No t Available albuterol sulfate 2.5 mg/3 mL (0.083 %) solution for nebulization active Not Available Not Available Not Available cetirizine 10 mg tablet TAKE 1 TABLET BY MOUTH EVERY MORNING active Not Available Not Available No t Available metoprolol succinate ER 50 mg tablet,exten ded release 24 hr TAKE 1 TABLET BY MOUTH EVERY MORNING active Not Available Not Available No t Available prednisone 20 mg tablet TAKE 1 TABLET BY MOUTH ONCE DAILY FOR 5 DAYS active Not Available Not Available No t Available gabapentin 400 mg capsule TAKE 1 CAPSULE BY MOUTH TWICE DAILY IN THE MORNING AND AT BEDTIME active Not Available Not Available No t Available acetaminophe n ER 650 mg tablet,exten ded release active Not Available Not Available Not Available hydrocortiso ne 2.5 % topical cream with perineal applicator INSERT RECTALLY TWICE DAILY IN THE MORNING AND AT BEDTIME NEEDED FOR HEMORRHOIDS active Not Available Not Available Not Available docusate sodium 100 mg capsule TAKE 1 CAPSULE BY MOUTH TWICE DAILY IN THE MORNING AND IN THE EVENING active Not Available Not Available No t Available gabapentin 300 mg capsule TAKE 1 CAPSULE BY MOUTH THREE TIMES DAILY IN THE MORNING, EVENING, AND BEDTIME active Not Available Not Available Not Available omeprazole 20 mg capsule,obie yed release TAKE 1 CAPSULE BY MOUTH TWICE DAILY IN THE MORNING AND IN THE EVENING WITH MEALS active Not Available Not Available N ot Available lisinopril 5 mg tablet TAKE 1 TABLET BY MOUTH EVERY MORNING active Not Available Not Available No t Available furosemide 20 mg tablet TAKE 1 TABLET BY MOUTH EVERY MORNING FOR EDEMA active Not Available Not Available No t Available fluticasone propionate 50 mcg/actuatio n nasal spray,suspen sumeet USE 2 SPRAYS IN EACH NOSTRIL ONCE DAILY active Not Available Not Available N ot Available sertraline 50 mg tablet TAKE 1 TABLET BY MOUTH EVERY MORNING active Not Available Not Available No t Available Ventolin HFA 90 mcg/actuatio n aerosol inhaler active Not Available Not Available Not Available ezetimibe 10 mg tablet TAKE 1 TABLET BY MOUTH EVERY MORNING active Not Available Not Available No t Available Novolog FlexPen U-100 Insulin aspart 100 unit/mL (3 mL) subcutaneous INJECT 26 UNITS SUBCUTANEOU SLY TWICE DAILY BEFORE BREAKFAST AND BEFORE SUPPER. MAY USE 1/2 DOSE (12 units) WITH SMALL MEALS TO PREVENT HYPOGLYCEMI A. active Not Available Not Available No t Available Alcohol Prep Pads USE THREE TIMES DAILY active Not Available Not Available Not Available nitrofuranto in monohydrate/ macrocrystal s 100 mg capsule TAKE 1 CAPSULE BY MOUTH EVERY TWELVE HOURS WITH FOOD FOR 5 DAYS active Not Available Not Available No t Available Flovent HFA 110 mcg/actuatio n aerosol inhaler INHALE 1 PUFFS BY MOUTH TWICE DAILY. RINSE MOUTH AFTER USING. active Not Available Not Available No t Available calcium 600 mg (as carbonate)-v itamin D3 10 mcg (400 unit) tablet TAKE 1 TABLET BY MOUTH TWICE DAILY IN THE MORNING AND IN THE EVENING active Not Available Not Available No t Available cholecalcife rol (vitamin D3) 50 mcg (2,000 unit) tablet TAKE 1 TABLET BY MOUTH EVERY MORNING active Not Available Not Available No t Available Hemorrhoidal Hygiene 50 % topical pads APPLY TOPICALLY TO HEMORROIDES TWICE DAILY IN THE MORNING AND AT BEDTIME NEEDED active Not Available Not Available No t Available TRUEplus Lancets 33 gauge TEST BLOOD SUGAR FOUR TIMES DAILY active Not Available Not Available Not Available Eliquis 5 mg tablet TAKE 1 TABLET BY MOUTH TWICE DAILY IN THE MORNING AND IN THE EVENING active Not Available Not Available No t Available Jardiance 25 mg tablet TAKE 1 TABLET BY MOUTH EVERY MORNING active Not Available Not Available No t Available Trulicity 0.75 mg/0.5 mL subcutaneous pen injector INJECT ONE PEN (=0.75MG) SUBCUTANEOU SLY ONCE A WEEK DIRECTED active Not Available Not Available No t Available Arnuity Ellipta 100 mcg/actuatio n powder for inhalation INHALE 1 PUFF BY MOUTH EVERY MORNING. RINSE MOUTH AFTER USING. active Not Available Not Available No t Available Pentips Pen Needle 32 gauge x 5/32 USE DIRECTED THREE TIMES DAILY active Not Available Not Available No t Available FreeStyle Precision Cristian Strips TEST BLOOD SUGAR UP TO FOUR TIMES DAILY DIRECTED active Not Available Not Available No t Available Toujeo Max U-300 SoloStar 300 unit/mL (3 mL) subcutaneous insulin pen INJECT 50 UNITS SUBCUTANEOU SLY AT BEDTIME active Not Available Not Available No t Available Baqsimi 3 mg/actuation nasal spray USE 1 SPRAY (3MG) IN ONE NOSTRIL FOR A PATIENT WITH SEVERE HYPOGLYCEMI A WHO IS NOT RESPONSIVE AND UNABLE SELF-TREAT WITH GLUCOSE. AFTERWARDS TURN ON SIDE. MAY REPEAT IN 15MINUTES IF PATIENT DOES NOT RESPOND. active Not Available Not Available No t Available FreeStyle Sherin 2 Sensor kit USE DIRECTED CHANGE EVERY 14 DAYS active Not Available Not Available No t Available Ozempic 0.25 mg or 0.5 mg (2 mg/3 mL) subcutaneous pen injector INJECT 0.25 MG SUBCUTANEOU SLY ONCE A WEEK active Not Available Not Available No t Available Vitals Date Recorded Body weight Body temperature Respiratory rate Heart rate Oxygen saturation Oxygen saturation in Arterial blood by Pulse oximetry Body height Systolic And Diastolic Provider Name and Address Organization Details Last Updated DateTime 4 15426.9 04 g 98.5 [degF] 16 /min 72 /min 96 % 96 % 152.4 cm 134/66 mm[Hg] Not Available [facility] - production 4 11:25:09 Social History None recorded. Functional Status None recorded. Mental Status None recorded. Family History Nothing Reported. Medical History No medical history recorded. Gynecological HistoryNo gynecological history recorded. Obstetrics History GPAL:G 0 P 0 0 0 0 Past Encounters Encounter ID Performer Location Encounter Start Date Encounter Closed Date Diagnosis/Indication Diagnosis SNOMED-CT Code Diagnosis ICD10 Code Diagnosis Note [id number] Marguerite Romero MD [facility] [address] [place] [phone] 09/01/2023 11:25:07 09/01/2023 18:19:13 Osteoarthritis 764838119 M19.90 Health Concerns Section Related Observation LastModified by Organization Detai ls LastModified Time None Recorded Concern Status LastModified by Organization Details LastModified Time None Recorded Advance Directives Directive None Recorded Payers Insurance Date Sequence Insurance Name Policy Number Policy Miller Covered Member ID Miller Member ID Guarantor Name 09/01/2023 1 [facility] - DOS ON OR AFTER 2022 - DUAL ELIGIBLE - USP OPTIONS AND ONE CARE (MEDICARE REPLACEMENT/ADV ANTAGE - HMO) Clau Herr [id number] Clau Herr Notes Date Note Type Note Provider Name and Address Organization Details Recorded Time 09/01/2023 text/html [facility] Nurse Triage Notes (Sandy Marshall): Reason For Request: Pt reporting an upcoming surgery on her left arm for arthritis (tendinitis)>repor ting pain and swelling>10 out of 10 pain Chief Complaints: Pain, Edema PMH: Hypertension, Heart Disease, Diabetes, COPD/Asthma Allergies: Aspirin Comments: Member calling in to place a referral, identified via name and . Member with hx of tendonitis of left arm for 3 years. She states over the last 6 months the pain and swelling have significantly increased and she is scheduled for surgery. Member denies redness/discolorat ion or warmth, she is able to move/wiggle fingers, poor ROM to arm due to the pain. Member is using APAP and other OTC remedies with no effectiveness. Member would like to be evaluated. .................. .................. .................. .................. .................. .................. .................. ............... Process Control Engineer Note From Jagdish Sotelo: Pt reports acute on chronic left shoulder pain that radiates down her left arm. Pt sts his of OA and tendinitis, next PCP appointment is 10/05 and surgery scheduled for 11/03. Pt sts she has Tylenol 650 mg but does not take it because it makes her sleepy. Pt on Coumadin. Pt is alert, NAD. VSS. Afebrile. Non focal neuro exam. Normal gait. Pain with ROM to the left arm. Mild edema noted at top of scapula, no erythema or warmth. Pt treated with prednisone 20 mg. Pt educated on prednisone and its effects on BG levels. Red flags reviewed. .................. .................. .................. .................. .................. .................. .................. ............... Disposition: Mayela Romero MD [address] [facility],[address] [facility], [place], [phone], TYSHAWN - DARLENE MARISCAL 09/01/2023 15:07:06 OBGyn Episode No OBEpisode recorded.
--- OUTSIDE RECORDS SUMMARY | 2024-10-20 08:09 | XMS_ITS | Encounter Summary ---
Author Organization [employer] Address [address] [place] [address] Care Team Providers Care Drop Hammer Setter Up Name Role Phone Karoline Burgos DO Primary Care Provider + [phone] Jannie Reynoso PharmD Unavailable [phone] Reason for Visit * Reason Comments Med Refill Encounter Details Date Type Department Care Team ([facility] st Contact Info) Description 02/03/2023 Refill [facility] [address] [place] [address] Karoline Burgos DO [address] [place], [place] [phone] Social History Tobacco Use Types Packs/Day Years Used Date Smoking Tobacco: Never Passive Smoke Exposure: Never Smokeless Tobacco: Never Depression Answer Date Recorded Patient Health Questionnaire-9 Score 6 07/17/2022 Housing Stability Answer Date Recorded What is your housing situation today? I have yomi brown 01/20/[address] you li ve. Do you have problems with any of the following? None of the above 01/20/2023 Food Insecurity Answer Date Recorded Within the past 12 months, y ou worried that your food would run out before you got money to buy more: Never True 01/20/2023 Within the past 12 months,th e food you bought just didn't last and you didn't have enough money to get more: Never True Transportation Answer Date Recorded In the past 12 months, has l ack of transportation kept you from medical appts, meetings, work or from getting things needed for daily living? No 01/20/2023 Utilities Answer Date Recorded In the past 12 months, has t he electric, gas, oil or water company threatened to shut off services in your home? No 01/20/2023 Depression Answer Date Recorded Patient Health Questionnaire-2 Score 4 07/17/2022 Comments Unknown Sex and Gender Information Value Date Recorded Sex Assigned at Female 02/04/2022 10:20 AM EDT Legal Sex Female 10:20 AM EDT Gender Identity Female 02/04/2022 10:20 AM EDT Sexual Orientation Choose not to disclose 2021 10:20 AM EDT documented as of this encounter Plan of Treatment Upcoming Encounters Date Type Department Care Team (Late st Contact Info) Description 10/20/2024 3:30 PM EDT Office Visit [address] [address] Teresa Aquino NP [address] [place] [phone] 12/03/2024 10:00 AM EDT Office Visit [address] [address] Katt Magdaleno MD [address] [place] [phone] 01/12/2025 3:00 PM EDT Medication Management [address] [address] Jannie Reynoso, PharmD [address] [place] [phone] documented as of this encounter Goals Goal Patient Goal Type Associated Problems Recent Progress Patient-Stated? Author Hemoglobin A1c < 7.5 Result Component 7.5( 3:27 PM EDT) No Juan Jackson PharmAsuncion Note: age, hx malignant neoplasm of breast Record your blood sugar as directed Result Component No Jannie Reynoso, PharmD Note: Use CGM, ensuring sensor is scanned at least once every 8 hours to capture 24H data. Check BG manually, as directed. documented as of this encounter Visit Diagnoses Not on filedocumented in this encounter Additional Health Concerns Assessment Noted Time PHQ-9 Depression Total Score: 6 07/18/19 10:55 AM EDT documented as of this encounter Care Teams Drop Hammer Setter Up Relationship Specialty Start Date End Date Karoline Burgos DO [address] [place] [address] PCP - General Family Medicine 03/19/12 Jannie Reynoso PharmD [address] [place] [address] Pharmacist Internal Medicine 11/18/22 documented as of this encounter
[2024-10-20 11:17] LABS: Hematocrit 37.9 % (37.0-47.0); Hemoglobin 11.3 g/dl (12.0-16.0); Mean Corpuscular HGB Conc 29.8 g/dl (31.0-35.0); Mean Corpuscular Hemoglobin 22.4 pg (27.0-33.0); Mean Corpuscular Volume 75.0 fL (80.0-98.0); NRBC Abs Auto 0.000 X10*3/uL (0.0-0.012); NRBC Pct Auto 0.0 /100WBC (0.0-0.2); Platelet Count 353 X10*3/uL (160-400); Red Blood Count 5.05 X10*6/uL (4.20-5.50); White Blood Count 7.2 X10*3/uL (4.8-10.8)
[2024-10-20 11:23] LABS: Hemoglobin A1C 185.9538 umol/L; Total Hemoglobin (HGBA1C) 2986.4769 umol/L
[2024-10-20 12:04] LABS: Alanine Aminotransferase 15 U/L (0-31); Albumin Level 4.0 g/dL (3.5-5.0); Alkaline Phosphatase 99 U/L (39-117); Anion Gap 10 (12-20); Aspartate Amino Transferase 25 U/L (5-31); Blood Urea Nitrogen 15 mg/dL (9-16); Calcium 9.2 mg/dL (8.4-10.2); Carbon Dioxide 30 mmol/L (22-29); Chloride 104 mmol/L (96-108); Cholesterol 196 mg/dL (<200); Estimated Glomerular Filt Rate 56; Free T4 (Free Thyroxine) 0.88 ng/dL (0.71-1.85); HDL Cholesterol 40 mg/dL (>40); Potassium 4.6 mmol/L (3.3-5.1); Sodium 139 mmol/L (135-145); Thyroid Stimulating Hormone 1.81 uIU/mL (0.32-4.0); Total Protein 7.0 g/dL (6.5-8.0); Triglycerides 214 mg/dL (<150)
[2024-10-21 09:20] LABS: Iron 23 mcg/dL (30-160); Percent Iron Saturation 7 % (15-50); Total Iron Binding Capacity 332 mcg/dL (228-428); Unsaturated Iron Binding 309 ug/dL
[2024-10-21 09:34] LABS: Ferritin 10 ng/mL (10-250)
== END 2024-10-20 08:07 | disposition home or self-care (01) ==
LOC: HO.HHCL 08:06
PROVIDERS: PCP Family Medicine; Visit Provider Family Medicine
DX: Z00.00 Encounter for general adult medical examination without abnormal findings (principal); I11.0 Hypertensive heart disease with heart failure; I50.32 Chronic diastolic (congestive) heart failure; E11.9 Type 2 diabetes mellitus without complications; I48.0 Paroxysmal atrial fibrillation; J44.9 Chronic obstructive pulmonary disease, unspecified; E78.49 Other hyperlipidemia; F43.21 Adjustment disorder with depressed mood; D64.9 Anemia, unspecified; M25.511 Pain in right shoulder; M25.512 Pain in left shoulder; G89.29 Other chronic pain; Z85.3 Personal history of malignant neoplasm of breast; Z79.4 Long term (current) use of insulin
CPT/HCPCS: 36415; 80048; 80061; 80076; 82306; 82728; 83036; 83540; 84439; 84443; 85027

== ENCOUNTER 2024-11-24 12:37 | Emergency (ER) | payer OTHER, SELFPAY ==
--- NOTE | ~2024-11-24 | XR_ITS ---
EXAMINATION: XR SHOULDER, RIGHT CLINICAL INFORMATION: trauma COMPARISON: June 03, 2023 TECHNIQUE: Three views of the right shoulder. FINDINGS: Enthesophyte is noted at the greater tuberosity. Marginal osteophytes are seen involving the humeral head and minimally involving glenoid. There is minimal joint space narrowing. There is no dislocation. AC joint is intact and not degenerated. XR/XR shoulder RT min 2V IMPRESSION: Mild degenerative changes of the right shoulder joint. Electronically signed by: Rigo Rubin MD 11/24/2024 03:20 PM EDT
--- NOTE | ~2024-11-24 | XR_ITS ---
EXAMINATION: XR ELBOW, RIGHT CLINICAL INFORMATION: trauma COMPARISON: June 03, 2023 TECHNIQUE: AP, lateral, and oblique views of the right elbow. FINDINGS: Fat pads of the elbow joint are not displaced. Minimal osteophyte formation is noted in the ulnar side of the elbow joint and radial head. There has been no interval change. XR/XR elbow RT min 3V IMPRESSION: Mild degenerative change of the right elbow joint. Electronically signed by: Rigo Rubin MD 11/24/2024 03:22 PM EDT
--- NOTE | ~2024-11-24 | CT_ITS ---
EXAMINATION: CT HEAD WITHOUT CONTRAST CLINICAL INFORMATION: Trauma, anticoagulated COMPARISON: June 03, 2023 TECHNIQUE: Contiguous axial imaging was performed from the skull base to vertex without intravenous administration of contrast. This CT examination was performed using dose optimization techniques as appropriate, variously including the following: *Automated exposure control *Adjustment of mA and/or kV according to patient size (this includes techniques or standardized protocols for targeted exams where dose is matched to indication/reason for exam; i.e. extremities or head) *Use of iterative reconstruction technique DLP: 613 mGY*cm FINDINGS: There is no acute ischemic change. There is no intracranial hemorrhage. Chronic basal ganglion calcifications are again noted. There is no mass-effect or midline shift. Basal cisterns and ventricles are within normal limits for age/cerebral volume. Orbits are symmetrical and unremarkable. Paranasal sinuses and mastoid air cells are pneumatized. There are no bony abnormalities. CT/CT head/brain wo IV con IMPRESSION: No acute intracranial abnormality. Electronically signed by: Rigo Rubin MD 11/24/2024 03:15 PM EDT
--- NOTE | ~2024-11-24 | XR_ITS ---
EXAMINATION: XR WRIST, RIGHT CLINICAL INFORMATION: trauma COMPARISON: None available. TECHNIQUE: PA, lateral, oblique, and scaphoid views of the right wrist. FINDINGS: There is a bony flange along the radial side of the radial styloid. There is no joint diastases. There is no visible fracture line. XR/XR wrist RT min 3V IMPRESSION: Unremarkable right wrist. Electronically signed by: Rigo Rubin MD 11/24/2024 03:23 PM EDT
[2024-11-24 13:18] VITALS: BP 141/65; PULSE 70; RESP 18; TEMP 36.9; O2SAT 96; BMI 29.1
--- NOTE | 2024-11-24 13:19 | ECG_ITS ---
Test Reason : WEAKNESS Blood Pressure : */* mmHG Vent. Rate : 66 BPM Atrial Rate : 66 BPM P-R Int : 160 ms QRS Dur : 78 ms QT Int : 382 ms P-R-T Axes : 55 12 28 degrees QTcB Int : 400 ms Normal sinus rhythm Normal ECG When compared with ECG of 10-Nov-2020 15:38, No significant change was found Referred By: Zaid Byrne Electronically Signed By: DAVONTE RUVALCABA MD
--- NOTE | 2024-11-24 13:21 | ED.GENADULT ---
HPI - General Adult General Chief complaint: Fall Stated complaint: fell yesterday, right arm hurts Time Seen by Provider: 11/24/24 18:56 Source: patient, RN notes reviewed and old records reviewed Mode of arrival: ambulatory Limitations: no limitations History of Present Illness ED Provider: Chavez HPI narrative: 79-year-old female with past medical history significant for AFib on Eliquis, epilepsy, arthritis, congestive heart failure, hypertension, diabetes presents for evaluation after a fall. Patient reports that she fell down from a standing position yesterday because she has an area that did not have a hand rail She denies striking her head but reports landing on her right side. She complains of pain to her right shoulder and arm. Her pain is a 7/10. Denies any hip or leg pain pain Denies any chest pain, shortness of breath. She reports that she did not pass out She has been using ice with some relief Related Data Home Medications ?Medication ?Instructions ?Recorded ?Confirmed blood sugar diagnostic #10 ea 03/24/20 07/29/23 cetirizine 10 mg tablet 10 mg PO DAILY 03/24/20 11/04/23 insulin aspart U-100 100 unit/mL See Protocol subcut TIDAC 03/24/20 11/04/23 (3 mL) subcutaneous pen lancets 33 gauge #100 ea 03/24/20 07/29/23 metoprolol succinate 50 mg 50 mg PO DAILY 03/24/20 11/04/23 tablet,extended release 24 hr pen needle, diabetic 32 gauge x #50 ea 03/24/20 07/29/23 calcium 600 mg (as 1 tab PO BID 06/28/20 11/04/23 carbonate)-vitamin D3 10 mcg (400 unit) tablet ezetimibe 10 mg tablet 10 mg PO DAILY 06/28/20 11/04/23 insulin glargine 100 unit/mL (3 52 unit subcut DAILY 06/28/20 11/04/23 mL) subcutaneous pen lisinopril 5 mg tablet 5 mg PO DAILY 06/28/20 11/04/23 apixaban 5 mg tablet (Eliquis) 5 mg PO DAILY 09/24/21 11/04/23 Held on 11/05/23. Instructions: Resume on 11/07/23. Resume regular dose Friday albuterol sulfate 2.5 mg/3 mL 2.5 mg inhalation Q6H PRN wheezing 12/04/22 10/30/23 (0.083 %) solution for nebulization empagliflozin 25 mg tablet 25 mg PO DAILY 12/04/22 11/04/23 (Jardiance) sertraline 50 mg tablet 50 mg PO DAILY 12/04/22 11/04/23 gabapentin 400 mg capsule 400 mg PO TID 10/28/23 11/04/23 fluticasone furoate 100 1 inh inhalation DAILY 11/04/23 11/04/23 mcg/actuation blister powder for inhalation (Arnuity Ellipta) fluticasone propionate 50 1 spray intranasal DAILY 11/04/23 11/04/23 mcg/actuation nasal spray,suspension vitamin E 268 mg (400 unit) capsule 536 mg PO DAILY 11/04/23 11/04/23 Previous Rx's ?Medication ?Instructions ?Recorded Cock up splint #2 ea 09/24/21 omeprazole 20 mg capsule,delayed 20 mg PO DAILY #14 caps 10/02/22 release arm brace (Wrist Brace) #2 ea 12/04/22 acetaminophen 325 mg tablet 650 mg (2 x 325 mg) PO Q6H PRN 11/05/23 Pain, Mild (Pain Scale 1-3), fever or headache 30 days #240 tabs celecoxib 200 mg capsule 200 mg PO BID 30 days #60 caps 11/05/23 docusate sodium 100 mg capsule 100 mg PO BID 30 days #60 caps 11/05/23 enoxaparin 40 mg/0.4 mL 40 mg (0.4 mL) subcut Q24H 1 day 11/05/23 subcutaneous syringe #0.4 mL oxycodone 10 mg tablet 10 mg PO Q4H PRN Pain, 11/05/23 Moderate(Pain Scale 4-6) 7 days #42 tabs ondansetron 4 mg disintegrating 4 mg PO Q8H PRN nausea and 09/11/24 tablet vomiting #7 tabs furosemide 20 mg tablet 20 mg PO QAM for edema #30 tabs 10/21/24 Allergies Allergy/AdvReac Type Severity Reaction Status Date / Time aspirin (Aspirin) Allergy Severe HIVES,RASH Verified 11/24/24 13:22 tramadol (TRAMADOL) Allergy Severe ITCHING, Verified 11/24/24 13:22 hallucinations ibuprofen (From MOTRIN) Allergy Intermediate HIVES, Verified 11/24/24 13:22 itching metformin Allergy Intermediate tremors Verified 11/24/24 13:22 shrimp Allergy Mild Itching Verified 11/24/24 13:22 Kcfyrwa-PVB-CuK Reductase AdvReac Intermediate Muscle Pain Verified 11/24/24 13:22 Inhibitor ([id number] REDUCTASE INHIBITOR) influenza virus vaccine, AdvReac Mild shoulder Verified 11/24/24 13:22 specific (Influenza Virus pain, Vacc,Specific) tremors Codeine Phosphate Allergy Unknown UNKNOWN Uncoded 09/10/24 14:02 Review of Systems Constitutional: Constitutional: Denies body ache(s), Denies chills, Denies fever(s) and Denies headache(s) Eyes: Eyes: Denies blurry vision ENT: Denies vertigo, Denies dizziness and Denies headache(s) Cardiovascular: Cardiovascular: Denies chest pain, Denies syncope and Denies dyspnea Respiratory: Respiratory: Denies dyspnea Gastrointestinal: Gastrointestinal: Denies abdominal pain, Denies nausea and Denies vomiting Musculoskeletal: Musculoskeletal: Denies back pain, Reports arthralgias, Reports joint swelling and Reports limited range of motion Integumentary/Breasts: Skin/Breast: Denies swelling and Denies wounds Neurologic: Denies vertigo, Denies dizziness, Denies syncope and Denies headache(s) [facility] Past Medical History Medical History Hx of breast cancer No natural teeth GERD (gastroesophageal reflux disease) Asthma Osteoarthritis Diabetes mellitus HTN (hypertension) Paroxysmal atrial fibrillation (HFpEF) heart failure with preserved ejection fraction Surgical History History of total bilateral knee replacement Hx of cholecystectomy Hx of knee surgery Hx of breast biopsy Hx of tonsillectomy Hx of tubal ligation Family History Family History Father CVD (cardiovascular disease) Sudden cardiac Mother No problems noted. Social History Social History Household Members: None Housing: Apartment Are you a primary hospice care transitions coordinator to a significant other at home: No Do you presently have visiting nurse or other home services: No Unable to assess alcohol history related to: Unknown Alcohol intake: never Patient Tobacco Use Status: Former Tobacco user Tobacco use type: Cigarette Advance Directives: No Advance Directives Information Provided: Yes service: No Physical Exam ED Vital Signs: Vital Signs - 24 hr 11/24/24 13:18 11/24/24 19:09 Temperature 98.4 F 98.4 F Pulse Rate 70 70 Respiratory Rate 18 18 Blood Pressure 141/65 H 141/65 H Pulse Oximetry 96 96 Oxygen Delivery Method Room Air Room Air BMI result Body Mass Index 29.1 Const General: healthy appearing, comfortable, no acute distress, alert and awake Nutritional Appearance: well nourished Orientation/consciousness: patient oriented x3 HENMT Head: Yes normocephalic and Yes atraumatic Eyes Eyelids: Yes eyelids normal Conjunctivae: conjunctivae normal Sclerae: sclerae normal Corneas: corneas normal Pupils: Equal, round and reactive pupils present EOM: EOMs intact bilaterally Neck Neck: Yes full ROM Resp Effort & Inspection: normal respiratory effort, able to speak in complete sentences, no audible wheezes and not labored Cardio Rate: regular rate Rhythm: regular rhythm GI Inspection: No distended Palpation (GI): Soft to palpation, not firm, nontender, no guarding and not rigid Skin General skin exam: elasticity normal Neuro General: patient oriented x3 Cranial nerves: Yes CN's II-XII intact bilaterally, Yes Equal, round and reactive pupils present and Yes Bilaterally intact EOM present Cognition (Neuro): normal cognition Extrem Other: There was no obvious visual or palpable deformity to the right upper extremity at the shoulder down to the fingertips. The patient is tenderness pretty much globally to the right upper extremity at the joint level of the shoulder, elbow and wrist. She has fairly good range of motion but slightly limited in abduction of the right upper extremity at the level of the shoulder, extreme extension of the right elbow. Course Course Course Narrative: RME, this is a rapid medical exam performed by Edison Byrne please refer to primary provider for complete H&P- 79-year-old female with a past medical history significant for AFib on Eliquis, epilepsy, hypertension, diabetes presents for evaluation of a fall. She reports falling yesterday because the building she has a did not have a hand rail. She landed on her right side complains of pain to her entire right arm. Denies hitting her head. She reports having fevers yesterday complaining of dizziness. Plan for labs, x-rays, CT scan of the brain, EKG Medical Decision Making Medical Decision Making [facility] Narrative: 79-year-old female presents for evaluation of a fall with right arm pain. She reports he is with a nonsyncopal fall and fell as she was reaching up for a hand rail that was not there. She landed on her right side, denies head strike. Given that she is on Eliquis we will still get a CT scan of her brain. We will get x-rays of the right shoulder, elbow, wrist. We will also obtain EKG, basic labs. Differential Diagnosis Differential Diagnoses: The differential diagnosis associated with the presentation includes Right arm contusion Shoulder fracture Elbow fracture Wrist fracture Shoulder sprain Elbow sprain Intracranial hemorrhage Lab Data [facility] Lab Attestation statement: I reviewed the patient's lab results. No leukocytosis or significant anemia. The patient has a mild hyperglycemia of 2 0 weight but no evidence of DKA. No other chemistry abnormalities. 11/24/24 14:03 11/24/24 14:03 Labs: Lab Results 11/24/24 Range/Units 14:03 WBC 7.5 (4.8-10.8) X10*3/uL RBC 5.36 (4.20-5.50) X10*6/uL Hgb 12.4 (12.0-16.0) g/dl Hct 40.1 (37.0-47.0) % MCV 74.8 L (80.0-98.0) fL MCH 23.1 L (27.0-33.0) pg MCHC 30.9 L (31.0-35.0) g/dl RDW 20.2 H (11.0-16.0) % Plt Count 332 (160-400) X10*3/uL MPV 8.0 L (9.4-12.3) fL Immature Gran % (Auto) 0.3 (0.0-0.4) % Neut % (Auto) 65.5 (45-73) % Lymph % (Auto) 24.6 (20-40) % [place] % (Auto) 6.8 (2-11) % Eos % (Auto) 2.4 (0-4) % Baso % (Auto) 0.4 (0-2) % Lymph # (Auto) 1.8 (1.2-4.9) X10*3/uL [place] # (Auto) 0.5 (0.1-1.2) X10*3/uL Eos # (Auto) 0.2 (0.0-0.4) X10*3/uL Baso # (Auto) 0.0 (0.0-0.2) X10*3/uL Abs Immat Gran (auto) 0.02 (0.00-0.03) X10*3/uL Absolute Neuts (auto) 4.9 (2.0-8.3) x10*3/uL Absolute Nucleated RBC 0.000 (0.0-0.012) X10*3/uL Nucleated RBC % (auto) 0.0 (0.0-0.2) /100WBC Sodium 139 (135-145) mmol/L Potassium 4.6 (3.3-5.1) mmol/L Chloride 103 (96-108) mmol/L Carbon Dioxide 26 (22-29) mmol/L Anion Gap 15 (12-20) BUN 15 (9-16) mg/dL Creatinine 0.94 (0.5-1.4) mg/dL Estim Creat Clear Calc 41.6 Estimated GFR 57 Random Glucose 208 H (60-115) mg/dL Calcium 9.3 (8.4-10.2) mg/dL Magnesium 2.4 (1.6-2.6) mg/dL Total Bilirubin 0.3 (0.0-1.0) mg/dL AST 30 (5-31) U/L ALT 18 (0-31) U/L Alkaline Phosphatase 112 (39-117) U/L Troponin I High Sens < 2.7 (<3.5-17.0) ng/L Total Protein 7.8 (6.5-8.0) g/dL Albumin 4.4 (3.5-5.0) g/dL Lipase 32 (8-78) U/L Influenza Type A (PCR) NEGATIVE (Negative) Influenza Type B (PCR) NEGATIVE (Negative) RSV RNA Qual (PCR) NEGATIVE (Negative) SARS-CoV-2 RNA (RT-PCR) NEGATIVE (Negative) Radiology Impression Discussion of test interpretation with radiology: I have reviewed the radiologist's reading. Radiologist Impression: FINDINGS: There is no acute ischemic change. There is no intracranial hemorrhage. Chronic basal ganglion calcifications are again noted. There is no mass-effect or midline shift. Basal cisterns and ventricles are within normal limits for age/cerebral volume. Orbits are symmetrical and unremarkable. Paranasal sinuses and mastoid air cells are pneumatized. There are no bony abnormalities. CT/CT head/brain wo IV con IMPRESSION: No acute intracranial abnormality. Electronically signed by: Rigo Rubin MD 11/24/2024 03:15 PM EDT RP FINDINGS: Enthesophyte is noted at the greater tuberosity. Marginal osteophytes are seen involving the humeral head and minimally involving glenoid. There is minimal joint space narrowing. There is no dislocation. AC joint is intact and not degenerated. XR/XR shoulder RT min 2V IMPRESSION: Mild degenerative changes of the right shoulder joint. Electronically signed by: Rigo Rubin MD 11/24/2024 03:20 PM EDT RP FINDINGS: Fat pads of the elbow joint are not displaced. Minimal osteophyte formation is noted in the ulnar side of the elbow joint and radial head. There has been no interval change. XR/XR elbow RT min 3V IMPRESSION: Mild degenerative change of the right elbow joint. Electronically signed by: Rigo Rubin MD 11/24/2024 03:22 PM EDT RP FINDINGS: There is a bony flange along the radial side of the radial styloid. There is no joint diastases. There is no visible fracture line. XR/XR wrist RT min 3V IMPRESSION: Unremarkable right wrist. Electronically signed by: Rigo Rubin MD 11/24/2024 03:23 PM EDT RP Discharge Plan Discharge Clinical Impression: Arm pain, right Patient Disposition: Home, Self-Care Additional Instructions: All of your tests were reassuring. This includes the x-rays of your right arm, the CT scan of the brain, your EKG, your blood work I recommend using Tylenol as needed for your pain You may also apply ice every 4 hours for 10-15 minutes Follow-up with your primary doctor, return for new or worsening symptoms Prescriptions: No Action furosemide 20 mg tablet 20 mg PO QAM Qty: 30 1RF omeprazole 20 mg capsule,delayed release(DR/EC) 20 mg PO DAILY Qty: 14 0RF gabapentin 400 mg Capsule 400 mg PO TID fluticasone propionate 50 mcg/actuation spray,suspension 1 spray intranasal DAILY Arnuity Ellipta 100 mcg/actuation blister with device 1 inh INHALATION DAILY vitamin E 268 mg (400 unit) Capsule 536 mg PO DAILY celecoxib 200 mg Capsule 200 mg PO BID 30 Days Qty: 60 0RF acetaminophen 325 mg Tablet 650 mg PO Q6H PRN (Reason: Pain, Mild (Pain Scale 1-3), fever or headache) 30 Days Qty: 240 0RF enoxaparin 40 mg/0.4 mL Syringe 40 mg subcut Q24H 1 Days Qty: 0.4 0RF oxycodone 10 mg tablet 10 mg PO Q4H PRN (Reason: Pain, Moderate(Pain Scale 4-6)) 7 Days Qty: 42 0RF Rx Instructions: Partial Fill upon patient request. docusate sodium 100 mg Capsule 100 mg PO BID 30 Days Qty: 60 0RF ondansetron 4 mg tablet,disintegrating 4 mg PO Q8H PRN (Reason: nausea and vomiting) Qty: 7 0RF insulin glargine 100 unit/mL (3 mL) insulin pen 52 unit subcut DAILY lisinopril 5 mg tablet 5 mg PO DAILY ezetimibe 10 mg tablet 10 mg PO DAILY calcium carbonate-vitamin D3 600 mg(1,500mg) -400 unit tablet 1 tab PO BID Eliquis 5 mg tablet 5 mg PO DAILY (DME) Cock up splint See Rx Instructions .Route .MEDSUPPLY Qty: 2 0RF Rx Instructions: Wear spilt on both hands nightly. (DME) lancets 33 gauge misc See Rx Instructions .ROUTE .MEDSUPPLY Qty: 100 Rx Instructions: As directed (DME) pen needle, diabetic 32 gauge x 5/32 needle See Rx Instructions .ROUTE .MEDSUPPLY Qty: 50 Rx Instructions: As directed insulin aspart U-100 100 unit/mL (3 mL) insulin pen See Protocol subcut TIDAC Protocol: Insulin Correction Scale Less than or equal to 110 ---- Give (units): 0 111 to 150 Give (units): 0 151 to 200 Give (units): 2 201 to 250 Give (units): 4 251 to 300 Give (units): 6 301 to 350 Give (units): 8 Greater than 350 Give (units): 10 Call MD if Blood Glucose > : 350 cetirizine 10 mg tablet 10 mg PO DAILY (DME) blood sugar diagnostic Strip See Rx Instructions Not Applicable .MEDSUPPLY Qty: 10 Rx Instructions: As directed metoprolol succinate 50 mg tablet extended release 24 hr 50 mg PO DAILY Jardiance 25 mg tablet 25 mg PO DAILY sertraline 50 mg tablet 50 mg PO DAILY albuterol sulfate 2.5 mg /3 mL (0.083 %) solution for nebulization 2.5 mg inhalation Q6H PRN (Reason: wheezing) (DME) Wrist Brace Misc See Rx Instructions .Route Qty: 2 0RF Rx Instructions: wear on each wrist only at night Interventions: ED Discharge Assessment Last Done: 11/24/24 19:09 Discharge Date/Time: 11/24/24 19:09 Print Language: Luxembourgish
[2024-11-24 14:08] LABS: MANUAL DIFF FLAG NO
[2024-11-24 14:10] LABS: Hematocrit 40.1 % (37.0-47.0); Hemoglobin 12.4 g/dl (12.0-16.0); Imm Gran Abs Auto 0.02 X10*3/uL (0.00-0.03); Imm Gran Pct Auto 0.3 % (0.0-0.4); Lymphocytes Absolute Auto 1.8 X10*3/uL (1.2-4.9); Mean Corpuscular HGB Conc 30.9 g/dl (31.0-35.0); Mean Corpuscular Hemoglobin 23.1 pg (27.0-33.0); Mean Corpuscular Volume 74.8 fL (80.0-98.0); NRBC Abs Auto 0.000 X10*3/uL (0.0-0.012); NRBC Pct Auto 0.0 /100WBC (0.0-0.2); Platelet Count 332 X10*3/uL (160-400); Red Blood Count 5.36 X10*6/uL (4.20-5.50); White Blood Count 7.5 X10*3/uL (4.8-10.8)
[2024-11-24 14:24] LABS: Alanine Aminotransferase 18 U/L (0-31); Albumin Level 4.4 g/dL (3.5-5.0); Alkaline Phosphatase 112 U/L (39-117); Anion Gap 15 (12-20); Aspartate Amino Transferase 30 U/L (5-31); Blood Urea Nitrogen 15 mg/dL (9-16); Calcium 9.3 mg/dL (8.4-10.2); Carbon Dioxide 26 mmol/L (22-29); Chloride 103 mmol/L (96-108); Creatinine Clr Calc Pharmacy 41.6; Estimated Glomerular Filt Rate 57; Lipase 32 U/L (8-78); Magnesium 2.4 mg/dL (1.6-2.6); Potassium 4.6 mmol/L (3.3-5.1); Sodium 139 mmol/L (135-145); Total Protein 7.8 g/dL (6.5-8.0)
[2024-11-24 14:32] LABS: Troponin-I High Sensitivity < 2.7 ng/L (<3.5-17.0)
[2024-11-24 14:50] LABS: Resp Syncy Virus RNA Qual PCR NEGATIVE (Negative); SARS COV2 PCR INHOUSE NEGATIVE (Negative)
[2024-11-24 19:09] VITALS: BP 141/65; PULSE 70; RESP 18; TEMP 36.9; O2SAT 96
== END 2024-11-24 19:09 | disposition home or self-care (01) ==
PROVIDERS: Physician Assistant; Emergency Provider Emergency Medicine; PCP Family Medicine
DX: M79.601 Pain in right arm (principal); R51.9 Headache, unspecified; I48.91 Unspecified atrial fibrillation; M25.511 Pain in right shoulder; M25.531 Pain in right wrist; E11.9 Type 2 diabetes mellitus without complications; Z03.818 Encounter for observation for suspected exposure to other biological agents ruled out; Z79.01 Long term (current) use of anticoagulants; Z79.899 Other long term (current) drug therapy; Z79.4 Long term (current) use of insulin; Z87.891 Personal history of nicotine dependence
CPT/HCPCS: 70450; 73030; 73080; 73110; 80053; 83690; 83735; 84484; 85025; 87637; 93005; 99283; 99284

== ENCOUNTER → 2024-11-24 13:18 | Outpatient (BNV) | payer OTHER, SELFPAY | PROVIDERS: PCP Family Medicine; Visit Provider Radiology Diagnostic Radiology | DX: S09.90XA Unspecified injury of head, initial encounter (principal); M19.011 Primary osteoarthritis, right shoulder; M19.021 Primary osteoarthritis, right elbow; M25.531 Pain in right wrist | CPT/HCPCS: 70450; 73030; 73080; 73110 ==

== ENCOUNTER → 2024-11-24 13:19 | Outpatient (BNV) | payer OTHER, SELFPAY | PROVIDERS: PCP Family Medicine; Visit Provider Internal Medicine Cardiovascular Disease | DX: R53.1 Weakness (principal) | CPT/HCPCS: 93010 ==

== ENCOUNTER 2024-12-08 09:59 | Outpatient (AMB) | payer OTHER, SELFPAY ==
--- OUTSIDE RECORDS SUMMARY | 2023-07-24 05:00 | XMS_ITS ---
Author Organization [facility] Address [address] [place] [address] Care Team Providers Care Drafter (Cad) Electrical Name Role Phone Karoline Burgos Primary Care Provider Hiro Corbin Unavailable [phone] Allergies Allergen (clinical drug ingredient) Drug/Non Drug [...] 07/24/2023 Encounters [facility] Date [facility] [address] [place] [address] 07/24/2023 Hiro Pavon Plan Of Treatment Next Appt Details Provider Name:Danielle mills, 12/14/2024 03:00:00 PM, [address], [address], [place], [address], Progress Notes * Clau LEODOB:1945 (79 yo F)Acc No.[id number]:07/24/2023 Progress Notes Patient: Clau WRIGHT Provider: Nelsy Pavon DPM :1945 A ge:78 Y S ex:Female Date:07/24/2023 Address:[address] [place], [place] [id number] Pcp:Karoline Burgos Subjective: * Chief Complaints: * [...] enies. C ardiovascular: Pacemaker d enies. 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 W PW d enies. C [...] 0 07/24/2023 Generated for Ray marcial/Ranjit/Shana on: 0 12/08/2024 11:25 AM EDT
--- OUTSIDE RECORDS SUMMARY | 2024-12-03 10:00 | XMS_ITS | Encounter Summary ---
Author Organization [employer] Address [address] [place] [address] Care Team Providers Care Workers Compensation Claims Supervisor Name Role Phone Aubrey Karoline Primary Care Provider + [phone] Jannie Reynoso PharmD Unavailable [phone] Reason for Visit * Reason Comments Puritus of scalp Encounter Details Date Type Department Care Team ([facility] st Contact Info) Description 12/03/2024 10:00 AM EDT Office Visit [facility] MEDICINE [address] [place] [address] Katt Magdaleno MD [address] [place], [place] [phone] Itchy scalp (Primary Dx) Social History Tobacco Use Types Packs/Day Years Used Date Smoking Tobacco: Former Cigarettes Passive Smoke Exposure: Past Smokeless Tobacco: Former Alcohol Use Standard Drinks/Week Comments Never 0 (1 standard drink = 0.6 oz pur e alcohol) Depression Answer Date Recorded Patient Health Questionnaire-9 Score 2 09/19/2023 Patient Health Questionnaire-9 Score 2 09/19/2023 Last PHQ-9: Questionnaire Data Not on file 0 09/19/2023 Housing Stability Answer Date Recorded What is your housing situation today? I have yomi brown 09/19/[address] you li ve. Do you have problems with any of the following? None of the above 09/19/2023 Food Insecurity Answer Date Recorded Within the past 12 months, y ou worried that your food would run out before you got money to buy more: Never True 09/19/2023 Within the past 12 months,th e food you bought just didn't last and you didn't have enough money to get more: Never True Transportation Answer Date Recorded In the past 12 months, has l ack of transportation kept you from medical appts, meetings, work or from getting things needed for daily living? No 09/19/2023 Utilities Answer Date Recorded In the past 12 months, has t he electric, gas, oil or water company threatened to shut off services in your home? No 09/19/2023 Depression Answer Date Recorded Patient Health Questionnaire-2 Score 0 03/23/2024 Internet Access Answer Date Recorded Internet Access Q1 I am not sure 03/23/2024 Internet Access Q2 Not on file 03/23/2024 Comments Unknown Sex and Gender Information Value Date Recorded Sex Assigned at Female 02/04/2022 10:20 AM EDT Legal Sex Female 10:20 AM EDT Gender Identity Female 02/04/2022 10:20 AM EDT Sexual Orientation Choose not to disclose 2021 10:20 AM EDT documented as of this encounter Last Filed Vital Signs Vital Sign Reading Time Taken Comments Blood Pressure 130/62 12/03/2024 9:34 AM EDT Pulse 75 12/03/2024 9:34 AM EDT Temperature 37.2 C (98.9 F) 12/03/2024 9:34 AM EDT Respiratory Rate 17 12/03/2024 9:34 AM EDT Oxygen Saturation 98% 12/03/2024 9:34 AM EDT Inhaled Oxygen Concentration - - Weight 69.3 kg (152 lb 12.8 oz) 12/03/2024 9:34 AM EDT Height - - Body Mass Index 29.84 10/22/2024 3:27 PM EDT documented in this encounter Progress Notes * Katt Magdaleno MD - 12/03/2024 10:00 AM EDT Subjective Patient ID: Clau Salmeron is a 79 y.o. female who presents for Puritus of scalp. HPI 79 yr old woman with hx of itchy head, no rash, no scales, has been going on for one year. Review of Systems Constitutional: Negative for diaphoresis, fatigue and fever. HENT: Negative for ear discharge, ear pain, facial swelling and hearing loss. Respiratory: Negative for cough, choking, chest tightness and shortness of breath. Cardiovascular: Negative for chest pain and leg swelling. Gastrointestinal: Negative for abdominal distention, abdominal pain and anal bleeding. Endocrine: Negative for cold intolerance and heat intolerance. Genitourinary: Negative for enuresis, flank pain and frequency. Musculoskeletal: Negative for arthralgias, back pain and gait problem. Neurological: Negative for dizziness, facial asymmetry and headaches. Psychiatric/Behavioral: Negative for agitation, behavioral problems and confusion. Objective Physical Exam Constitutional: Appearance: Normal appearance. HENT: Head: Normocephalic and atraumatic. Nose: Nose normal. Eyes: Pupils: Pupils are equal, round, and reactive to light. Pulmonary: Effort: Pulmonary effort is normal. Musculoskeletal: General: Normal range of motion. Cervical back: Normal range of motion. Skin: Comments: Scalp looks normal, slightly hyperemic all over, no scales, no lesions, no scars Neurological: General: No focal deficit present. Mental Status: She is alert. Assessment/Plan Diagnoses and all orders for this visit: Itchy scalp For one yr. Scalp on exam is slightly hyperemic, no scales, no scars. Ddx: ana dermatitis, neuropathy from potential cervical DJD Apply Oak Leaf-smooth oil as below for 2-3 months Wash with gentle hydrating shampoo - Fluocinolone Acetonide Scalp (Oak Leaf-Smoothe/FS Scalp) 0.01 % oil; Apply 3 times weekly at night with head cover documented in this encounter Plan of Treatment Upcoming Encounters Date Type Department Care Team (Late st Contact Info) Description 01/12/2025 3:00 PM EDT Medication Management [facility] MEDICINE [address] [place] [address] Jannie Reynoso PharmD [address] [place] [address] documented as of this encounter Goals Goal Patient Goal Type Associated Problems Recent Progress Patient-Stated? Author Hemoglobin A1c < 7.5 Result Component 7.8( 8:11 AM EDT) No Juan Jackson, PharmD Note: age, hx malignant neoplasm of breast Record your blood sugar as directed Result Component No Jannie Reynoso PharmD Note: Use CGM, ensuring sensor is scanned at least once every 8 hours to capture 24H data. Check BG manually, as directed. documented as of this encounter Visit Diagnoses Diagnosis Itchy scalp- Primary Unspecified pruritic disorder documented in this encounter Additional Health Concerns Assessment Noted Time PHQ-9 Depression Total Score: 2 09/19/19 24 10:01 AM EDT documented as of this encounter Care Teams Workers Compensation Claims Supervisor Relationship Specialty Start Date End Date Karoline Burgos DO [address] [place] [address] PCP - General Family Medicine 03/19/12 Jannie Reynoso PharmD [address] [place] [address] Pharmacist Internal Medicine 11/18/22 documented as of this encounter
[2024-12-08 10:06] VITALS: BP 122/70; PULSE 63; BMI 29.3
--- NOTE | 2024-12-08 10:06 | MHC.OFFVIS ---
Vital Signs 12/08/24 10:06 Height 5 ft Weight 149 lb 14.629 oz BMI 29.3 BP 122/70 Blood Pressure Location Lt brachial Position Sitting Pulse 63 Intake Visit Reasons: 1 year follow-up with ekg Intake Note: 1 year follow-up feeling good had ekg on 11/24 Museum Attendant Required: No Allergies aspirin (Aspirin) Allergy (Severe, Verified 11/24/24 13:22) HIVES,RASH tramadol (TRAMADOL) Allergy (Severe, Verified 11/24/24 13:22) ITCHING, hallucinations ibuprofen (From MOTRIN) Allergy (Intermediate, Verified 11/24/24 13:22) HIVES, itching metformin Allergy (Intermediate, Verified 11/24/24 13:22) tremors shrimp Allergy (Mild, Verified 11/24/24 13:22) Itching Yxsnujl-IAQ-IkT Reductase Inhibitor (LDRMEFB-MUT-UBJ REDUCTASE INHIBITOR) Adverse Reaction (Intermediate, Verified 11/24/24 13:22) Muscle Pain influenza virus vaccine, specific (Influenza Virus Vacc,Specific) Adverse Reaction (Mild, Verified 11/24/24 13:22) shoulder pain, tremors Codeine Phosphate Allergy (Unknown, Uncoded 09/10/24 14:02) UNKNOWN Medication List - Last Reconciled 12/08/24 by Wellington Pham MD acetaminophen 650 mg (2 x 325 mg) PO Q6H PRN 30 days albuterol sulfate 2.5 mg inhalation Q6H PRN apixaban (Eliquis) 5 mg PO DAILY Held on 11/05/23. Instructions: Resume on 11/07/23. Resume regular dose Friday arm brace (Wrist Brace) wear on each wrist only at night blood sugar diagnostic As directed calcium carbonate-vitamin D3 600 mg-10 mcg (400 unit) 1 tab PO BID celecoxib 200 mg PO BID 30 days cetirizine 10 mg PO DAILY [Cock up splint Wear spilt on both hands nightly. ] docusate sodium 100 mg PO BID 30 days dulaglutide (Trulicity) mg subcut QWEEK empagliflozin (Jardiance) 25 mg PO DAILY enoxaparin 40 mg (0.4 mL) subcut Q24H 1 day ezetimibe 10 mg PO DAILY fluticasone furoate 100 mcg/actuation (Arnuity Ellipta) 1 inh inhalation DAILY fluticasone propionate 50 mcg/actuation 1 spray intranasal DAILY furosemide 20 mg PO QAM gabapentin 400 mg PO TID insulin aspart U-100 See Protocol sliding scale doses subcut TIDAC insulin glargine 52 units subcut DAILY lancets As directed lisinopril 5 mg PO DAILY metoprolol succinate ER 50 mg PO DAILY omeprazole 20 mg PO DAILY ondansetron 4 mg PO Q8H PRN pen needle, diabetic As directed sertraline 50 mg PO DAILY vitamin E 536 mg PO DAILY HPI Comments Details: Clau comes for follow-up after a long gap. She underwent a shoulder surgery last year without any issues and is doing well. She has no active cardiac issues. She denies any prolonged palpitation irregular heartbeat. Denies any worsening symptoms of heart failure. No worsening shortness of breath, orthopnea, PND. She does not exercise much but says with her usual activity she is doing well. No exertional chest pain. No bleeding issues or neurologic events. [facility] Medical History Hx of breast cancer No natural teeth GERD (gastroesophageal reflux disease) Asthma Osteoarthritis Diabetes mellitus HTN (hypertension) Paroxysmal atrial fibrillation (HFpEF) heart failure with preserved ejection fraction Surgical History History of total bilateral knee replacement Hx of cholecystectomy Hx of knee surgery Hx of breast biopsy Hx of tonsillectomy Hx of tubal ligation Family History Father CVD (cardiovascular disease) Sudden cardiac Mother No problems noted. Social History Household Members: None Housing: Apartment Are you a primary adult live in caregiver to a significant other at home: No Do you presently have visiting nurse or other home services: No Unable to assess alcohol history related to: Unknown Alcohol intake: never Patient Tobacco Use Status: Former Tobacco user Tobacco use type: Cigarette service: No Review of Systems Const Denies chills, Denies fatigue, Denies fever(s), Denies frequent falls, Denies weakness, Denies weight gain and Denies weight loss ENT Denies dizziness Card Denies chest pain, Denies leg edema, Denies lightheadedness, Denies palpitations, Denies dyspnea, Denies dyspnea on exertion, Denies orthopnea and Denies other (loss of consciousness) Resp Denies cough, Denies dyspnea and Denies dyspnea on exertion GI Denies hematochezia and Denies change in stool character Musc Denies abnormal gait, Denies muscle weakness, Denies numbness, Denies radiating pain into limb and Denies tingling Neuro Denies abnormal gait, Denies dizziness, Denies frequent falls, Denies numbness, Denies tingling and Denies weakness Endo Denies fatigue and Denies palpitations Physical Exam Vital Signs: Last Vital Signs Pulse 63 12/08/24 10:06 BP 122/70 12/08/24 10:06 BMI result Body Mass Index 29.3 Const General: cooperative, comfortable, no acute distress, alert and awake Nutritional Appearance: obese Orientation/consciousness: patient oriented x3 Limitations: no limitations Neck Neck: Yes trachea midline, Yes supple and Yes no JVD Resp Effort & Inspection: normal respiratory effort Auscultation: clear to auscultation bilaterally and diminished lung sounds Cardio Jugular venous distension: no JVD Palpation: normal PMI Rate: regular rate Rhythm: regular rhythm Heart sounds: S1 normal heart sound present, S2 normal heart sound present, no click, no gallops and no murmurs GI Auscultation: normal bowel sounds Skin General skin exam: no rashes or lesions noted Neuro General: patient oriented x3 and no focal motor deficits Extrem General: Yes no clubbing, cyanosis or edema Psych Appearance: grossly normal Assessment & Plan Assessment & Plan (1) (HFpEF) heart failure with preserved ejection fraction: Code(s): I50.30 - Unspecified diastolic (congestive) heart failure Category: Medical Plan: Heart failure preserved ejection fraction without any significant worsening in his symptoms. She is appearing euvolemic and well compensated. No worsening symptoms. Continue current low-dose diuretic therapy. Continue daily weight monitoring avoidance salt loading. Continue rhythm control approach as below. Continue participate in aggressive risk factor modification. Blood pressure is currently well optimized. Additional diuretics as need be was discussed. Advised to call me with any worsening symptoms. Follow-up echocardiogram in 1 year's time. (2) Paroxysmal atrial fibrillation: Code(s): I48.0 - Paroxysmal atrial fibrillation Category: Medical Plan: Paroxysmal atrial fibrillation which has remained suppressed. She is doing well from rhythm control approach will continue pursue rhythm control approach. Continue metoprolol therapy. No indication for antiarrhythmic drug therapy at this point time. Continue full oral anticoagulation, currently on Eliquis 5 mg b.i.d.. Semi annual renal function test should be pursued. Will follow up in the clinic in 1 year's time, sooner p.r.n.. Thank you for allowing me to partake in her care Medications: Discontinued enoxaparin Discontinued Reason: Patient no longer taking 40 mg (0.4 mL) subcut Q24H 1 day 0.4 mL 0RF Coding Level of Care Code Est Pt Level 4 (92622) Complex EM visit Add On G2211 Diagnoses (HFpEF) heart failure with preserved ejection fraction I50.30 Paroxysmal atrial fibrillation I48.0
--- OUTSIDE RECORDS SUMMARY | 2024-12-08 11:29 | XMS_ITS | Encounter Summary ---
Author Organization [employer] [facility] Address [address] [place] [address] Care Team Providers Care Outside Energy Sales Representatives Name Role Phone Karoline Burgos DO Primary Care Provider PuJannie valdes PharmD Unavailable [phone] Reason for Visit * Reason Comments Med Refill Encounter Details Date Type Department Care Team (Late Contact Info) Description 12/12/2022 Refill [facility] MEDICINE [address] [place] [address] Karoline Burgos DO [address] [place] [address] Vitamin D deficiency Social History Tobacco Use Types Packs/Day Years Used Date Smoking Tobacco: Never Passive Smoke Exposure: Never Smokeless Tobacco: Never Depression Answer Date Recorded Patient Health Questionnaire-9 Score 6 07/17/2022 Depression Answer Date Recorded Patient Health Questionnaire-2 [...] Encounters Date Type Department Care Team (Late Contact Info) Description 01/12/2025 3:00 PM EDT Medication Management [facility] MEDICINE [address] [place], [place] [phone] Puia, Jannie, PharmD [address] [place] [address] documented as of this encounter Goals Goal Patient Goal Type Associated Problems Recent Progress Patient-Stated? Author Hemoglobin A1c < 7.5 Result Component 7.8( 5 8:11 AM EDT) No Juan Jackson PharmD Note: age, hx malignant neoplasm of breast Record your blood sugar as directed Result Component No Jannie Reynoso PharmD Note: Use CGM, ensuring sensor is scanned at least once every 8 hours to capture 24H data. Check BG manually, as directed. documented as of this encounter Visit Diagnoses Diagnosis Vitamin D deficiency documented in this encounter Additional Health Concerns Assessment Noted Time PHQ-9 Depression Total Score: 6 07/18/19 23 10:55 AM EDT documented as of this encounter Care Teams Outside Energy Sales Representatives Relationship Specialty Start Date End Date Karoline Burgos DO [address] [place] [address] PCP - General Family Medicine 03/19/12 Jannie Reynoso PharmD [address] [place] [address] Pharmacist Internal Medicine 11/18/22 documented as of this encounter
--- OUTSIDE RECORDS SUMMARY | 2024-12-08 11:29 | XMS_ITS | Encounter Summary ---
Author Organization [employer] [facility] Address [address] [facility] [address] [place] [address] Care Team Providers Care Government Services Professional Name Role Phone Karoline Burgos DO Primary Care Provider DelJuan aleman PharmD Unavailable Unavail able PuJannie valdes PharmD Unavailable Encounter Details Date Type Department Care Team ([facility] Contact Info) Description 05/15/2022 Telephone [facility] [address] [place] [address] Karoline Burgos DO [address] [place] [address] Social History Tobacco Use Types Packs/Day Years Used Date Smoking Tobacco: Never Assessed Comments Unknown Sex and Gender Information Value Date Recorded Sex Assigned at Female 02/04/2022 10:20 AM EDT Legal Sex Female 10:20 AM EDT Gender Identity Female 02/04/2022 10:20 AM EDT Sexual Orientation Choose not to disclose 2021 10:20 AM EDT COVID-19 Exposure Response Date Recorded In the last 10 days, have yo u been in contact with someone who was confirmed or suspected to have Coronavirus/COVID-19? No / Unsure 04/17/2022 10:33 AM EST documented as of this encounter Plan of Treatment Upcoming Encounters Date Type Department Care Team ([facility] Contact Info) Description 01/12/2025 3:00 PM EDT Medication Management [facility] [address] [place] [address] Puia, Jannie, PharmD [address] [place] [address] documented as of this encounter Goals Goal Patient Goal Type Associated Problems Recent Progress Patient-Stated? Author Hemoglobin A1c < 7.5 Result Component 7.8( 5 8:11 AM EDT) No Juan Jackson, Jamie Note: age, hx malignant neoplasm of breast documented as of this encounter Visit Diagnoses Not on filedocumented in this encounter Care Teams Government Services Professional Relationship Specialty Start Date End Date Karoline Burgos DO [address] [place] [id number] PCP - General Family Medicine 03/19/12 Juan Jackson, PharmD [address] [place] [address] Pharmacist Internal Medicine 03/27/22 10/08/22 Jannie Reynoso PharmD [address] [place] [id number] Pharmacist Internal Medicine 11/18/22 documented as of this encounter
--- OUTSIDE RECORDS SUMMARY | 2024-12-08 11:29 | XMS_ITS | Encounter Summary ---
Author Organization [employer] Address [address] [place] [address] Care Team Providers Care Delivery Representative Name Role Phone Karoline Burgos DO Primary Care Provider + [phone] Jannie Reynoso PharmD Unavailable [phone] Reason for Visit * Reason Comments Med Refill Encounter Details Date Type Department Care Team ([facility] st Contact Info) Description 02/03/2023 Refill [facility] MEDICINE [address] [place] [address] Karoline Burgos DO [address] [place], [place] [phone] Social History Tobacco Use Types Packs/Day Years [...] Description 01/12/2025 3:00 PM EDT Medication Management [facility] MEDICINE [address] [place], [place] [phone] Jannie Reynoso PharmD [address] [place], [place] [phone] documented as of this encounter Goals Goal [...] documented as of this encounter Care Teams Delivery Representative Relationship Specialty Start Date End Date Karoline Burgos DO [address] [place], [place] [phone] PCP - General Family Medicine 03/19/12 Jannie Reynoso PharmD [address] [place], [place] [phone] Pharmacist Internal Medicine 11/18/22 documented as of this encounter
--- OUTSIDE RECORDS SUMMARY | 2024-12-08 11:29 | XMS_ITS | Clinical Summary ---
Author Organization [employer] Address [address] [place] [address] Care Team Providers Care Zmt Operator Name Role Phone Karoline Burgos DO Primary Care Provider Jannie Reynsoo PharmD Unavailable [phone] Allergies Active Allergy Reactions Criticality Noted Date Comments Aspirin Hives 03/09/2012 Ibuprofen Hives 06/18/2023 Iodinated Contrast Media 01/08/2013 Iodine 06/18/2023 Tramadol Dizziness 06/18/2023 Medications furosemide (Lasix) 20 MG tablet Take 1 tablet by mouth in the morning. 02/26/20 22 Active glucose 4 g chewable tabletIndicatio ns:Type 2 diabetes mellitus without complication, with long-term current use of insulin ([facility]) Chew 4 tabletss (16g) as needed for low blood sugar < 70 mg/dL 40 tablet 5 12/17/19 23 Active hydrocortisone (Proctosol HC) 2.5 % rectal cream Insert into the rectum if needed in the morning and at bedtime for hemorrhoids. 28 g 3 06/19/19 24 Active albuterol (2.5 MG/3ML) 0.083% nebulizer solution INHALE 1 AMPULE USING A NEBULIZER EVERY 6 HOURS NEEDED FOR WHEEZING OR SHORTNESS OF BREATH 90 mL 1 11/19/19 24 Active Witch Rita (Hemorrhoidal Hygiene) 50 % pads APPLY TOPICALLY TO HEMORROIDES TWICE DAILY IN THE MORNING AND AT BEDTIME NEEDED 11/18/19 24 Active Ventolin HFA 108 (90 Base) MCG/ACT inhaler INHALE 2 PUFFS BY MOUTH EVERY 4 TO 6 HOURS NEEDED FOR COUGH, FOR WHEEZING, OR SHORTNESS OF BREATH 18 g 1 02/06/20 24 Active Multiple Vitamins-Minera ls (Multivitamin Women 50+) tablet Take 1 tablet by mouth Once per day. OTC Active Calcium Carb-Cholecalci ferol 600-10 MG-MCG tabletIndicatio ns:Osteoporosis , unspecified osteoporosis type, unspecified pathological fracture presence TAKE 1 TABLET BY MOUTH TWICE DAILY IN THE MORNING AND IN THE EVENING 180 tablet 3 04/05/20 24 Active Eliquis 5 MG tabletIndicatio ns:PAF (paroxysmal atrial fibrillation) ([facility]/HCC) TAKE 1 TABLET BY MOUTH TWICE DAILY IN THE MORNING AND IN THE EVENING 180 tablet 11 04/05/20 24 Active glucagon (Baqsimi Two Pack) 3 MG/DOSE nasal powderIndicatio ns:Type 2 diabetes mellitus without complication, with long-term current use of insulin ([facility]) Administer 3 mg via 1 device into the nostril for hypoglycemia with loss of consciousness. If no response after 15 minutes administer an additional dose via 2nd device into other nostril. 2 each 04/08/19 25 Active Continuous Glucose Outbound Telemarketer (FreeStyle Sherin 3 Alexis) deviceIndicatio ns:Type 2 diabetes mellitus without complication, with long-term current use of insulin ([facility]) 1 each 3 times daily. Use daily as directed for CGM 1 each 05/18/19 25 Active Continuous Glucose Sensor (FreeStyle Sherin 3 Plus Sensor) miscIndications :Type 2 diabetes mellitus without complication, with long-term current use of insulin ([facility]) 1 each 1 (one) time per week. Apply 1 sensor as directed every 15 days for CGM 2 each 05/18/19 25 Active glucose blood (FreeStyle Precision Cristian Test) test stripIndication s:Type 2 diabetes mellitus without complication, with long-term current use of insulin ([facility]) Use to test blood sugar up to 3 times daily, as directed 100 each 05/18/19 25 Active TRUEplus Lancets 33G miscIndications :Type 2 diabetes mellitus without complication, with long-term current use of insulin ([facility]) TEST BLOOD SUGAR THREE TIMES DAILY 100 each 05/18/19 25 Active Umeclidinium [place] (Incruse Ellipta) 62.5 MCG/ACT aerosol powder Inhale 1 Act (62.5 mcg) Once per day. 30 Act 05/19/19 25 2025 Active Dulaglutide (Trulicity) 1.5 MG/0.5ML solution auto-injectorIn dications:Type 2 diabetes mellitus without complication, with long-term current use of insulin ([facility]) Inject 1.5 mg under the skin 1 (one) time per week. 2 mL 06/23/19 25 Active fluticasone (Flonase) 50 MCG/ACT nasal sprayIndication s:Seasonal allergic rhinitis, unspecified trigger INSTILL 2 SPRAYS IN EACH NOSTRIL ONCE DAILY 16 g 06/29/19 25 Active ezetimibe (Zetia) 10 MG tablet Take 1 tablet (10 mg) by mouth in the morning. 90 tablet 06/29/19 25 Active cetirizine (ZyrTEC) 10 MG tablet TAKE 1 TABLET BY MOUTH EVERY MORNING 90 tablet 07/30/19 25 Active omeprazole (PriLOSEC) [address] capsule Take 1 capsule (20 mg) by mouth with breakfast and with evening meal. 180 capsule 08/21/19 25 Active metoprolol succinate XL (Toprol-XL) 50 MG 24 hr tablet Take 1 tablet (50 mg) by mouth in the morning. 90 tablet 08/21/19 25 Active sertraline (Zoloft) 50 MG tablet TAKE 1 TABLET BY MOUTH EVERY MORNING 30 tablet 09/15/19 25 Active docusate sodium (Colace) 100 MG capsule TAKE 1 CAPSULE BY MOUTH TWICE DAILY IN THE MORNING AND IN THE EVENING 180 capsule 09/23/19 25 Active Alcohol Swabs (Alcohol Prep) 70 % pads USE THREE TIMES DAILY 100 each 09/23/19 25 Active insulin pen needle (Pentips) 32G x 4 mm miscIndications :Type 2 diabetes mellitus without complication, with long-term current use of insulin ([facility]) Use as directed to inject insulin once daily 100 each 10/13/19 25 Active insulin glargine (Toujeo Max SoloStar) 300 UNIT/ML injectionIndica tions:Type 2 diabetes mellitus without complication, with long-term current use of insulin ([facility]) Inject 36 Units under the skin at bedtime. 6 mL 10/13/19 25 Active empagliflozin (Jardiance) 25 MGIndications:T ype 2 diabetes mellitus without complication, with long-term current use of insulin ([facility]) Take 1 tablet (25 mg) by mouth in the morning. 30 tablet 5 10/13/19 25 Active Arnuity Ellipta 100 MCG/ACT inhaler INHALE 1 PUFF BY MOUTH EVERY DAY AT THE SAME TIME RINSE MOUTH AFTER USING 30 each 5 10/16/19 25 Active cholecalciferol VITAMIN D (Vitamin D-3) 50 MCG (1999 UT) tabletIndicatio ns:Vitamin D deficiency TAKE 1 TABLET BY MOUTH EVERY MORNING 90 tablet 1 10/22/19 25 Active lisinopril 5 MG tabletIndicatio ns:Essential hypertension TAKE 1 TABLET BY MOUTH EVERY MORNING 90 tablet 10/22/19 25 Active ferrous sulfate (Fe Tabs) 325 (65 Fe) MG EC tablet Take 1 tablet (325 mg) by mouth 3 (three) times a week. Do not crush, chew, or split. 36 tablet 3 11/02/19 25 2025 Active gabapentin (Neurontin) 400 MG capsule TAKE 1 CAPSULE BY MOUTH TWICE DAILY IN THE MORNING AND AT BEDTIME 60 capsule 5 11/18/19 25 Active Fluocinolone Acetonide Scalp ([place]-Smoothe/ FS Scalp) 0.01 % oilIndications: Itchy scalp Apply 3 times weekly at night with head cover 118.28 mL 2 12/04/19 25 Active gabapentin (Neurontin) 400 MG capsule TAKE 1 CAPSULE BY MOUTH TWICE DAILY IN THE MORNING AND AT BEDTIME 60 capsule 5 05/31/19 25 2024 Discontinued Active Problems Problem Noted Date Diagnosed Date Nausea 10/27/2024 Nausea and vomiting in adult 10/27/2024 Diarrhea of presumed infectious origin Healthcare maintenance 04/30/2024 Adjustment disorder with depressed mood 05/27/19 Chronic pain of both shoulders 05/27/2023 BMI 31.0-31.9,adult 05/27/2023 Chronic obstructive lung disease 03/27/2022 Type 2 diabetes mellitus 04/11/2015 Assessment & Plan (06/13/2023 3:51 PM EST): Extensive diabetic diet counseling done F/u with PCP Chronic diastolic heart failure 04/11/2015 Status post right knee replacement 04/11/2015 Essential hypertension 01/06/2015 Hyperlipidemia 01/06/2015 History of breast cancer 01/06/2015 Osteoarthritis 01/06/2015 Assessment & Plan (06/13/2023 3:50 PM EST): Bed rails prescription will be generated C/w acetaminophen PRN Osteoporosis 01/06/2015 Paroxysmal atrial fibrillation 01/06/2015 Resolved Problems Problem Noted Date Diagnosed Date Resolved Date Itchy scalp 06/13/2023 09/19/2023 Right elbow pain 06/13/2023 09/19/2023 Inflammation of sacroiliac joint 03/13/2018 07/17/2022 Joint pain 01/06/2015 07/17/2022 Encounters Date Type Department Care Team Description 12/03/2024 10:00 AM EDT Office Visit [facility] [address] [facility] [place] [address] Katt Magdaleno MD Itchy scalp (Primary Dx) 12/03/2024 Travel 11/24/2024 Orders Only GENERIC EXTERNAL DATA DEPARTMENT Provider, Generic External Data 11/16/2024 Refill [facility] [address] [facility] [place] [address] Monica Medley MD 11/12/2024 Refill [facility] [address] [facility] [place] [address] Monica Medley MD 10/29/2024 Refill [facility] [address] [facility] [place] [address] Karoline Burgos DO 10/22/2024 3:30 PM EDT Office Visit [facility] [address] [place] [address] Carlita Saenz FNP Nausea and vomiting in adult (Primary Dx); Diarrhea of presumed infectious origin 10/22/2024 Travel 10/21/2024 Telephone [facility] [address] [place] [address] Carlita Saenz FNP Chart Prep 10/21/2024 Telephone [facility] [address] [facility] [place] [address] Karoline Burgos DO Lab Add On 10/19/2024 Refill [facility] [address] [place] [address] Karoline Burgos DO Vitamin D deficiency; Essential hypertension 10/18/2024 Telephone [facility] [address] [place] [address] Elio Van MA CHARTPREP 10/15/2024 Refill [facility] [address] [place] [address] Karoline Burgos, 10/13/2024 Telephone [facility] [address] [place] [address] Sis Khanna RN ER Follow-up 10/12/2024 Travel 09/22/2024 Refill [facility] [address] [place] [address] Karoline Burgos DO 09/22/2024 Refill [facility] [address] [place] [address] Shakila Wright MD 09/12/2024 Refill [facility] [address] [place] [address] Karoline Burgos DO 09/10/2024 Orders Only GENERIC EXTERNAL DATA DEPARTMENT Provider, Generic External Data 09/09/[address] [address] Karoline Burgos DO Recall Appointment from Last 3 Months Immunizations Immunization Administration Dates Next Due Hep B, adult 11/04/2013,06/02/2013,10/13/2012 Influenza High-dose Quadriva lent Preservative Free 12/17/2019 Influenza Quadrivalent Adjuvanted 12/20/2020 Influenza injectable quadriv alent IIV4 with preservative 02/21/2017,01/25/2016,02/09/2015 Influenza, High Dose Seasona l, Preservative Free 03/22/2019,01/14/2018 Influenza, IIV3, injectable 01/06/2014, 1 Influenza, Split (incl. jose fied surface antigen) 12/02/2011 Moderna Covid-19 Vaccine 12+ 07/05/2020 Pneumococcal Conjugate PCV 13 01/06/2015 Pneumococcal Conjugate PCV 20 11/18/2022 Pneumococcal Polysaccharide PPSV23 08/28/2018, RSV Bivalent 03/24/2023 Tdap 02/10/2024,07/23/2013 Zoster, Recombinant 06/12/2022,02/15/2021 Zoster, live 08/22/2009 Social History Tobacco Use Types Packs/Day Years Used Date Smoking Tobacco: Former Cigarettes Passive Smoke Exposure: Past Smokeless Tobacco: Former Tobacco Cessation:Counseling Given: Not Answered Alcohol Use Standard Drinks/Week Comments Never 0 [...] not to disclose 2021 10:20 AM EDT Last Filed Vital Signs Vital Sign Reading Time Taken Comments Blood Pressure 130/62 12/03/2024 9:34 AM EDT Pulse 75 12/03/2024 9:34 AM EDT Temperature 37.2 C (98.9 F) 12/03/2024 9:34 AM EDT Respiratory Rate 17 12/03/2024 9:34 AM EDT Oxygen Saturation 98% 12/03/2024 9:34 AM EDT Inhaled Oxygen Concentration - - Weight 69.3 kg (152 lb 12.8 oz) 12/03/2024 9:34 AM EDT Height 152.4 cm (5') 10/22/2024 3:27 PM EDT Body Mass Index 29.84 10/22/2024 3:27 PM EDT Plan of Treatment Upcoming Encounters Date Type Department Care Team (Late st Contact Info) Description 01/12/2025 3:00 PM EDT Medication Management [facility] [address] [place] [address] Jannie Reynoso, PharmD [address] [place] [address] Health Maintenance Due Date Last Done Comments Diabetes: Foot Exam 1955 Eye Exam 1955 COVID-19 Vaccine ( season) 2023 11/20/2021, 02/19/2021, 08/02/2020, Additional history exists Diabetes: Urine Protein Screening 01/08/2024 01/07/2023, 02/15/2021, 11/26/2019 Influenza Vaccine (#1) 2024 , 12/17/2019, 03/22/2019, Additional history exists Diabetes: Hemoglobin A1C 01/20/2025 025, 10/12/2024, 06/22/2024, Additional history exists Alcohol/Substance Use Screening 03/23/2025 03/23/2024 Depression Screening 03/23/2025 03/23/2024, 09/19/19 24 SDOH Screening 03/23/2025 03/23/2024 Diagnostic Breast Imaging 03/29/2025 03/29/2024 Mammogram 03/29/2025 03/29/2024 Lipid Panel 10/20/2025 10/20/2024, 10/0 06/2022, 04/30/2022, Additional history exists Tobacco Screening 10/22/2025 10/22/2024 DTaP/Tdap/Td Vaccines (3 - Td or Tdap) 02/09/2034 02/10/2024, 07/23/2013 Hepatitis B Vaccines Completed 11/04/2013, 06/02/2013, 10/13/2012 Hepatitis C Screening Completed 11/26/2019 Zoster Vaccines Completed 06/12/2022, 02/05, 08/22/2009 Pneumococcal Vaccine: 50+ Years Completed 11/18/2022, 08/28/2018, 01/06/2015, Additional history exists RSV Patients and Patients Aged 60 years or older Completed 03/24/2023 HIB Vaccines Aged Out No longer eligi ble based on patient's age to complete this topic HPV Vaccines Aged Out No longer eligi ble based on patient's age to complete this topic Hepatitis A Vaccines Aged Out No long er eligible based on patient's age to complete this topic IPV Vaccines Aged Out No longer eligi ble based on patient's age to complete this topic Meningococcal B Vaccine Aged Out No l onger eligible based on patient's age to complete this topic Meningococcal Vaccine Aged Out No lisa alida eligible based on patient's age to complete this topic RSV under 20 months Aged Out No longe r eligible based on patient's age to complete this topic Rotavirus Vaccines Aged Out No longer eligible based on patient's age to complete this topic Goals Goal Patient Goal Type Associated Problems Recent Progress Patient-Stated? Author Hemoglobin A1c < 7.5 Result Component 7.8( 8:11 AM EDT) No Juan Jackson PharmAsuncion Note: age, hx malignant neoplasm of breast Record your blood sugar as directed Result Component No Jannie Reynoso PharmD Note: Use CGM, ensuring sensor is scanned at least once every 8 hours to capture 24H data. Check BG manually, as directed. Procedures Procedure Name Priority Date/Time Associated Diagnosis Comments CT HEAD WO CONTRAST Routine 11/24/2024 2 :46 PM EDT XR SHOULDER 2+ VIEWS RIGHT Routine 11/24/2024 2:40 PM EDT XR ELBOW 3+ VIEWS RIGHT Routine 11/24/2024 2:08 PM EDT XR WRIST 3+ VIEWS RIGHT Routine 11/24/2024 2:05 PM EDT HIGH SENSITIVITY TROPONIN I Routine 11/24/2024 2:03 PM EDT LIPASE Routine 11/24/2024 2:03 PM EDT MAGNESIUM Routine 11/24/2024 2:03 PM EDT COMPREHENSIVE METABOLIC PANEL Routine 11/24/2024 2:03 PM EDT CBC WITH AUTO DIFFERENTIAL Routine 11/24/2024 2:03 PM EDT SARS COV2/INFLUENZA A/B AND RSV RNA QL NAAT Routine 11/24/2024 2:03 PM EDT IRON AND TOTAL IRON BINDING CAPACITY Routine 10/20/2024 8:11 AM EDT Low hemoglobin FERRITIN Routine 10/20/2024 8:11 AM EDT Low hemoglobin CBC Routine 10/20/2024 8:11 AM EDT Type 2 diabetes mellitus without complication, with long-term current use of insulin (CMS/HCC) Essential hypertension Other hyperlipidemia Adjustment disorder with depressed mood Paroxysmal atrial fibrillation (CMS/HCC) Chronic diastolic heart failure (CMS/HCC) Chronic obstructive pulmonary disease, unspecified COPD type (CMS/HCC) History of breast cancer Chronic pain of both shoulders Healthcare maintenance BASIC METABOLIC PANEL Routine 10/20/2024 8:11 AM EDT Type 2 diabetes mellitus without complication, with long-term current use of insulin (CMS/HCC) Essential hypertension Other hyperlipidemia Adjustment disorder with depressed mood Paroxysmal atrial fibrillation (CMS/HCC) Chronic diastolic heart failure (CMS/HCC) Chronic obstructive pulmonary disease, unspecified COPD type (CMS/HCC) History of breast cancer Chronic pain of both shoulders Healthcare maintenance HEMOGLOBIN A1C Routine 10/20/2024 8:11 AM EDT Type 2 diabetes mellitus without complication, with long-term current use of insulin (CMS/HCC) Essential hypertension Other hyperlipidemia Adjustment disorder with depressed mood Paroxysmal atrial fibrillation (CMS/HCC) Chronic diastolic heart failure (CMS/HCC) Chronic obstructive pulmonary disease, unspecified COPD type (CMS/HCC) History of breast cancer Chronic pain of both shoulders Healthcare maintenance HEPATIC FUNCTION PANEL Routine 10/20/2024 8:11 AM EDT Type 2 diabetes mellitus without complication, with long-term current use of insulin (CMS/HCC) Essential hypertension Other hyperlipidemia Adjustment disorder with depressed mood Paroxysmal atrial fibrillation (CMS/HCC) Chronic diastolic heart failure (CMS/HCC) Chronic obstructive pulmonary disease, unspecified COPD type (CMS/HCC) History of breast cancer Chronic pain of both shoulders Healthcare maintenance TSH Routine 10/20/2024 8:11 AM EDT Type 2 diabetes mellitus without complication, with long-term current use of insulin (CMS/HCC) Essential hypertension Other hyperlipidemia Adjustment disorder with depressed mood Paroxysmal atrial fibrillation (CMS/HCC) Chronic diastolic heart failure (CMS/HCC) Chronic obstructive pulmonary disease, unspecified COPD type (CMS/HCC) History of breast cancer Chronic pain of both shoulders Healthcare maintenance LIPID PANEL, STANDARD Routine 10/20/2024 8:11 AM EDT Type 2 diabetes mellitus without complication, with long-term current use of insulin (CMS/HCC) Essential hypertension Other hyperlipidemia Adjustment disorder with depressed mood Paroxysmal atrial fibrillation (CMS/HCC) Chronic diastolic heart failure (CMS/HCC) Chronic obstructive pulmonary disease, unspecified COPD type (CMS/HCC) History of breast cancer Chronic pain of both shoulders Healthcare maintenance VITAMIN D,25-OH,TOTAL,IA Routine 10/20/2024 8:11 AM EDT Type 2 diabetes mellitus without complication, with long-term current use of insulin (CMS/HCC) Essential hypertension Other hyperlipidemia Adjustment disorder with depressed mood Paroxysmal atrial fibrillation (CMS/HCC) Chronic diastolic heart failure (CMS/HCC) Chronic obstructive pulmonary disease, unspecified COPD type (CMS/HCC) History of breast cancer Chronic pain of both shoulders Healthcare maintenance T4, FREE Routine 10/20/2024 8:11 AM EDT Type 2 diabetes mellitus without complication, with long-term current use of insulin (CMS/HCC) Essential hypertension Other hyperlipidemia Adjustment disorder with depressed mood Paroxysmal atrial fibrillation (CMS/HCC) Chronic diastolic heart failure (CMS/HCC) Chronic obstructive pulmonary disease, unspecified COPD type (CMS/HCC) History of breast cancer Chronic pain of both shoulders Healthcare maintenance POCT GLYCATED HEMOGLOBIN, TOTAL Routine 10/12/2024 3:27 PM EDT Type 2 diabetes mellitus without complication, with long-term current use of insulin (CMS/HCC) CT ABDOMEN PELVIS W CONTRAST Routine 09/11/2024 12:54 AM EDT URINALYSIS, COMPLETE, WITH REFLEX TO CULTURE Routine 09/10/2024 9:14 PM EDT LIPASE Routine 09/10/2024 2:45 PM EDT MAGNESIUM Routine 09/10/2024 2:45 PM EDT COMPREHENSIVE METABOLIC PANEL Routine 09/10/2024 2:45 PM EDT CBC WITH AUTO DIFFERENTIAL Routine 09/10/2024 2:45 PM EDT SARS COV2/INFLUENZA A/B AND RSV RNA QL NAAT Routine 09/10/2024 2:45 PM EDT CULTURE, URINE, ROUTINE Routine 09/10/2024 12:00 AM EDT HM MAMMOGRAPHY Routine 03/29/2024 1:50 PM EST ALBUMIN, RANDOM URINE W/CREATININE Routine 01/07/2023 10:11 AM EDT ZZZ HISTORICAL HEPATITIS C AB W/REFL TO HCV RNA, QN, PCR Routine 11/26/2019 10:01 AM EDT from Last 3 Months or Most Recently Relevant to Health Maintenance Results * CT Head w/o Contrast (11/24/2024 2:46 PM EDT) Anatomical Region Laterality Modality Head, Neck Computed Tomogra phy 11/24/2024 2:46 PM EDT Narrative 11/24/2024 3:18 PM EDT [address] [address] [address] Scan Report Signed Patient: Clau Dougherty MR#: [id number] : 1945 Acct:[id number] Age/Sex: 79 / F ADM Date: 11/24/24 Loc: .ED Attending Dr: Ordering Physician: Zaid Byrne Date of Service: 11/24/24 Procedure(s): CT head/brain wo IV con Accession Number(s): [id number] cc: Karoline Burgos DO; Zaid Bynre Report Number: [id number]: Total DLP = 613.00 mGy-cm EXAMINATION: CT HEAD WITHOUT CONTRAST CLINICAL INFORMATION: Trauma, anticoagulated COMPARISON: June 03, 2023 TECHNIQUE: Contiguous axial imaging was performed from the skull base to vertex without intravenous administration of contrast. This CT examination was performed using dose optimization techniques as appropriate, variously including the following: *Automated exposure control *Adjustment of mA and/or kV according to patient size (this includes techniques or standardized protocols for targeted exams where dose is matched to indication/reason for exam; i.e. extremities or head) *Use of iterative reconstruction technique DLP: 613 mGY*cm FINDINGS: There is no acute ischemic change. There is no intracranial hemorrhage. Chronic basal ganglion calcifications are again noted. There is no mass-effect or midline shift. Basal cisterns and ventricles are within normal limits for age/cerebral volume. Orbits are symmetrical and unremarkable. Paranasal sinuses and mastoid air cells are pneumatized. There are no bony abnormalities. CT/CT head/brain wo IV con IMPRESSION: No acute intracranial abnormality. Electronically signed by: Rigo Rubin MD 11/24/2024 03:15 PM EDT RP Dictated By: Rigo Rubin MD Signed By: <Electronically signed by Rigo Rubin MD in OV> 11/24/24 1515 DD/ 1446 TD/TT: 11/24/24 1509 Assistant Food Service Manager: Procedure Note Donotuseinterpreter, Image - 11/24/[address] [address] [address] Scan Report Signed Patient: Clau Dougherty LMR#: M [id number] : 5Acct:[id number] Age/Sex: 79 / FADM Date: 11/24/24 Loc: HO.ED Attending Dr: Ordering Physician: Zaid Byrne Date of Service: 11/24/24 Procedure(s): CT head/brain wo IV con Accession Number(s): [id number] cc: Karoline Burgos DO; Zaid Byrne Report Number: [id number]: Total DLP = 613.00 mGy-cm EXAMINATION: CT HEAD WITHOUT CONTRAST CLINICAL INFORMATION: Trauma, anticoagulated COMPARISON: June 03, 2023 TECHNIQUE: Contiguous axial imaging was performed from the skull base to vertex without intravenous administration of contrast. This CT examination was performed using dose optimization techniques as appropriate, variously including the following: *Automated exposure control *Adjustment of mA and/or kV according to patient size (this includes techniques or standardized protocols for targeted exams where dose is matched to indication/reason for exam; i.e. extremities or head) *Use of iterative reconstruction technique DLP: 613 mGY*cm FINDINGS: There is no acute ischemic change. There is no intracranial hemorrhage. Chronic basal ganglion calcifications are again noted. There is no mass-effect or midline shift. Basal cisterns and ventricles are within normal limits for age/cerebral volume. Orbits are symmetrical and unremarkable. Paranasal sinuses and mastoid air cells are pneumatized. There are no bony abnormalities. CT/CT head/brain wo IV con IMPRESSION: No acute intracranial abnormality. Electronically signed by: Rigo Rubin MD 11/24/2024 03:15 PM EDT RP Dictated By: Rigo Rubin MD Signed By: <Electronically signed by Rigo Rubin MD in OV> 11/24/24 1515 DD/ 1446 TD/TT: 11/24/24 1509 Assistant Food Service Manager: [facility] External Provider IMG CT PROCEDURES Final Result * XR Shoulder 2+ Views Right (11/24/2024 2:40 PM EDT) Anatomical Region Laterality Modality Upper Extremities, Shoulder Right Radi ographic Imaging 11/24/2024 2:40 PM EDT Narrative 11/24/2024 3:23 PM EDT [address] [address] XRay Report Signed Patient: Clau Dougherty MR#: M [id number] : 1945 Acct:[id number] Age/Sex: 79 / F ADM Date: 11/24/24 Loc: HO.ED Attending Dr: Ordering Physician: Zaid Byrne Date of Service: 11/24/24 Procedure(s): XR shoulder RT min 2V Accession Number(s): [id number] cc: Karoline Burgos DO; Zaid Byrne EXAMINATION: XR SHOULDER, RIGHT CLINICAL INFORMATION: trauma COMPARISON: June 03, 2023 TECHNIQUE: Three views of the right shoulder. FINDINGS: Enthesophyte is noted at the greater tuberosity. Marginal osteophytes are seen involving the humeral head and minimally involving glenoid. There is minimal joint space narrowing. There is no dislocation. AC joint is intact and not degenerated. XR/XR shoulder RT min 2V IMPRESSION: Mild degenerative changes of the right shoulder joint. Electronically signed by: Rigo Rubin MD 11/24/2024 03:20 PM EDT RP Dictated By: Rigo Rubin MD Signed By: <Electronically signed by Rigo Rubin MD in OV> 11/24/24 1520 DD/ 1440 TD/TT: 11/24/24 1510 Assistant Food Service Manager: Procedure Note Lynn, Image - 11/24/[address] [address] XRay Report Signed Patient: Clau Dougherty LMR#: M [id number] : 5Acct:[id number] Age/Sex: 79 / FADM Date: 11/24/24 Loc: HO.ED Attending Dr: Ordering Physician: Zaid Byrne Date of Service: 11/24/24 Procedure(s): XR shoulder RT min 2V Accession Number(s): [id number] cc: Karoline Burgos DO; Zaid Byrne EXAMINATION: XR SHOULDER, RIGHT CLINICAL INFORMATION: trauma COMPARISON: June 03, 2023 TECHNIQUE: Three views of the right shoulder. FINDINGS: Enthesophyte is noted at the greater tuberosity. Marginal osteophytes are seen involving the humeral head and minimally involving glenoid. There is minimal joint space narrowing. There is no dislocation. AC joint is intact and not degenerated. XR/XR shoulder RT min 2V IMPRESSION: Mild degenerative changes of the right shoulder joint. Electronically signed by: Rigo Rubin MD 11/24/2024 03:20 PM EDT Dictated By: Rigo Rubin MD Signed By: <Electronically signed by Rigo Rubin MD in OV> 11/24/24 1520 DD/ 1440 TD/TT: 11/24/24 1510 Assistant Food Service Manager: us [facility] External Provider IMG XR PROCEDURES Final Result * XR Elbow 3+ Views Right (11/24/2024 2:08 PM EDT) Anatomical Region Laterality Modality Upper Extremities, Elbow Right Radiogr aphic Imaging 11/24/2024 2:08 PM EDT Narrative 11/24/2024 3:[address] [address] XRay Report Signed Patient: Clau Dougherty MR#: M [id number] : 1945 Acct:[id number] Age/Sex: 79 / F ADM Date: 11/24/24 Loc: .ED Attending Dr: Ordering Physician: Zaid Byrne Date of Service: 11/24/24 Procedure(s): XR elbow RT min 3V Accession Number(s): [id number] cc: Karoline Burgos DO; Zaid Byrne EXAMINATION: XR ELBOW, RIGHT CLINICAL INFORMATION: trauma COMPARISON: June 03, 2023 TECHNIQUE: AP, lateral, and oblique views of the right elbow. FINDINGS: Fat pads of the elbow joint are not displaced. Minimal osteophyte formation is noted in the ulnar side of the elbow joint and radial head. There has been no interval change. XR/XR elbow RT min 3V IMPRESSION: Mild degenerative change of the right elbow joint. Electronically signed by: Rigo Rubin MD 11/24/2024 03:22 PM EDT Dictated By: Rigo Rubin MD Signed By: <Electronically signed by Rigo Rubin MD in OV> 11/24/24 1522 DD/ 1408 TD/TT: 11/24/24 1510 Assistant Food Service Manager: Procedure Note Donotuseinterpreter, Image - 11/24/[address] [address] XRay Report Signed Patient: Clau Dougherty LMR#: M [id number] : 5Acct:[id number] Age/Sex: 79 / FADM Date: 11/24/24 Loc: .ED Attending Dr: Ordering Physician: Zaid Byrne Date of Service: 11/24/24 Procedure(s): XR elbow RT min 3V Accession Number(s): [id number] cc: Karoline Burgos Daniel EXAMINATION: XR ELBOW, RIGHT CLINICAL INFORMATION: trauma COMPARISON: June 03, 2023 TECHNIQUE: AP, lateral, and oblique views of the right elbow. FINDINGS: Fat pads of the elbow joint are not displaced. Minimal osteophyte formation is noted in the ulnar side of the elbow joint and radial head. There has been no interval change. XR/XR elbow RT min 3V IMPRESSION: Mild degenerative change of the right elbow joint. Electronically signed by: Rigo Rubin MD 11/24/2024 03:22 PM EDT RP Dictated By: Rigo Rubin MD Signed By: <Electronically signed by Rigo Rubin MD in OV> 11/24/24 1522 DD/ 1408 TD/TT: 11/24/24 1510 Assistant Food Service Manager: [facility] External Provider IMG XR PROCEDURES Final Result * XR Wrist 3+ Views Right (11/24/2024 2:05 PM EDT) Anatomical Region Laterality Modality Upper Extremities, Wrist Right Radiogr aphic Imaging 11/24/2024 2:05 PM EDT Narrative 11/24/2024 3:26 PM EDT [place] [address] XRay Report Signed Patient: Clau Dougherty MR#: M [id number] : 1945 Acct:[id number] Age/Sex: 79 / F ADM Date: 11/24/24 Loc: HO.ED Attending Dr: Ordering Physician: Zaid Byrne Date of Service: 11/24/24 Procedure(s): XR wrist RT min 3V Accession Number(s): [id number] cc: Karoline Burgos Daniel EXAMINATION: XR WRIST, RIGHT CLINICAL INFORMATION: trauma COMPARISON: None available. TECHNIQUE: PA, lateral, oblique, and scaphoid views of the right wrist. FINDINGS: There is a bony flange along the radial side of the radial styloid. There is no joint diastases. There is no visible fracture line. XR/XR wrist RT min 3V IMPRESSION: Unremarkable right wrist. Electronically signed by: Rigo Rubin MD 11/24/2024 03:23 PM EDT RP Dictated By: Rigo Rubin MD Signed By: <Electronically signed by Rigo Rubin MD in OV> 11/24/24 1523 DD/ 1405 TD/TT: 11/24/24 1510 Assistant Food Service Manager: Procedure Note Donotuseinterpreter, Image - 11/24/[address] [address] XRay Report Signed Patient: Clau Dougherty LMR#: M [id number] : 5Acct:[id number] Age/Sex: 79 / FADM Date: 11/24/24 Loc: .ED Attending Dr: Ordering Physician: Zaid Byrne Date of Service: 11/24/24 Procedure(s): XR wrist RT min 3V Accession Number(s): [id number] cc: Karoline Burgos DO; Zaid Byrne EXAMINATION: XR WRIST, RIGHT CLINICAL INFORMATION: trauma COMPARISON: None available. TECHNIQUE: PA, lateral, oblique, and scaphoid views of the right wrist. FINDINGS: There is a bony flange along the radial side of the radial styloid. There is no joint diastases. There is no visible fracture line. XR/XR wrist RT min 3V IMPRESSION: Unremarkable right wrist. Electronically signed by: Rigo Rubin MD 11/24/2024 03:23 PM EDT RP Dictated By: Rigo Rubin MD Signed By: <Electronically signed by Rigo Rubin MD in OV> 11/24/24 1523 DD/ 1405 TD/TT: 11/24/24 1510 Assistant Food Service Manager: [facility] External Provider IMG XR PROCEDURES Final Result * High Sensitivity Troponin I (11/24/2024 2:03 PM EDT) TROPONIN I HIGH SENSITIVITY <2.7 <3.5 - 17.0 ng/L [facility] Comment:The Land high sens itivity Troponin-I results should beused in conjunction with other diagnostic information suchas ECG, clinical observations and information, and patientsymptoms to aid in the diagnosis of ME. 11/24/2024 2:03 PM EDT 11/24/2024 2:07 PM EDT us Generic External Data Provider LAB BLOOD ORDERAB LES Final Result [facility] [address] [place] [phone] * SARS-CoV-2 RNA, Influenza A/B, and RSV RNA, Ql NAAT (11/24/2024 2:03 PM EDT) Only the most recent of2 resultswithin the time period is included. Pathologist [facility] [place] Influenza A PCR NEGATIVE Negative [facility] Influenza B PCR NEGATIVE Negative [facility] Resp Syncy Virus RNA Qual PCR NEGATIVE Negative [facility] SARS COV2 PCR NEGATIVE Negative [facility] Comment:All test results mus t be correlated with clinical findings.Negative results do not preclude SARS-CoV2, influenza Avirus, influenza B virus and/or RSV infectionand should not be used as the sole basis for treatment orother patient management decisions. Negative results must becombined with clinical observations, patient history, andepidemiological information.This test has not been evaluated for monitoring treatment ofinfection.This test has been authorized by the FDA under an EmergencyUse Authorization (EUA) for use by authorized laboratories.Testing performed on the Studio GeneXpert utilizingreal-time RT-PCR.All SARS CoV2 and positive influenza A/B results arereported to [facility]. 11/24/2024 2:03 PM EDT 11/24/2024 2:07 PM EDT us Generic External Data Provider LAB MICROBIOLOGY - GENERAL ORDERABLES Final Result [facility] [address], [place] [phone] * (ABNORMAL) CBC auto differential (11/24/2024 2:03 PM EDT) Only the most recent of2 resultswithin the time period is included. White Blood Count 7.5 4.8 - 10.8 X10*3/uL [facility] Red Blood Count 5.36 4.20 - 5.50 X10*6/uL [facility] Hemoglobin 12.4 12.0 - 16.0 g/dl [facility] Hematocrit 40.1 37.0 - 47.0 % [facility] Mean Corpuscular Volume 74.8(L) 80.0 - 98.0 fL [facility] Mean Corpuscular Hemoglobin 23.1(L) 27.0 - 33.0 pg [facility] Mean Corpuscular HGB Conc 30.9(L) 31.0 - 35.0 g/dl [facility] Red Cell Distribution Width 20.2(H) 11.0 - 16.0 % [facility] Platelet Count 332 160 - 400 X10*3/uL [facility] Mean Platelet Volume 8.0(L) 9.4 - 12.3 fL [facility] Neutrophils Percent Auto 65.5 45 - 73 % [facility] Imm Gran Pct Auto 0.3 0.0 - 0.4 % [facility] Lymphocytes Percent Auto 24.6 20 - 40 % [facility] Monocytes Percent Auto 6.8 2 - 11 % [facility] Eosinophils Percent Auto 2.4 0 - 4 % [facility] Basophils Percent Auto 0.4 0 - 2 % [facility] NRBC Pct Auto 0.0 0.0 - 0.2 /100WBC [facility] Neutrophils Absolute Auto 4.9 2.0 - 8.3 x10*3/uL [facility] Imm Gran Abs Auto 0.02 0.00 - 0.03 X10*3/uL [facility] Lymphocytes Absolute Auto 1.8 1.2 - 4.9 X10*3/uL [facility] Monocytes Absolute Auto 0.5 0.1 - 1.2 X10*3/uL [facility] Eosinophils Absolute Auto 0.2 0.0 - 0.4 X10*3/uL [facility] Basophils Absolute Auto 0.0 0.0 - 0.2 X10*3/uL [facility] NRBC Abs Auto 0.000 0.0 - 0.012 X10*3/uL [facility] 11/24/2024 2:03 PM EDT 11/24/2024 2:07 PM EDT us Generic External Data Provider LAB BLOOD ORDERAB LES Final Result Performing Organization Address [facility]/ZIP Co de Phone Number [facility] [address] [place] [phone] * Magnesium (11/24/2024 2:03 PM EDT) Only the most recent of2 resultswithin the time period is included. Magnesium 2.4 1.6 - 2.6 mg/dL [facility] 11/24/2024 2:03 PM EDT 11/24/2024 2:07 PM EDT us Generic External Data Provider LAB BLOOD ORDERAB LES Final Result Performing Organization Address [facility] Co de Phone Number [facility] [address] [place] [phone] * Lipase (11/24/2024 2:03 PM EDT) Only the most recent of2 resultswithin the time period is included. Lipase 32 8 - 78 U/L [facility] 11/24/2024 2:03 PM EDT 11/24/2024 2:07 PM EDT us Generic External Data Provider LAB BLOOD ORDERAB LES Final Result [facility] [address] [place] [phone] * (ABNORMAL) Comprehensive Metabolic Panel (11/24/2024 2:03 PM EDT) Only the most recent of2 resultswithin the time period is included. Sodium 139 135 - 145 mmol/L [facility] Potassium 4.6 3.3 - 5.1 mmol/L [facility] Chloride 103 96 - 108 mmol/L [facility] Carbon Dioxide 26 22 - 29 mmol/L [facility] Anion Gap 15 12 - 20 [facility] Urea Nitrogen (BUN) 15 9 - 16 mg/dL [facility] Creatinine, Serum 0.94 0.5 - 1.4 mg/dL [facility] Creatinine Clr Calc Pharmacy 41.6 [facility] Comment:Provided height and weight: 152.4 cm,67.5 kg.eGFR (calculated from the MDRD study equation) and eCrCl(calculated from the Cockcroft-Gault equation) are based ondifferent parameters and may not yield comparable results.If eCrCl result is absurd, please check patient'sheight/weight. Estimated Glomerular Filt Rate 57 [facility] Comment:Chronic Kidney Disea se: Estimated GFR < 60 mL/min/1.54h7Qlxorq Kidney Disease: Estimated GFR < 15 mL/min/1.73m2 Glucose 208(H) 60 - 115 mg/dL [facility] Calcium 9.3 8.4 - 10.2 mg/dL [facility] Bilirubin, Total 0.3 0.0 - 1.0 mg/dL [facility] Aspartate Amino Transferase 30 5 - 31 U/L [facility] Alanine Aminotransferase 18 0 - 31 U/L [facility] Total Protein 7.8 6.5 - 8.0 g/dL [facility] Albumin Level 4.4 3.5 - 5.0 g/dL [facility] Alkaline Phosphatase 112 39 - 117 U/L [facility] 11/24/2024 2:03 PM EDT 11/24/2024 2:07 PM EDT us Generic External Data Provider LAB BLOOD ORDERAB LES Final Result Performing Organization Address [facility]/ZIP Co de Phone Number [facility] [address] [place] [phone] * Vitamin D, 25-Hydroxy, Total, Immunoassay (10/20/2024 8:11 AM EDT) Vitamin D 25-OH Total 67.8 >30 ng/mL [facility] Comment: Health Based Reference Values*< 20 ng/mL Ejliqwdvx95-57 ng/mL Insufficient> 30 ng/mL Sufficient*Wolf WILKINSON. N Engl J Med. 2007;357:266-280There is no well-established upper level of normal vitamin Dlevels. Some laboratories use 50 ng/mL as an upper limit ofnormal. However, toxicity is patient-dependent and may occurat any level. Careful correlation with the patient'spresentation is necessary and, if there is concern forvitamin D toxicity, treatment should be consideredirrespective of the serum level.Care must be taken in interpreting Vitamin D results fromdifferent laboratories and methodologies. Published datademonstrated that results from patients undergoinghemodialysis may show a negative bias when tested withvarious automated 25-OH vitamin D assays when compared toLC-MS/MS.When testing samples from patients whose predominant form ofVitamin D is Vitamin D2, such as patients receiving VitaminD2 supplementation, results that are subtherapeutic shouldbe confirmed with another method such as LC-MS/MS. Blood Venous blood specimen / Unknown 10/20/2024 8:11 AM EDT 10/20/2024 11:09 AM EDT us Karoline Burgos DO LAB BLOOD ORDERABLES Final R esult Performing Organization Address [facility]/ZIP Co de Phone Number [facility] [address] [place] [phone] * (ABNORMAL) Iron And Total Iron Binding Capacity (10/20/2024 8:11 AM EDT) Pathologist [facility] [place] Iron 23(L) 30 - 160 mcg/dL [facility] Total Iron Binding Capacity 332 228 - 428 mcg/dL [facility] Percent Iron Saturation 7(L) 15 - 50 % [facility] Unsaturated Iron Binding 309 ug/dL [facility] Blood Venous blood specimen / Unknown 10/20/2024 8:11 AM EDT 10/20/2024 11:09 AM EDT us Karoline Burgos DO LAB BLOOD ORDERABLES Final R esult [facility] [address] [place] [phone] * (ABNORMAL) CBC (10/20/2024 8:11 AM EDT) Pathologist [facility] [place] White Blood Count 7.2 4.8 - 10.8 X10*3/uL [facility] Red Blood Count 5.05 4.20 - 5.50 X10*6/uL [facility] Hemoglobin 11.3(L) 12.0 - 16.0 g/dl [facility] Hematocrit 37.9 37.0 - 47.0 % [facility] Mean Corpuscular Volume 75.0(L) 80.0 - 98.0 fL [facility] Mean Corpuscular Hemoglobin 22.4(L) 27.0 - 33.0 pg [facility] Mean Corpuscular HGB Conc 29.8(L) 31.0 - 35.0 g/dl [facility] Red Cell Distribution Width 18.8(H) 11.0 - 16.0 % [facility] Platelet Count 353 160 - 400 X10*3/uL [facility] Mean Platelet Volume 8.8(L) 9.4 - 12.3 fL [facility] NRBC Pct Auto 0.0 0.0 - 0.2 /100WBC [facility] NRBC Abs Auto 0.000 0.0 - 0.012 X10*3/uL [facility] Blood Venous blood specimen / Unknown 10/20/2024 8:11 AM EDT 10/20/2024 11:09 AM EDT Karoline Aubrey DO LAB BLOOD ORDERABLES Final R esult Performing Organization Address City/[facility]/ZIP Co de Phone Number [facility] [address] [place] [phone] * TSH (10/20/2024 8:11 AM EDT) Thyroid Stimulating Hormone 1.81 0.32 - 4.0 uIU/mL [facility] Comment:TSH 3rd Generation ( [employer]) Blood Venous blood specimen / Unknown 10/20/2024 8:11 AM EDT 10/20/2024 11:09 AM EDT Karoline Burgos DO LAB BLOOD ORDERABLES Final R esult Performing Organization Address [facility] Co de Phone Number [facility] [address] [place] [phone] * T4, Free (10/20/2024 8:11 AM EDT) Free T4 (Free Thyroxine) 0.88 0.71 - 1.85 ng/dL [facility] Blood Venous blood specimen / Unknown 10/20/2024 8:11 AM EDT 10/20/2024 11:09 AM EDT Karoline Aubrey DO LAB BLOOD ORDERABLES Final R esult Performing Organization Address [facility] Co de Phone Number [facility] [address] [place] [phone] * (ABNORMAL) Hemoglobin A1c (10/20/2024 8:11 AM EDT) Hemoglobin A1c 7.8(H) <6.0 % [facility] Comment:Hemoglobin A1C Refer ence Range Adults: 4.8 - 6.0 % Non diabetic: < 6.0 % Goal: < 7.0 %Additional Action Suggested: > 8.0 %Note: Hemoglobin A1c results are invalid for patients with abnormal amounts of HbF. Blood transfusions may impact the HbA1c concentration in the patient sample. Estimated Average Glucose 177 mg/dL [facility] Comment:eAG = Estimated ave rage glucose which is %A1C expressed asaverage glucose, using the formula of the L8L-WeerwaqOudylhr Glucose study (ADAG), Diabetes Care, Vol.31,#8,2007 Blood Venous blood specimen / Unknown 10/20/2024 8:11 AM EDT 10/20/2024 11:09 AM EDT Karoline Burgos LAB BLOOD ORDERABLES Final R esult Performing Organization Address City/[facility]/ZIP Co de Phone Number [facility] [address] [place] [phone] * Ferritin (10/20/2024 8:11 AM EDT) Pathologist [facility] [place] Ferritin 10 10 - 250 ng/mL [facility] Blood Venous blood specimen / Unknown 10/20/2024 8:11 AM EDT 10/20/2024 11:09 AM EDT Karoline Burgos LAB BLOOD ORDERABLES Final R esult [facility] [address] [place] [phone] * Hepatic Function Panel (10/20/2024 8:11 AM EDT) Pathologist [facility] [place] Bilirubin, Total 0.3 0.0 - 1.0 mg/dL [facility] Bilirubin, Direct 0.1 0.0 - 0.5 mg/dL [facility] Aspartate Amino Transferase 25 5 - 31 U/L [facility] Alanine Aminotransferase 15 0 - 31 U/L [facility] Total Protein 7.0 6.5 - 8.0 g/dL [facility] Albumin Level 4.0 3.5 - 5.0 g/dL [facility] Alkaline Phosphatase 99 39 - 117 U/L [facility] Blood Venous blood specimen / Unknown 10/20/2024 8:11 AM EDT 10/20/2024 11:09 AM EDT us Karoline Burgos DO LAB BLOOD ORDERABLES Final R esult [facility] [address] [place] [phone] * (ABNORMAL) Lipid Panel, Standard (10/20/2024 8:11 AM EDT) Triglycerides 214(H) <150 mg/dL [facility] Comment:Desirable Triglyceri de: less than 150 mg/dLBorderline High Triglyceride 150-199 mg/dLHigh Triglyceride: 200-499 mg/dLVery High Triglyceride: greater than or equal to 5OO mg/dL Cholesterol 196 <200 mg/dL [facility] Comment:Desirable Cholestero l: less than 200 mg/dLBorderline High Cholesterol: 200-239 mg/dLHigh Cholesterol: greater than 239 mg/dL LDL Cholesterol Calculated 114(H) <100 mg/dL [facility] Comment:Desirable LDL: less than 100 mg/dLNear Optimal/Above Optimal LDL: 110- 129 mg/dLBorderline High LDL: 130-159 mg/dLHigh LDL: 160-189 mg/dLVery High LDL: greater than or equal to 190 mg/dL HDL Cholesterol 40(L) >40 mg/dL [facility] Comment:Desirable HDL: great er than 40 mg/dL Note: This HDL assay may give artificially low results in patients with liver disease. Blood Venous blood specimen / Unknown 10/20/2024 8:11 AM EDT 10/20/2024 11:09 AM EDT us Karoline Burgos DO LAB BLOOD ORDERABLES Final R esult Performing Organization Address [facility] Co de Phone Number [facility] [address] [place] [phone] * (ABNORMAL) Basic Metabolic Panel (10/20/2024 8:11 AM EDT) Sodium 139 135 - 145 mmol/L [facility] Potassium 4.6 3.3 - 5.1 mmol/L [facility] Chloride 104 96 - 108 mmol/L [facility] Carbon Dioxide 30(H) 22 - 29 mmol/L [facility] Anion Gap 10(L) 12 - 20 [facility] Urea Nitrogen (BUN) 15 9 - 16 mg/dL [facility] Creatinine, Serum 0.96 0.5 - 1.4 mg/dL [facility] Estimated Glomerular Filt Rate 56 [facility] Comment:Chronic Kidney Disea se: Estimated GFR < 60 mL/min/1.04m7Whvmlu Kidney Disease: Estimated GFR < 15 mL/min/1.73m2 Glucose 150(H) 60 - 115 mg/dL [facility] Calcium 9.2 8.4 - 10.2 mg/dL [facility] Blood Venous blood specimen / Unknown 10/20/2024 8:11 AM EDT 10/20/2024 11:09 AM EDT Karoline Burgos DO LAB BLOOD ORDERABLES Final R esult Performing Organization Address City/[facility]/ZIP Co de Phone Number [facility] [address] [place] [phone] * (ABNORMAL) POCT HGB A1C (10/12/2024 3:27 PM EDT) Hemoglobin A1C 7.5(A) 4.0 - 5.7 % Blood 10/12/2024 3:27 PM EDT Karoline Burgos DO POINT OF CARE TEST ENTER/JUAN T ORDERABLES Final Result * CT Abdomen Pelvis w/ Contrast (09/11/2024 12:54 AM EDT) Anatomical Region Laterality Modality Body, Pelvis, Abdomen Computed T omography 09/11/2024 12:5 4 AM EDT Narrative 09/11/2024 12:56 AM EDT [address] [address] [address] Scan Report Signed Patient: Clau Dougherty MR#: [id number] : 1945 Acct:[id number] Age/Sex: 79 / F ADM Date: 09/10/24 Loc: HO.ED Attending Dr: Ordering Physician: Ziggy Wallace MD Date of Service: 09/10/24 Procedure(s): CT abdomen pelvis w IV con Accession Number(s): [id number] cc: Ziggy Wallace MD; Karoline Burgos DO Report Number: [id number]: Total DLP = 467.00 mGy-cm CLINICAL HISTORY: moderate LLQ and epigastric TTP CT abdomen and pelvis with contrast Comparison: None Findings: The lung bases are clear. There is coronary artery calcification. Patient is status post cholecystectomy. The liver, pancreas, spleen, adrenal glands, and kidneys are unremarkable. The appendix is normal. There is mild sigmoid diverticulosis. The gastrointestinal tract is otherwise unremarkable. The aorta is normal in diameter. There are no enlarged lymph nodes. Uterus and adnexa are unremarkable. The bladder is unremarkable. There is no fracture or suspicious lytic or sclerotic lesion. IMPRESSION: No acute abnormality in the abdomen or pelvis. This document has been electronically signed by: Ti Rodriguez MD on 09/11/2024 00:54:27 Dictated By: Ti Rodriguez MD Signed By: <Electronically signed by Ti Rodriguez MD in OV> 09/11/2454 DD/ TD/TT: 09/11/2453 Assistant Food Service Manager: Procedure Note Donotuseinterpreter, Image - 09/11/[address] [place] [address] CT Scan Report Signed Patient: Clau Dougherty LMR#: M [id number] : 5Acct:[id number] Age/Sex: 79 / FADM Date: 09/10/24 Loc: HO.ED Attending Dr: Ordering Physician: Ziggy Wallace MD Date of Service: 09/10/24 Procedure(s): CT abdomen pelvis w IV con Accession Number(s): [id number] cc: Ziggy Wallace MD; Karoline Burgos DO Report Number: [id number]: Total DLP = 467.00 mGy-cm CLINICAL HISTORY: moderate LLQ and epigastric TTP CT abdomen and pelvis with contrast Comparison: None Findings: The lung bases are clear. There is coronary artery calcification. Patient is status post cholecystectomy. The liver, pancreas, spleen, adrenal glands, and kidneys are unremarkable. The appendix is normal. There is mild sigmoid diverticulosis. The gastrointestinal tract is otherwise unremarkable. The aorta is normal in diameter. There are no enlarged lymph nodes. Uterus and adnexa are unremarkable. The bladder is unremarkable. There is no fracture or suspicious lytic or sclerotic lesion. IMPRESSION: No acute abnormality in the abdomen or pelvis. This document has been electronically signed by: Ti Rodriguez MD on 09/11/2024 00:54:27 Dictated By: Ti Rodriguez MD Signed By: <Electronically signed by Ti Rodriguez MD in OV> 09/11/2454 DD/ TD/TT: 09/11/2453 Assistant Food Service Manager: [facility] External Provider IMG CT PROCEDURES Edited Result - Final * (ABNORMAL) Urinalysis, Complete, with Reflex to Culture (09/10/2024 9:14 PM EDT) Color Urine Yellow [facility] Appearance Urine Clear [facility] PH 6.0 5.0 - 9.0 [facility] Glucose Urine UA >=1000(A) Negative mg/dL [facility] Urine Blood Trace(A) Negative [facility] Specific Ecru - Urine >=1.030(H) 1.005 - 1.025 [facility] Urine Protein Trace Neg-Trace mg/dL [facility] Urine Ketones Trace Negative mg/dL [facility] Nitrite Urine Negative Negative [facility] Leukocyte Esterase Urine Small (1+)(A) Negative [facility] RBC Urine 11-20(A) 0 - 2 /HPF [facility] Urine WBC 21-50(A) 0 - 5 /HPF [facility] Urine Squamous Epithelial Cell 3-5 0 - 2 /HPF [facility] Urine Bacteria None Seen None Seen [facility] Hyaline Casts, Urine 0-2 0 - 2 /LPF [facility] 09/10/2024 9:14 PM EDT 09/10/2024 9:17 PM EDT Narrative [facility] - 09/10/2024 9:26 PM EDT [id number], Clean Catch Generic External Data Provider LAB URINE ORDERAB LES Final Result Performing Organization Address [facility] de Phone Number [facility] [address] [place] [phone] * Culture, Urine, Routine (09/10/2024 12:00 AM EDT) Urine Urine specimen obtained by clean catch procedure / Unknown 09/10/2024 09/10/2024 Comment:[facility] Narrative [facility] - 09/12/2024 10:04 AM EDT Urine Culture Report Result Urine Culture 50,000 to 100,000 cfu/ml Urine Culture Mixed bacterial viki characteristic of Urine Culture urogenital contamination. Specimen Source: Urine clean catch Generic External Data Provider LAB MICROBIOLOGY - GENERAL ORDERABLES Final Result Performing Organization Address [facility] Co de Phone Number [facility] [address] [place] [phone] * Hm Mammography (03/29/2024 1:50 PM EST) Anatomical Region Laterality Modality Other Historical Provider HEALTH MAINTENANCE Final Result * Albumin, Random Urine W/Creatinine (01/07/2023 10:11 AM EDT) Creatinine, Urine 10.26 mg/dL [facility] Microalbumin Urine <5.0 mg/L [facility] Microalbum Creatinine Ratio Ur TNP <30 ug/mg cr [facility] Comment:Unable to calculate albumin/creatinine ratio due to lowmicroalbumin or creatinine result. 01/07/2023 10:1 1 AM EDT 01/07/2023 11:16 AM EDT Karoline Burgos DO LAB URINE ORDERABLES Final R esult [facility] [address] [place] [address] [phone] * HEPATITIS C AB W/REFL TO HCV RNA, QN, PCR (11/26/2019 10:01 AM EDT) HEPATITIS C ANTIBODY NON-REACT JEFFERY NON-REACT JEFFERY [facility] INDEX 0.02 <1.00 [facility] Comment: HCV antibody was non-reactive. There is no laboratory evidence of HCV infection. In most cases, no further action is required. However, if recent HCV exposure is suspected, a test for HCV RNA (test code 21550) is suggested. For additional information please refer to http://MobileSpaces.[employer]Farm/faq/BTC39w7 (This link is being provided for informational/ educational purposes only.) HEPATITIS C ANTIBODY NON-REACT JEFFERY NON-REACT JEFFERY [facility] INDEX 0.02 <1.00 [facility] Comment: HCV antibody was non-reactive. There is no laboratory evidence of HCV infection. In most cases, no further action is required. However, if recent HCV exposure is suspected, a test for HCV RNA (test code 97184) is suggested. For additional information please refer to http://MobileSpaces.[employer]Farm/faq/TIC35q3 (This link is being provided for informational/ educational purposes only.) HEPATITIS C ANTIBODY NON-REACT JEFFERY NON-REACT JEFFERY [facility] INDEX 0.02 <1.00 [facility] Comment: HCV antibody was non-reactive. There is no laboratory evidence of HCV infection. In most cases, no further action is required. However, if recent HCV exposure is suspected, a test for HCV RNA (test code 13103) is suggested. For additional information please refer to http://[address] [employer]/faq/TDX55a8 (This link is being provided for informational/ educational purposes only.) HEPATITIS C ANTIBODY NON-REACT JEFFERY NON-REACT JEFFERY [facility] INDEX 0.02 <1.00 [facility] Comment: HCV antibody was non-reactive. There is no laboratory evidence of HCV infection. In most cases, no further action is required. However, if recent HCV exposure is suspected, a test for HCV RNA (test code 54147) is suggested. For additional information please refer to http://[address] [employer]/faq/JFJ06u0 (This link is being provided for informational/ educational purposes only.) HEPATITIS C ANTIBODY NON-REACT JEFFERY NON-REACT JEFFERY [facility] INDEX 0.02 <1.00 [facility] Comment: HCV antibody was non-reactive. There is no laboratory evidence of HCV infection. In most cases, no further action is required. However, if recent HCV exposure is suspected, a test for HCV RNA (test code 29101) is suggested. For additional information please refer to http://[address] [employer]/faq/IQZ40s6 (This link is being provided for informational/ educational purposes only.) HEPATITIS C ANTIBODY NON-REACT JEFFERY NON-REACT JEFFERY [facility] INDEX 0.02 <1.00 [facility] Comment: HCV antibody was non-reactive. There is no laboratory evidence of HCV infection. In most cases, no further action is required. However, if recent HCV exposure is suspected, a test for HCV RNA (test code 21757) is suggested. For additional information please refer to http://[address] [employer]/faq/NMD14o8 (This link is being provided for informational/ educational purposes only.) 11/26/2019 10:0 1 AM EDT Karoline Burgos DO HISTORICAL/NON ORDERABLE LAB S Final Result [facility] [address] from Last 3 Months or Most Recently Relevant to Health Maintenance Insurance [facility] LONG TERM OPTIONS (HMO D-SNP) [place] [id number] Care Teams Zmt Operator Relationship Specialty Start Date End Date Karoline Burgos DO [address] [place] [address] PCP - General Family Medicine 03/19/12 Jannie Reynoso, Jamie [address] [place] [address] Pharmacist Internal Medicine 11/18/22
--- OUTSIDE RECORDS SUMMARY | 2024-12-08 11:30 | XMS_ITS | Encounter Summary ---
Author Organization [employer] Address [address] [facility] [address]t [place] [address] Care Team Providers Care Raw Shellfish Preparer Name Role Phone Karoline Burgos DO Primary Care Provider [phone] Jannie Reynoso PharmD Unavailable Reason for Visit * Reason Comments Med Refill Encounter Details Date Type Department Care Team (Late Contact Info) Description 10/16/2022 Refill [facility] [address] [place] [address] Karoline Burgos DO [address] [place] [address] Social History Tobacco Use Types Packs/Day Years [...] suspected to have Coronavirus/COVID-19? No / Unsure 10/02/2022 9:54 AM EDT documented as of this encounter Plan of Treatment Upcoming Encounters Date Type Department Care Team ([facility] Contact Info) Description 01/12/2025 3:00 PM EDT Medication Management [facility] [address] [place] [address] Jannie Reynoso PharmD [address] [place] [address] documented as of this encounter Goals Goal Patient Goal Type Associated Problems Recent Progress Patient-Stated? Author Hemoglobin A1c < 7.5 Result Component 7.8( 8:11 AM EDT) No Juan Jackson PharmD Note: age, hx malignant neoplasm of breast documented as of this encounter Visit Diagnoses Not on filedocumented in this encounter Additional Health Concerns Assessment Noted Time PHQ-9 Depression Total Score: 6 07/18/19 23 10:55 AM EDT documented as of this encounter Care Teams Raw Shellfish Preparer Relationship Specialty Start Date End Date Karoline Burgos DO [address] [place] [address] PCP - General Family Medicine 03/19/12 Jannie Reynoso PharmD [address] [place] [address] Pharmacist Internal Medicine 11/18/22 documented as of this encounter
--- OUTSIDE RECORDS SUMMARY | 2024-12-08 11:30 | XMS_ITS | Patient Health Record ---
Author Organization [facility] Address [address] [place] [address] Care Team Providers Care Petroleum Terminal Plant Operator Name Role Phone Karoline Burgos Primary Care Provider Hiro Corbin Unavailable [phone] Danielle Banegas Unavailable [phone] Allergies Allergen (clinical drug ingredient) Drug/Non Drug Allergy documented on EMR Reaction Allergy Type Onset Date Status ibuprofen Advil itchy Drug Allergy Active Aleve itchy Drug Allergy Active Motrin itchy Drug Allergy Active aspirin Aspirin itchy Drug Allergy Active tramadol traMADol Unknown Drug Allergy Active Results Component Value Reference Range Notes HEMOGLOBIN A1C (GLYCOHEMOGLO BIN) Reviewed date:09/06/2024 02:29:14 PM Interpretation: Performing Lab: Notes/Report: HEMOGLOBIN A1C % (HH) 8.2 HEMOGLOBIN A1C (GLYCOHEMOGLO BIN) Reviewed date:09/06/2024 02:30:36 PM Interpretation: Performing Lab: Notes/Report: HEMOGLOBIN A1C % (HH) 8.2 Reason For Referral No Information Medications Medication SIG (Take, Route, Frequency, Duration) Notes Start Date End Date Status Omeprazole 20 MG 1 capsule 1/2 to 1 h our before morning meal Orally Once a day Active Metoprolol Succinate 50 MG 1 capsule Ora lly Once a day Active Lisinopril 5 MG 2 tablets Orally Onc e a day Active Jardiance 25 MG 1 tablet Orally Once a day Active Gabapentin 400 MG 1 capsule Orally Onc e a day Active Eliquis 5 MG as directed Orally Active Extra Depth Orthopedic Shoes (1 Pair) with Customized Heat Molded Multidensity Innersoles (3 Pair) as directed Dx: NIDDM/Polyneuropathy (E11.42), Hammertoe Foot Deformity (M20.41,M20.42), Preulcerative Skin Lesion(s) (L85.1 09/03/2024 Active Furosemide 20 MG 1 tablet Orally Once a day Active Ezetimibe 10 MG 1 tablet Orally Once a day Active Docusate Sodium 100 MG 1 capsule as need ed Orally Once a day Active Cetirizine HCl 10 MG 1 capsule Orally On ce a day Active Calcium 600 MG 1 tablet with meals Orally daily Active Vitamin D3 50 MCG (1999) 1 capsule Orally Once a day Active Social History Tobacco Use: Social History Observation Description Date Details (start date - stop date) Never Smoker NA - NA Alcohol Screen Question Answer Notes Did you have a drink containing alcohol in the p ast year? No Points 0 Interpretation Negative Tobacco use other than smoking: Question Answer Notes Are you an other tobacco user? No Tobacco Control (Standard) Question Answer Notes Tobacco use: Nonsmoker Additional Findings: Tobacco non-user Current no nsmoker Problems Problem Type SNOMED Code ICD Code Onset Dates Problem Status W/U Status Risk Notes Problem Acquired hammer toe of right foot (175567292924 9105) Other hammer toe(s) (acquired), right foot (M20.41) Active confirmed Problem Acquired hammer toe of left foot (025504521369 9103) Other hammer toe(s) (acquired), left foot (M20.42) Active confirmed Problem Type 2 diabetes mellitus with diabetic polyneuropathy (E11.42) Active confirmed Vital Signs Heart Rate 70 /min 09/03/2024 Blood pressure diastolic 59 mm Hg 09/03/2024 Height 5ft in 09/03/2024 Blood pressure systolic 127 mm Hg 09/03/2024 Procedures Procedure Date Ordered Date Performed Result Body Sit e 66091-HHWMXFH NAIL, 6 OR MORE 09/03/2024 N/A 60843-VAGE SKIN LESIONS, 2 TO 4 09/03/2024 N/A Encounters Encounter Location Date Provider Diagnosis [facility] [address] [address] 09/03/2024 Danielle Banegas Other hammer toe(s) (acquired), right foot M20.41 ; Other hammer toe(s) (acquired), left foot M20.42 ; Type 2 diabetes mellitus with diabetic polyneuropathy E11.42 and Tinea unguium B35.1 [facility] [address] [place] [address] 09/03/2024 Hiro Pavon Assessments Encounter Date Diagnosis (ICD Code) Assessment Notes Treatment Notes Treatment Clinical Notes Section Notes 09/03/2024 Other hammer toe(s) (acquired), right foot (ICD-10 - M20.41) Patient Educated with: DIABETIC FOOT CARE INSTRUCTIONS. pdf (DIABETIC FOOT CARE INSTRUCTIONS. pdf) 09/03/2024 Other hammer toe(s) (acquired), left foot (ICD-10 - M20.42) 09/03/2024 Type 2 diabetes mellitus with diabetic polyneuropathy (ICD-10 - E11.42) 09/03/2024 Tinea unguium (ICD-10 - B35.1) Plan Of Treatment Pending Test Test Name Order Date [id number] NAIL, 6 OR MORE 09/03/2024 06063-EWKJ SKIN LESIONS, 2 TO 4 09/04/19 25 Next Appt Details Provider Name:Danielle Rob gene, 12/14/2024 03:00:00 PM, [address] [facility] [facility] [address], [place], [address], Insurance Providers Payer Name Payer Address Payer Phone Subscriber Number Group Number Insured Name Patient Relationship to Insured Coverage Start Date Coverage End Date [facility] [employer] Claims [address] [place] [phone] [id number] Clau Herr Self - patient is the insured Medical (General) History Medical History History ICD Code Anxiety Arthritis asthma CAD (Cholesterol) Depression Diabetic Heart disease High blood pressure Joint implants/screws Surgical History Surgery Date(Month/Year) breast cancer 2009
--- OUTSIDE RECORDS SUMMARY | 2024-12-08 11:30 | XMS_ITS | Encounter Summary ---
Author Organization [employer] [facility] Address [address] [facility] 7t [place] [address] Care Team Providers Care Therapeutic Recreation Assistant Name Role Phone MarkKaroline batres Primary Care Provider DelJuan aleman PharmD Unavailable Unavail able PuAtul valdesyssa PharmD Unavailable [phone] Encounter Details Date Type Department Care Team ([facility] [place] Contact Info) Description 03/26/2022 Orders Only [facility] [address] [place] [address] Laya Pearl LPN Social History Tobacco Use Types Packs/Day Years [...] suspected to have Coronavirus/COVID-19? No / Unsure 03/27/2022 4:08 PM EST documented as of this encounter Plan of Treatment Upcoming Encounters Date Type Department Care Team (Late Contact Info) Description 01/12/2025 3:00 PM EDT Medication Management [facility] MEDICINE [address] [place] [address] Puia, Jannie, PharmD [address] [place] [address] documented as of this encounter Goals Goal Patient Goal Type Associated Problems Recent Progress Patient-Stated? Author Hemoglobin A1c < 7.5 Result Component 7.8( 5 8:11 AM EDT) No Juan Jackson, PharmAsuncion Note: age, hx malignant neoplasm of breast documented as of this encounter Visit Diagnoses Not on filedocumented in this encounter Care Teams Therapeutic Recreation Assistant Relationship Specialty Start Date End Date Karoline Burgos DO [address] [place] [address] PCP - General Family Medicine 03/19/12 Juan Jackson, PharmD [address] [place] [address] Pharmacist Internal Medicine 03/27/22 10/08/22 Jannie Reynoso PharmD [address] [place] [address] Pharmacist Internal Medicine 11/18/22 documented as of this encounter
--- OUTSIDE RECORDS SUMMARY | 2024-12-08 11:30 | XMS_ITS | Encounter Summary ---
Author Organization [employer] Address [address] [facility] 7t [place] [address] Care Team Providers Care Clip And Hanger Attacher Name Role Phone Aubrey Karoline Primary Care Provider [phone] Jannie Reynoso PharmD Unavailable [phone] Reason for Visit * Reason Comments Med Refill Encounter Details Date Type Department Care Team ([facility] st Contact Info) Description 11/12/[address] [facility] MEDICINE [address] [place] [address] Monica Medley MD [address] [place] [address] Social History Tobacco Use Types Packs/Day Years [...] Description 01/12/2025 3:00 PM EDT Medication Management [facility] [address] [place] [address] Jannie Reynoso, PharmD [address] [place] [address] documented as of this encounter Goals Goal [...] documented as of this encounter Care Teams Clip And Hanger Attacher Relationship Specialty Start Date End Date Karoline Burgos DO [address] [place] [address] PCP - General Family Medicine 03/19/12 Jannie Reynoso PharmD [address] [place] [address] Pharmacist Internal Medicine 11/18/22 documented as of this encounter
--- OUTSIDE RECORDS SUMMARY | 2024-12-08 11:30 | XMS_ITS | Encounter Summary ---
Author Organization [employer] Address [address] [place] [address] Care Team Providers Care Sql Application Developer Name Role Phone Steph Burgosfer Primary Care Provider + [phone] Jannie Reynoso PharmD Unavailable [phone] Encounter Details Date Type Department Care Team (Latest Contact Info) Description 12/03/2024 Travel Social History Tobacco Use Types Packs/Day Years [...] Description 01/12/2025 3:00 PM EDT Medication Management [facility] MEDICINE [address] [place] [address] Jannie Reynoso PharmAsuncion [address] [place] [address] documented as of this encounter Goals Goal [...] documented as of this encounter Care Teams Sql Application Developer Relationship Specialty Start Date End Date Karoline Burogs DO [address] [place] [address] PCP - General Family Medicine 03/19/12 Jannie Reynoso PharmD [address] [place] [address] Pharmacist Internal Medicine 11/18/22 documented as of this encounter
--- OUTSIDE RECORDS SUMMARY | 2024-12-08 11:30 | XMS_ITS | Encounter Summary ---
Author Organization [employer] Address [address] [place] [address] Care Team Providers Care Optometry Assistant Name Role Phone Karoline Burgos DO Primary Care Provider + [phone] Jannie Reynoso PharmD Unavailable [phone] Encounter Details Date Type Department Care Team (Late st Contact Info) Description 04/03/2024 Orders Only [facility] MEDICINE [address] [place] [address] ProviderShiloh MD Social History Tobacco Use Types Packs/Day Years Used Date Smoking Tobacco: Never Passive Smoke Exposure: Never Smokeless Tobacco: Never Alcohol Use Standard Drinks/Week Comments Never 0 [...] Upcoming Encounters Date Type Department Care Team ([facility] st Contact Info) Description 01/12/2025 3:00 PM EDT Medication Management [facility] [address] [place] [address] Jannie Reynoso PharmD [address] [place] [address] documented as of this encounter Goals Goal [...] as directed. documented as of this encounter Procedures Procedure Name Priority Date/Time Associated Diagnosis Comments HM MAMMOGRAPHY Routine 03/29/2024 1:50 PM EST documented in this encounter Results * Hm Mammography (03/29/2024 1:50 PM EST) Anatomical Region Laterality Modality Other us Historical Provider HEALTH MAINTENANCE Final Result documented in this encounter Visit Diagnoses Not on filedocumented in this encounter Additional Health Concerns Assessment Noted Time PHQ-9 Depression Total Score: 2 09/19/19 24 10:01 AM EDT documented as of this encounter Care Teams Optometry Assistant Relationship Specialty Start Date End Date Karoline Burgos DO [address] [place] [address] PCP - General Family Medicine 03/19/12 Jannie Reynoso PharmD [address] [place] [address] Pharmacist Internal Medicine 11/18/22 documented as of this encounter
== END 2024-12-08 10:22 | disposition home or self-care (01) ==
LOC: HO.HCS 09:59
PROVIDERS: PCP Family Medicine; Visit Provider Internal Medicine Cardiovascular Disease
DX: I50.30 Unspecified diastolic (congestive) heart failure (principal); I48.0 Paroxysmal atrial fibrillation
CPT/HCPCS: 99214; G2211

== ENCOUNTER → 2024-12-08 09:59 | Outpatient (BNVA) | payer OTHER, SELFPAY | PROVIDERS: PCP Family Medicine; Visit Provider Internal Medicine Cardiovascular Disease | DX: I48.0 Paroxysmal atrial fibrillation (principal); I50.30 Unspecified diastolic (congestive) heart failure | CPT/HCPCS: 99212 ==

== ENCOUNTER 2025-01-26 10:00 | Outpatient (RCR) | payer OTHER, SELFPAY ==
[2024-12-31 10:01] VITALS: BP 109/53; PULSE 59
== END 2025-01-26 11:00 | disposition home or self-care (01) ==
LOC: HO.PT 10:00
PROVIDERS: PCP Family Medicine; Visit Provider Family Medicine
DX: M25.511 Pain in right shoulder (principal); M25.521 Pain in right elbow
CPT/HCPCS: 97110; 97140; 97161